=== PATIENT | female | born 1945 | race Caucasian/White ===

== ENCOUNTER 2016-05-14 08:41 | Outpatient (CLI) | payer MEDICARE, MEDICAID ==
[2016-05-14] MEDS ORDERED: NORMAL SALINE 1000 ML 1,000 ML IV PRN (09:27)
[2016-05-14 09:28] LABS: HEMATOCRIT 28.4 % (36.0-47.0); HEMOGLOBIN 8.3 g/dL (12.0-15.5); HGB HCT DIFFERENCE -3.5; MEAN CORPUSCULAR HEMOGLOBIN 21.1 pg (27.0-33.4); MEAN CORPUSCULAR HGB CONC 29.2 g/dL (32.0-36.0); MEAN CORPUSCULAR VOLUME 73 fl (80-97); RED BLOOD COUNT 3.92 10^6/uL (3.72-5.28); RED CELL DISTRIBUTION WIDTH 19.5 % (11.5-14.0); WHITE BLOOD COUNT 7.5 10^3/uL (4.0-10.5)
[2016-05-14] MEDS ORDERED: NORMAL SALINE 10 ML SDV (AFTER EACH USE) IV PRN (09:28)
[2016-05-14] MEDS ORDERED: ACETAMINOPHEN 325 MG TABLET PO PRN (09:28)
[2016-05-14] MEDS ORDERED: FUROSEMIDE INJ/PF 20 MG/2 ML SDV IV PRN (09:29)
[2016-05-14] MEDS ORDERED: DIPHENHYDRAMINE HCL 25 MG CAPSULE PO PRN (09:29)
[2016-05-14] MEDS ORDERED: DEXAMETHASONE SOD PHOSPHATE INJ 4 MG/1 ML VIAL IV PRN (09:31)
[2016-05-14] MEDS ORDERED: FERRIC CARBOXYMALTOSE 750 MG in NORMAL SALINE 250 ML IV PRN (09:31)
[2016-05-14 13:02] VITALS: BP 154/66
== END 2016-05-14 13:15 | disposition home or self-care (01) ==
LOC: II 08:41 → 5TH 08:51 → II 13:15
PROVIDERS: ATTEND Specialist
PROC: 30233N1 Transfusion of Nonautologous Red Blood Cells into Peripheral Vein, Percutaneous Approach (ICD-10-PCS; principal; 2016-05-14)
PROC: 3E033GC Introduction of Other Therapeutic Substance into Peripheral Vein, Percutaneous Approach (ICD-10-PCS; 2016-05-14)
DX: D64.9 Anemia, unspecified (principal)
CPT/HCPCS: 96365; 96375; 86900; 86901; 36430; 86850; 86920; P9016; A9270 ×2; J1100; J1940; J7050; J1439; 96367

== ENCOUNTER 2016-05-21 09:01 | Outpatient (CLI) | payer MEDICARE, MEDICAID ==
[~2016-05-21 09:01] MED LIST: FERRIC CARBOXYMALTOSE 750 MG in NORMAL SALINE 250 ML IV PRN; NORMAL SALINE 250 ML IV PRN
[2016-05-21 10:56] VITALS: BP 100/50
== END 2016-05-21 10:56 | disposition home or self-care (01) ==
LOC: II 09:01 → 5TH 09:06 → II 10:56
PROVIDERS: ATTEND Specialist
PROC: 3E033GC Introduction of Other Therapeutic Substance into Peripheral Vein, Percutaneous Approach (ICD-10-PCS; principal; 2016-05-21)
DX: D50.9 Iron deficiency anemia, unspecified (principal); K90.9 Intestinal malabsorption, unspecified
CPT/HCPCS: 96365; J7050; J1439

== ENCOUNTER → 2016-05-31 | Outpatient (CLI) | payer MEDICARE, MEDICAID | LOC: RAD 10:31 | PROVIDERS: ATTEND Specialist | DX: C85.90 Non-Hodgkin lymphoma, unspecified, unspecified site (principal) | CPT/HCPCS: 71260 ==

== ENCOUNTER 2016-08-13 12:01 | Day surgery (SDC) | payer MEDICARE, MEDICAID ==
[2016-08-13 15:29] LABS: FLUID TYPE PLEURAL
[2016-08-13 15:30] LABS: FLUID APPEARANCE CLOUDY; FLUID RBC AVERAGE 100.5; FLUID RBC SIDE 1 100; FLUID RBC SIDE 2 101
[2016-08-13 15:31] LABS: FLUID RBC DILUENT USED NONE USED; FLUID RBC DILUTION FACTOR 1; TOTAL RBC SQUARES COUNTED FLD 5
[2016-08-13 16:47] VITALS: BP 143/79
== END 2016-08-13 16:45 | disposition home or self-care (01) ==
LOC: RAD 12:01 → EDSTATUS 13:36 → RAD 16:45
PROVIDERS: ATTEND Specialist
PROC: 0W993ZZ Drainage of Right Pleural Cavity, Percutaneous Approach (ICD-10-PCS; principal; 2016-08-13)
DX: J90 Pleural effusion, not elsewhere classified (principal); E11.9 Type 2 diabetes mellitus without complications; E78.5 Hyperlipidemia, unspecified; J44.9 Chronic obstructive pulmonary disease, unspecified; E03.9 Hypothyroidism, unspecified; I48.91 Unspecified atrial fibrillation; R91.8 Other nonspecific abnormal finding of lung field; C81.90 Hodgkin lymphoma, unspecified, unspecified site; R06.02 Shortness of breath; R05 Cough; Z88.8 Allergy status to other drugs, medicaments and biological substances
CPT/HCPCS: 32555; 71010; 71020; 71035; 84157; 87070; 87075; 87205; 88305; 88341; 88342; 89050

== ENCOUNTER 2016-08-16 16:09 | Inpatient (IN) | payer MEDICARE, MEDICAID ==
[2016-08-16] MEDS ORDERED: IPRATROPIUM/ALBUTEROL 0.5-2.5 MG/3 ML AMPUL NEB ONE (16:54)
[2016-08-16 16:59] LABS: ALANINE AMINOTRANSFERASE 24 U/L (9-52); ALBUMIN 4.1 g/dL (3.5-5.0); ALKALINE PHOSPHATASE 143 U/L (38-126); ANION GAP 14 (5-19); ASPARTATE AMINO TRANSFERASE 18 U/L (14-36); BILIRUBIN,DIRECT 0.2 mg/dL (0.0-0.4); BLOOD UREA NITROGEN 11 mg/dL (7-20); CALCIUM 9.1 mg/dL (8.4-10.2); CARBON DIOXIDE 23 mmol/L (22-30); CHLORIDE 99 mmol/L (98-107); CREATININE RESULT 0.71 mg/dL (0.52-1.25); GLUCOSE 228 mg/dL (75-110); POTASSIUM 5.6 mmol/L (3.6-5.0); SODIUM 136.4 mmol/L (137-145); TOTAL PROTEIN 7.3 g/dL (6.3-8.2)
--- NOTE | 2016-08-16 17:00 | ER Document Report ---
ED Respiratory Problem - General Chief Complaint: Shortness Of Breath Stated Complaint: SHORTNESS OF BREATH Notes: Patient has been congested and short of breath and coughing up phlegm for the past 3 days. She's actually had URI symptoms for the preceding 10 days but got worse in the last 3. She's had a history of fluid in her lungs secondary to congestive heart failure and having to have the fluid removed. She underwent drainage of 1000 mL of fluid this past Tuesday. She underwent the same procedure in May and a couple of times last spring. Patient says that she' s been coughing up yellow phlegm. She has COPD and is a smoker. Unaware of any fever, however. Wears a C Pap device at home when sleeping because of sleep apnea. Patient is followed locally by Dr. 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 Other history as the patient had a benign brain tumor removed. IDDM. TRAVEL OUTSIDE OF THE [place] IN LAST 30 DAYS: No - Related Data Allergies/Adverse Reactions: moxifloxacin HCl [From Avelox] Allergy (Severe, Verified 08/16/16 16:43) rash,itch apixaban [From Eliquis] Allergy (Intermediate, Verified 08/16/16 16:43) swell dabigatran etexilate [From Pradaxa] Allergy (Intermediate, Verified 08/16/16 16: 43) swell lansoprazole [From Prevacid] Allergy (Intermediate, Verified 08/16/16 16:43) Generalized Itching aloe [Aloe] Allergy (Verified 08/16/16 16:43) Home Medications: Current Home Medications Alprazolam [Xanax] 1 mg PO Q8 08/16/16 [History] Aspirin [Aspirin EC] 81 mg PO DAILY 08/16/16 [History] Atorvastatin Calcium [Lipitor 20 mg Tablet] 20 mg PO DAILY 08/16/16 [History] Diltiazem HCl [Cartia Xt] 120 mg PO DAILY 08/16/16 [History] Docusate Sodium [Colace 100 mg Capsule] 100 mg PO Q12 08/16/16 [History] Esomeprazole Mag Trihydrate [Nexium] 40 mg PO DAILY 08/16/16 [History] Furosemide [Lasix] 40 mg PO TID 08/16/16 [History] Gabapentin [Neurontin 300 mg Capsule] 300 mg PO QHS 08/16/16 [History] Insulin Aspart Protam & Aspart [Novolog Mix 70-30 Vial] 25 units SQ MEALS [History] Levothyroxine Sodium [Synthroid] 200 mcg PO DAILY 08/16/16 [History] Magnesium Oxide [Mag-Ox 400 mg Tablet] 400 mg PO Q8 08/16/16 [History] Metoclopramide HCl [Reglan 10 mg Tablet] 10 mg PO Q12 08/16/16 [History] Potassium Chloride [K-Tab ER] 60 meq PO Q8 08/16/16 [History] Past Medical History - Social History Smoking Status: Current Every Day Smoker Cigarette use (# per day): Yes Family History: Reviewed & Not Pertinent Patient has suicidal ideation: No Patient has homicidal ideation: No - Past Medical History Cardiac Medical History: Reports: Hx Congestive Heart Failure, Hx Coronary Artery Disease, Hx Hypertension Denies: Hx Heart Attack Pulmonary Medical History: Reports: Hx Asthma, Hx Bronchitis, Hx COPD, Hx Pneumonia Neurological Medical History: Reports: Hx Cerebrovascular Accident Endocrine Medical History: Reports: Hx Diabetes Mellitus Type 1, Hx Diabetes Mellitus Type 2, Hx Hypothyroidism Malignancy Medical History: Reports: Hx Lymphoma - remission x 10yrs GI Medical History: Reports: Hx Gastroesophageal Reflux Disease Musculoskeltal Medical History: Reports Hx Arthritis Past Surgical History: Reports: Hx Appendectomy, Hx Cholecystectomy, Hx Hysterectomy, Hx Tonsillectomy, Hx Vascular Surgery - lymphnodes removed from groin and neck, Other - Benign brain tumor surgery. - Immunizations Hx Diphtheria, Pertussis, Tetanus Vaccination: No Hx Pneumococcal Vaccination: 01/16/13 Review of Systems - Review of Systems Notes: REVIEW OF SYSTEMS: CONSTITUTIONAL : Denies fever. EENT: Denies eye, ear, nose or mouth or throat pain or other symptoms. CARDIOVASCULAR: Denies chest pain. RESPIRATORY: See history of present illness. GASTROINTESTINAL: Denies abdominal pain or nausea, vomiting, or diarrhea. GENITOURINARY: Denies difficulty or painful urinating, urinary frequency, blood in urine. MUSCULOSKELETAL: Denies back or neck pain. Denies joint pain or swelling. SKIN: Denies rash or skin lesions. NEUROLOGICAL: Denies LOC or altered mental status. Denies headache. Denies sensory loss or motor deficits. ALL OTHER SYSTEMS REVIEWED AND NEGATIVE. Physical Exam - Vital signs Vitals: Resp Pulse Ox 19 99 08/16/16 16:48 08/16/16 16:48 Interpretation: Other - Vital signs at triage: 98.5, heart rate 125, BP 15 1/67 , respirations 27, and O2 sat 79%. - Notes Notes: PHYSICAL EXAMINATION: GENERAL: Chronically ill-appearing. Asked sleepy, but responds to voice questions and commands. Vital signs show hypoxia, tachypnea, tachycardia. Afebrile.. HEAD: Atraumatic, normocephalic. EYES: Pupils equal round and reactive to light, extraocular movements intact. NECK: Normal range of motion, supple. LUNGS: Breath sounds equal bilaterally. Diffuse expiratory wheezes heard bilaterally. HEART: Regular rate and rhythm without murmurs. ABDOMEN: Soft, nontender. No guarding or rebound. BACK: No tenderness throughout entire back. EXTREMITIES: Normal range of motion without pain. No acute pitting edema of either lower extremity. NEUROLOGICAL: Normal speech, normal gait. Normal sensory, motor, and reflex exams. Awake, alert, and oriented x3. Cranial nerves normal. PSYCH: Normal mood, normal affect. SKIN: Warm, dry, no rashes. Chronic dermatitis of both lower legs. Course - Re-evaluation Re-evalutation: 08/16/16 18:[address] Nguyen, hospitalist professional bondsman, who will admit the patient to [facility]. - Vital Signs Vital signs: Temp Pulse Resp BP Pulse Ox 22 H 167/82 H 89 L 08/16/16 20:01 08/16/16 20:01 08/16/16 20:01 - Laboratory Result Diagrams: 08/16/16 16:30 08/16/16 16:30 Laboratory results interpreted by me: 08/16/16 08/16/16 08/16/16 16:30 16:30 16:30 RBC 3.20 L Hgb 7.7 L Hct 24.8 L MCV 78 L MCH 24.0 L MCHC 30.9 L RDW 18.2 H Plt Count 144 L Seg Neutrophils % 87.8 H Lymphocytes % 6.8 L VBG pCO2 33.0 L VBG HCO3 17.7 L Sodium 136.4 L Potassium 5.6 H Glucose 228 H Alkaline Phosphatase 143 H Urine Protein 08/16/16 18:40 RBC Hgb Hct MCV MCH MCHC RDW Plt Count Seg Neutrophils % Lymphocytes % VBG pCO2 VBG HCO3 Sodium Potassium Glucose Alkaline Phosphatase Urine Protein 30 H - Diagnostic Test Radiology reviewed: Image reviewed, Reports reviewed - Chest x-ray shows a possible infiltrate in the right middle lower lobe area. In addition, there is a small area of pneumothorax on the right. - EKG Interpretation by Me EKG shows normal: Sinus rhythm Rate: Tachycardia Rhythm: NSR Additional EKG results interpreted by me: 08/16/16 17:09 EKG shows a left posterior fascicular block. No acute changes noted. Critical Care Note - Critical Care Note Total time excluding time spent on procedures (mins): 40 Discharge - Discharge Clinical Impression: COPD exacerbation, Pneumothorax, right Admitting Provider: Hospitalist Unit Admitted: [facility]
[2016-08-16 17:01] LABS: ABSOLUTE BASOPHILS # (AUTO) 0.1 10^3/uL (0.0-0.2); ABSOLUTE LYMPHOCYTES (AUTO) 0.6 10^3/uL (0.5-4.7); ABSOLUTE MONOCYTES (AUTO) 0.3 10^3/uL (0.1-1.4); ABSOLUTE NEUT (AUTO) 7.1 10^3/uL (1.7-8.2); BASOPHILS % (AUTO) 1.2 % (0-2); EOSINOPHILS % (AUTO) 0.1 % (0-6); HEMATOCRIT 24.8 % (36.0-47.0); HGB HCT DIFFERENCE -1.7; LYMPHOCYTES % (AUTO) 6.8 % (13-45); MEAN CORPUSCULAR HGB CONC 30.9 g/dL (32.0-36.0); MEAN CORPUSCULAR VOLUME 78 fl (80-97); MONOCYTES % (AUTO) 4.1 % (3-13); RED CELL DISTRIBUTION WIDTH 18.2 % (11.5-14.0); SEGMENTED NEUTROPHILS % (AUTO) 87.8 % (42-78); WHITE BLOOD COUNT 8.1 10^3/uL (4.0-10.5)
[2016-08-16 17:03] LABS: VENOUS BLOOD BASE EXCESS -6.9 mmol/L; VENOUS BLOOD HCO3 17.7 mmol/L (20-32); VENOUS BLOOD PH 7.35 (7.30-7.42)
[2016-08-16 17:07] LABS: HEMOGLOBIN 7.7 g/dL (12.0-15.5)
[2016-08-16 17:14] LABS: CREATINE KINASE MB 1.83 ng/mL (<4.55)
[2016-08-16 17:23] LABS: TROPONIN I 0.035 ng/mL
--- NOTE | 2016-08-16 18:20 | EKG REPORT ---
SEVERITY:- ABNORMAL ECG - SINUS TACHYCARDIA LEFT POSTERIOR FASCICULAR BLOCK BORDERLINE REPOL ABNORMALITY, DIFFUSE LEADS : Confirmed by: Galen Altamirano MD 16-Aug-2016 18:19:57
[2016-08-16 19:07] LABS: APPEARANCE,URINE CLEAR; BILIRUBIN,URINE NEGATIVE (NEGATIVE); GLUCOSE, URINE NEGATIVE (NEGATIVE); KETONES,URINE NEGATIVE (NEGATIVE); LEUKOCYTE ESTERASE,URINE NEGATIVE (NEGATIVE); NITRITE,URINE NEGATIVE (NEGATIVE); PROTEIN,URINE 30 mg/dL (NEGATIVE); URINE SPECIFIC GRAVITY 1.012; UROBILINOGEN,URINE NEGATIVE mg/dL (<2.0)
[2016-08-16] MEDS ORDERED: GLUCAGON,HUMAN RECOMB 1 MG INJ SUBCUT PRN (19:38)
[2016-08-16] MEDS ORDERED: DEXTROSE 40% GEL 15 GM TUBE PO PRN ×2 (19:38)
[2016-08-16] MEDS ORDERED: DEXTROSE 50%-WATER 25 GM/50 ML DISP.SYRIN IV PRN ×2 (19:38)
--- NOTE | 2016-08-16 19:59 | PDOC H&P ---
History of Present Illness Admission Date/PCP: 08/16/16 18:57 MD Margi LANG Patient complains of: Shortness of breath History of Present Illness: SITA MANRIQUE is a 70 year old female We will underwent on Sunday 08/13 thoracentesis at [facility] interventional radiology for a large right pleural effusion Patient did well on Tuesday since Tuesday she had increasing shortness of breath and cough Upon evaluation in the ED patient was diagnosed of the right pneumothorax, general surgery was called and the chest tube was to be inserted Patient was subsequently admitted under hospitalist service to the intensive care unit for further evaluation and care Patient has a known history of chest, COPD ,obstructive sleep apnea. She still a heavy smoker of 2 packs a day She is followed by Dr. De Anda non-Hodgkin's lymphoma which she is now still in remission after 12 years Past Medical History Cardiac Medical History: Reports: Congestive Heart Failure, Coronary Artery Disease, Hypertension Denies: Myocardial Infarction Pulmonary Medical History: Reports: Asthma, Bronchitis, Chronic Obstructive Pulmonary Disease (COPD), Pneumonia Endocrine Medical History: Reports: Diabetes Mellitus Type 1, Diabetes Mellitus Type 2, Hypothyroidism Malignancy Medical History: Reports: Lymphoma - remission x 10yrs GI Medical History: Reports: Gastroesophageal Reflux Disease Musculoskeltal Medical History: Reports: Arthritis Hematology: Reports: Anemia Past Surgical History Past Surgical History: Reports: Appendectomy, Cholecystectomy, Hysterectomy, Tonsillectomy, Vascular Surgery - lymphnodes removed from groin and neck, Other - Benign brain tumor surgery. Social History Lives with: Family Smoking Status: Current Every Day Smoker Cigarettes Packs Per Day: 60 Frequency of Alcohol Use: None Hx Recreational Drug Use: No Drugs: None Hx Prescription Drug Abuse: No - Advance Directive Resuscitation Status: Full Code Surrogate healthcare decision maker:: Her daughter Celina Family History Family History: CAD, DM, Malignancy Parental Family History Reviewed: Yes Children Family History Reviewed: Yes Sibling(s) Family History Reviewed.: Yes Medication/Allergy Home Medications: Alprazolam [Xanax] 1 mg PO TID 12/23/14 Atorvastatin Calcium [Lipitor 20 mg Tablet] 20 mg PO QHS 12/23/14 Docusate Sodium [Colace 100 mg Capsule] 100 mg PO BID 12/23/14 Esomeprazole Mag Trihydrate [Nexium] 40 mg PO DAILY 12/23/14 Furosemide [Lasix 40 mg Tablet] 40 mg PO TID 12/23/14 Gabapentin [Neurontin 300 mg Capsule] 300 mg PO QHS 12/23/14 Levothyroxine Sodium [Synthroid] 200 mcg PO DAILY 12/23/14 Magnesium Oxide [Mag-Ox 400 mg Tablet] 400 mg PO BID 12/23/14 Metoclopramide HCl [Reglan 10 mg Tablet] 10 mg PO BID 12/23/14 Potassium Chloride [Klor-Con] 180 meq PO DAILY 12/23/14 Diltiazem HCl [Cartia Xt] 120 mg PO DAILY 06/15/15 Aspirin [Aspirin EC] 1 tab PO DAILY 11/11/15 Cholecalciferol (Vitamin D3) [Vitamin D3 1000 Unit Tablet] 1 tab PO DAILY Insulin Aspart Protam & Aspart [Novolog Mix 70-30 Flexpen Syrn] 20 units SUBCUT TID 11/11/15 Albuterol Sulfate [Ventolin Hfa] 2 puff IH Q4 PRN 05/14/16 Amoxicillin 500 mg PO BID 05/14/16 Prednisone 10 mg PO DAILY 05/14/16 Allergies/Adverse Reactions: moxifloxacin HCl [From Avelox] Allergy (Severe, Verified 08/16/16 16:43) rash,itch apixaban [From Eliquis] Allergy (Intermediate, Verified 08/16/16 16:43) swell dabigatran etexilate [From Pradaxa] Allergy (Intermediate, Verified 08/16/16 16: 43) swell lansoprazole [From Prevacid] Allergy (Intermediate, Verified 08/16/16 16:43) Generalized Itching aloe [Aloe] Allergy (Verified 08/16/16 16:43) Review of Systems ROS unobtainable: Other - Due to BiPAP Physical Exam Vital Signs: Temp Pulse Resp BP Pulse Ox 15 135/84 H 100 08/16/16 18:01 08/16/16 18:01 08/16/16 18:01 General appearance: PRESENT: mild distress, obese Head exam: PRESENT: atraumatic, normocephalic Eye exam: PRESENT: conjunctiva pink, EOMI, PERRLA. ABSENT: scleral icterus Neck exam: ABSENT: carotid bruit, JVD, lymphadenopathy, thyromegaly Respiratory exam: PRESENT: decreased breath sounds, rhonchi, wheezes. ABSENT: rales Cardiovascular exam: PRESENT: RRR, tachycardia Pulses: PRESENT: normal dorsalis pedis pul Vascular exam: PRESENT: normal capillary refill GI/Abdominal exam: PRESENT: normal bowel sounds, soft. ABSENT: distended, guarding, mass, organolmegaly, rebound, tenderness Rectal exam: PRESENT: deferred Neurological exam: PRESENT: alert, awake, oriented to person, oriented to place , oriented to time, oriented to situation, CN II-XII grossly intact. ABSENT: motor sensory deficit Skin exam: PRESENT: dry, intact, warm. ABSENT: cyanosis, rash Results Laboratory Results: Labs- All tests 24 hr 08/16/16 08/16/16 08/16/16 16:30 16:30 16:30 WBC 8.1 RBC 3.20 L Hgb 7.7 L Hct 24.8 L MCV 78 L MCH 24.0 L MCHC 30.9 L RDW 18.2 H Plt Count 144 L Seg Neutrophils % 87.8 H Lymphocytes % 6.8 L Monocytes % 4.1 Eosinophils % 0.1 Basophils % 1.2 Absolute Neutrophils 7.1 Absolute Lymphocytes 0.6 Absolute Monocytes 0.3 Absolute Eosinophils 0.0 Absolute Basophils 0.1 VBG pH VBG pCO2 VBG HCO3 VBG Base Excess Sodium 136.4 L Potassium 5.6 H Chloride 99 Carbon Dioxide 23 Anion Gap 14 BUN 11 Creatinine 0.71 Est GFR ( Amer) > 60 Est GFR (Non-Af Amer) > 60 Glucose 228 H Calcium 9.1 Total Bilirubin 1.0 Direct Bilirubin 0.2 Indirect Bilirubin Not Reportable Neonat Total Bilirubin Not Reportable AST 18 ALT 24 Alkaline Phosphatase 143 H CK-MB (CK-2) 1.83 Troponin I 0.035 Total Protein 7.3 Albumin 4.1 Urine Color Urine Appearance Urine pH Ur Specific [place] Urine Protein Urine Glucose (UA) Urine Ketones Urine Blood Urine Nitrite Urine Bilirubin Urine Urobilinogen Ur Leukocyte Esterase Urine WBC (Auto) Urine RBC (Auto) U Hyaline Cast (Auto) Squamous Epi Cells Auto Urine Ascorbic Acid 08/16/16 08/16/16 16:30 18:40 WBC RBC Hgb Hct MCV MCH MCHC RDW Plt Count Seg Neutrophils % Lymphocytes % Monocytes % Eosinophils % Basophils % Absolute Neutrophils Absolute Lymphocytes Absolute Monocytes Absolute Eosinophils Absolute Basophils VBG pH 7.35 VBG pCO2 33.0 L VBG HCO3 17.7 L VBG Base Excess -6.9 Sodium Potassium Chloride Carbon Dioxide Anion Gap BUN Creatinine Est GFR ( Amer) Est GFR (Non-Af Amer) Glucose Calcium Total Bilirubin Direct Bilirubin Indirect Bilirubin Neonat Total Bilirubin AST ALT Alkaline Phosphatase CK-MB (CK-2) Troponin I Total Protein Albumin Urine Color YELLOW Urine Appearance CLEAR Urine pH 6.0 Ur Specific [place] 1.012 Urine Protein 30 H Urine Glucose (UA) NEGATIVE Urine Ketones NEGATIVE Urine Blood NEGATIVE Urine Nitrite NEGATIVE Urine Bilirubin NEGATIVE Urine Urobilinogen NEGATIVE Ur Leukocyte Esterase NEGATIVE Urine WBC (Auto) 1 Urine RBC (Auto) 0 U Hyaline Cast (Auto) 3 Squamous Epi Cells Auto 2 Urine Ascorbic Acid NEGATIVE EKG Comments: SINUS TACHYCARDIA [LPFB] . LEFT POSTERIOR FASCICULAR BLOCK [REPBDI] . BORDERLINE REPOL ABNORMALITY, DIFFUSE LEADS [id number] SITA MANRIQUE 16-Aug-2016 16:34:43 : 1945 70 Years Female Race: White Dept: ED Oper: V VELTEN HR 125 OH 96 QRSD 108 QT 332 QTc 479 -- AXIS -- P 0 QRS 90 T -8 Requested By: SIGIFREDO AMIN Impressions: Chest X-Ray 08/16/16 16:31 IMPRESSION: 1. A a an infiltrate cannot be ruled out in the right middle lower lower lobe. 2. There is now an air-fluid level in the right base suggesting partial pneumothorax. This is likewise suggested in the right apex or bleed the pleural line of the lung can be seen obliquely. Assessment & Plan - Diagnosis (1) Hydropneumothorax Is this a current diagnosis for this admission?: YesPlan: Dr. De Anda general surgery was called a consult to place a chest tube Patient was taken off BiPAP and placed on a nasal cannula (2) COPD exacerbation Is this a current diagnosis for this admission?: YesPlan: Likely as patient has had increasing shortness of breath We will treat her with nebs and steroids after chest tubes has been placed (3) Congestive heart failure Qualifiers: Congestive heart failure type: diastolic Congestive heart failure chronicity: acute on chronic Qualified Code(s): I50.33 - Acute on chronic diastolic (congestive) heart failure Is this a current diagnosis for this admission?: YesPlan: Last echocardiogram in 2014 showed a normal left ventricular ejection fraction Patient appears clinically fluid overloaded We will diurese her gently We will continue her present medications (4) Tobacco abuse Is this a current diagnosis for this admission?: YesPlan: Nicotine patch will be applied (5) Pneumonia Qualifiers: Pneumonia type: due to unspecified organism Laterality: unspecified laterality Lung location: unspecified part of lung Qualified Code(s) : J18.9 - Pneumonia, unspecified organism Is this a current diagnosis for this admission?: YesPlan: Cannot be ruled out Patient states that she's been coughing up yellow mucus We will treat her with Zithromax IV and ceftriaxone Noted that patient is allergic to moxifloxacin - Time Time Spent: Greater than 70 Minutes - Inpatient Certification Based on my medical assessment, after consideration of the patient's comorbidities, presenting symptoms, or acuity I expect that the services needed warrant INPATIENT care.: Yes I certify that my determination is in accordance with my understanding of Medicare's requirements for reasonable and necessary INPATIENT services [42 CFR 412.3e].: Yes Medical Necessity: Need For Continuous Telemetry Monitoring, Need for Nebulizer Therapy and Monitoring of Response, Need for IV Antibiotics
[2016-08-16] MEDS ORDERED: LIDOCAINE 1% INJ-PF (10 MG/ML) 30 ML SDV ONE (20:48)
[2016-08-16] MEDS ORDERED: PANTOPRAZOLE SODIUM 40 MG VIAL IV SCH (22:00)
[2016-08-16] MEDS ORDERED: HYDROMORPHONE HCL INJ/PF 2 MG/ML AMPULE ONE (22:03)
[2016-08-16] MEDS ORDERED: LORAZEPAM INJ 2 MG/1 ML VIAL ONE (22:04)
[2016-08-16] MEDS ORDERED: LORAZEPAM INJ 2 MG/1 ML VIAL IV ONE (22:06)
[2016-08-16] MEDS ORDERED: HYDROMORPHONE HCL INJ/PF 2 MG/ML AMPULE IV ONE (22:07)
[2016-08-16] MEDS: METHYLPREDNISOLONE INJ 125 MG/2 ML SDV IV SCH (23:59)
[2016-08-17] MEDS: CEFTRIAXONE 1 GM/D5W RTU 1 GM/50 ML RTUPB IV SCH ×2 (00:01→23:21)
[2016-08-17] MEDS: AZITHROMYCIN 500 MG in DEXTROSE 5%-WATER 250 ML IV SCH ×2 (00:02→23:19)
[2016-08-17] MEDS: FUROSEMIDE INJ/PF 40 MG/4 ML SDV IV SCH ×3 (00:09→23:20)
--- NOTE | 2016-08-17 00:18 | OPERATIVE REPORT E ---
Operative Report NAME: SITA MANRIQUE : 1945 AGE: 70Y DATE OF SURGERY: 09/16/2016 ROOM: 609 PREOPERATIVE DIAGNOSIS: Right pleural effusion along with pneumothorax. POSTOPERATIVE DIAGNOSIS: Right pleural effusion along with pneumothorax. OPERATION: Placement of right chest tube. SURGEON: EUSEBIA DEAN M.D. ANESTHESIA: Local done in the intensive care unit. INFORMED CONSENT: The risks and possible complications of right chest tube placement have been explained to patient, including but not limited to bleeding, infection, anesthesia risks, heart and lung problems, wound healing problems, continued pneumothorax, injuries to the chest causing bleeding or other major complications needing further procedure, continued need for further procedures if not fully drained, pain, wound infection, empyema, etc. She accepts the risks. PROCEDURE: The patient's right chest was then prepped and draped in the usual sterile fashion. The skin overlying the 5th intercostal on the right side was injected with 1% lidocaine near the mid axillary line. An incision was then made in the skin. It was carried down to the 5th rib. The 4th intercostal space was then entered overlying the 5th rib. A #36 chest tube was then placed through the incision, through the opening in the pleura, and into the right chest. There was a significant amount of fluid being drained. The chest tube was then secured to the skin using #0 silk suture. Vaseline gauze was then placed around the insertion site and then dry dressings along with tape. A stat chest x-ray was ordered. No immediate complications. The patient had 1200 mL of serous fluid draining out through the chest tube along with approximately 300-400 mL draining onto the bed. DICTATING PHYSICIAN: EUSEBIA DEAN M.D. [id number] PHY#: [id number] ID: [id number] JOB#: [id number] ACCT: [id number] cc:EUSEBIA DEAN M.D. >
[2016-08-17] MEDS: HYDROMORPHONE HCL INJ/PF 2 MG/ML AMPULE IV PRN ×6 (01:49→23:17)
[2016-08-17 03:15] LABS: FLUID APPEARANCE CLOUDY; FLUID RBC SIDE 1 177; FLUID RBC SIDE 2 173; FLUID TYPE PLEURAL
[2016-08-17 03:16] LABS: FLUID RBC DILUENT USED SALINE; FLUID RBC DILUTION FACTOR 10; TOTAL RBC SQUARES COUNTED FLD 25
[2016-08-17 04:01] LABS: PROTHROMBIN TIME 13.7 SEC (11.4-15.4)
[2016-08-17 04:07] LABS: ABSOLUTE BASOPHILS # (AUTO) 0.1 10^3/uL (0.0-0.2); ABSOLUTE LYMPHOCYTES (AUTO) 0.6 10^3/uL (0.5-4.7); ABSOLUTE MONOCYTES (AUTO) 0.8 10^3/uL (0.1-1.4); ABSOLUTE NEUT (AUTO) 10.8 10^3/uL (1.7-8.2); ALANINE AMINOTRANSFERASE 24 U/L (9-52); ALBUMIN 3.6 g/dL (3.5-5.0); ALKALINE PHOSPHATASE 120 U/L (38-126); ANION GAP 11 (5-19); ASPARTATE AMINO TRANSFERASE 14 U/L (14-36); BASOPHILS % (AUTO) 0.6 % (0-2); BILIRUBIN,DIRECT 0.3 mg/dL (0.0-0.4); BILIRUBIN,TOTAL 0.9 mg/dL (0.2-1.3); BLOOD UREA NITROGEN 14 mg/dL (7-20); CALCIUM 8.8 mg/dL (8.4-10.2); CARBON DIOXIDE 26 mmol/L (22-30); CHLORIDE 101 mmol/L (98-107); CREATININE RESULT 0.82 mg/dL (0.52-1.25); GLUCOSE 209 mg/dL (75-110); HEMATOCRIT 22.1 % (36.0-47.0); HGB HCT DIFFERENCE -1.4; LYMPHOCYTES % (AUTO) 5.2 % (13-45); MEAN CORPUSCULAR HEMOGLOBIN 23.7 pg (27.0-33.4); MEAN CORPUSCULAR HGB CONC 31.2 g/dL (32.0-36.0); MEAN CORPUSCULAR VOLUME 76 fl (80-97); MONOCYTES % (AUTO) 6.7 % (3-13); POTASSIUM 5.3 mmol/L (3.6-5.0); RED CELL DISTRIBUTION WIDTH 18.3 % (11.5-14.0); SEGMENTED NEUTROPHILS % (AUTO) 87.5 % (42-78); TOTAL PROTEIN 6.8 g/dL (6.3-8.2); WHITE BLOOD COUNT 12.3 10^3/uL (4.0-10.5)
[2016-08-17 04:25] LABS: HEMOGLOBIN 6.9 g/dL (12.0-15.5)
[2016-08-17] MEDS: METHYLPREDNISOLONE INJ 125 MG/2 ML SDV IV SCH (06:14)
[2016-08-17] MEDS ORDERED: DEXTROSE 50%-WATER 25 GM/50 ML DISP.SYRIN IV PRN ×2 (07:45)
[2016-08-17] MEDS ORDERED: GLUCAGON,HUMAN RECOMB 1 MG INJ IM PRN (07:45)
[2016-08-17] MEDS ORDERED: DEXTROSE 40% GEL 15 GM TUBE PO PRN ×2 (07:45)
--- NOTE | 2016-08-17 07:55 | EKG REPORT ---
SEVERITY:- ABNORMAL ECG - SINUS TACHYCARDIA MINIMAL ST DEPRESSION, DIFFUSE LEADS : Confirmed by: Galen Altamirano MD 17-Aug-2016 07:54:38
[2016-08-17] MEDS ORDERED: INSULIN ASPART PROTAM SQ SCH (08:00)
[2016-08-17] MEDS ORDERED: [UNRECOGNIZED DRUG - OTHER] SQ SCH (08:00)
[2016-08-17] MEDS ORDERED: ASPART SQ SCH (08:00)
--- NOTE | 2016-08-17 08:01 | PDOC PROGRESS REPORT ---
Subjective Progress Note for:: 08/17/16 Subjective:: Patient complains of pain at right chest tube site. Patient denies fever, chills , headache, new focal weakness, shortness of breath, abdominal pain, nausea, vomiting, diarrhea, constipation. Physical Exam Vital Signs: Temp Pulse Resp BP Pulse Ox 98.2 F 102 H 12 115/64 96 08/17/16 06:27 08/17/16 06:27 08/17/16 06:29 08/17/16 06:29 08/17/16 06:29 Intake & Output 08/16/16 08/17/16 08/18/16 06:59 06:59 06:59 Intake Total 0 Output Total 0 Balance 0 Weight 88.4 kg GENERAL: No acute distress HEENT: Conjunctiva clear, nonicteric, moist mucous membranes, no JVD, midline trachea RESPIRATORY: Right anterior lung field rhonchi, right chest tube CARDIAC: Regular rate and rhythm, no murmurs/gallops/rubs ABDOMEN: Soft, nondistended, nontender, positive bowel sounds, no rebound, no guarding EXTREMETIES: No edema, cyanosis, clubbing NEUROLOGIC: Alert, oriented to person/place/time, CN's grossly intact, no focal deficits SKIN: No rash, wounds PSYCH: Normal mood, normal affect Results Laboratory Results: 08/17/16 03:36 08/17/16 03:36 08/17/16 08/17/16 08/17/16 01:50 03:36 03:36 WBC 12.3 H RBC 2.90 L Hgb 6.9 L Hct 22.1 L MCV 76 L MCH 23.7 L MCHC 31.2 L RDW 18.3 H Plt Count 131 L Seg Neutrophils % 87.5 H Lymphocytes % 5.2 L Monocytes % 6.7 Eosinophils % 0.0 Basophils % 0.6 Absolute Neutrophils 10.8 H Absolute Lymphocytes 0.6 Absolute Monocytes 0.8 Absolute Eosinophils 0.0 Absolute Basophils 0.1 Sodium 138.0 Potassium 5.3 H Chloride 101 Carbon Dioxide 26 Anion Gap 11 BUN 14 Creatinine 0.82 Est GFR ( Amer) > 60 Est GFR (Non-Af Amer) > 60 Glucose 209 H Calcium 8.8 Total Bilirubin 0.9 AST 14 ALT 24 Alkaline Phosphatase 120 Total Protein 6.8 Albumin 3.6 Fluid Type PLEURAL Fluid Source LUNG Fluid Color ORANGE Fluid Appearance CLOUDY Fluid Viscosity LIQUID Fluid WBC 1035 Fluid RBC [id number] 08/17/16 03:36 NT-Pro-B Natriuret Pep 1860 H Impressions: Chest X-Ray 08/17/16 06:00 IMPRESSION: [id number] mixed interstitial and airspace opacities and small left effusion with some interval interval improved aeration of the right lower lung field. Right chest tube. Assessment & Plan - Diagnosis (1) Acute and chronic respiratory failure ([id number]) Is this a current diagnosis for this admission?: YesPlan: Continue BiPAP at night for obstructive sleep apnea. (2) Hydropneumothorax Is this a current diagnosis for this admission?: YesPlan: Resulted from recent diagnostic thoracentesis. Status post chest tube placement. Surgery managing. (3) Bilateral pneumonia Qualifiers: Pneumonia type: due to unspecified organism Lung location: lower lobe of lung Qualified Code(s): J18.9 - Pneumonia, unspecified organism Is this a current diagnosis for this admission?: YesPlan: Continue IV Rocephin and IV azithromycin for now. (4) Acute CHF Qualifiers: Congestive heart failure type: unspecified congestive heart failure type Qualified Code(s): I50.9 - Heart failure, unspecified Is this a current diagnosis for this admission?: YesPlan: Echocardiogram from 2 years ago shows normal EF, no evidence of diastolic dysfunction, no significant valvular disease. Patient states that she is followed by a semiconductor manufacturing technician but doesn't remember his name. Continue IV Lasix for now. (5) Acute post-hemorrhagic anemia Is this a current diagnosis for this admission?: YesPlan: Transfuse 1 unit PRBC. Follow-up H&H. (6) COPD (chronic obstructive pulmonary disease) Is this a current diagnosis for this admission?: YesPlan: When necessary duo nebs. (7) Lymphoma in remission Is this a current diagnosis for this admission?: YesPlan: Followed by Dr. Fatimah De Anda of oncology. Consult Dr. De Anda (8) Hyperkalemia Is this a current diagnosis for this admission?: YesPlan: Continue to hold outpatient potassium supplementation. Continue IV Lasix. (9) Diabetes mellitus type 1 Is this a current diagnosis for this admission?: YesPlan: Scheduled 70/30 insulin 25 units twice daily. Sliding scale insulin coverage. (10) Hypothyroidism Is this a current diagnosis for this admission?: YesPlan: Synthroid (11) Hypercholesterolemia Is this a current diagnosis for this admission?: Yes (12) Hypertension Is this a current diagnosis for this admission?: Yes (13) Tobacco abuse Is this a current diagnosis for this admission?: Yes - Time Time Spent with patient: 35 or more minutes
[2016-08-17] MEDS: LEVOTHYROXINE SODIUM 0.1 MG TABLET PO SCH (09:07)
[2016-08-17] MEDS: METOCLOPRAMIDE HCL 10 MG TABLET PO SCH ×2 (09:07→23:18)
[2016-08-17] MEDS: DOCUSATE SODIUM 100 MG CAPSULE PO SCH ×2 (09:07→23:18)
[2016-08-17] MEDS ORDERED: (PENDING PHARMACY ID) (Esomeprazole Mag Trihydrate [Nexium] 40 MG) PO SCH (10:00)
[2016-08-17] MEDS: INSULIN LISPRO 100 UNIT/ML 3 ML VIAL SUBCUT PRN ×3 (11:46→23:17)
[2016-08-17] MEDS: MAGNESIUM OXIDE 400 MG TABLET PO SCH ×2 (14:14→23:18)
[2016-08-17] MEDS: IPRATROPIUM/ALBUTEROL 0.5-2.5 MG/3 ML AMPUL NEB PRN ×2 (14:22→21:04)
--- NOTE | 2016-08-17 19:51 | PDOC CONSULTATION ---
Consultation Consult Date: 08/17/16 Consult reason:: Remote h/o NHL History of Present Illness Admission Date/PCP: 08/16/16 19:38 SPRING DEAN MD History of Present Illness: SITA MANRIQUE is a 70 year old female with a remote h/o NHL as well as ongoing tobacco abuse, HTN, sleep apnea, afib with prior CVA and heme + stools treated with iron who was admitted with hemopneumothorax. She had worsening shortness of breath last week and CXR revealed a pleural effusion. Given her symptoms, she underwent [place] [facility] [place] [place] [place] a large right pleural effusion with relief of her symptoms. Patient did well on Tuesday but since Tuesday she had increasing shortness of breath and cough. She thought it was a COPD exacerbation but we referred her to the ED for concerns for possible other etiologies. Upon evaluation in the ED patient she was diagnosed with a right pneumothorax, general surgery was called and the chest tube was inserted Patient was subsequently admitted under hospitalist service to the intensive care unit for further evaluation and care Patient has a known history of chest, COPD ,obstructive sleep apnea. She still a heavy smoker of 2 packs a day She has a h/o non-Hodgkin's lymphoma which she is now still in remission after 12 years with recent cytology from her effusion negative. Past Medical History Cardiac Medical History: Reports: Congestive Heart Failure, Coronary Artery Disease, Hypertension Denies: Myocardial Infarction Pulmonary Medical History: Reports: Asthma, Bronchitis, Chronic Obstructive Pulmonary Disease (COPD), Pneumonia Endocrine Medical History: Reports: Diabetes Mellitus Type 1, Diabetes Mellitus Type 2, Hypothyroidism Malignancy Medical History: Reports: Lymphoma - remission x 10yrs GI Medical History: Reports: Gastroesophageal Reflux Disease Musculoskeltal Medical History: Reports: Arthritis Hematology: Reports: Anemia Past Surgical History Past Surgical History: Reports: Appendectomy, Cholecystectomy, Hysterectomy, Tonsillectomy, Vascular Surgery - lymphnodes removed from groin and neck, Other - Benign brain tumor surgery. Social History Lives with: Family Smoking Status: Current Every Day Smoker Cigarettes Packs Per Day: 2 Frequency of Alcohol Use: None Hx Recreational Drug Use: No Drugs: None Hx Prescription Drug Abuse: No - Advance Directive Resuscitation Status: Full Code Family History Family History: Reviewed & Not Pertinent Parental Family History Reviewed: Yes Children Family History Reviewed: Yes Sibling(s) Family History Reviewed.: Yes Medication/Allergy Home Medications: Alprazolam [Xanax] 1 mg PO Q8 08/16/16 Aspirin [Aspirin EC] 81 mg PO DAILY 08/16/16 Atorvastatin Calcium [Lipitor 20 mg Tablet] 20 mg PO DAILY 08/16/16 Diltiazem HCl [Cartia Xt] 120 mg PO DAILY 08/16/16 Docusate Sodium [Colace 100 mg Capsule] 100 mg PO Q12 08/16/16 Esomeprazole Mag Trihydrate [Nexium] 40 mg PO DAILY 08/16/16 Furosemide [Lasix] 40 mg PO TID 08/16/16 Gabapentin [Neurontin 300 mg Capsule] 300 mg PO QHS 08/16/16 Insulin Aspart Protam & Aspart [Novolog Mix 70-30 Vial] 25 units SQ MEALS Levothyroxine Sodium [Synthroid] 200 mcg PO DAILY 08/16/16 Magnesium Oxide [Mag-Ox 400 mg Tablet] 400 mg PO Q8 08/16/16 Metoclopramide HCl [Reglan 10 mg Tablet] 10 mg PO Q12 08/16/16 Potassium Chloride [K-Tab ER] 60 meq PO Q8 08/16/16 Allergies/Adverse Reactions: moxifloxacin HCl [From Avelox] Allergy (Severe, Verified 08/16/16 16:43) rash,itch apixaban [From Eliquis] Allergy (Intermediate, Verified 08/16/16 16:43) swell dabigatran etexilate [From Pradaxa] Allergy (Intermediate, Verified 08/16/16 16: 43) swell lansoprazole [From Prevacid] Allergy (Intermediate, Verified 08/16/16 16:43) Generalized Itching aloe [Aloe] Allergy (Verified 08/16/16 16:43) Review of Systems Cardiovascular: PRESENT: dyspnea on exertion Respiratory: PRESENT: dyspnea Genitourinary: PRESENT: as per HPI Musculoskeletal: PRESENT: as per HPI Physical Exam Vital Signs: Temp Pulse Resp BP Pulse Ox 98.4 F 122 H 12 117/60 97 08/17/16 16:00 08/17/16 16:00 08/17/16 18:00 08/17/16 16:23 08/17/16 18:00 Intake & Output 08/16/16 08/17/16 08/18/16 06:59 06:59 06:59 Intake Total 0 1124 Output Total 0 5 Balance 0 -901 Weight 88.4 kg General appearance: PRESENT: mild distress Head exam: PRESENT: atraumatic Eye exam: PRESENT: conjunctiva pale, EOMI, PERRLA Respiratory exam: PRESENT: chest wall tenderness, prolonged expiratory phas Cardiovascular exam: PRESENT: RRR GI/Abdominal exam: PRESENT: normal bowel sounds Musculoskeletal exam: PRESENT: full ROM Neurological exam: PRESENT: alert, oriented to person, oriented to place, oriented to situation, CN II-XII grossly intact Results Laboratory Results: 08/17/16 03:36 08/17/16 03:36 08/17/16 08/17/16 08/17/16 01:50 03:36 03:36 WBC 12.3 H RBC 2.90 L Hgb 6.9 L Hct 22.1 L MCV 76 L MCH 23.7 L MCHC 31.2 L RDW 18.3 H Plt Count 131 L Seg Neutrophils % 87.5 H Lymphocytes % 5.2 L Monocytes % 6.7 Eosinophils % 0.0 Basophils % 0.6 Absolute Neutrophils 10.8 H Absolute Lymphocytes 0.6 Absolute Monocytes 0.8 Absolute Eosinophils 0.0 Absolute Basophils 0.1 Sodium 138.0 Potassium 5.3 H Chloride 101 Carbon Dioxide 26 Anion Gap 11 BUN 14 Creatinine 0.82 Est GFR ( Amer) > 60 Est GFR (Non-Af Amer) > 60 Glucose 209 H Calcium 8.8 Total Bilirubin 0.9 AST 14 ALT 24 Alkaline Phosphatase 120 Total Protein 6.8 Albumin 3.6 Fluid Type PLEURAL Fluid Source LUNG Fluid Color ORANGE Fluid Appearance CLOUDY Fluid Viscosity LIQUID Fluid WBC 1035 Fluid RBC 60467 08/17/16 03:36 NT-Pro-B Natriuret Pep 1860 H Impressions: Chest X-Ray 08/17/16 06:00 IMPRESSION: [id number] mixed interstitial and airspace opacities and small left effusion with some interval interval improved aeration of the right lower lung field. Right chest tube. Assessment & Plan - Diagnosis (1) Anemia Qualifiers: Anemia type: iron deficiency Plan: Due to hydropneumothorax, treating with PRBC's (3) Lymphoma in remission Is this a current diagnosis for this admission?: YesPlan: No evidence of recurrence but need to find etiology of effusion such as CHF, etc (5) Hydropneumothorax Is this a current diagnosis for this admission?: YesPlan: Chest tube per surgery - Time Medications reviewed and adjusted accordingly: Yes
--- NOTE | 2016-08-17 23:03 | PROGRESS NOTE E ---
Progress Note NAME: SITA MANRIQUE : 1945 AGE: 70Y DATE: 08/17/2016 ROOM: 609 SUBJECTIVE: The patient underwent right chest tube placement yesterday for a right pleural effusion with pneumothorax. Patient is sedated and sleeping at the current time without any distress. OBJECTIVE: Patient has a right chest tube without air leak being present. VITAL SIGNS: Temperature 98.2, blood pressure 117/62, heart rate 101. She has had approximately 300 mL out since the chest pain was initially placed after the initial output. ASSESSMENT: Right pleural effusion with pneumothorax, resolved with chest tube placement. We will await drainage decreasing below 50 mL before removal. PLAN: 1. Continue chest tube to low wall suction. 2. Follow up chest x-ray in the morning. DICTATING PHYSICIAN: EUSEBIA DEAN M.D. [id number] PHY#: [id number] ID: [id number] JOB#: [id number] ACCT: [id number] cc: >
[2016-08-17] MEDS: GABAPENTIN 300 MG CAPSULE PO SCH (23:18)
[2016-08-18] MEDS: HYDROMORPHONE HCL INJ/PF 2 MG/ML AMPULE IV PRN ×5 (02:06→19:34)
[2016-08-18 04:01] LABS: ABSOLUTE LYMPHOCYTES (AUTO) 1.5 10^3/uL (0.5-4.7); ABSOLUTE MONOCYTES (AUTO) 1.6 10^3/uL (0.1-1.4); ABSOLUTE NEUT (AUTO) 8.9 10^3/uL (1.7-8.2); BASOPHILS % (AUTO) 0.4 % (0-2); EOSINOPHILS % (AUTO) 0.3 % (0-6); HEMATOCRIT 27.3 % (36.0-47.0); HEMOGLOBIN 8.9 g/dL (12.0-15.5); HGB HCT DIFFERENCE -0.6; LYMPHOCYTES % (AUTO) 12.9 % (13-45); MEAN CORPUSCULAR HEMOGLOBIN 25.1 pg (27.0-33.4); MEAN CORPUSCULAR HGB CONC 32.7 g/dL (32.0-36.0); MEAN CORPUSCULAR VOLUME 77 fl (80-97); MONOCYTES % (AUTO) 13.1 % (3-13); RED BLOOD COUNT 3.55 10^6/uL (3.72-5.28); RED CELL DISTRIBUTION WIDTH 17.5 % (11.5-14.0); SEGMENTED NEUTROPHILS % (AUTO) 73.3 % (42-78); WHITE BLOOD COUNT 12.1 10^3/uL (4.0-10.5)
[2016-08-18 04:22] LABS: ANION GAP 12 (5-19); BLOOD UREA NITROGEN 21 mg/dL (7-20); CALCIUM 9.3 mg/dL (8.4-10.2); CARBON DIOXIDE 30 mmol/L (22-30); CHLORIDE 96 mmol/L (98-107); CREATININE RESULT 0.93 mg/dL (0.52-1.25); GLUCOSE 168 mg/dL (75-110); POTASSIUM 4.5 mmol/L (3.6-5.0); SODIUM 138.1 mmol/L (137-145)
[2016-08-18] MEDS: MAGNESIUM OXIDE 400 MG TABLET PO SCH ×3 (05:34→21:26)
[2016-08-18] MEDS: ACETAMINOPHEN 325 MG TABLET PO PRN ×2 (05:39→21:27)
[2016-08-18] MEDS: FUROSEMIDE INJ/PF 40 MG/4 ML SDV IV SCH ×2 (10:24→21:23)
[2016-08-18] MEDS: METOCLOPRAMIDE HCL 10 MG TABLET PO SCH ×2 (10:25→21:25)
[2016-08-18] MEDS: LEVOTHYROXINE SODIUM 0.1 MG TABLET PO SCH (10:25)
[2016-08-18] MEDS: DOCUSATE SODIUM 100 MG CAPSULE PO SCH ×2 (10:25→21:25)
--- NOTE | 2016-08-18 10:54 | PROGRESS NOTE E ---
Progress Note NAME: SITA MANRIQUE : 1945 AGE: 70Y DATE: 08/18/2016 ROOM: 609 SUBJECTIVE: The patient had a right pleural effusion with pneumothorax undergoing chest tube placement 2 days ago. She had resolution of her pneumothorax with the pleural effusion significantly decreased on followup chest x-ray. Complains of shortness of breath. OBJECTIVE: Patient's chest tube is draining serous fluid. Patient had 1200 mL out through her chest tube overnight in the last 24 hours. ASSESSMENT: Right pleural effusion with pneumothorax. Pneumothorax is resolved. She still has considerable amount of fluid out through the chest tube. PLAN: Continue chest tube to low wall suction until drainage is at minimum 200 or less mL in 24 hours. DICTATING PHYSICIAN: EUSEBIA DEAN M.D. [id number] PHY#: [id number] ID: [id number] JOB#: [id number] ACCT: [id number] cc: >
[2016-08-18] MEDS: INSULIN LISPRO 100 UNIT/ML 3 ML VIAL SUBCUT PRN ×2 (13:20→18:17)
[2016-08-18] MEDS ORDERED: METOPROLOL TARTRATE PF/INJ 5 MG/5 ML SDV IV PRN (17:26)
--- NOTE | 2016-08-18 17:41 | PDOC PROGRESS REPORT ---
Subjective Progress Note for:: 08/18/16 Subjective:: Patient has had occasional right chest pain. She has also had some sinus tachycardia noted on telemetry monitoring. Patient denies fever, chills, headache, new focal weakness, shortness of breath, abdominal pain, nausea, vomiting, diarrhea, constipation. Physical Exam Vital Signs: Temp Pulse Resp BP Pulse Ox 98.8 F 126 H 12 144/75 H 97 08/18/16 16:00 08/18/16 16:00 08/18/16 16:00 08/18/16 16:00 08/18/16 16:00 Intake & Output 08/17/16 08/18/16 08/19/16 06:59 06:59 06:59 Intake Total 0 1624 446 Output Total 1400 3065 1400 Balance -1400 -1441 -954 Weight 88.4 kg 86.2 kg GENERAL: No acute distress HEENT: Conjunctiva clear, nonicteric, moist mucous membranes, no JVD, midline trachea RESPIRATORY: Right anterior lung field rhonchi, right chest tube CARDIAC: Regular rate and rhythm, no murmurs/gallops/rubs ABDOMEN: Soft, nondistended, nontender, positive bowel sounds, no rebound, no guarding EXTREMETIES: No edema, cyanosis, clubbing NEUROLOGIC: Alert, oriented to person/place/time, CN's grossly intact, no focal deficits SKIN: No rash, wounds PSYCH: Normal mood, normal affect Results Laboratory Results: 08/18/16 03:27 08/18/16 03:27 08/17/16 08/18/16 08/18/16 01:50 03:27 03:27 WBC 12.1 H RBC 3.55 L Hgb 8.9 L Hct 27.3 L MCV 77 L MCH 25.1 L MCHC 32.7 RDW 17.5 H Plt Count 136 L Seg Neutrophils % 73.3 Lymphocytes % 12.9 L Monocytes % 13.1 H Eosinophils % 0.3 Basophils % 0.4 Absolute Neutrophils 8.9 H Absolute Lymphocytes 1.5 Absolute Monocytes 1.6 H Absolute Eosinophils 0.0 Absolute Basophils 0.0 Sodium 138.1 Potassium 4.5 Chloride 96 L Carbon Dioxide 30 Anion Gap 12 BUN 21 H Creatinine 0.93 Est GFR ( Amer) > 60 Est GFR (Non-Af Amer) > 60 Glucose 168 H Calcium 9.3 Fluid Total Protein 2.4 Fluid LDH 535 08/17/16 05:40 Nasophary (Mrsa Only) MRSA Surveillance Culture - Final MRSA RECOVERED 08/17/16 03:36 NT-Pro-B Natriuret Pep 1860 H Impressions: Chest X-Ray 08/18/16 06:00 IMPRESSION: Interval improvement. Moderate bilateral lower lung opacities. Right chest tube. Assessment & Plan - Diagnosis (1) Acute and chronic respiratory failure ([id number]) Is this a current diagnosis for this admission?: YesPlan: Continue BiPAP at night for obstructive sleep apnea. Oxygen supplementation. (2) Hydropneumothorax Is this a current diagnosis for this admission?: YesPlan: Resulted from recent diagnostic thoracentesis. Status post chest tube placement. Surgery managing. (3) Bilateral pneumonia Qualifiers: Pneumonia type: due to unspecified organism Lung location: lower lobe of lung Qualified Code(s): J18.9 - Pneumonia, unspecified organism Is this a current diagnosis for this admission?: YesPlan: Continue IV Rocephin and IV azithromycin for now. (4) Acute CHF Qualifiers: Congestive heart failure type: unspecified congestive heart failure type Qualified Code(s): I50.9 - Heart failure, unspecified Is this a current diagnosis for this admission?: YesPlan: Echocardiogram from 2 years ago shows normal EF, no evidence of diastolic dysfunction, no significant valvular disease. Continue IV Lasix for now. After further discussion with patient and patient's daughter at the bedside it appears that patient has excessive oral fluid intake (up to 2-1/2 gallons a day) . I have had an extensive discussion with patient and her daughter regarding fluid restriction given patient's fluid overloaded state. (5) Acute post-hemorrhagic anemia Is this a current diagnosis for this admission?: YesPlan: Transfused 1 unit PRBC on 08/17/2016. Follow-up H&H. (6) COPD (chronic obstructive pulmonary disease) Is this a current diagnosis for this admission?: YesPlan: When necessary duo nebs. (7) Lymphoma in remission Is this a current diagnosis for this admission?: YesPlan: Followed by Dr. Fatimah De Anda of oncology. (8) Hyperkalemia Is this a current diagnosis for this admission?: Yes (9) Diabetes mellitus type 1 Is this a current diagnosis for this admission?: YesPlan: Scheduled 70/30 insulin 25 units twice daily. Sliding scale insulin coverage. (10) Hypothyroidism Is this a current diagnosis for this admission?: YesPlan: Synthroid (11) Hypercholesterolemia Is this a current diagnosis for this admission?: YesPlan: Lipitor (12) Hypertension Is this a current diagnosis for this admission?: Yes (13) Tobacco abuse Is this a current diagnosis for this admission?: Yes - Time Time Spent with patient: 35 or more minutes
[2016-08-18] MEDS ORDERED: DILTIAZEM HCL 120 MG CAP.SR.24H PO ONE (18:30)
--- NOTE | 2016-08-18 18:56 | PDOC PROGRESS REPORT ---
Subjective Progress Note for:: 08/18/16 Subjective:: Breathing more comfortably today. Daughter at her bedside. Physical Exam Vital Signs: Temp Pulse Resp BP Pulse Ox 98.8 F 126 H 12 144/75 H 97 08/18/16 16:00 08/18/16 16:00 08/18/16 16:00 08/18/16 16:00 08/18/16 16:00 Intake & Output 08/17/16 08/18/16 08/19/16 06:59 06:59 06:59 Intake Total 0 1624 446 Output Total 1400 3065 1400 Balance -1400 -0731 -954 Weight 88.4 kg 86.2 kg General appearance: PRESENT: no acute distress Head exam: PRESENT: normocephalic, other - Lesion on her left nose Eye exam: PRESENT: EOMI Respiratory exam: PRESENT: decreased breath sounds - at the Right> left base with chest tube on the right with drainage GI/Abdominal exam: PRESENT: normal bowel sounds, soft Neurological exam: PRESENT: alert, awake Psychiatric exam: PRESENT: appropriate affect Results Laboratory Results: 08/18/16 03:27 08/18/16 03:27 08/17/16 08/18/16 08/18/16 01:50 03:27 03:27 WBC 12.1 H RBC 3.55 L Hgb 8.9 L Hct 27.3 L MCV 77 L MCH 25.1 L MCHC 32.7 RDW 17.5 H Plt Count 136 L Seg Neutrophils % 73.3 Lymphocytes % 12.9 L Monocytes % 13.1 H Eosinophils % 0.3 Basophils % 0.4 Absolute Neutrophils 8.9 H Absolute Lymphocytes 1.5 Absolute Monocytes 1.6 H Absolute Eosinophils 0.0 Absolute Basophils 0.0 Sodium 138.1 Potassium 4.5 Chloride 96 L Carbon Dioxide 30 Anion Gap 12 BUN 21 H Creatinine 0.93 Est GFR ( Amer) > 60 Est GFR (Non-Af Amer) > 60 Glucose 168 H Calcium 9.3 Fluid Total Protein 2.4 Fluid LDH 535 08/17/16 05:40 Nasophary (Mrsa Only) MRSA Surveillance Culture - Final MRSA RECOVERED 08/17/16 03:36 NT-Pro-B Natriuret Pep 1860 H Impressions: Chest X-Ray 08/18/16 06:00 IMPRESSION: Interval improvement. Moderate bilateral lower lung opacities. Right chest tube. Assessment & Plan - Diagnosis (1) Anemia Qualifiers: Anemia type: iron deficiency Is this a current diagnosis for this admission?: YesPlan: Treat with IV iron if indicated (3) Lymphoma in remission Is this a current diagnosis for this admission?: Yes (5) Hydropneumothorax Is this a current diagnosis for this admission?: YesPlan: Chest tube per surgery with follow up cytology negative
--- NOTE | 2016-08-18 19:07 | EKG REPORT ---
SEVERITY:- ABNORMAL ECG - ATRIAL FLUTTER-FIB, A-RATE 272 : Confirmed by: Galen Altamirano MD 18-Aug-2016 19:07:02
[2016-08-18] MEDS: ALPRAZOLAM 0.5 MG TABLET PO SCH (21:26)
[2016-08-18] MEDS: GABAPENTIN 300 MG CAPSULE PO SCH (21:26)
[2016-08-18] MEDS: AZITHROMYCIN 500 MG in DEXTROSE 5%-WATER 250 ML IV SCH (21:27)
[2016-08-19] MEDS: INSULIN LISPRO 100 UNIT/ML 3 ML VIAL SUBCUT PRN ×4 (00:01→17:36)
[2016-08-19] MEDS: CEFTRIAXONE 1 GM/D5W RTU 1 GM/50 ML RTUPB IV SCH (00:01)
[2016-08-19] MEDS: HYDROMORPHONE HCL INJ/PF 2 MG/ML AMPULE IV PRN ×4 (00:19→21:34)
[2016-08-19 05:40] LABS: ABSOLUTE BASOPHILS # (AUTO) 0.1 10^3/uL (0.0-0.2); ABSOLUTE EOSINOPHILS # (AUTO) 0.2 10^3/uL (0.0-0.6); ABSOLUTE LYMPHOCYTES (AUTO) 1.6 10^3/uL (0.5-4.7); ABSOLUTE MONOCYTES (AUTO) 1.3 10^3/uL (0.1-1.4); ABSOLUTE NEUT (AUTO) 7.2 10^3/uL (1.7-8.2); BASOPHILS % (AUTO) 0.5 % (0-2); EOSINOPHILS % (AUTO) 1.7 % (0-6); HEMATOCRIT 27.1 % (36.0-47.0); HEMOGLOBIN 8.9 g/dL (12.0-15.5); HGB HCT DIFFERENCE -0.4; LYMPHOCYTES % (AUTO) 15.8 % (13-45); MEAN CORPUSCULAR HEMOGLOBIN 25.3 pg (27.0-33.4); MEAN CORPUSCULAR HGB CONC 32.9 g/dL (32.0-36.0); MEAN CORPUSCULAR VOLUME 77 fl (80-97); MONOCYTES % (AUTO) 12.7 % (3-13); RED BLOOD COUNT 3.53 10^6/uL (3.72-5.28); RED CELL DISTRIBUTION WIDTH 18.2 % (11.5-14.0); SEGMENTED NEUTROPHILS % (AUTO) 69.3 % (42-78); WHITE BLOOD COUNT 10.4 10^3/uL (4.0-10.5)
[2016-08-19] MEDS: ALPRAZOLAM 0.5 MG TABLET PO SCH ×3 (05:47→21:34)
[2016-08-19] MEDS: MAGNESIUM OXIDE 400 MG TABLET PO SCH ×3 (05:47→21:35)
[2016-08-19 05:51] LABS: ANION GAP 10 (5-19); BLOOD UREA NITROGEN 19 mg/dL (7-20); CARBON DIOXIDE 32 mmol/L (22-30); CHLORIDE 96 mmol/L (98-107); CREATININE RESULT 0.77 mg/dL (0.52-1.25); GLUCOSE 145 mg/dL (75-110); POTASSIUM 4.1 mmol/L (3.6-5.0); SODIUM 137.9 mmol/L (137-145)
[2016-08-19] MEDS: FUROSEMIDE INJ/PF 40 MG/4 ML SDV IV SCH ×2 (09:56→21:34)
[2016-08-19] MEDS: ASPIRIN 81 MG TABLET, ENT COATED PO SCH (09:58)
[2016-08-19] MEDS: ATORVASTATIN CALCIUM 20 MG TABLET PO SCH (09:58)
[2016-08-19] MEDS: LEVOTHYROXINE SODIUM 0.1 MG TABLET PO SCH (09:59)
[2016-08-19] MEDS: DILTIAZEM HCL 120 MG CAP.SR.24H PO SCH (09:59)
[2016-08-19] MEDS: DOCUSATE SODIUM 100 MG CAPSULE PO SCH ×2 (09:59→21:35)
[2016-08-19] MEDS: METOCLOPRAMIDE HCL 10 MG TABLET PO SCH ×2 (09:59→21:35)
[2016-08-19] MEDS ORDERED: INSULIN ASPART PROTAM SQ SCH (10:32)
[2016-08-19] MEDS ORDERED: ASPART SQ SCH (10:32)
[2016-08-19] MEDS ORDERED: [UNRECOGNIZED DRUG - OTHER] SQ SCH (10:32)
--- NOTE | 2016-08-19 11:58 | PROGRESS NOTE E ---
Progress Note NAME: SITA MANRIQUE : 1945 AGE: 70Y DATE: 08/19/2016 ROOM: 301 SUBJECTIVE: The patient is a here with Hodgkin lymphoma and an effusion. A chest tube was placed. She is not describing any difficulty in breathing. She continues to have output from her chest tube. PLAN: Is to continue to follow output until it dwindles and remove the chest tube. DICTATING PHYSICIAN: DIVYA OG M.D. [id number] PHY#: [id number] ID: [id number] JOB#: [id number] ACCT: [id number] cc: >
--- NOTE | 2016-08-19 13:39 | PDOC PROGRESS REPORT ---
Subjective Progress Note for:: 08/19/16 Subjective:: Patient has had occasional right chest pain. Patient denies fever, chills, headache, new focal weakness, shortness of breath, abdominal pain, nausea, vomiting, diarrhea, constipation. Physical Exam Vital Signs: Temp Pulse Resp BP Pulse Ox 98.4 F 101 H 20 157/71 H 96 08/19/16 11:22 08/19/16 11:53 08/19/16 11:53 08/19/16 11:22 08/19/16 11:53 Intake & Output 08/18/16 08/19/16 08/20/16 06:59 06:59 06:59 Intake Total 1624 1126 473 Output Total 3065 3060 200 Balance -1441 -1934 273 Weight 86.2 kg 87.1 kg GENERAL: No acute distress HEENT: Conjunctiva clear, nonicteric, moist mucous membranes, no JVD, midline trachea RESPIRATORY: Right anterior lung field rhonchi, right chest tube CARDIAC: Regular rate and rhythm, no murmurs/gallops/rubs ABDOMEN: Soft, nondistended, nontender, positive bowel sounds, no rebound, no guarding EXTREMETIES: No edema, cyanosis, clubbing NEUROLOGIC: Alert, oriented to person/place/time, CN's grossly intact, no focal deficits SKIN: No rash, wounds PSYCH: Normal mood, normal affect Results Laboratory Results: 08/19/16 04:38 08/19/16 04:38 08/17/16 08/19/16 08/19/16 01:50 04:38 04:38 WBC 10.4 RBC 3.53 L Hgb 8.9 L Hct 27.1 L MCV 77 L MCH 25.3 L MCHC 32.9 RDW 18.2 H Plt Count 123 L Seg Neutrophils % 69.3 Lymphocytes % 15.8 Monocytes % 12.7 Eosinophils % 1.7 Basophils % 0.5 Absolute Neutrophils 7.2 Absolute Lymphocytes 1.6 Absolute Monocytes 1.3 Absolute Eosinophils 0.2 Absolute Basophils 0.1 Sodium 137.9 Potassium 4.1 Chloride 96 L Carbon Dioxide 32 H Anion Gap 10 BUN 19 Creatinine 0.77 Est GFR ( Amer) > 60 Est GFR (Non-Af Amer) > 60 Glucose 145 H Calcium 9.0 Fluid Total Protein 2.4 Fluid LDH 535 08/17/16 05:40 Nasophary (Mrsa Only) MRSA Surveillance Culture - Final MRSA RECOVERED 08/17/16 03:36 NT-Pro-B Natriuret Pep 1860 H Impressions: Chest X-Ray 08/19/16 06:00 IMPRESSION: Right chest tube in place, no pneumothorax Partial clearing of alveolar and interstitial infiltrates at both bases Assessment & Plan - Diagnosis (1) Acute and chronic respiratory failure ([id number]) Is this a current diagnosis for this admission?: YesPlan: Continue BiPAP at night for obstructive sleep apnea. Oxygen supplementation. (2) Hydropneumothorax Is this a current diagnosis for this admission?: YesPlan: Resulted from recent diagnostic thoracentesis. Status post chest tube placement. Surgery managing. (3) Bilateral pneumonia Qualifiers: Pneumonia type: due to unspecified organism Lung location: lower lobe of lung Qualified Code(s): J18.9 - Pneumonia, unspecified organism Is this a current diagnosis for this admission?: YesPlan: Discontinue IV Rocephin and IV azithromycin for now. Start oral doxycycline until 08/25/2016. (4) Acute CHF Qualifiers: Congestive heart failure type: unspecified congestive heart failure type Qualified Code(s): I50.9 - Heart failure, unspecified Is this a current diagnosis for this admission?: YesPlan: Echocardiogram from 2 years ago shows normal EF, no evidence of diastolic dysfunction, no significant valvular disease. Continue IV Lasix for now. After further discussion with patient and patient's daughter at the bedside it appears that patient has excessive oral fluid intake (up to 2-1/2 gallons a day) . I have had an extensive discussion with patient and her daughter regarding fluid restriction given patient's fluid overloaded state. (5) Acute post-hemorrhagic anemia Is this a current diagnosis for this admission?: YesPlan: Transfused 1 unit PRBC on 08/17/2016. Follow-up H&H low but stable. (6) COPD (chronic obstructive pulmonary disease) Is this a current diagnosis for this admission?: YesPlan: When necessary duo nebs. (7) Lymphoma in remission Is this a current diagnosis for this admission?: YesPlan: Followed by Dr. Fatimah De Anda of oncology. (8) Hyperkalemia Is this a current diagnosis for this admission?: YesPlan: Continue to hold outpatient potassium supplementation. Continue IV Lasix. (9) Diabetes mellitus type 1 Is this a current diagnosis for this admission?: YesPlan: Increase 70/30 insulin to 30 units twice daily. Sliding scale insulin coverage. (10) Hypothyroidism Is this a current diagnosis for this admission?: YesPlan: Synthroid (11) Hypercholesterolemia Is this a current diagnosis for this admission?: YesPlan: Lipitor (12) Hypertension Is this a current diagnosis for this admission?: Yes (13) Tobacco abuse Is this a current diagnosis for this admission?: Yes - Time Time Spent with patient: 35 or more minutes
[2016-08-19] MEDS: HUM INSULIN NPH/REG INSULIN HM 100 UNIT/1 ML 3 ML SUBCUT SCH (15:53)
[2016-08-19] MEDS: DOXYCYCLINE HYCLATE 100 MG TABLET PO SCH (17:36)
[2016-08-19] MEDS: GABAPENTIN 300 MG CAPSULE PO SCH (21:35)
[2016-08-20] MEDS: MAGNESIUM OXIDE 400 MG TABLET PO SCH ×3 (06:27→22:43)
[2016-08-20] MEDS: ALPRAZOLAM 0.5 MG TABLET PO SCH ×3 (06:28→22:44)
[2016-08-20] MEDS: DOXYCYCLINE HYCLATE 100 MG TABLET PO SCH ×2 (06:28→18:21)
[2016-08-20 06:39] LABS: ABSOLUTE BASOPHILS # (AUTO) 0.1 10^3/uL (0.0-0.2); ABSOLUTE EOSINOPHILS # (AUTO) 0.2 10^3/uL (0.0-0.6); ABSOLUTE LYMPHOCYTES (AUTO) 1.4 10^3/uL (0.5-4.7); ABSOLUTE MONOCYTES (AUTO) 0.8 10^3/uL (0.1-1.4); ABSOLUTE NEUT (AUTO) 4.9 10^3/uL (1.7-8.2); BASOPHILS % (AUTO) 0.9 % (0-2); EOSINOPHILS % (AUTO) 3.2 % (0-6); HEMATOCRIT 27.9 % (36.0-47.0); HEMOGLOBIN 8.9 g/dL (12.0-15.5); HGB HCT DIFFERENCE -1.2; LYMPHOCYTES % (AUTO) 19.1 % (13-45); MEAN CORPUSCULAR HEMOGLOBIN 24.9 pg (27.0-33.4); MEAN CORPUSCULAR HGB CONC 32.1 g/dL (32.0-36.0); MEAN CORPUSCULAR VOLUME 78 fl (80-97); MONOCYTES % (AUTO) 11.4 % (3-13); RED CELL DISTRIBUTION WIDTH 17.8 % (11.5-14.0); SEGMENTED NEUTROPHILS % (AUTO) 65.4 % (42-78); WHITE BLOOD COUNT 7.4 10^3/uL (4.0-10.5)
[2016-08-20 06:54] LABS: ANION GAP 12 (5-19); BLOOD UREA NITROGEN 20 mg/dL (7-20); CALCIUM 8.3 mg/dL (8.4-10.2); CARBON DIOXIDE 30 mmol/L (22-30); CHLORIDE 96 mmol/L (98-107); CREATININE RESULT 0.61 mg/dL (0.52-1.25); GLUCOSE 115 mg/dL (75-110); POTASSIUM 3.7 mmol/L (3.6-5.0); SODIUM 137.8 mmol/L (137-145)
[2016-08-20] MEDS: HUM INSULIN NPH/REG INSULIN HM 100 UNIT/1 ML 3 ML SUBCUT SCH ×2 (08:54→18:16)
[2016-08-20] MEDS ORDERED: METOLAZONE 5 MG TABLET PO ONE (10:45)
[2016-08-20] MEDS: METOCLOPRAMIDE HCL 10 MG TABLET PO SCH ×2 (10:46→22:43)
[2016-08-20] MEDS: ATORVASTATIN CALCIUM 20 MG TABLET PO SCH (10:47)
[2016-08-20] MEDS: LEVOTHYROXINE SODIUM 0.1 MG TABLET PO SCH (10:47)
[2016-08-20] MEDS: ASPIRIN 81 MG TABLET, ENT COATED PO SCH (10:47)
[2016-08-20] MEDS: DILTIAZEM HCL 120 MG CAP.SR.24H PO SCH (10:48)
[2016-08-20] MEDS: FUROSEMIDE INJ/PF 40 MG/4 ML SDV IV SCH ×2 (10:49→22:42)
[2016-08-20] MEDS: DOCUSATE SODIUM 100 MG CAPSULE PO SCH ×2 (10:49→22:43)
--- NOTE | 2016-08-20 10:59 | PROGRESS NOTE E ---
Progress Note NAME: SITA MANRIQUE : 1945 AGE: 70Y DATE: 08/20/2016 ROOM: 301 SUBJECTIVE: Patient has no new complaints. She subjectively said she would like to go home. OBJECTIVE: She is afebrile. Her chest tube output was 1400 mL on the second, 1240 on the third, 810 on the fourth, and 1050 1004 LABORATORY: Her white blood count is normal at 7.4, hematocrit is 27.9. This is actually increased from prior. Platelet count is low at 135. Her chemistries show a slightly low chloride. BUN is 20. Creatinine is 0.61. ASSESSMENT: Patient with persistent chest tube output; for the last 4 or 5 days, it has been pretty stable. The etiology of this pleural effusion is uncertain. It is not bilateral to suggest congestive heart failure. She does have a history of lymphoma, but it has been in remission for the last 12 years. PLAN: Patient may require a VATS and/or pleurodesis. However, for the time being, we will just continue with the present chest tube. I think though, that after the amount of time that the tube has been in with persistent drainage, that further investigation of a possible etiology of this unilateral pleural effusion is indicated. DICTATING PHYSICIAN: DIVYA OG M.D. [id number] PHY#: [id number] ID: [id number] JOB#: [id number] ACCT: [id number] cc: > SARINAD
[2016-08-20] MEDS ORDERED: POTASSIUM CHLORIDE 10 MEQ TABLET.SA PO ONE (11:00)
[2016-08-20] MEDS: OXYCODONE HCL IR 5 MG TABLET PO PRN ×2 (13:08→19:11)
--- NOTE | 2016-08-20 16:35 | PDOC PROGRESS REPORT ---
Subjective Progress Note for:: 08/20/16 Subjective:: Patient has no new complaints. Patient denies fever, chills, headache, new focal weakness, chest pain, shortness of breath, abdominal pain, nausea, vomiting, diarrhea, constipation. Physical Exam Vital Signs: Temp Pulse Resp BP Pulse Ox 98.8 F 105 H 19 136/64 H 97 08/20/16 11:54 08/20/16 11:54 08/20/16 11:54 08/20/16 11:54 08/20/16 11:54 Intake & Output 08/19/16 08/20/16 08/21/16 06:59 06:59 06:59 Intake Total 1126 1094 474 Output Total 3060 1500 250 Balance -1934 -406 224 Weight 87.1 kg 87 kg GENERAL: No acute distress HEENT: Conjunctiva clear, nonicteric, moist mucous membranes, no JVD, midline trachea RESPIRATORY: Right anterior lung field rhonchi, right chest tube CARDIAC: Regular rate and rhythm, no murmurs/gallops/rubs ABDOMEN: Soft, nondistended, nontender, positive bowel sounds, no rebound, no guarding EXTREMETIES: No edema, cyanosis, clubbing NEUROLOGIC: Alert, oriented to person/place/time, CN's grossly intact, no focal deficits SKIN: No rash, wounds PSYCH: Normal mood, normal affect Results Laboratory Results: 08/20/16 06:25 08/20/16 06:25 08/20/16 08/20/16 06:25 06:25 WBC 7.4 RBC 3.60 L Hgb 8.9 L Hct 27.9 L MCV 78 L MCH 24.9 L MCHC 32.1 RDW 17.8 H Plt Count 135 L Seg Neutrophils % 65.4 Lymphocytes % 19.1 Monocytes % 11.4 Eosinophils % 3.2 Basophils % 0.9 Absolute Neutrophils 4.9 Absolute Lymphocytes 1.4 Absolute Monocytes 0.8 Absolute Eosinophils 0.2 Absolute Basophils 0.1 Sodium 137.8 Potassium 3.7 Chloride 96 L Carbon Dioxide 30 Anion Gap 12 BUN 20 Creatinine 0.61 Est GFR ( Amer) > 60 Est GFR (Non-Af Amer) > 60 Glucose 115 H Calcium 8.3 L 08/17/16 03:36 NT-Pro-B Natriuret Pep 1860 H Impressions: Chest X-Ray 08/20/16 06:00 IMPRESSION: Tiny right apical pneumothorax is identified on the current study. Bibasilar densities as noted above. Other findings as noted above Assessment & Plan - Diagnosis (1) Acute and chronic respiratory failure ([id number]) Is this a current diagnosis for this admission?: YesPlan: Continue BiPAP at night for obstructive sleep apnea. Oxygen supplementation. (2) Hydropneumothorax Is this a current diagnosis for this admission?: YesPlan: Resulted from recent diagnostic thoracentesis. Status post chest tube placement. Surgery managing. Pleural effusion cytology negative. Pleural effusion likely secondary to volume overload. Continue fluid restriction and diuretic therapy. If chest tube output does not decrease in the next couple days patient may have to be considered for transfer to tertiary care facility for CT surgery evaluation and pleurodesis. (3) Bilateral pneumonia Qualifiers: Pneumonia type: due to unspecified organism Lung location: lower lobe of lung Qualified Code(s): J18.9 - Pneumonia, unspecified organism Is this a current diagnosis for this admission?: YesPlan: Continue oral doxycycline until 08/26/2016. (4) Acute CHF Qualifiers: Congestive heart failure type: unspecified congestive heart failure type Qualified Code(s): I50.9 - Heart failure, unspecified Is this a current diagnosis for this admission?: YesPlan: Echocardiogram from 2 years ago shows normal EF, no evidence of diastolic dysfunction, no significant valvular disease. Continue IV Lasix 40 mg every 12 hours. Start Zaroxolyn 5 mg daily. After further discussion with patient and patient's daughter at the bedside it appears that patient has excessive oral fluid intake (up to 2-1/2 gallons a day) . I have had an extensive discussion with patient and her daughter regarding fluid restriction given patient's fluid overloaded state. Consult Dr. Roger of cardiology. (5) Acute post-hemorrhagic anemia Is this a current diagnosis for this admission?: YesPlan: Transfused 1 unit PRBC on 08/17/2016. Follow-up H&H low but stable. (6) COPD (chronic obstructive pulmonary disease) Is this a current diagnosis for this admission?: YesPlan: When necessary duo nebs. (7) Lymphoma in remission Is this a current diagnosis for this admission?: YesPlan: Followed by Dr. Fatimah De Anda of oncology. (8) Hyperkalemia Is this a current diagnosis for this admission?: Yes (9) Diabetes mellitus type 1 Is this a current diagnosis for this admission?: YesPlan: Continue 70/30 insulin 30 units twice daily. Sliding scale insulin coverage. (10) Hypothyroidism Is this a current diagnosis for this admission?: YesPlan: Synthroid (11) Hypercholesterolemia Is this a current diagnosis for this admission?: YesPlan: Lipitor (12) Hypertension Is this a current diagnosis for this admission?: Yes (13) Tobacco abuse Is this a current diagnosis for this admission?: Yes - Time Time Spent with patient: 35 or more minutes
[2016-08-20] MEDS: INSULIN LISPRO 100 UNIT/ML 3 ML VIAL SUBCUT PRN (18:20)
[2016-08-20] MEDS: POTASSIUM CHLORIDE 10 MEQ TABLET.SA PO SCH (22:42)
[2016-08-20] MEDS: GABAPENTIN 300 MG CAPSULE PO SCH (22:44)
[2016-08-21 05:54] LABS: ABSOLUTE BASOPHILS # (AUTO) 0.1 10^3/uL (0.0-0.2); ABSOLUTE EOSINOPHILS # (AUTO) 0.3 10^3/uL (0.0-0.6); ABSOLUTE LYMPHOCYTES (AUTO) 1.2 10^3/uL (0.5-4.7); ABSOLUTE MONOCYTES (AUTO) 0.7 10^3/uL (0.1-1.4); BASOPHILS % (AUTO) 0.9 % (0-2); EOSINOPHILS % (AUTO) 5.1 % (0-6); HEMATOCRIT 28.7 % (36.0-47.0); HEMOGLOBIN 9.5 g/dL (12.0-15.5); HGB HCT DIFFERENCE -0.2; LYMPHOCYTES % (AUTO) 19.4 % (13-45); MEAN CORPUSCULAR HGB CONC 33.1 g/dL (32.0-36.0); MEAN CORPUSCULAR VOLUME 76 fl (80-97); MONOCYTES % (AUTO) 10.7 % (3-13); SEGMENTED NEUTROPHILS % (AUTO) 63.9 % (42-78); WHITE BLOOD COUNT 6.3 10^3/uL (4.0-10.5)
[2016-08-21] MEDS: DOXYCYCLINE HYCLATE 100 MG TABLET PO SCH ×2 (05:57→17:56)
[2016-08-21] MEDS: MAGNESIUM OXIDE 400 MG TABLET PO SCH ×3 (05:57→21:04)
[2016-08-21] MEDS: ALPRAZOLAM 0.5 MG TABLET PO SCH ×3 (05:57→21:05)
[2016-08-21 06:14] LABS: ANION GAP 11 (5-19); BLOOD UREA NITROGEN 23 mg/dL (7-20); CALCIUM 8.8 mg/dL (8.4-10.2); CARBON DIOXIDE 36 mmol/L (22-30); CHLORIDE 93 mmol/L (98-107); CREATININE RESULT 0.78 mg/dL (0.52-1.25); GLUCOSE 92 mg/dL (75-110); SODIUM 140.4 mmol/L (137-145)
[2016-08-21 06:41] LABS: POTASSIUM 2.4 mmol/L (3.6-5.0)
[2016-08-21] MEDS: HUM INSULIN NPH/REG INSULIN HM 100 UNIT/1 ML 3 ML SUBCUT SCH ×2 (08:48→17:54)
[2016-08-21] MEDS: POTASSI CL 20 MEQ/50 ML RIDER 50 ML IV SCH ×3 (08:49→15:11)
[2016-08-21] MEDS: FONDAPARINUX SODIUM INJ 2.5 MG/0.5 ML DISP.SYRIN SUBCUT SCH (08:50)
[2016-08-21] MEDS: OXYCODONE HCL IR 5 MG TABLET PO PRN ×2 (09:00→20:48)
--- NOTE | 2016-08-21 09:35 | PDOC PROGRESS REPORT ---
Subjective Progress Note for:: 08/21/16 Subjective:: No pain or sob Physical Exam Vital Signs: Temp Pulse Resp BP Pulse Ox 97.9 F 100 18 136/56 H 97 08/21/16 07:13 08/21/16 07:13 08/21/16 07:13 08/21/16 07:13 08/21/16 07:13 Intake & Output 08/20/16 08/21/16 08/22/16 06:59 06:59 06:59 Intake Total 1094 1937 Output Total 5871 3430 Balance -406 -1493 Weight 87 kg 83.8 kg Respiratory exam: PRESENT: other - chest tube out put still significant up to 100ml day Results Laboratory Results: 08/21/16 04:45 08/21/16 04:45 08/21/16 08/21/16 08/21/16 04:45 04:45 04:45 WBC 6.3 RBC 3.80 Hgb 9.5 L Hct 28.7 L MCV 76 L MCH 25.0 L MCHC 33.1 RDW 18.0 H Plt Count 123 L Seg Neutrophils % 63.9 Lymphocytes % 19.4 Monocytes % 10.7 Eosinophils % 5.1 Basophils % 0.9 Absolute Neutrophils 4.0 Absolute Lymphocytes 1.2 Absolute Monocytes 0.7 Absolute Eosinophils 0.3 Absolute Basophils 0.1 Sodium 140.4 Potassium 2.4 L* D Chloride 93 L Carbon Dioxide 36 H Anion Gap 11 BUN 23 H Creatinine 0.78 Est GFR ( Amer) > 60 Est GFR (Non-Af Amer) > 60 Glucose 92 Calcium 8.8 Magnesium 2.0 08/17/16 03:36 NT-Pro-B Natriuret Pep 1860 H Impressions: Chest X-Ray 08/21/16 06:00 IMPRESSION: No significant interval change. Tiny right apical pneumothorax. Right chest tube. Assessment & Plan - Plan Summary Plan Summary: Peural effusions concern for possible lYMPHOMA D/W Hospitalist Recommend transfer to tertiary care for possible VATS, Pleual biopsies and pleurodesis
[2016-08-21] MEDS ORDERED: METOLAZONE 5 MG TABLET PO SCH (10:00)
[2016-08-21] MEDS: POTASSIUM CHLORIDE 10 MEQ TABLET.SA PO SCH ×2 (11:28→21:04)
[2016-08-21] MEDS: LEVOTHYROXINE SODIUM 0.1 MG TABLET PO SCH (11:28)
[2016-08-21] MEDS: ASPIRIN 81 MG TABLET, ENT COATED PO SCH (11:28)
[2016-08-21] MEDS: ATORVASTATIN CALCIUM 20 MG TABLET PO SCH (11:28)
[2016-08-21] MEDS: DOCUSATE SODIUM 100 MG CAPSULE PO SCH ×2 (11:28→21:04)
[2016-08-21] MEDS: METOCLOPRAMIDE HCL 10 MG TABLET PO SCH ×2 (11:29→21:04)
[2016-08-21] MEDS: DILTIAZEM HCL 180 MG CAPSULE.CR PO SCH (11:29)
[2016-08-21] MEDS: FUROSEMIDE INJ/PF 40 MG/4 ML SDV IV SCH ×2 (11:29→21:03)
--- NOTE | 2016-08-21 11:42 | PDOC CONSULTATION ---
Consultation Consult Date: 08/20/16 Attending physician:: SONIA MCGOVERN Consult reason:: Congestive heart failure History of Present Illness Admission Date/PCP: 08/16/16 19:38 SPRING DEAN MD Patient complains of: Shortness of breath History of Present Illness: SITA MANRIQUE is a 70 year old female with a remote h/o NHL as well as ongoing tobacco abuse, HTN, sleep apnea, afib with prior CVA and heme + stools treated with iron who was admitted with hemopneumothorax. This occurred after having had a pleurocentesis. Prior to admission, She had worsening shortness of breath last week and CXR revealed a pleural effusion. Given her symptoms, she underwent a thoracentesis on Sunday 08/13 at [facility] interventional radiology for a large right pleural effusion with relief of her symptoms. Patient did well on Tuesday but since Tuesday she had increasing shortness of breath and cough. She thought it was a COPD exacerbation but we referred her to the ED for concerns for possible other etiologies. Upon evaluation in the ED patient she was diagnosed with a right pneumothorax, general surgery was called and the chest tube was inserted. Patient was noted to have congestive heart failure which has been rather difficult to treat. She is also noted to have atrial fibrillation. I was therefore asked to evaluate patient. It seems patient had been noncompliant with dietary restriction and has been having excess fluid intake. She has also continued to smoke.Patient has a known history of chest, COPD ,obstructive sleep apnea. She still a heavy smoker of 2 packs a day She has a h/o non-Hodgkin's lymphoma which she is now still in remission after 12 years with recent cytology from her effusion negative. This is as per oncologist evaluation. Past Medical History Cardiac Medical History: Reports: Atrial Fibrillation, Congestive Heart Failure , Coronary Artery Disease, Hypertension Denies: Myocardial Infarction Pulmonary Medical History: Reports: Asthma, Bronchitis, Chronic Obstructive Pulmonary Disease (COPD), Pneumonia Endocrine Medical History: Reports: Diabetes Mellitus Type 1, Diabetes Mellitus Type 2, Hypothyroidism Malignancy Medical History: Reports: Lymphoma - remission x 10yrs GI Medical History: Reports: Gastroesophageal Reflux Disease Musculoskeltal Medical History: Reports: Arthritis Hematology: Reports: Anemia Past Surgical History Past Surgical History: Reports: Appendectomy, Cholecystectomy, Hysterectomy, Tonsillectomy, Vascular Surgery - lymphnodes removed from groin and neck, Other - Benign brain tumor surgery. Social History Information Source: Patient Lives with: Family Smoking Status: Current Every Day Smoker Cigarettes Packs Per Day: 2 Frequency of Alcohol Use: None Hx Recreational Drug Use: No Drugs: None Hx Prescription Drug Abuse: No - Advance Directive Resuscitation Status: Full Code Surrogate healthcare decision maker:: Patient's daughter is the surrogate decision maker Family History Family History: COPD, Hypertension Parental Family History Reviewed: Yes Children Family History Reviewed: Yes Sibling(s) Family History Reviewed.: Yes Medication/Allergy Home Medications: Alprazolam [Xanax] 1 mg PO Q8 08/16/16 Aspirin [Aspirin EC] 81 mg PO DAILY 08/16/16 Atorvastatin Calcium [Lipitor 20 mg Tablet] 20 mg PO DAILY 08/16/16 Diltiazem HCl [Cartia Xt] 120 mg PO DAILY 08/16/16 Docusate Sodium [Colace 100 mg Capsule] 100 mg PO Q12 08/16/16 Esomeprazole Mag Trihydrate [Nexium] 40 mg PO DAILY 08/16/16 Furosemide [Lasix] 40 mg PO TID 08/16/16 Gabapentin [Neurontin 300 mg Capsule] 300 mg PO QHS 08/16/16 Insulin Aspart Protam & Aspart [Novolog Mix 70-30 Vial] 25 units SQ MEALS Levothyroxine Sodium [Synthroid] 200 mcg PO DAILY 08/16/16 Magnesium Oxide [Mag-Ox 400 mg Tablet] 400 mg PO Q8 08/16/16 Metoclopramide HCl [Reglan 10 mg Tablet] 10 mg PO Q12 08/16/16 Potassium Chloride [K-Tab ER] 60 meq PO Q8 08/16/16 Allergies/Adverse Reactions: moxifloxacin HCl [From Avelox] Allergy (Severe, Verified 08/16/16 16:43) rash,itch apixaban [From Eliquis] Allergy (Intermediate, Verified 08/16/16 16:43) swell dabigatran etexilate [From Pradaxa] Allergy (Intermediate, Verified 08/16/16 16: 43) swell lansoprazole [From Prevacid] Allergy (Intermediate, Verified 08/16/16 16:43) Generalized Itching aloe [Aloe] Allergy (Verified 08/16/16 16:43) Review of Systems Review of Systems: Please see history of present illness and past medical history as wall. Constitutional: No fever or chills reported. Head : No recent chronic headaches, recent head injury. Eyes: No recent eye pain, diplopia, redness, discharge, acute visual changes. Ears: No recent chronic ear pain, acute hearing loss, ear discharge. Oral cavity: No recent ulcerations, bleeding, oral cavity discomfort. Neck: No recent acute neck pain reported. Hematologic: No recent easy bruising or bleeding. History of lymphoma currently in remission per oncologist. Lymphatic: No recent lymphatic malignancy, chronic lymphadenopathy reported yet Cardiovascular system review: See history of present illness. Respiratory system review: No recent chronic cough, hemoptysis, blood clots in the lungs reported. Mild Shortness of breath on exertion. Patient has history of chronic COPD. Gastrointestinal system review: Negative for any recent acute or chronic abdominal pain, hematemesis, melena, recent change in bowel habits. Genitourinary system review: No recent acute or chronic hematuria, flank pain, UTI etc. reported. Skin system review: Negative for any recent abnormal bruising, no rash, no pruritus reported. Neurologic: Positive for prior history of strokes, mini strokes, no history of seizure disorder. Psychologic: No history of major psychosis or major depression reported. Musculoskeletal: Minor aches and pains reported. No acute joint swelling reported. Endocrine: No recent polyuria, polydipsia, recent heat or cold intolerance. Physical Exam Vital Signs: Temp Pulse Resp BP Pulse Ox 98.8 F 132 H 19 136/64 H 97 08/20/16 11:54 08/20/16 14:00 08/20/16 11:54 08/20/16 11:54 08/20/16 11:54 Intake & Output 08/19/16 08/20/16 08/21/16 06:59 06:59 06:59 Intake Total 1126 1094 1293 Output Total 3060 1500 750 Balance -1934 -406 543 Weight 87.1 kg 87 kg Exam: GENERAL: well-nourished and in no acute distress. Alert and oriented x3 HEAD: Atraumatic, normocephalic. EYES: Pupils equal round and reactive to light, extraocular movements intact, sclera anicteric, conjunctiva are normal. ENT: TMs normal, nares patent, oropharynx clear without exudates. Moist mucous membranes. No oral ulcerations or bleeding gums noted NECK: supple without lymphadenopathy. Trachea is central. No cervical or axillary lymphadenopathy noted. Carotids are 2+, JVD WNL LUNGS: Respiration seems nonlabored, no significant accessory muscle action noted. Decreased breath sounds noted right base. Patient has a chest tube right-sided chest. Left side shows few bibasilar crackles CHEST: Palpation of the chest wall shows no significant chest wall tenderness. No other significant abnormalities noted. 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 ABDOMEN: Soft, no significant tenderness appreciated, normoactive bowel sounds. No guarding, no rebound. No rigidity noted . No masses appreciated. EXTREMITIES: Pedal pulses are 1-2+, no calf tenderness noted. No clubbing or cyanosis.1-2+ pedal edema noted. NEUROLOGICAL: Focused neurological exam showed no significant neurologic deficit. Normal speech, no focal weakness appreciated. PSYCH: Normal mood, normal affect. Judgment and insight within normal limits. SKIN: No significant ecchymosis, rash, ulcerations or signs of pruritus noted. MUSCULOSKELETAL EXAM: No significant joint swelling noted. Results Laboratory Results: 08/20/16 06:25 08/20/16 06:25 08/20/16 08/20/16 06:25 06:25 WBC 7.4 RBC 3.60 L Hgb 8.9 L Hct 27.9 L MCV 78 L MCH 24.9 L MCHC 32.1 RDW 17.8 H Plt Count 135 L Seg Neutrophils % 65.4 Lymphocytes % 19.1 Monocytes % 11.4 Eosinophils % 3.2 Basophils % 0.9 Absolute Neutrophils 4.9 Absolute Lymphocytes 1.4 Absolute Monocytes 0.8 Absolute Eosinophils 0.2 Absolute Basophils 0.1 Sodium 137.8 Potassium 3.7 Chloride 96 L Carbon Dioxide 30 Anion Gap 12 BUN 20 Creatinine 0.61 Est GFR ( Amer) > 60 Est GFR (Non-Af Amer) > 60 Glucose 115 H Calcium 8.3 L 08/17/16 03:36 NT-Pro-B Natriuret Pep 1860 H EKG Comments: Atrial fibrillation with no acute ST-T wave changes. Minor nonspecific IVCD noted. Impressions: Chest X-Ray 08/20/16 06:00 IMPRESSION: Tiny right apical pneumothorax is identified on the current study. Bibasilar densities as noted above. Other findings as noted above Assessment & Plan - Diagnosis (1) Atrial fibrillation Qualifiers: Atrial fibrillation type: persistent Qualified Code(s): I48.1 - Persistent atrial fibrillation Is this a current diagnosis for this admission?: Yes (2) Diabetes mellitus type II, controlled Qualifiers: Diabetes mellitus complication status: with unspecified complications Diabetes mellitus detention insulin use: unspecified detention insulin use status Qualified Code(s): E11.8 - Type 2 diabetes mellitus with unspecified complications; Z79.4 - penitentiary (current) use of insulin Is this a current diagnosis for this admission?: Yes (3) COPD (chronic obstructive pulmonary disease) Qualifiers: Emphysema type: unspecified Is this a current diagnosis for this admission?: Yes (4) Hydropneumothorax Is this a current diagnosis for this admission?: Yes (5) Congestive heart failure Qualifiers: Congestive heart failure type: diastolic Congestive heart failure chronicity: acute on chronic Qualified Code(s): I50.33 - Acute on chronic diastolic (congestive) heart failure Is this a current diagnosis for this admission?: Yes (6) Hypercholesterolemia Is this a current diagnosis for this admission?: Yes (7) Hypertension Qualifiers: Hypertension type: essential hypertension Qualified Code(s): I10 - Essential (primary) hypertension Is this a current diagnosis for this admission?: Yes (8) Tobacco abuse Is this a current diagnosis for this admission?: Yes (9) History of lymphoma Is this a current diagnosis for this admission?: Yes - Notes Notes: Atrial fibrillation: This seems persistent. Review of records shows that patient was in sinus rhythm in October of last year. Patient does however give history of stroke therefore would be a candidate for chronic anticoagulation but it seems patient also has a history of bleed. At this point patient currently just on aspirin. For rate control will recommend Cardizem. Currently heart rate slightly elevated. Congestive heart failure: This is based on chronic diastolic dysfunction. There is some element of right-sided heart failure. Prior echocardiogram in the last 1 year shows normal LVEF, grade 2 diastolic dysfunction, mild mitral regurgitation and RV being mildly dilated. Mild LVH was also noted. COPD: Currently stable. Patient gives history of smoking until this admission. Patient claims that she will quit. Congestive heart failure: By exam seems mildly volume overloaded. Continue diuretic therapy. Patient has been advised salt and fluid restriction. Hypercholesterolemia: Continue statin therapy in view of prior history of strokes. Hypertension: Blood pressure reasonably well controlled. Blood pressure goal is 135/85 or less in this patient. Tobacco abuse: Patient has been advised to quit smoking. History of lymphoma: There is some concern that the pleural effusion could be related to this. - Time Time Spent: 30 to 50 Minutes - CODE STATUS was discussed, patient remains full code. Surrogate decision-maker patient's daughter. Multiple medical problems were addressed. More than 50% of the time spent coordinating care, discussing management plans with involved caregivers. Management plans discussed with involved personnels. Medical decision making was of moderate to high complexity , patient's has multiple severe comorbidities. Patient usually follows up with me but she was last seen in the office in January 2016. Medications reviewed and adjusted accordingly: Yes
--- NOTE | 2016-08-21 11:51 | PDOC PROGRESS REPORT ---
Subjective Progress Note for:: 08/21/16 Subjective:: Patient seems to be doing better with gradual improvement. Pt is denying any chest arm or neck discomfort. Patient denying any PND, orthopnea. Patient denied any sustained palpitations, dizziness, syncope, near syncope. Patient denying any fever chills. Patient denying any other significant discomfort. Patient is maintaining persistent atrial fibrillation. Patient still has the chest tube on the right side chest. Review of systems: Rest review of systems negative. Medications: Medications have been reviewed. Physical Exam Vital Signs: Temp Pulse Resp BP Pulse Ox 97.9 F 100 18 136/56 H 97 08/21/16 07:13 08/21/16 07:13 08/21/16 07:13 08/21/16 07:13 08/21/16 07:13 Intake & Output 08/20/16 08/21/16 08/22/16 06:59 06:59 06:59 Intake Total 1094 1937 Output Total 1500 3430 Balance -406 -1493 Weight 87 kg 83.8 kg Exam: GENERAL: well-nourished and in no acute distress. Alert and oriented x3 HEAD: Atraumatic, normocephalic. EYES: Pupils equal round and reactive to light, extraocular movements intact, sclera anicteric, conjunctiva are normal. ENT: TMs normal, nares patent, oropharynx clear without exudates. Moist mucous membranes. No oral ulcerations or bleeding gums noted NECK: supple without lymphadenopathy. Trachea is central. No cervical or axillary lymphadenopathy noted. Carotids are 2+, JVD WNL LUNGS: Respiration seems nonlabored, no significant accessory muscle action noted. Coarse rhonchi noted bilaterally. Chest tube noted right-sided chest. No dullness appreciated. CHEST: Palpation of the chest wall shows no significant chest wall tenderness. No other significant abnormalities noted. 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 ABDOMEN: Soft, no significant tenderness appreciated, normoactive bowel sounds. No guarding, no rebound. No rigidity noted . No masses appreciated. EXTREMITIES: Pedal pulses are 1-2+, no calf tenderness noted. No clubbing or cyanosis.1+ pedal edema noted, improved NEUROLOGICAL: Focused neurological exam showed no significant neurologic deficit. Normal speech, no focal weakness appreciated. PSYCH: Normal mood, normal affect. Judgment and insight within normal limits. SKIN: No significant ecchymosis, rash, ulcerations or signs of pruritus noted. MUSCULOSKELETAL EXAM: No significant joint swelling noted. Results Laboratory Results: 08/21/16 04:45 08/21/16 04:45 08/21/16 08/21/16 08/21/16 04:45 04:45 04:45 WBC 6.3 RBC 3.80 Hgb 9.5 L Hct 28.7 L MCV 76 L MCH 25.0 L MCHC 33.1 RDW 18.0 H Plt Count 123 L Seg Neutrophils % 63.9 Lymphocytes % 19.4 Monocytes % 10.7 Eosinophils % 5.1 Basophils % 0.9 Absolute Neutrophils 4.0 Absolute Lymphocytes 1.2 Absolute Monocytes 0.7 Absolute Eosinophils 0.3 Absolute Basophils 0.1 Sodium 140.4 Potassium 2.4 L* D Chloride 93 L Carbon Dioxide 36 H Anion Gap 11 BUN 23 H Creatinine 0.78 Est GFR ( Amer) > 60 Est GFR (Non-Af Amer) > 60 Glucose 92 Calcium 8.8 Magnesium 2.0 08/17/16 03:36 NT-Pro-B Natriuret Pep 1860 H Impressions: Chest CT 08/21/16 00:00 IMPRESSION: TRACE RIGHT PLEURAL EFFUSION AND TINY RIGHT RESIDUAL PNEUMOTHORAX WITH CHEST TUBE IN PLACE. REMAINING FINDINGS STABLE COMPARED TO STUDY FROM 05/31/2016. Chest X-Ray 08/21/16 06:00 IMPRESSION: No significant interval change. Tiny right apical pneumothorax. Right chest tube. Assessment & Plan - Diagnosis (1) Atrial fibrillation Qualifiers: Atrial fibrillation type: persistent Qualified Code(s): I48.1 - Persistent atrial fibrillation Is this a current diagnosis for this admission?: Yes (2) Diabetes mellitus type II, controlled Qualifiers: Diabetes mellitus complication status: with unspecified complications Diabetes mellitus snf insulin use: unspecified salvage determiner insulin use status Qualified Code(s): E11.8 - Type 2 diabetes mellitus with unspecified complications; Z79.4 - care home (current) use of insulin Is this a current diagnosis for this admission?: Yes (3) COPD (chronic obstructive pulmonary disease) Qualifiers: Emphysema type: unspecified Is this a current diagnosis for this admission?: Yes (4) Hydropneumothorax Is this a current diagnosis for this admission?: Yes (5) Congestive heart failure Qualifiers: Congestive heart failure type: diastolic Congestive heart failure chronicity: acute on chronic Qualified Code(s): I50.33 - Acute on chronic diastolic (congestive) heart failure Is this a current diagnosis for this admission?: Yes (6) Hypercholesterolemia Is this a current diagnosis for this admission?: Yes (7) Hypertension Qualifiers: Hypertension type: essential hypertension Qualified Code(s): I10 - Essential (primary) hypertension Is this a current diagnosis for this admission?: Yes (8) Tobacco abuse Is this a current diagnosis for this admission?: Yes (9) History of lymphoma Is this a current diagnosis for this admission?: Yes - Notes Notes: Atrial fibrillation: This seems persistent. There seems to be some relative contraindication for chronic anticoagulation. Patient also lists ELIQUIS and Pradaxa as allergies. There is history of iron deficiency anemia. For rate control will recommend Cardizem. Currently heart rate slightly elevated. Will discuss chronic anticoagulation with oncologist. Congestive heart failure: This is based on chronic diastolic dysfunction. There is some element of right-sided heart failure. Prior echocardiogram in the last 1 year shows normal LVEF, grade 2 diastolic dysfunction, mild mitral regurgitation and RV being mildly dilated. Mild LVH was also noted. Clinically patient seems compensated. CT scan shows resolution of pleural effusion and pneumothorax. COPD: Currently stable. Patient gives history of smoking until this admission. Patient claims that she will quit. Hypercholesterolemia: Continue statin therapy in view of prior history of strokes. Hypertension: Blood pressure reasonably well controlled. Blood pressure goal is 135/85 or less in this patient. Tobacco abuse: Patient has been advised to quit smoking. History of lymphoma: There is some concern that the pleural effusion could be related to this. Hypokalemia: The patient was hyperkalemic on admission. Due to diastolic dysfunction, obesity, CHF, possible RV dysfunction, will place patient on spironolactone. Patient will need frequent monitoring of potassium level. - Time Time with patient: Greater than 35 minutes - CODE STATUS was discussed, patient remains full code. Surrogate decision-maker unchanged. Multiple medical problems were addressed.More than 50% of the time spent coordinating care, discussing management plans with involved caregivers. Management plans discussed with involved personnels. Medical decision making was of moderate to high complexity, patient's has multiple severe comorbidities. Medications reviewed and adjusted accordingly: Yes
[2016-08-21] MEDS ORDERED: SPIRONOLACTONE 25 MG TABLET PO ONE (12:30)
--- NOTE | 2016-08-21 15:24 | PDOC PROGRESS REPORT ---
Subjective Progress Note for:: 08/21/16 Subjective:: Patient has no new complaints. Patient denies fever, chills, headache, new focal weakness, chest pain, shortness of breath, abdominal pain, nausea, vomiting, diarrhea, constipation. Physical Exam Vital Signs: Temp Pulse Resp BP Pulse Ox 97.8 F 105 H 18 126/59 H 94 08/21/16 12:11 08/21/16 12:11 08/21/16 12:11 08/21/16 12:11 08/21/16 12:11 Intake & Output 08/20/16 08/21/16 08/22/16 06:59 06:59 06:59 Intake Total 1094 1937 592 Output Total 1500 3430 1900 Balance -406 -6199 -7387 Weight 87 kg 83.8 kg GENERAL: No acute distress HEENT: Conjunctiva clear, nonicteric, moist mucous membranes, no JVD, midline trachea RESPIRATORY: Right anterior lung field rhonchi, right chest tube CARDIAC: Regular rate and rhythm, no murmurs/gallops/rubs ABDOMEN: Soft, nondistended, nontender, positive bowel sounds, no rebound, no guarding EXTREMETIES: No edema, cyanosis, clubbing NEUROLOGIC: Alert, oriented to person/place/time, CN's grossly intact, no focal deficits SKIN: No rash, wounds PSYCH: Normal mood, normal affect Results Laboratory Results: 08/21/16 04:45 08/21/16 04:45 08/21/16 08/21/16 08/21/16 04:45 04:45 04:45 WBC 6.3 RBC 3.80 Hgb 9.5 L Hct 28.7 L MCV 76 L MCH 25.0 L MCHC 33.1 RDW 18.0 H Plt Count 123 L Seg Neutrophils % 63.9 Lymphocytes % 19.4 Monocytes % 10.7 Eosinophils % 5.1 Basophils % 0.9 Absolute Neutrophils 4.0 Absolute Lymphocytes 1.2 Absolute Monocytes 0.7 Absolute Eosinophils 0.3 Absolute Basophils 0.1 Sodium 140.4 Potassium 2.4 L* D Chloride 93 L Carbon Dioxide 36 H Anion Gap 11 BUN 23 H Creatinine 0.78 Est GFR ( Amer) > 60 Est GFR (Non-Af Amer) > 60 Glucose 92 Calcium 8.8 Magnesium 2.0 08/19/16 10:10 Sputum Gram Stain - Final 08/19/16 10:10 Sputum Sputum Culture - Final NORMAL STACEY 08/17/16 03:36 NT-Pro-B Natriuret Pep 1860 H Impressions: Chest CT 08/21/16 00:00 IMPRESSION: TRACE RIGHT PLEURAL EFFUSION AND TINY RIGHT RESIDUAL PNEUMOTHORAX WITH CHEST TUBE IN PLACE. REMAINING FINDINGS STABLE COMPARED TO STUDY FROM 05/31/2016. Chest X-Ray 08/21/16 06:00 IMPRESSION: No significant interval change. Tiny right apical pneumothorax. Right chest tube. Assessment & Plan - Diagnosis (1) Acute and chronic respiratory failure ([id number]) Is this a current diagnosis for this admission?: YesPlan: Continue BiPAP at night for obstructive sleep apnea. Oxygen supplementation. (2) Hydropneumothorax Is this a current diagnosis for this admission?: YesPlan: Resulted from recent diagnostic thoracentesis. Status post chest tube placement. Surgery managing. Pleural effusion cytology exudative in nature and may be related to several factors to include right lung field pneumonia, volume overload. CT scan of chest with contrast on 08/21/2016 shows changes in right lung consistent with history of radiation, right lung field airspace disease. No mass. If chest tube output does not decrease in the next couple days patient may have to be considered for transfer to tertiary care facility for CT surgery evaluation and pleurodesis. At this point patient and daughter do not wish to be transferred to another facility. I have advised them that if chest tube output does not improve however we cannot continue on this course indefinitely. (3) Bilateral pneumonia Qualifiers: Pneumonia type: due to unspecified organism Lung location: lower lobe of lung Qualified Code(s): J18.9 - Pneumonia, unspecified organism Is this a current diagnosis for this admission?: YesPlan: Continue oral doxycycline until 08/26/2016. (4) Acute CHF Qualifiers: Congestive heart failure type: unspecified congestive heart failure type Qualified Code(s): I50.9 - Heart failure, unspecified Is this a current diagnosis for this admission?: YesPlan: Echocardiogram from 2 years ago shows normal EF, no evidence of diastolic dysfunction, no significant valvular disease. Continue IV Lasix 40 mg every 12 hours. After further discussion with patient and patient's daughter at the bedside it appears that patient has excessive oral fluid intake (up to 2-1/2 gallons a day) . I have had an extensive discussion with patient and her daughter regarding fluid restriction given patient's fluid overloaded state. Dr. Roger of cardiology following. (5) Acute post-hemorrhagic anemia Is this a current diagnosis for this admission?: YesPlan: Transfused 1 unit PRBC on 08/17/2016. Follow-up H&H low but stable. (6) COPD (chronic obstructive pulmonary disease) Qualifiers: Emphysema type: unspecified Is this a current diagnosis for this admission?: YesPlan: When necessary duo nebs. (7) Lymphoma in remission Is this a current diagnosis for this admission?: YesPlan: Followed by Dr. Fatimah De Anda of oncology. (8) Diabetes mellitus type 1 Is this a current diagnosis for this admission?: YesPlan: Decrease 7030 insulin to 30 units every morning and 20 units every afternoon. Sliding scale insulin coverage. (9) Hypothyroidism Is this a current diagnosis for this admission?: YesPlan: Synthroid (10) Hypercholesterolemia Is this a current diagnosis for this admission?: Yes (11) Hypertension Qualifiers: Hypertension type: essential hypertension Qualified Code(s): I10 - Essential (primary) hypertension Is this a current diagnosis for this admission?: Yes (12) Tobacco abuse Is this a current diagnosis for this admission?: Yes (13) Hypokalemia Is this a current diagnosis for this admission?: YesPlan: Replace as needed. Monitor closely on diuretic therapy. (14) Atrial fibrillation Qualifiers: Atrial fibrillation type: persistent Qualified Code(s): I48.1 - Persistent atrial fibrillation Is this a current diagnosis for this admission?: YesPlan: Cardizem CD was increased to 180 mg daily for heart rate control this admission. Continue aspirin 81 mg daily. Hold off on full anticoagulation for now in case patient should need further surgical procedure for pleural effusion. (15) GERD (gastroesophageal reflux disease) Is this a current diagnosis for this admission?: YesPlan: May use home Nexium. Apparently has allergy to Prevacid. - Time Time Spent with patient: 35 or more minutes
[2016-08-21] MEDS ORDERED: PHARMACY COMMUNICATION ORDER MC NR (15:30)
[2016-08-21] MEDS: GABAPENTIN 300 MG CAPSULE PO SCH (21:04)
[2016-08-22 05:01] LABS: ABSOLUTE BASOPHILS # (AUTO) 0.1 10^3/uL (0.0-0.2); ABSOLUTE EOSINOPHILS # (AUTO) 0.3 10^3/uL (0.0-0.6); ABSOLUTE LYMPHOCYTES (AUTO) 1.2 10^3/uL (0.5-4.7); ABSOLUTE MONOCYTES (AUTO) 0.7 10^3/uL (0.1-1.4); ABSOLUTE NEUT (AUTO) 4.1 10^3/uL (1.7-8.2); BASOPHILS % (AUTO) 1.2 % (0-2); EOSINOPHILS % (AUTO) 4.2 % (0-6); HEMOGLOBIN 8.8 g/dL (12.0-15.5); HGB HCT DIFFERENCE -0.6; LYMPHOCYTES % (AUTO) 19.3 % (13-45); MEAN CORPUSCULAR HEMOGLOBIN 25.1 pg (27.0-33.4); MEAN CORPUSCULAR HGB CONC 32.4 g/dL (32.0-36.0); MEAN CORPUSCULAR VOLUME 78 fl (80-97); MONOCYTES % (AUTO) 11.5 % (3-13); RED BLOOD COUNT 3.48 10^6/uL (3.72-5.28); RED CELL DISTRIBUTION WIDTH 17.7 % (11.5-14.0); SEGMENTED NEUTROPHILS % (AUTO) 63.8 % (42-78); WHITE BLOOD COUNT 6.5 10^3/uL (4.0-10.5)
[2016-08-22 05:22] LABS: ANION GAP 9 (5-19); BLOOD UREA NITROGEN 24 mg/dL (7-20); CALCIUM 8.9 mg/dL (8.4-10.2); CARBON DIOXIDE 37 mmol/L (22-30); CHLORIDE 93 mmol/L (98-107); CREATININE RESULT 0.78 mg/dL (0.52-1.25); GLUCOSE 85 mg/dL (75-110); MAGNESIUM 2.2 mg/dL (1.6-2.3); SODIUM 138.7 mmol/L (137-145)
[2016-08-22 05:29] LABS: POTASSIUM 2.9 mmol/L (3.6-5.0)
[2016-08-22] MEDS ORDERED: POTASSIUM CHLORIDE 20 MEQ/15 ML UDCUP PO ONE ×2 (06:00→08:00)
[2016-08-22] MEDS: DOXYCYCLINE HYCLATE 100 MG TABLET PO SCH ×2 (06:07→20:21)
[2016-08-22] MEDS: MAGNESIUM OXIDE 400 MG TABLET PO SCH ×3 (06:07→18:28)
[2016-08-22] MEDS: ALPRAZOLAM 0.5 MG TABLET PO SCH ×3 (06:08→21:57)
[2016-08-22] MEDS ORDERED: POTASSI CL 20 MEQ/50 ML RIDER 50 ML IV SCH (07:00)
[2016-08-22] MEDS: HUM INSULIN NPH/REG INSULIN HM 100 UNIT/1 ML 3 ML SUBCUT SCH ×2 (08:08→18:26)
[2016-08-22] MEDS: FONDAPARINUX SODIUM INJ 2.5 MG/0.5 ML DISP.SYRIN SUBCUT SCH (08:09)
[2016-08-22] MEDS ORDERED: POTASSI CL 20 MEQ/50 ML RIDER 50 ML IV ONE (09:00)
[2016-08-22] MEDS: DILTIAZEM HCL 180 MG CAPSULE.CR PO SCH (09:57)
[2016-08-22] MEDS: ATORVASTATIN CALCIUM 20 MG TABLET PO SCH (09:57)
[2016-08-22] MEDS: DOCUSATE SODIUM 100 MG CAPSULE PO SCH ×2 (09:57→21:56)
[2016-08-22] MEDS: ASPIRIN 81 MG TABLET, ENT COATED PO SCH (09:58)
[2016-08-22] MEDS: FUROSEMIDE 40 MG TABLET PO SCH ×2 (09:58→18:27)
[2016-08-22] MEDS: SPIRONOLACTONE 25 MG TABLET PO SCH (09:58)
[2016-08-22] MEDS: METOCLOPRAMIDE HCL 10 MG TABLET PO SCH ×2 (09:58→21:57)
[2016-08-22] MEDS: POTASSIUM CHLORIDE 10 MEQ TABLET.SA PO SCH ×2 (09:59→21:57)
[2016-08-22] MEDS ORDERED: SPIRONOLACTONE 25 MG TABLET PO SCH (10:00)
[2016-08-22] MEDS: OXYCODONE HCL IR 5 MG TABLET PO PRN ×3 (10:00→18:29)
[2016-08-22] MEDS: LEVOTHYROXINE SODIUM 0.1 MG TABLET PO SCH (10:00)
--- NOTE | 2016-08-22 12:10 | PDOC PROGRESS REPORT ---
Subjective Progress Note for:: 08/22/16 Subjective:: Patient has no new complaints. Chest tube output has decreased to 200 mL over past 24. Patient denies fever, chills, headache, new focal weakness, chest pain, shortness of breath, abdominal pain, nausea, vomiting, diarrhea, constipation. Physical Exam Vital Signs: Temp Pulse Resp BP Pulse Ox 99.0 F 109 H 20 119/53 L 92 08/22/16 07:11 08/22/16 07:11 08/22/16 07:11 08/22/16 07:11 08/22/16 07:11 Intake & Output 08/21/16 08/22/16 08/23/16 06:59 06:59 06:59 Intake Total 1934 2627 Output Total 3433 5365 Balance -1493 -1408 Weight 83.8 kg 85.3 kg GENERAL: No acute distress HEENT: Conjunctiva clear, nonicteric, moist mucous membranes, no JVD, midline trachea RESPIRATORY: Clear to auscultation bilaterally, right chest tube CARDIAC: Regular rate and rhythm, no murmurs/gallops/rubs ABDOMEN: Soft, nondistended, nontender, positive bowel sounds, no rebound, no guarding EXTREMETIES: No edema, cyanosis, clubbing NEUROLOGIC: Alert, oriented to person/place/time, CN's grossly intact, no focal deficits SKIN: No rash, wounds PSYCH: Normal mood, normal affect Results Laboratory Results: 08/22/16 04:16 08/22/16 04:16 08/22/16 08/22/16 04:16 04:16 WBC 6.5 RBC 3.48 L Hgb 8.8 L Hct 27.0 L MCV 78 L MCH 25.1 L MCHC 32.4 RDW 17.7 H Plt Count 116 L Seg Neutrophils % 63.8 Lymphocytes % 19.3 Monocytes % 11.5 Eosinophils % 4.2 Basophils % 1.2 Absolute Neutrophils 4.1 Absolute Lymphocytes 1.2 Absolute Monocytes 0.7 Absolute Eosinophils 0.3 Absolute Basophils 0.1 Sodium 138.7 Potassium 2.9 L* Chloride 93 L Carbon Dioxide 37 H Anion Gap 9 BUN 24 H Creatinine 0.78 Est GFR ( Amer) > 60 Est GFR (Non-Af Amer) > 60 Glucose 85 Calcium 8.9 Magnesium 2.2 08/19/16 10:10 Sputum Gram Stain - Final 08/19/16 10:10 Sputum Sputum Culture - Final NORMAL STACEY 08/17/16 03:36 NT-Pro-B Natriuret Pep 1860 H Impressions: Chest CT 08/21/16 00:00 IMPRESSION: TRACE RIGHT PLEURAL EFFUSION AND TINY RIGHT RESIDUAL PNEUMOTHORAX WITH CHEST TUBE IN PLACE. REMAINING FINDINGS STABLE COMPARED TO STUDY FROM 05/31/2016. Chest X-Ray 08/22/16 06:00 IMPRESSION: Persistent trace right-sided pneumothorax. Mild bibasilar atelectasis. Assessment & Plan - Diagnosis (1) Acute and chronic respiratory failure ([id number]) Is this a current diagnosis for this admission?: YesPlan: Continue BiPAP at night for obstructive sleep apnea. Oxygen supplementation. (2) Hydropneumothorax Is this a current diagnosis for this admission?: YesPlan: Resulted from recent diagnostic thoracentesis. Status post chest tube placement. Surgery managing. Pleural effusion cytology exudative in nature and may be related to several factors to include right lung field pneumonia, volume overload. CT scan of chest with contrast on 08/21/2016 shows changes in right lung consistent with history of radiation, right lung field airspace disease. No mass. Chest tube output has decreased to 200 mL over the past 24 hours. Surgery is recommended maintaining chest tube for the next couple days and if output continues to decrease the chest tube can be discontinued. (3) Bilateral pneumonia Qualifiers: Pneumonia type: due to unspecified organism Lung location: lower lobe of lung Qualified Code(s): J18.9 - Pneumonia, unspecified organism Is this a current diagnosis for this admission?: YesPlan: Continue oral doxycycline until 08/26/2016. (4) Acute CHF Qualifiers: Congestive heart failure type: unspecified congestive heart failure type Qualified Code(s): I50.9 - Heart failure, unspecified Is this a current diagnosis for this admission?: YesPlan: Echocardiogram from 2 years ago shows normal EF, no evidence of diastolic dysfunction, no significant valvular disease. Discontinue IV Lasix. Start Lasix 40 mg by mouth twice a day. Increase spironolactone to 50 mg daily. After further discussion with patient and patient's daughter at the bedside it appears that patient has excessive oral fluid intake (up to 2-1/2 gallons a day) . I have had an extensive discussion with patient and her daughter regarding fluid restriction given patient's fluid overloaded state. Dr. Roger of cardiology following. (5) Acute post-hemorrhagic anemia Is this a current diagnosis for this admission?: YesPlan: Transfused 1 unit PRBC on 08/17/2016. Follow-up H&H low but stable. (6) COPD (chronic obstructive pulmonary disease) Qualifiers: Emphysema type: unspecified Is this a current diagnosis for this admission?: YesPlan: When necessary duo nebs. (7) Lymphoma in remission Is this a current diagnosis for this admission?: YesPlan: Followed by Dr. Fatimah De Anda of oncology. (8) Diabetes mellitus type 1 Is this a current diagnosis for this admission?: YesPlan: Continue 70/30 insulin 30 units QAM and 20 units QPM. Sliding scale insulin coverage. (9) Hypothyroidism Is this a current diagnosis for this admission?: YesPlan: Synthroid (10) Hypercholesterolemia Is this a current diagnosis for this admission?: YesPlan: Lipitor (11) Hypertension Qualifiers: Hypertension type: essential hypertension Qualified Code(s): I10 - Essential (primary) hypertension Is this a current diagnosis for this admission?: Yes (12) Tobacco abuse Is this a current diagnosis for this admission?: Yes (13) Hypokalemia Is this a current diagnosis for this admission?: YesPlan: Replace as needed. Monitor closely on diuretic therapy. (14) Atrial fibrillation Qualifiers: Atrial fibrillation type: persistent Qualified Code(s): I48.1 - Persistent atrial fibrillation Is this a current diagnosis for this admission?: YesPlan: Cardizem CD was increased to 180 mg daily for heart rate control this admission. Continue aspirin 81 mg daily. Hold off on full anticoagulation for now in case patient should need further surgical procedure for pleural effusion. (15) GERD (gastroesophageal reflux disease) Is this a current diagnosis for this admission?: YesPlan: May use home Nexium. Apparently has allergy to Prevacid. - Time Time Spent with patient: 35 or more minutes Anticipated discharge: Home Within: within 72 hours
--- NOTE | 2016-08-22 12:27 | PDOC PROGRESS REPORT ---
Subjective Progress Note for:: 08/22/16 Subjective:: Patient seems to be doing better with gradual improvement. Pt is denying any chest arm or neck discomfort. Patient denying any PND, orthopnea. Patient denied any sustained palpitations, dizziness, syncope, near syncope. Patient denying any fever chills. Patient denying any other significant discomfort. Patient is maintaining persistent atrial fibrillation. Patient still has the chest tube on the right side chest. Patient sitting on the bedside chair. Patient had about 200 mL of drainage from the chest tube. This was in the last 24 hours. Review of systems: Rest review of systems negative. Medications: Medications have been reviewed. Physical Exam Vital Signs: Temp Pulse Resp BP Pulse Ox 99.0 F 109 H 20 119/53 L 92 08/22/16 07:11 08/22/16 07:11 08/22/16 07:11 08/22/16 07:11 08/22/16 07:11 Intake & Output 08/21/16 08/22/16 08/23/16 06:59 06:59 06:59 Intake Total 1937 2627 Output Total 3430 4035 Balance -1493 -1408 Weight 83.8 kg 85.3 kg Exam: GENERAL: well-nourished and in no acute distress. Alert and oriented x3 HEAD: Atraumatic, normocephalic. EYES: Pupils equal round and reactive to light, extraocular movements intact, sclera anicteric, conjunctiva are normal. ENT: TMs normal, nares patent, oropharynx clear without exudates. Moist mucous membranes. No oral ulcerations or bleeding gums noted NECK: supple without lymphadenopathy. Trachea is central. No cervical or axillary lymphadenopathy noted. Carotids are 2+, JVD WNL LUNGS: Respiration seems nonlabored, no significant accessory muscle action noted. Breath sounds clear to auscultation bilaterally and equal noted. No wheezes rales or rhonchi noted. No significant dullness noted on percussion. Chest tube noted on the right side. CHEST: Palpation of the chest wall shows no significant chest wall tenderness. No other significant abnormalities noted. 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 ABDOMEN: Soft, no significant tenderness appreciated, normoactive bowel sounds. No guarding, no rebound. No rigidity noted . No masses appreciated. EXTREMITIES: Pedal pulses are 1-2+, no calf tenderness noted. No clubbing or cyanosis.trace to 1+ pedal edema noted NEUROLOGICAL: Focused neurological exam showed no significant neurologic deficit. Normal speech, no focal weakness appreciated. PSYCH: Normal mood, normal affect. Judgment and insight within normal limits. SKIN: No significant ecchymosis, rash, ulcerations or signs of pruritus noted. MUSCULOSKELETAL EXAM: No significant joint swelling noted. Results Laboratory Results: 08/22/16 04:16 08/22/16 04:16 08/22/16 08/22/16 04:16 04:16 WBC 6.5 RBC 3.48 L Hgb 8.8 L Hct 27.0 L MCV 78 L MCH 25.1 L MCHC 32.4 RDW 17.7 H Plt Count 116 L Seg Neutrophils % 63.8 Lymphocytes % 19.3 Monocytes % 11.5 Eosinophils % 4.2 Basophils % 1.2 Absolute Neutrophils 4.1 Absolute Lymphocytes 1.2 Absolute Monocytes 0.7 Absolute Eosinophils 0.3 Absolute Basophils 0.1 Sodium 138.7 Potassium 2.9 L* Chloride 93 L Carbon Dioxide 37 H Anion Gap 9 BUN 24 H Creatinine 0.78 Est GFR ( Amer) > 60 Est GFR (Non-Af Amer) > 60 Glucose 85 Calcium 8.9 Magnesium 2.2 08/19/16 10:10 Sputum Gram Stain - Final 08/19/16 10:10 Sputum Sputum Culture - Final NORMAL STACEY 08/17/16 03:36 NT-Pro-B Natriuret Pep 1860 H Impressions: Chest CT 08/21/16 00:00 IMPRESSION: TRACE RIGHT PLEURAL EFFUSION AND TINY RIGHT RESIDUAL PNEUMOTHORAX WITH CHEST TUBE IN PLACE. REMAINING FINDINGS STABLE COMPARED TO STUDY FROM 05/31/2016. Chest X-Ray 08/22/16 06:00 IMPRESSION: Persistent trace right-sided pneumothorax. Mild bibasilar atelectasis. 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 Is this a current diagnosis for this admission?: Yes (3) COPD (chronic obstructive pulmonary disease) Qualifiers: Emphysema type: unspecified Is this a current diagnosis for this admission?: Yes (4) Hydropneumothorax Is this a current diagnosis for this admission?: Yes (5) Congestive heart failure Qualifiers: Congestive heart failure type: diastolic Congestive heart failure chronicity: acute on chronic Qualified Code(s): I50.33 - Acute on chronic diastolic (congestive) heart failure Is this a current diagnosis for this admission?: Yes (6) Hypercholesterolemia Is this a current diagnosis for this admission?: Yes (7) Hypertension Qualifiers: Hypertension type: essential hypertension Qualified Code(s): I10 - Essential (primary) hypertension Is this a current diagnosis for this admission?: Yes (8) Tobacco abuse Is this a current diagnosis for this admission?: Yes (9) History of lymphoma Is this a current diagnosis for this admission?: Yes - Notes Notes: Atrial fibrillation: This seems persistent. There seems to be some relative contraindication for chronic anticoagulation. Patient also lists ELIQUIS and Pradaxa as allergies. There is history of iron deficiency anemia. For rate control will recommend Cardizem. Currently heart rate seems well controlled. Chart review shows that patient had low hemoglobin in the past. Will discuss chronic anticoagulation with oncologist. Congestive heart failure: This is based on chronic diastolic dysfunction. There is some element of right-sided heart failure. Prior echocardiogram in the last 1 year shows normal LVEF, grade 2 diastolic dysfunction, mild mitral regurgitation and RV being mildly dilated. Mild LVH was also noted. Clinically patient seems compensated. CT scan shows resolution of pleural effusion and pneumothorax. Patient should be discharged on diuretics. Will adjust her by mouth diuretics. COPD: Currently stable. Patient gives history of smoking until this admission. Patient claims that she will quit. Hypercholesterolemia: Continue statin therapy in view of prior history of strokes. Hypertension: Blood pressure reasonably well controlled. Blood pressure goal is 135/85 or less in this patient. Tobacco abuse: Patient has been advised to quit smoking. History of lymphoma: There is some concern that the pleural effusion could be related to this. Hypokalemia: The patient was hyperkalemic on admission. Due to diastolic dysfunction, obesity, CHF, possible RV dysfunction, patient was placed on his spironolactone yesterday. Will switch to by mouth Lasix today. Patient will need frequent monitoring of potassium level. - Time Time with patient: Greater than 35 minutes - CODE STATUS was discussed, patient remains full code. Surrogate decision-maker unchanged. Multiple medical problems were addressed.More than 50% of the time spent coordinating care, discussing management plans with involved caregivers. Management plans discussed with involved personnels. Medical decision making was of moderate to high complexity, patient's has multiple severe comorbidities. Medications reviewed and adjusted accordingly: Yes
[2016-08-22] MEDS ORDERED: FERROUS SULFATE 325 MG TABLET PO ONE (13:00)
[2016-08-22] MEDS ORDERED: POLYETHYLENE GLYCOL 3350 POWDER 17 GM/1 PACKET PO ONE (13:00)
--- NOTE | 2016-08-22 16:37 | PDOC PROGRESS REPORT ---
Subjective Progress Note for:: 08/22/16 Subjective:: No sob or chest pain Physical Exam Vital Signs: Temp Pulse Resp BP Pulse Ox 97.8 F 85 20 126/57 H 97 08/22/16 11:40 08/22/16 14:00 08/22/16 11:40 08/22/16 11:40 08/22/16 11:40 Intake & Output 08/21/16 08/22/16 08/23/16 06:59 06:59 06:59 Intake Total 1937 2627 342 Output Total 3438 9139 800 Balance -1493 -1408 -458 Weight 83.8 kg 85.3 kg General appearance: PRESENT: no acute distress, hard of hearing Head exam: PRESENT: atraumatic Neck exam: PRESENT: other - soft , non tender Respiratory exam: PRESENT: other - clear GI/Abdominal exam: PRESENT: soft - non tender, other Results Laboratory Results: 08/22/16 04:16 08/22/16 04:16 08/22/16 08/22/16 04:16 04:16 WBC 6.5 RBC 3.48 L Hgb 8.8 L Hct 27.0 L MCV 78 L MCH 25.1 L MCHC 32.4 RDW 17.7 H Plt Count 116 L Seg Neutrophils % 63.8 Lymphocytes % 19.3 Monocytes % 11.5 Eosinophils % 4.2 Basophils % 1.2 Absolute Neutrophils 4.1 Absolute Lymphocytes 1.2 Absolute Monocytes 0.7 Absolute Eosinophils 0.3 Absolute Basophils 0.1 Sodium 138.7 Potassium 2.9 L* Chloride 93 L Carbon Dioxide 37 H Anion Gap 9 BUN 24 H Creatinine 0.78 Est GFR ( Amer) > 60 Est GFR (Non-Af Amer) > 60 Glucose 85 Calcium 8.9 Magnesium 2.2 08/19/16 10:10 Sputum Gram Stain - Final 08/19/16 10:10 Sputum Sputum Culture - Final NORMAL STACEY 08/17/16 03:36 NT-Pro-B Natriuret Pep 1860 H Impressions: Chest CT 08/21/16 00:00 IMPRESSION: TRACE RIGHT PLEURAL EFFUSION AND TINY RIGHT RESIDUAL PNEUMOTHORAX WITH CHEST TUBE IN PLACE. REMAINING FINDINGS STABLE COMPARED TO STUDY FROM 05/31/2016. Chest X-Ray 08/22/16 06:00 IMPRESSION: Persistent trace right-sided pneumothorax. Mild bibasilar atelectasis. Assessment & Plan - Plan Summary Plan Summary: Rib fractures, left , no pulmonary injury Conservative management Will follow as an out patient
[2016-08-22] MEDS: INSULIN LISPRO 100 UNIT/ML 3 ML VIAL SUBCUT PRN ×2 (18:26→21:58)
[2016-08-22] MEDS: ACETAMINOPHEN 325 MG TABLET PO PRN (20:21)
[2016-08-22] MEDS: GABAPENTIN 300 MG CAPSULE PO SCH (21:57)
[2016-08-23] MEDS: ALPRAZOLAM 0.5 MG TABLET PO SCH ×2 (05:32→15:41)
[2016-08-23 05:44] LABS: ABSOLUTE BASOPHILS # (AUTO) 0.1 10^3/uL (0.0-0.2); ABSOLUTE EOSINOPHILS # (AUTO) 0.3 10^3/uL (0.0-0.6); ABSOLUTE LYMPHOCYTES (AUTO) 1.3 10^3/uL (0.5-4.7); ABSOLUTE MONOCYTES (AUTO) 0.7 10^3/uL (0.1-1.4); ABSOLUTE NEUT (AUTO) 4.3 10^3/uL (1.7-8.2); BASOPHILS % (AUTO) 1.1 % (0-2); EOSINOPHILS % (AUTO) 4.1 % (0-6); HEMATOCRIT 26.8 % (36.0-47.0); HEMOGLOBIN 8.6 g/dL (12.0-15.5); LYMPHOCYTES % (AUTO) 19.6 % (13-45); MEAN CORPUSCULAR HEMOGLOBIN 25.1 pg (27.0-33.4); MEAN CORPUSCULAR HGB CONC 32.2 g/dL (32.0-36.0); MEAN CORPUSCULAR VOLUME 78 fl (80-97); MONOCYTES % (AUTO) 11.1 % (3-13); RED BLOOD COUNT 3.44 10^6/uL (3.72-5.28); RED CELL DISTRIBUTION WIDTH 17.8 % (11.5-14.0); SEGMENTED NEUTROPHILS % (AUTO) 64.1 % (42-78); WHITE BLOOD COUNT 6.7 10^3/uL (4.0-10.5)
[2016-08-23 05:53] LABS: ANION GAP 9 (5-19); BLOOD UREA NITROGEN 26 mg/dL (7-20); CALCIUM 9.1 mg/dL (8.4-10.2); CARBON DIOXIDE 35 mmol/L (22-30); CHLORIDE 94 mmol/L (98-107); CREATININE RESULT 0.73 mg/dL (0.52-1.25); GLUCOSE 103 mg/dL (75-110); POTASSIUM 3.4 mmol/L (3.6-5.0); SODIUM 138.3 mmol/L (137-145)
[2016-08-23] MEDS ORDERED: POTASSIUM CHLORIDE 10 MEQ TABLET.SA PO ONE (07:00)
--- NOTE | 2016-08-23 08:35 | EKG REPORT ---
SEVERITY:- ABNORMAL ECG - ATRIAL FLUTTER, A-RATE 245 ABNORMAL T, CONSIDER ISCHEMIA, INFERIOR LEADS : Confirmed by: Catalino Roger 23-Aug-2016 08:34:12
[2016-08-23] MEDS: DOXYCYCLINE HYCLATE 100 MG TABLET PO SCH (08:47)
[2016-08-23] MEDS: FONDAPARINUX SODIUM INJ 2.5 MG/0.5 ML DISP.SYRIN SUBCUT SCH (08:49)
[2016-08-23] MEDS: HUM INSULIN NPH/REG INSULIN HM 100 UNIT/1 ML 3 ML SUBCUT SCH (08:54)
[2016-08-23] MEDS: OXYCODONE HCL IR 5 MG TABLET PO PRN ×2 (08:56→12:49)
[2016-08-23] MEDS ORDERED: POLYETHYLENE GLYCOL 3350 POWDER 17 GM/1 PACKET PO SCH (10:00)
[2016-08-23] MEDS ORDERED: FERROUS SULFATE 325 MG TABLET PO SCH (10:00)
--- NOTE | 2016-08-23 10:29 | Operative Report ---
Operative Report DATE OF SURGERY: 08/23/16 PREOPERATIVE DIAGNOSIS: Right pleural effusion POSTOPERATIVE DIAGNOSIS: Same OPERATION: Removal of right chest tube SURGEON: AMINA KARIMI ANESTHESIA: Other - none TISSUE REMOVED OR ALTERED: None COMPLICATIONS: None ESTIMATED BLOOD LOSS: none INTRAOPERATIVE FINDINGS: See below PROCEDURE: Patient was examined in the semirecumbent position in the chair. Right arm abducted. Chest tube dressing removed, suture removed. Chest wall cleaned with H wipes. Chest tube removed swiftly under compression dressing of Xeroform and 4 x 4's. A business process lead procedure well. Plan: 1. Repeat chest x-ray in 5 hours. If minimal right apical pneumothorax stable , patient can be discharged home. This was discussed with nursing staff as well as the medical staff. 2. Patient can remove dressing in approximately 48 hours 3. If pleural effusion recurs, follow-up with general surgery may be indicated to consider definitive drainage tube.
[2016-08-23] MEDS: ATORVASTATIN CALCIUM 20 MG TABLET PO SCH (10:55)
[2016-08-23] MEDS: METOCLOPRAMIDE HCL 10 MG TABLET PO SCH (10:55)
[2016-08-23] MEDS: DOCUSATE SODIUM 100 MG CAPSULE PO SCH (10:55)
[2016-08-23] MEDS: FUROSEMIDE 40 MG TABLET PO SCH (10:55)
[2016-08-23] MEDS: DILTIAZEM HCL 180 MG CAPSULE.CR PO SCH (10:55)
[2016-08-23] MEDS: ASPIRIN 81 MG TABLET, ENT COATED PO SCH (10:56)
[2016-08-23] MEDS: SPIRONOLACTONE 25 MG TABLET PO SCH (10:56)
[2016-08-23] MEDS: POTASSIUM CHLORIDE 10 MEQ TABLET.SA PO SCH (10:56)
[2016-08-23] MEDS: MAGNESIUM OXIDE 400 MG TABLET PO SCH (10:57)
[2016-08-23] MEDS: LEVOTHYROXINE SODIUM 0.1 MG TABLET PO SCH (10:57)
--- NOTE | 2016-08-23 11:05 | PDOC CONSULTATION ---
Consultation Consult Date: 08/23/16 Attending physician:: SONIA MCGOVERN Consult reason:: R pleural effusions History of Present Illness Admission Date/PCP: 08/16/16 19:38 SPRING DEAN MD History of Present Illness: SITA MANRIQUE is a 70 year old female as well as ongoing tobacco abuse, HTN , sleep apnea, afib with prior CVA and heme + stools treated with iron who was admitted with for dyspnea. This occurred after having had a thorocentesis. Prior to admission, She had worsening shortness of breath last week and CXR revealed a pleural effusion. Subsequently,she underwent a thoracentesis on Sunday 08/13 at [facility] interventional radiology for a large right pleural effusion with relief of her symptoms. Patient did well on Tuesday but since Tuesday she had increasing shortness of breath and cough. She thought it was a COPD exacerbation but we referred her to the ED for concerns for possible other etiologies. Upon evaluation in the ED patient she was diagnosed with a right pneumothorax, general surgery was called and the chest tube was inserted. Patient was noted to have congestive heart failure which has been rather difficult to treat. She is also noted to have atrial fibrillation. I was therefore asked to evaluate patient. It seems patient had been noncompliant with dietary restriction and has been having excess fluid intake. She has also continued to smoke.Patient has a known history of chest, COPD ,obstructive sleep apnea. 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 Past Medical History Cardiac Medical History: Reports: Atrial Fibrillation, Congestive Heart Failure , Coronary Artery Disease, Hypertension Denies: Myocardial Infarction Pulmonary Medical History: Reports: Asthma, Bronchitis, Chronic Obstructive Pulmonary Disease (COPD), Pneumonia Endocrine Medical History: Reports: Diabetes Mellitus Type 1, Diabetes Mellitus Type 2, Hypothyroidism Malignancy Medical History: Reports: Lymphoma - remission x 10yrs GI Medical History: Reports: Gastroesophageal Reflux Disease Musculoskeltal Medical History: Reports: Arthritis Hematology: Reports: Anemia Past Surgical History Past Surgical History: Reports: Appendectomy, Cholecystectomy, Hysterectomy, Tonsillectomy, Vascular Surgery - lymphnodes removed from groin and neck, Other - Benign brain tumor surgery. Social History Lives with: Family Smoking Status: Current Every Day Smoker Cigarettes Packs Per Day: 2 Passive smoke exposure as: Both Frequency of Alcohol Use: None Hx Recreational Drug Use: No Drugs: None Hx Prescription Drug Abuse: No Do you have pets?: Yes Have you had any respiratory illnesses as a child?: No Have you been exposed to any sick contacts recently?: No Have you had any recent respiratory illnesses?: No Have you travelled outside of [place] in the past 12 months?: No - Advance Directive Resuscitation Status: Full Code Family History Family History: COPD, Hypertension Parental Family History Reviewed: Yes Children Family History Reviewed: Yes Sibling(s) Family History Reviewed.: Yes Medication/Allergy Home Medications: Alprazolam [Xanax] 1 mg PO Q8 08/16/16 Aspirin [Aspirin EC] 81 mg PO DAILY 08/16/16 Atorvastatin Calcium [Lipitor 20 mg Tablet] 20 mg PO DAILY 08/16/16 Docusate Sodium [Colace 100 mg Capsule] 100 mg PO Q12 08/16/16 Esomeprazole Mag Trihydrate [Nexium] 40 mg PO DAILY 08/16/16 Gabapentin [Neurontin 300 mg Capsule] 300 mg PO QHS 08/16/16 Insulin Aspart Protam & Aspart [Novolog Mix 70-30 Vial] 25 units SQ MEALS Levothyroxine Sodium [Synthroid] 200 mcg PO DAILY 08/16/16 Magnesium Oxide [Mag-Ox 400 mg Tablet] 400 mg PO Q8 08/16/16 Metoclopramide HCl [Reglan 10 mg Tablet] 10 mg PO Q12 08/16/16 Acetaminophen [Tylenol 325 mg Tablet] 650 mg PO Q4HP PRN tablet 08/23/16 Diltiazem HCl [Cardizem Cd 180 mg Capsule] 180 mg PO DAILY #30 capsule.cr Doxycycline Hyclate [Vibramycin 100 mg Tablet] 100 mg PO Q12@08,1999 #10 tablet 08/23/16 Ferrous Sulfate [Feosol 325 mg Tablet] 325 mg PO DAILY #30 tablet 08/23/16 Furosemide [Lasix] 40 mg PO BID #0 08/23/16 Polyethylene Glycol 3350 [Miralax Powder 17 gm/Packet] 17 gm PO DAILY #30 powd.pack 08/23/16 Potassium Chloride [K-Tab ER] 20 meq PO Q8 #0 08/23/16 Spironolactone [Aldactone 25 mg Tablet] 50 mg PO DAILY #60 tablet 08/23/16 Allergies/Adverse Reactions: moxifloxacin HCl [From Avelox] Allergy (Severe, Verified 08/16/16 16:43) rash,itch apixaban [From Eliquis] Allergy (Intermediate, Verified 08/16/16 16:43) swell dabigatran etexilate [From Pradaxa] Allergy (Intermediate, Verified 08/16/16 16: 43) swell lansoprazole [From Prevacid] Allergy (Intermediate, Verified 08/16/16 16:43) Generalized Itching aloe [Aloe] Allergy (Verified 08/16/16 16:43) Physical Exam Vital Signs: Temp Pulse Resp BP Pulse Ox 97.8 F 56 L 20 138/51 H 100 08/23/16 08:00 08/23/16 08:00 08/23/16 08:00 08/23/16 08:00 08/23/16 08:00 Intake & Output 08/22/16 08/23/16 08/24/16 06:59 06:59 06:59 Intake Total 2627 1564 Output Total 4035 2360 65 Balance -1408 -796 -65 Weight 85.3 kg 87.2 kg General appearance: PRESENT: no acute distress, cooperative, disheveled, obese, well-developed Head exam: PRESENT: atraumatic, normocephalic Eye exam: PRESENT: conjunctiva pale, EOMI Mouth exam: PRESENT: moist, neck supple Neck exam: ABSENT: carotid bruit, JVD, lymphadenopathy, thyromegaly Respiratory exam: PRESENT: decreased breath sounds, prolonged expiratory phas, rhonchi, symmetrical - R>>L, unlabored, wheezes, other - r LATERAL CHEST WALL WOUND DRESSED DRY AND INTACT SITE OF CHEST TUBE Cardiovascular exam: PRESENT: RRR, +S1, +S2 Pulses: PRESENT: normal radial pulses GI/Abdominal exam: PRESENT: normal bowel sounds, soft. ABSENT: distended, guarding, mass, organolmegaly, rebound, tenderness Rectal exam: PRESENT: deferred Gentrourinary exam: PRESENT: indwelling catheter Musculoskeletal exam: PRESENT: normal inspection Neurological exam: PRESENT: alert, awake Psychiatric exam: PRESENT: normal mood Skin exam: PRESENT: dry, warm Results Laboratory Results: 08/23/16 05:04 08/23/16 05:04 08/23/16 08/23/16 05:04 05:04 WBC 6.7 RBC 3.44 L Hgb 8.6 L Hct 26.8 L MCV 78 L MCH 25.1 L MCHC 32.2 RDW 17.8 H Plt Count 122 L Seg Neutrophils % 64.1 Lymphocytes % 19.6 Monocytes % 11.1 Eosinophils % 4.1 Basophils % 1.1 Absolute Neutrophils 4.3 Absolute Lymphocytes 1.3 Absolute Monocytes 0.7 Absolute Eosinophils 0.3 Absolute Basophils 0.1 Sodium 138.3 Potassium 3.4 L Chloride 94 L Carbon Dioxide 35 H Anion Gap 9 BUN 26 H Creatinine 0.73 Est GFR ( Amer) > 60 Est GFR (Non-Af Amer) > 60 Glucose 103 Calcium 9.1 08/17/16 01:50 Chest Tube Fluid Gram Stain - Final 08/17/16 01:50 Chest Tube Fluid Body Fluid Culture - Final NO AEROBIC OR ANAEROBIC ORGANISMS RECOVERED 08/17/16 03:36 NT-Pro-B Natriuret Pep 1860 H Impressions: Chest CT 08/21/16 00:00 IMPRESSION: TRACE RIGHT PLEURAL EFFUSION AND TINY RIGHT RESIDUAL PNEUMOTHORAX WITH CHEST TUBE IN PLACE. REMAINING FINDINGS STABLE COMPARED TO STUDY FROM 05/31/2016. Chest X-Ray 08/22/16 06:00 IMPRESSION: Persistent trace right-sided pneumothorax. Mild bibasilar atelectasis. Assessment & Plan - Diagnosis (1) Hemopneumothorax on right Is this a current diagnosis for this admission?: YesPlan: DRAMATIC DECREASE IN FLUID DRAINAGE LAST 48 HRS;TUBE HAS BEEN REMOVED BY SURGERY (2) Atrial fibrillation Qualifiers: Atrial fibrillation type: persistent Qualified Code(s): I48.1 - Persistent atrial fibrillation Is this a current diagnosis for this admission?: Yes (3) COPD (chronic obstructive pulmonary disease) Qualifiers: Emphysema type: unspecified Is this a current diagnosis for this admission?: YesPlan: PATIENT USES ONLY ALBETEROL RELUCTANTLY IT"GETS ON HER TOUNGE WILL ADD AEROCHAMBER ask for instruct in use (4) Lymphoma in remission Is this a current diagnosis for this admission?: YesPlan: followed by Dr.D Dean (5) Pneumonia Qualifiers: Pneumonia type: due to unspecified organism Laterality: unspecified laterality Lung location: unspecified part of lung Qualified Code(s) : J18.9 - Pneumonia, unspecified organism Is this a current diagnosis for this admission?: Yes (6) Pneumothorax, right Is this a current diagnosis for this admission?: Yes
--- NOTE | 2016-08-23 11:27 | PDOC DISCHARGE SUMMARY ---
General - Admit/Disc Date/PCP Admission Date/Primary Care Provider: 08/16/16 19:38 SPRING DEAN MD Discharge Date: 08/23/16 - Discharge Diagnosis (1) Acute and chronic respiratory failure ([id number]) Is this a current diagnosis for this admission?: Yes (2) Hydropneumothorax Is this a current diagnosis for this admission?: Yes (3) Bilateral pneumonia Is this a current diagnosis for this admission?: Yes (4) Acute CHF Is this a current diagnosis for this admission?: Yes (5) Acute post-hemorrhagic anemia Is this a current diagnosis for this admission?: Yes (6) COPD (chronic obstructive pulmonary disease) Is this a current diagnosis for this admission?: Yes (7) Lymphoma in remission Is this a current diagnosis for this admission?: Yes (8) Diabetes mellitus type 1 Is this a current diagnosis for this admission?: Yes (9) Hypothyroidism Is this a current diagnosis for this admission?: Yes (10) Hypercholesterolemia Is this a current diagnosis for this admission?: Yes (11) Hypertension Is this a current diagnosis for this admission?: Yes (12) Tobacco abuse Is this a current diagnosis for this admission?: Yes (13) Hypokalemia Is this a current diagnosis for this admission?: Yes (14) Atrial fibrillation Is this a current diagnosis for this admission?: Yes (15) GERD (gastroesophageal reflux disease) Is this a current diagnosis for this admission?: Yes (16) Obstructive sleep apnea Is this a current diagnosis for this admission?: Yes - Additional Information Resuscitation Status: Full Code Discharge Diet: Cardiac - 1500ml fluid restriction, Diabetic Discharge Activity: Activity As Tolerated, Balance Activity w/Rest, Weigh Daily Home Medications: Alprazolam [Xanax] 1 mg PO Q8 08/16/16 Aspirin [Aspirin EC] 81 mg PO DAILY 08/16/16 Atorvastatin Calcium [Lipitor 20 mg Tablet] 20 mg PO DAILY 08/16/16 Docusate Sodium [Colace 100 mg Capsule] 100 mg PO Q12 08/16/16 Esomeprazole Mag Trihydrate [Nexium] 40 mg PO DAILY 08/16/16 Gabapentin [Neurontin 300 mg Capsule] 300 mg PO QHS 08/16/16 Insulin Aspart Protam & Aspart [Novolog Mix 70-30 Vial] 25 units SQ MEALS Levothyroxine Sodium [Synthroid] 200 mcg PO DAILY 08/16/16 Magnesium Oxide [Mag-Ox 400 mg Tablet] 400 mg PO Q8 08/16/16 Metoclopramide HCl [Reglan 10 mg Tablet] 10 mg PO Q12 08/16/16 Acetaminophen [Tylenol 325 mg Tablet] 650 mg PO Q4HP PRN tablet 08/23/16 Diltiazem HCl [Cardizem Cd 180 mg Capsule] 180 mg PO DAILY #30 capsule.cr Doxycycline Hyclate [Vibramycin 100 mg Tablet] 100 mg PO Q12@0800,2000 #10 tablet 08/23/16 Ferrous Sulfate [Feosol 325 mg Tablet] 325 mg PO DAILY #30 tablet 08/23/16 Furosemide [Lasix] 40 mg PO BID #0 08/23/16 Polyethylene Glycol 3350 [Miralax Powder 17 gm/Packet] 17 gm PO DAILY #30 powd.pack 08/23/16 Potassium Chloride [K-Tab ER] 20 meq PO Q8 #0 08/23/16 Spironolactone [Aldactone 25 mg Tablet] 50 mg PO DAILY #60 tablet 08/23/16 History of Present Illness Patient complains of: Shortness of breath History of Present Illness: SITA MANRIQUE is a 70 year old female that underwent on Sunday 08/13 thoracentesis at [facility] interventional radiology for a large right pleural effusion Patient did well on Tuesday since Tuesday she had increasing shortness of breath and cough Upon evaluation in the ED patient was diagnosed of the right pneumothorax, general surgery was called and the chest tube was to be inserted Patient was subsequently admitted under hospitalist service to the intensive care unit for further evaluation and care Patient has a known history of chest, COPD ,obstructive sleep apnea. She still a heavy smoker of 2 packs a day She is followed by Dr. Dean non-Hodgkin's lymphoma which she is now still in remission after 12 years Hospital Course Hospital Course: Patient was admitted for right hemopneumothorax. She had chest tube placed by surgery. Chest tube remained in place until she has low output for 2 days. Chest tube was removed by Dr. Amanda of surgery on 08/23/2016. Patient was evaluated by Dr. Spencer of pulmonary medicine as well for pleural effusion. He will follow up with patient as an outpatient. Pleural effusion is thought to be secondary to volume overload and parapneumonic effusion. Patient is completing course of oral antibiotics for pneumonia. She is on fluid restriction and diuretics for volume overload state. Patient was also followed by Dr. Roger of cardiology for atrial fibrillation and CHF. She will follow-up with Dr. Roger as an outpatient. Patient was followed by Dr. Dean of oncology. Patient will follow-up with Dr. Dean as an outpatient. Physical Exam Vital Signs: Temp Pulse Resp BP Pulse Ox 97.8 F 56 L 20 138/51 H 100 08/23/16 08:00 08/23/16 08:00 08/23/16 08:00 08/23/16 08:00 08/23/16 08:00 Intake & Output 08/22/16 08/23/16 08/24/16 06:59 06:59 06:59 Intake Total 2627 1564 Output Total 4035 2360 65 Balance -1408 -796 -65 Weight 85.3 kg 87.2 kg GENERAL: No acute distress HEENT: Conjunctiva clear, nonicteric, moist mucous membranes, no JVD, midline trachea RESPIRATORY: Clear to auscultation bilaterally, no wheezes, no rhonchi CARDIAC: Regular rate and rhythm, no murmurs/gallops/rubs ABDOMEN: Soft, nondistended, nontender, positive bowel sounds, no rebound, no guarding EXTREMETIES: No edema, cyanosis, clubbing NEUROLOGIC: Alert, oriented to person/place/time, CN's grossly intact, no focal deficits SKIN: No rash, wounds PSYCH: Normal mood, normal affect Results Laboratory Results: 08/23/16 05:04 08/23/16 05:04 08/23/16 08/23/16 05:04 05:04 WBC 6.7 RBC 3.44 L Hgb 8.6 L Hct 26.8 L MCV 78 L MCH 25.1 L MCHC 32.2 RDW 17.8 H Plt Count 122 L Seg Neutrophils % 64.1 Lymphocytes % 19.6 Monocytes % 11.1 Eosinophils % 4.1 Basophils % 1.1 Absolute Neutrophils 4.3 Absolute Lymphocytes 1.3 Absolute Monocytes 0.7 Absolute Eosinophils 0.3 Absolute Basophils 0.1 Sodium 138.3 Potassium 3.4 L Chloride 94 L Carbon Dioxide 35 H Anion Gap 9 BUN 26 H Creatinine 0.73 Est GFR ( Amer) > 60 Est GFR (Non-Af Amer) > 60 Glucose 103 Calcium 9.1 08/17/16 01:50 Chest Tube Fluid Gram Stain - Final 08/17/16 01:50 Chest Tube Fluid Body Fluid Culture - Final NO AEROBIC OR ANAEROBIC ORGANISMS RECOVERED 08/17/16 03:36 NT-Pro-B Natriuret Pep 1860 H Impressions: Chest CT 08/21/16 00:00 IMPRESSION: TRACE RIGHT PLEURAL EFFUSION AND TINY RIGHT RESIDUAL PNEUMOTHORAX WITH CHEST TUBE IN PLACE. REMAINING FINDINGS STABLE COMPARED TO STUDY FROM 05/31/2016. Chest X-Ray 08/22/16 06:00 IMPRESSION: Persistent trace right-sided pneumothorax. Mild bibasilar atelectasis. Qualifiers PATEINT BEING DISCHARGED WITH ANY OF THE FOLLOWING DIAGNOSIS?: No Plan Time Spent: Less than 30 Minutes
[2016-08-23 14:45] VITALS: BP 144/75
--- NOTE | 2016-08-23 19:57 | PDOC PROGRESS REPORT ---
Subjective Progress Note for:: 08/23/16 Subjective:: Elevation seen earlier this morning at around 9 AM. Patient had chest tube removed this morning and seems to be stable. A chest x-ray is pending. Pt is denying any chest arm or neck discomfort. Patient denying any PND, orthopnea. Patient denied any sustained palpitations, dizziness, syncope, near syncope. Patient denying any fever chills. Patient denying any other significant discomfort. Patient is maintaining persistent atrial fibrillation. Review of systems: Rest review of systems negative. Medications: Medications have been reviewed. Physical Exam Vital Signs: Temp Pulse Resp BP Pulse Ox 98.7 F 49 L 19 144/75 H 94 08/23/16 14:43 08/23/16 14:43 08/23/16 14:43 08/23/16 14:43 08/23/16 14:43 Intake & Output 08/22/16 08/23/16 08/24/16 06:59 06:59 06:59 Intake Total 2627 1564 459 Output Total 4035 2360 65 Balance -1408 -796 394 Weight 85.3 kg 87.2 kg Exam: GENERAL: well-nourished and in no acute distress. Alert and oriented x3 HEAD: Atraumatic, normocephalic. EYES: Pupils equal round and reactive to light, extraocular movements intact, sclera anicteric, conjunctiva are normal. ENT: TMs normal, nares patent, oropharynx clear without exudates. Moist mucous membranes. No oral ulcerations or bleeding gums noted NECK: supple without lymphadenopathy. Trachea is central. No cervical or axillary lymphadenopathy noted. Carotids are 2+, JVD WNL LUNGS: Respiration seems nonlabored, no significant accessory muscle action noted. Breath sounds clear to auscultation bilaterally and equal noted. No wheezes rales or rhonchi noted. No significant dullness noted on percussion. CHEST: Palpation of the chest wall shows no significant chest wall tenderness. No other significant abnormalities noted. Right-sided chest tube is now out. 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 ABDOMEN: Soft, no significant tenderness appreciated, normoactive bowel sounds. No guarding, no rebound. No rigidity noted . No masses appreciated. EXTREMITIES: Pedal pulses are 1-2+, no calf tenderness noted. No clubbing or cyanosis.trace to 1+ pedal edema noted NEUROLOGICAL: Focused neurological exam showed no significant neurologic deficit. Normal speech, no focal weakness appreciated. PSYCH: Normal mood, normal affect. Judgment and insight within normal limits. SKIN: No significant ecchymosis, rash, ulcerations or signs of pruritus noted. MUSCULOSKELETAL EXAM: No significant joint swelling noted. Results Laboratory Results: 08/23/16 05:04 08/23/16 05:04 08/23/16 08/23/16 05:04 05:04 WBC 6.7 RBC 3.44 L Hgb 8.6 L Hct 26.8 L MCV 78 L MCH 25.1 L MCHC 32.2 RDW 17.8 H Plt Count 122 L Seg Neutrophils % 64.1 Lymphocytes % 19.6 Monocytes % 11.1 Eosinophils % 4.1 Basophils % 1.1 Absolute Neutrophils 4.3 Absolute Lymphocytes 1.3 Absolute Monocytes 0.7 Absolute Eosinophils 0.3 Absolute Basophils 0.1 Sodium 138.3 Potassium 3.4 L Chloride 94 L Carbon Dioxide 35 H Anion Gap 9 BUN 26 H Creatinine 0.73 Est GFR ( Amer) > 60 Est GFR (Non-Af Amer) > 60 Glucose 103 Calcium 9.1 08/17/16 01:50 Chest Tube Fluid Gram Stain - Final 08/17/16 01:50 Chest Tube Fluid Body Fluid Culture - Final NO AEROBIC OR ANAEROBIC ORGANISMS RECOVERED 08/17/16 03:36 NT-Pro-B Natriuret Pep 1860 H EKG Comments: 12-lead EKG shows atrial flutter fibrillation with controlled ventricular response. Impressions: Chest CT 08/21/16 00:00 IMPRESSION: TRACE RIGHT PLEURAL EFFUSION AND TINY RIGHT RESIDUAL PNEUMOTHORAX WITH CHEST TUBE IN PLACE. REMAINING FINDINGS STABLE COMPARED TO STUDY FROM 05/31/2016. Chest X-Ray 08/23/16 13:00 IMPRESSION: Trace right apical pneumothorax post right chest tube removal. Assessment & Plan - Diagnosis (1) Atrial fibrillation Qualifiers: Atrial fibrillation type: persistent Qualified Code(s): I48.1 - Persistent atrial fibrillation Is this a current diagnosis for this admission?: Yes (2) Diabetes mellitus type II, controlled Qualifiers: Diabetes mellitus complication status: with unspecified complications Diabetes mellitus halfway insulin use: unspecified halfway insulin use status Qualified Code(s): E11.8 - Type 2 diabetes mellitus with unspecified complications; Z79.4 - shelter (current) use of insulin Is this a current diagnosis for this admission?: Yes (3) COPD (chronic obstructive pulmonary disease) Qualifiers: Emphysema type: unspecified Is this a current diagnosis for this admission?: Yes (4) Hydropneumothorax Is this a current diagnosis for this admission?: Yes (5) Congestive heart failure Qualifiers: Congestive heart failure type: diastolic Congestive heart failure chronicity: acute on chronic Qualified Code(s): I50.33 - Acute on chronic diastolic (congestive) heart failure Is this a current diagnosis for this admission?: Yes (6) Hypercholesterolemia Is this a current diagnosis for this admission?: Yes (7) Hypertension Qualifiers: Hypertension type: essential hypertension Qualified Code(s): I10 - Essential (primary) hypertension Is this a current diagnosis for this admission?: Yes (8) Tobacco abuse Is this a current diagnosis for this admission?: Yes (9) History of lymphoma Is this a current diagnosis for this admission?: Yes - Notes Notes: Atrial fibrillation: This seems persistent. He does EKG shows continuation of atrial flutter fibrillation. Heart rate reasonably well controlled on current regimen. There seems to be some relative contraindication for chronic anticoagulation. Patient also lists ELIQUIS and Pradaxa as allergies. There is history of iron deficiency anemia. Currently heart rate seems well controlled. Chart review shows that patient had low hemoglobin in the past. We will reassess chronic anticoagulation need on a ongoing basis. Congestive heart failure: This is based on chronic diastolic dysfunction. There is some element of right-sided heart failure. Prior echocardiogram in the last 1 year shows normal LVEF, grade 2 diastolic dysfunction, mild mitral regurgitation and RV being mildly dilated. Mild LVH was also noted. Clinically patient seems compensated. Chest x-ray pending from today.. Patient should be discharged on diuretics. Patient has been educated in CHF pathway. COPD: Currently stable. Patient gives history of smoking until this admission. Patient claims that she will quit. Hypercholesterolemia: Continue statin therapy in view of prior history of strokes. Hypertension: Blood pressure reasonably well controlled. Blood pressure goal is 135/85 or less in this patient. Tobacco abuse: Patient has been advised to quit smoking. Patient is likely to be discharged later on today. Elevation to encouraged to follow-up with me. - Time Time with patient: 15-25 minutes - CODE STATUS was discussed, patient remains full code. Surrogate decision-maker unchanged. Multiple medical problems were addressed.More than 50% of the time spent coordinating care, discussing management plans with involved caregivers. Management plans discussed with involved personnels. Medical decision making was of moderate to high complexity , patient's has multiple severe comorbidities. Medications reviewed and adjusted accordingly: Yes
== END 2016-08-23 16:37 | disposition home health service (06) | DRG 186 ==
LOC: ER 16:09 → UNDOADMIN 18:57 → EH 18:57 → ICU 20:43 → 3N 08-18 20:10
PROVIDERS: ADMIT Emergency Medicine; ATTEND Emergency Medicine
PROC: 0W9930Z Drainage of Right Pleural Cavity with Drainage Device, Percutaneous Approach (ICD-10-PCS; principal; 2016-08-16)
PROC: 0WP9X0Z Removal of Drainage Device from Right Pleural Cavity, External Approach (ICD-10-PCS; 2016-08-23)
DX: J94.2 Hemothorax (principal); I50.33 Acute on chronic diastolic (congestive) heart failure; J18.9 Pneumonia, unspecified organism; J96.20 Acute and chronic respiratory failure, unspecified whether with hypoxia or hypercapnia; J93.9 Pneumothorax, unspecified; I48.1 Persistent atrial fibrillation; J44.1 Chronic obstructive pulmonary disease with (acute) exacerbation; C85.18 Unspecified B-cell lymphoma, lymph nodes of multiple sites; I25.10 Atherosclerotic heart disease of native coronary artery without angina pectoris; K21.9 Gastro-esophageal reflux disease without esophagitis; D50.9 Iron deficiency anemia, unspecified; E11.9 Type 2 diabetes mellitus without complications; E78.5 Hyperlipidemia, unspecified; G47.33 Obstructive sleep apnea (adult) (pediatric); E03.9 Hypothyroidism, unspecified; E87.6 Hypokalemia; F17.210 Nicotine dependence, cigarettes, uncomplicated; Z86.73 Personal history of transient ischemic attack (TIA), and cerebral infarction without residual deficits; Z79.82 Long term (current) use of aspirin; Z79.4 Long term (current) use of insulin; Z79.899 Other long term (current) drug therapy
CPT/HCPCS: 36415; 36430; 71010; 71020; 71260; 80048; 80053; 81001; 82553; 82803; 82962; 83615; 83735; 83880; 84157; 84484; 85025; 85610; 86850; 86900; 86901; 86920; 87040; 87070; 87075; 87205; 89050; 93005; 93010; 94640; 94660; 99291; G8978-GP; G8979-GP; J0456; J0696; J1170; J1652; J1815; J1940; J2060; J2930; J3480; J3490; J7060; J7620; P9016; S0164

== ENCOUNTER 2016-11-05 01:51 | Inpatient (IN) | payer MEDICARE, MEDICAID ==
[2016-11-05] MEDS ORDERED: IPRATROPIUM/ALBUTEROL 0.5-2.5 MG/3 ML AMPUL NEB ONE ×2 (01:57→01:58)
[2016-11-05] MEDS ORDERED: METHYLPREDNISOLONE INJ 125 MG/2 ML SDV IV ONE (01:57)
[2016-11-05] MEDS ORDERED: ALBUTEROL SULFATE 0.083% NEB 2.5 MG/3 ML AMPUL NEB ONE (01:58)
[2016-11-05] MEDS ORDERED: FUROSEMIDE INJ/PF 40 MG/4 ML SDV IV ONE ×2 (02:13→04:16)
--- NOTE | 2016-11-05 02:28 | RADIOLOGY REPORT (SQ) ---
EXAM DESCRIPTION: CHEST SINGLE VIEW COMPLETED DATE/TIME: 11/05/2016 2:17 am REASON FOR STUDY: sob COMPARISON: 10/23/2016. EXAM PARAMETERS: NUMBER OF VIEWS: One view. TECHNIQUE: Single frontal radiographic view of the chest acquired. RADIATION DOSE: NA LIMITATIONS: None. FINDINGS: LUNGS AND PLEURA: Bilateral pleural effusions with basilar densities. MEDIASTINUM AND HILAR STRUCTURES: No masses. Contour normal. HEART AND VASCULAR STRUCTURES: Heart upper limits of normal in size. Normal vasculature. BONES: No acute findings. HARDWARE: None in the chest. OTHER: No other significant finding. IMPRESSION: BILATERAL PLEURAL EFFUSIONS WITH BASILAR ATELECTASIS VERSUS INFILTRATE. TECHNICAL DOCUMENTATION: JOB ID: [id number]
[2016-11-05 02:36] LABS: VENOUS BLOOD BASE EXCESS -8.6 mmol/L; VENOUS BLOOD HCO3 19.1 mmol/L (20-32); VENOUS BLOOD PCO2 50.9 mmHg (35-63)
[2016-11-05 02:39] LABS: VENOUS BLOOD PH 7.19 (7.30-7.42)
[2016-11-05 02:44] LABS: HEMATOCRIT 25.2 % (36.0-47.0); MEAN CORPUSCULAR HEMOGLOBIN 21.5 pg (27.0-33.4); MEAN CORPUSCULAR HGB CONC 27.4 g/dL (32.0-36.0); MEAN CORPUSCULAR VOLUME 78 fl (80-97); RED BLOOD COUNT 3.21 10^6/uL (3.72-5.28); RED CELL DISTRIBUTION WIDTH 20.6 % (11.5-14.0); WHITE BLOOD COUNT 12.1 10^3/uL (4.0-10.5)
--- NOTE | 2016-11-05 02:46 | ER Document Report ---
ED General - General Chief Complaint: Shortness Of Breath Stated Complaint: SHORTNESS OF BREATH/ALTERED MENTAL STATUS Time Seen by Provider: 11/05/16 02:01 Notes: Patient is a 70-year-old female with a history of congestive heart failure as well as a previous history of pleural effusions and pneumothorax. Pneumothorax suspected and august patient was admitted with a chest tube at that time. She has been doing well. Daughter is the patient's plant operator and says that she is a very strict fluid diet however the patient does not follow her fluid diet. The daughter keeps very strict logs of her fluid intake. The daughter did bring these logs with her. Patient frequently has been taking an over 3 L of fluid a day but is only supposed to take in 1 L or less. She is on Lasix. She is also on 180 mEq of potassium a day. Daughter says she saw the patient 9 PM tonight when she was doing well. She went and checked on her and the patient was having severe difficulty breathing and was poorly responsive and therefore called and once. When paramedics arrived her blood sugar was in the 200s. No recent fevers. History from the patient is very limited because she currently has some altered mental status. TRAVEL OUTSIDE OF THE [place] IN LAST 30 DAYS: No - Related Data Allergies/Adverse Reactions: moxifloxacin HCl [From Avelox] Allergy (Severe, Verified 08/16/16 16:43) rash,itch apixaban [From Eliquis] Allergy (Intermediate, Verified 08/16/16 16:43) swell dabigatran etexilate [From Pradaxa] Allergy (Intermediate, Verified 08/16/16 16: 43) swell lansoprazole [From Prevacid] Allergy (Intermediate, Verified 08/16/16 16:43) Generalized Itching aloe [Aloe] Allergy (Verified 08/16/16 16:43) Past Medical History - Social History Smoking Status: Current Every Day Smoker Chew tobacco use (# tins/day): No Frequency of alcohol use: Occasional Drug Abuse: None Family History: COPD, Hypertension - Past Medical History Cardiac Medical History: Reports: Hx Atrial Fibrillation, Hx Congestive Heart Failure, Hx Coronary Artery Disease, Hx Hypertension Denies: Hx Heart Attack Pulmonary Medical History: Reports: Hx Asthma, Hx Bronchitis, Hx COPD, Hx Pneumonia Neurological Medical History: Reports: Hx Cerebrovascular Accident Endocrine Medical History: Reports: Hx Diabetes Mellitus Type 1, Hx Diabetes Mellitus Type 2, Hx Hypothyroidism Renal/ Medical History: Denies: Hx Peritoneal Dialysis Malignancy Medical History: Reports: Hx Lymphoma - remission x 10yrs GI Medical History: Reports: Hx Gastroesophageal Reflux Disease Musculoskeltal Medical History: Reports Hx Arthritis Past Surgical History: Reports: Hx Appendectomy, Hx Cholecystectomy, Hx Hysterectomy, Hx Tonsillectomy, Hx Vascular Surgery - lymphnodes removed from groin and neck, Other - Benign brain tumor surgery. - Immunizations Hx Diphtheria, Pertussis, Tetanus Vaccination: No Hx Pneumococcal Vaccination: 01/16/13 Review of Systems - Review of Systems -: Yes ROS unobtainable due to patient's medical condition - Patient unable to answer questions at this time. Physical Exam - Vital signs Vitals: Resp Pulse Ox 30 H 87 L 11/05/16 01:55 11/05/16 01:55 - Notes Notes: General Appearance: In some respiratory distress. Patient is somnolent with eyes closed. Vitals: reviewed, See vital signs table. Head: no swelling or tenderness to the head Eyes: PERRL, EOMI, Conjuctiva clear Mouth: No decreasd moisture Neck: Supple, no neck tenderness, No thyromegaly Lungs: No wheezing, diffuse rales, No rhonci, mild to moderate accessory muscle use, good air exchange bilaterally. Heart: Normal rate, Regular rythm, No murmur, no rub Abdomen: Normal BS, soft, No rigidity, No abdominal tenderness, No guarding, no rebound, no abdominal masses, no organomegaly. Large surgical scar on abdomen. Extremities: strength 5/5 in all extremities, good pulses in all extremities, no swelling or tenderness in the extremities, 2+ bilateral lower extremity edema. Skin: warm, dry, appropriate color, no rash Neuro: somnolent and keeping eyes closed. Course - Re-evaluation Re-evalutation: 11/05/16 02:46 Patient's eyes are open and she is now alert. She seems to be clinically improving. We will continue to closely monitor. 11/05/16 03:40 Patient's potassium did come back 8.7. I immediately ordered calcium gluconate because she is bradycardic. I have also ordered bicarbonate as well as insulin. I have ordered repeat potassium as I do suspect that she probably is hyperkalemic but I am not sure if it is truly 8.6. We will go ahead and treat regardless while we are pending her repeat potassium to come back. 11/05/16 03:41 11/05/16 04:17 Because of the patient's severe hyperkalemia I did call and speak with Dr. Boyd, back up machine operator concrete form setter and finisher. I asked her if emergent dialysis would be an option worth we should give her fluids and Lasix because of her creatinine being only 2. She says being that the creatinine is only 2 at this time we can start with fluids and Lasix. I will continue give her Lasix and fluids as well as a bicarb drip. I will repeat calcium gluconate. I will repeat insulin. After she receives fluids and starts making more urine I will repeat chemistry to see where her potassium is. 11/05/16 08:07 Despite give the patient 80 mg of Lasix and some IV fluids her potassium is not improving and she is only diuresed approximately 100 mL's total of urine. My concern is that being that she is not diuresing much that her potassium will not drop effectively with Lasix alone and that she may eventually need dialysis today. I did explain this to the daughter and she is agreeable to potential transfer. I did call and speak with Dr. Callahan who agrees to accept the patient to [facility]. From a clinical standpoint patient has improved. Her bradycardia has improved. Her heart rate is now in the 80s. Her blood pressure has remained stable. Her respiratory status is improved. Her mental status is much improved. She is now awake and alert and will answer questions. 11/05/16 08:11 11/05/16 08:11 - Vital Signs Vital signs: Temp Pulse Resp BP Pulse Ox 97.6 F 57 L 22 H 117/57 L 95 11/05/16 06:05 11/05/16 06:31 11/05/16 07:58 11/05/16 07:16 11/05/16 07:58 - Laboratory Result Diagrams: 11/05/16 02:20 11/05/16 06:35 Laboratory results interpreted by me: 11/05/16 11/05/16 11/05/16 02:20 02:20 02:20 WBC 12.1 H RBC 3.21 L Hgb 6.9 L Hct 25.2 L MCV 78 L MCH 21.5 L MCHC 27.4 L RDW 20.6 H Seg Neuts % (Manual) 87 H Lymphocytes % (Manual) 2 L Abs Neuts (Manual) 10.5 H Abs Lymphs (Manual) 0.2 L VBG pH VBG HCO3 Sodium 135.5 L Potassium 8.7 H* Carbon Dioxide 16 L BUN 45 H Creatinine 2.06 H Est GFR ( Amer) 29 L Est GFR (Non-Af Amer) 24 L Glucose 335 H POC Glucose Lactic Acid Magnesium Alkaline Phosphatase 137 H NT-Pro-B Natriuret Pep 6220 H Crossmatch 11/05/16 11/05/16 11/05/16 02:20 02:20 03:20 WBC RBC Hgb Hct MCV MCH MCHC RDW Seg Neuts % (Manual) Lymphocytes % (Manual) Abs Neuts (Manual) Abs Lymphs (Manual) VBG pH 7.19 L* VBG HCO3 19.1 L Sodium Potassium 8.6 H* Carbon Dioxide BUN Creatinine Est GFR ( Amer) Est GFR (Non-Af Amer) Glucose POC Glucose Lactic Acid 6.8 H Magnesium 3.2 H Alkaline Phosphatase NT-Pro-B Natriuret Pep Crossmatch 11/05/16 11/05/16 11/05/16 03:25 03:36 04:18 WBC RBC Hgb Hct MCV MCH MCHC RDW Seg Neuts % (Manual) Lymphocytes % (Manual) Abs Neuts (Manual) Abs Lymphs (Manual) VBG pH VBG HCO3 Sodium Potassium Carbon Dioxide BUN Creatinine Est GFR ( Amer) Est GFR (Non-Af Amer) Glucose POC Glucose 338 H 301 H Lactic Acid Magnesium Alkaline Phosphatase NT-Pro-B Natriuret Pep Crossmatch See Detail 11/05/16 11/05/16 11/05/16 05:59 06:35 06:35 WBC RBC Hgb Hct MCV MCH MCHC RDW Seg Neuts % (Manual) Lymphocytes % (Manual) Abs Neuts (Manual) Abs Lymphs (Manual) VBG pH VBG HCO3 Sodium Potassium 7.7 H* Carbon Dioxide 18 L BUN 49 H Creatinine 2.08 H Est GFR ( Amer) 28 L Est GFR (Non-Af Amer) 24 L Glucose 261 H POC Glucose 278 H Lactic Acid 6.2 H Magnesium Alkaline Phosphatase NT-Pro-B Natriuret Pep Crossmatch - EKG Interpretation by Me Additional EKG results interpreted by me: 11/05/16 03:42 EKG is reviewed and interpreted by me. EKG shows sinus bradycardia with a rate of [address] segment elevation. Some ST segment depression in the lateral precordial leads. Patient has had some similar depression on her previous EKG. Patient does have T-wave inversion in lead III and aVF but this is unchanged in comparison to her previous EKG from August 23, 2016. Patient does have evidence of intraventricular conduction delay. I do see this on her previous EKG as well. RI interval and QTc intervals are within normal range. QRS duration is prolonged. Critical Care Note - Critical Care Note Total time excluding time spent on procedures (mins): 140 Comments: Critical care time for this patient not including time spent on procedures approximately 140 minutes due to frequent re-evaluations, management of respiratory distress, management of hyperkalemia, management of bradycardia, management of anemia, discussion with specialists and arrangements for transfer. Discharge - Discharge Clinical Impression: Hyperkalemia, Bradycardia, Pleural effusion Anemia Qualifiers: Anemia type: unspecified type Qualified Code(s): D64.9 - Anemia, unspecified Condition: Stable Disposition: [facility]
[2016-11-05 02:52] LABS: ALANINE AMINOTRANSFERASE 18 U/L (9-52); ALBUMIN 4.3 g/dL (3.5-5.0); ALKALINE PHOSPHATASE 137 U/L (38-126); ANION GAP 18 (5-19); ASPARTATE AMINO TRANSFERASE 17 U/L (14-36); BILIRUBIN,DIRECT 0.4 mg/dL (0.0-0.4); BILIRUBIN,TOTAL 1.1 mg/dL (0.2-1.3); BLOOD UREA NITROGEN 45 mg/dL (7-20); CALCIUM 8.7 mg/dL (8.4-10.2); CARBON DIOXIDE 16 mmol/L (22-30); CHLORIDE 102 mmol/L (98-107); CREATININE RESULT 2.06 mg/dL (0.52-1.25); GLUCOSE 335 mg/dL (75-110); SODIUM 135.5 mmol/L (137-145); TOTAL PROTEIN 7.8 g/dL (6.3-8.2)
[2016-11-05] MEDS: MAGNESIUM SULFATE/D5W 100 ML IV SCH ×2 (02:52→06:30)
[2016-11-05 02:54] LABS: HGB HCT DIFFERENCE -4.5
[2016-11-05 02:59] LABS: BASOPHILS % (MANUAL) 0 % (0-2); EOSINOPHILS % (MANUAL) 0 % (0-6); LYMPHOCYTES % (MANUAL) 2 % (13-45); NUCLEATED RED BLOOD CELLS 1 /100 WBC (0); TOTAL CELLS COUNTED 100
[2016-11-05 03:00] LABS: POTASSIUM 8.7 mmol/L (3.6-5.0)
[2016-11-05] MEDS ORDERED: CALCIUM GLUCONATE 1000 MG/10 ML INJ IV ONE ×3 (03:01→09:23)
[2016-11-05] MEDS ORDERED: INSULIN REG, HUMAN 100 UNIT/ML 3 ML VIAL (PYX) IV ONE ×3 (03:01→09:22)
[2016-11-05] MEDS ORDERED: SODIUM BICARBONATE 8.4% INJ 50 MEQ/50 ML DISP.SYRIN IV ONE (03:02)
[2016-11-05 03:07] LABS: ANISOCYTOSIS 2+; HYPOCHROMASIA 2+; POLYCHROMASIA 1+; TOXIC GRANULATION SLIGHT
[2016-11-05 03:08] LABS: OVALOCYTES 1+; POIKILOCYTOSIS 1+; STOMATOCYTES SLIGHT; TEAR DROP CELLS SLIGHT; TROPONIN I 0.082 ng/mL
[2016-11-05 03:10] LABS: HEMOGLOBIN 6.9 g/dL (12.0-15.5)
[2016-11-05 03:41] LABS: MAGNESIUM 3.2 mg/dL (1.6-2.3)
[2016-11-05 03:43] LABS: POTASSIUM 8.6 mmol/L (3.6-5.0)
[2016-11-05] MEDS ORDERED: DEXTROSE 5%-WATER 1000 ML 1,000 ML with SODIUM BICARBONATE 150 MEQ IV PRN ×2 (04:08)
[2016-11-05] MEDS ORDERED: NORMAL SALINE 250 ML IV PRN (04:10)
[2016-11-05] MEDS ORDERED: NORMAL SALINE 1000 ML 500 ML IV ONE (04:16)
[2016-11-05] MEDS ORDERED: SODIUM BICARBONATE 8.4% INJ 50 MEQ/50 ML DISP.SYRIN ONE (04:29)
[2016-11-05] MEDS ORDERED: NORMAL SALINE 500 ML IV ONE (05:01)
--- NOTE | 2016-11-05 06:03 | EKG REPORT ---
SEVERITY:- ABNORMAL ECG - SINUS RHYTHM NONSPECIFIC INTRAVENTRICULAR CONDUCTION DELAY ABNRM R PROG, CONSIDER ASMI OR LEAD PLACEMENT BORDERLINE ST DEPRESSION, DIFFUSE LEADS : Confirmed by: Jesica Kimbrough MD 05-Nov-2016 06:02:19
[2016-11-05 07:19] LABS: ANION GAP 17 (5-19); BLOOD UREA NITROGEN 49 mg/dL (7-20); CALCIUM 9.1 mg/dL (8.4-10.2); CARBON DIOXIDE 18 mmol/L (22-30); CHLORIDE 103 mmol/L (98-107); CREATININE RESULT 2.08 mg/dL (0.52-1.25); GLUCOSE 261 mg/dL (75-110); SODIUM 138.1 mmol/L (137-145)
[2016-11-05 07:21] LABS: POTASSIUM 7.7 mmol/L (3.6-5.0)
[2016-11-05] MEDS ORDERED: NORMAL SALINE 1000 ML 1,000 ML IV ONE (07:33)
[2016-11-05] MEDS ORDERED: ACETAMINOPHEN 325 MG TABLET PO PRN (09:36)
[2016-11-05] MEDS ORDERED: ONDANSETRON HCL INJ/PF 4 MG/2 ML SDV IV PRN (09:36)
[2016-11-05] MEDS ORDERED: ONDANSETRON 4 MG TAB.RAPDIS PO PRN (09:36)
--- NOTE | 2016-11-05 10:29 | OPERATIVE REPORT E ---
Operative Report NAME: SITA MANRIQUE : 1945 AGE: 70Y DATE OF SURGERY: 11/05/2016 ROOM: ED15 PREOPERATIVE DIAGNOSIS: Patient with end-stage renal disease requiring hemodialysis. POSTOPERATIVE DIAGNOSIS: Patient with end-stage renal disease requiring hemodialysis. PROCEDURE: Patient with right femoral dialysis catheter under ultrasound guidance. SURGEON: LINNEA BEGUM M.D. ANESTHESIA: Local 1% Xylocaine. INDICATIONS: This is a 70-year-old female noted to be in acute renal failure, needed hemodialysis catheter. DESCRIPTION OF PROCEDURE: Patient was placed in supine position and the right groin prepped and draped in the usual sterile fashion. With the use of the ultrasound, the right femoral vein was then identified and subsequently punctured. A guidewire placed through the needle into the area of the inferior vena cava. The puncture site was then enlarged and subsequently dilated. A [employer] 13-[place] catheter was then threaded through the guidewire all the way up to the knob of the dialysis catheter. The 2 ports of the dialysis catheter were then irrigated with saline solution. Next, the guidewire subsequently pulled out and the guidewire site was then irrigated easily with saline. Next, the catheter was then anchored to the skin with 3-0 nylon. Sterile dressing was placed over the catheter site. Patient tolerated the procedure well. Just want to mention that I injected about 5 mL of Xylocaine around the catheter insertion site. DICTATING PHYSICIAN: LINNEA BEGUM M.D. [id number] PHY#: [id number] ID: [id number] JOB#: [id number] ACCT: [id number] cc:LINNEA BEGUM M.D. >
[2016-11-05] MEDS: HEPARIN SOD (PORCINE) 5,000 UNIT/ML 1 ML SYRINGE SUBCUT SCH ×2 (13:11→22:15)
[2016-11-05] MEDS: GABAPENTIN 300 MG CAPSULE PO SCH ×2 (13:11→21:55)
[2016-11-05] MEDS ORDERED: DEXTROSE 50%-WATER 25 GM/50 ML DISP.SYRIN IV PRN ×2 (13:23)
[2016-11-05] MEDS ORDERED: DEXTROSE 40% GEL 15 GM TUBE PO PRN ×2 (13:23)
[2016-11-05] MEDS ORDERED: GLUCAGON,HUMAN RECOMB 1 MG INJ IM PRN (13:23)
--- NOTE | 2016-11-05 13:23 | PDOC H&P ---
History of Present Illness Admission Date/PCP: 11/05/16 09:36 Patient complains of: Shortness of breath History of Present Illness: SITA MANRIQUE is a 70 year old female with a history of congestive heart failure who is also supposed to be on a fluid restriction but she has not been following this. She isless than 1 L per day and but has taken 3 L according the daughter. She presents with a one-day history of shortness of breath and she is found to be in congestive heart failure with significant anemia. The patient also was noted to have hyperkalemia with potassium of 8.7. In the emergency room the patient received calcium, insulin, and bicarbonate. The patient's repeat potassium was still elevated and she had been given Lasix with minimal improvement. Because of this the patient is admitted for dialysis for hyperkalemia and volume overload. The patient did receive 2 units of packed red blood cells because of the significant anemia. Patient denies having chest pain but has had the shortness of breath. She is uncertain as to what her weight has been. Of note the patient has been on both Aldactone as well as potassium replacement prior to presentation. Past Medical History Cardiac Medical History: Reports: Atrial Fibrillation, Congestive Heart Failure , Coronary Artery Disease, Hypertension Denies: Myocardial Infarction Pulmonary Medical History: Reports: Asthma, Bronchitis, Chronic Obstructive Pulmonary Disease (COPD), Pneumonia, Sleep Apnea Endocrine Medical History: Reports: Diabetes Mellitus Type 2, Hypothyroidism Renal/ Medical History: Reports: Chronic Kidney Disease Malignancy Medical History: Reports: Lymphoma - remission x 10yrs GI Medical History: Reports: Gastroesophageal Reflux Disease Musculoskeltal Medical History: Reports: Arthritis Hematology: Reports: Anemia Infectious Medical History: Reports: None Past Surgical History Past Surgical History: Reports: Appendectomy, Cholecystectomy, Hysterectomy, Tonsillectomy, Vascular Surgery - lymphnodes removed from groin and neck, Other - Benign brain tumor surgery. Social History Information Source: Patient, [facility] Records Lives with: Family Smoking Status: Current Every Day Smoker Frequency of Alcohol Use: None Hx Recreational Drug Use: No Drugs: None Hx Prescription Drug Abuse: No - Advance Directive Resuscitation Status: Full Code Surrogate healthcare decision maker:: Her daughter Family History Family History: CAD, COPD, DM, Hypertension Parental Family History Reviewed: Yes Children Family History Reviewed: No Sibling(s) Family History Reviewed.: No Medication/Allergy Home Medications: Alprazolam [Xanax] 1 mg PO Q8HP PRN 11/05/16 Atorvastatin Calcium [Lipitor 20 mg Tablet] 20 mg PO QHS 11/05/16 Diltiazem HCl [Cartia Xt] 180 mg PO DAILY 11/05/16 Esomeprazole Mag Trihydrate [Nexium] 40 mg PO BID 11/05/16 Ferrous Sulfate [Feosol 325 mg Tablet] 325 mg PO DAILY 11/05/16 Furosemide [Lasix] 120 mg PO DAILY 11/05/16 Gabapentin [Neurontin 300 mg Capsule] 300 mg PO Q8 11/05/16 Insulin Aspart Protam & Aspart [Novolog Mix 70-30 Vial] 20 unit SQ MEALS Levothyroxine Sodium [Synthroid] 200 mcg PO QAM 11/05/16 Magnesium Oxide [Mag-Ox 400 mg Tablet] 400 mg PO BID 11/05/16 Metoclopramide HCl [Reglan 10 mg Tablet] 10 mg PO BID 11/05/16 Potassium Chloride [K-Tab ER] 60 meq PO Q8 11/05/16 Spironolactone [Aldactone 25 mg Tablet] 50 mg PO DAILY 11/05/16 Allergies/Adverse Reactions: moxifloxacin HCl [From Avelox] Allergy (Severe, Verified 08/16/16 16:43) rash,itch apixaban [From Eliquis] Allergy (Intermediate, Verified 08/16/16 16:43) swell dabigatran etexilate [From Pradaxa] Allergy (Intermediate, Verified 08/16/16 16: 43) swell lansoprazole [From Prevacid] Allergy (Intermediate, Verified 08/16/16 16:43) Generalized Itching aloe [Aloe] Allergy (Verified 08/16/16 16:43) Review of Systems Constitutional: ABSENT: fever(s) Cardiovascular: PRESENT: dyspnea on exertion, orthropnea. ABSENT: chest pain, edema, palpitations Respiratory: PRESENT: dyspnea. ABSENT: hemoptysis Gastrointestinal: ABSENT: abdominal pain, constipation, diarrhea, hematemesis, hematochezia, nausea, vomiting Integumentary: ABSENT: rash, wounds Neurological: PRESENT: confusion Psychiatric: ABSENT: anxiety, depression Hematologic/Lymphatic: ABSENT: easy bleeding, easy bruising Physical Exam Vital Signs: Temp Pulse Resp BP Pulse Ox 98.4 F 85 11 L 121/55 L 98 11/05/16 12:00 11/05/16 12:27 11/05/16 12:25 11/05/16 12:00 11/05/16 12:25 Intake & Output 11/04/16 11/05/16 11/06/16 06:59 06:59 06:59 Output Total 180 Balance -180 Weight 91.6 kg General appearance: PRESENT: mild distress Eye exam: PRESENT: conjunctiva pink. ABSENT: scleral icterus Ear exam: PRESENT: normal external ear exam Mouth exam: PRESENT: moist, tongue midline Neck exam: ABSENT: carotid bruit, JVD, lymphadenopathy, thyromegaly Respiratory exam: PRESENT: rales - Basilar inspiratory rales. ABSENT: rhonchi, wheezes Cardiovascular exam: PRESENT: RRR. ABSENT: diastolic murmur, rubs, systolic murmur GI/Abdominal exam: PRESENT: normal bowel sounds, soft. ABSENT: distended, guarding, mass, organolmegaly, rebound, tenderness Extremities exam: ABSENT: calf tenderness, clubbing, pedal edema Neurological exam: PRESENT: altered, oriented to person, oriented to place. ABSENT: oriented to time, oriented to situation Psychiatric exam: PRESENT: flat affect Skin exam: PRESENT: dry, intact, warm. ABSENT: cyanosis, rash Results Impressions: Chest X-Ray 11/05/16 01:57 IMPRESSION: BILATERAL PLEURAL EFFUSIONS WITH BASILAR ATELECTASIS VERSUS INFILTRATE. Assessment & Plan - Diagnosis (1) Acute and chronic respiratory failure ([id number]) Is this a current diagnosis for this admission?: YesPlan: Patient has COPD but is volume overloaded and some evidence for congestive heart failure. The patient is on BiPAP and has improved. Patient is to get dialysis today. (2) Renal failure (ARF), acute on chronic Is this a current diagnosis for this admission?: YesPlan: Has hyperkalemia overload. The patient has been on Aldactone and potassium supplements. Will hold those. Will consult nephrology for dialysis. She had a dialysis catheter placed in the emergency room. Continue with p.oObie Sherwood. (3) Congestive heart failure Qualifiers: Congestive heart failure type: diastolic Congestive heart failure chronicity: acute on chronic Qualified Code(s): I50.33 - Acute on chronic diastolic (congestive) heart failure Is this a current diagnosis for this admission?: YesPlan: Has chronic congestive failure made acutely worse with the renal failure. She has a chronic pleural effusion that has had thoracentesis in the past. Will continue with oral Lasix and she will get dialysis today which will hopefully improve the congestive heart failure. (4) Anemia Qualifiers: Anemia type: unspecified type Qualified Code(s): D64.9 - Anemia, unspecified Is this a current diagnosis for this admission?: YesPlan: Secondary to the chronic renal failure. Patient received 2 units packed red blood cells in the emergency room. (5) Hyperkalemia Is this a current diagnosis for this admission?: YesPlan: Secondary to acute on chronic renal failure. The patient has been on Aldactone and potassium supplements which will be held. (6) Pleural effusion Is this a current diagnosis for this admission?: YesPlan: Congestive heart failure (7) Hyperlipidemia Is this a current diagnosis for this admission?: Yes (8) Hypothyroidism Is this a current diagnosis for this admission?: YesPlan: Continue with Synthroid (9) Anxiety disorder Is this a current diagnosis for this admission?: YesPlan: Continue with Xanax as needed (10) Atrial fibrillation Qualifiers: Atrial fibrillation type: persistent Qualified Code(s): I48.1 - Persistent atrial fibrillation Is this a current diagnosis for this admission?: YesPlan: currently is in a normal sinus rhythm. 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 (13) GERD (gastroesophageal reflux disease) Is this a current diagnosis for this admission?: YesPlan: has been on Nexium (14) History of lymphoma Is this a current diagnosis for this admission?: Yes (15) Hypercholesterolemia Is this a current diagnosis for this admission?: Yes (16) Hypertension Qualifiers: Hypertension type: essential hypertension Qualified Code(s): I10 - Essential (primary) hypertension Is this a current diagnosis for this admission?: Yes (17) Obstructive sleep apnea Is this a current diagnosis for this admission?: YesPlan: Continue with BiPAP - Time Time Spent: 50 to 70 Minutes - Inpatient Certification Medical Necessity: Need Close Monitoring Due to Risk of Patient Decompensation - Plan Summary Plan Summary: Patient is to get dialysis today.
[2016-11-05] MEDS ORDERED: ALPRAZOLAM 0.5 MG TABLET PO PRN (14:30)
[2016-11-05] MEDS ORDERED: PHENYLEPHRINE HCL INJ/PF 10 MG/1 ML SDV ONE ×2 (15:46)
[2016-11-05] MEDS ORDERED: DEXTROSE 5%-WATER 250 ML with PHENYLEPHRINE HCL 40 MG IV PRN ×2 (16:16)
--- NOTE | 2016-11-05 16:24 | PDOC CONSULTATION ---
Consultation Consult Date: 11/05/16 Attending physician:: AMINA SWEENEY Consult reason:: I was asked by Dr. Veliz for Dr. Sweeney to see this patient because of severe hyperkalemia requiring emergent dialysis. History of Present Illness Admission Date/PCP: 11/05/16 09:36 History of Present Illness: SITA MANRIQUE is a 70 year old female with a history of congestive heart failure, history of pleural effusion, COPD, diabetes, and hypertension who is supposed to be on a fluid restriction but she has not been following this. She is supposed to have fluid restriction of less than 1 L per day and but has taken 3 L according the daughter recently. She presents with a one-day history of shortness of breath and she is found to be in congestive heart failure with significant anemia. The patient also was noted to have hyperkalemia with potassium of 8.7. In the emergency room the patient received calcium, insulin, and bicarbonate 2 rounds. The patient's repeat potassium was still elevated and she had been given Lasix with minimal improvement. Because of this the patient is admitted for dialysis for hyperkalemia and volume overload. The patient did receive 1 units of packed red blood cells because of the significant anemia. Patient denies having chest pain but has had the shortness of breath. She is uncertain as to what her weight has been. Of note the patient has been on both Aldactone as well as potassium replacement prior to presentation. Patient's history obtained from emergency room records and the daughter at bedside. Patient was hospitalized in August for pleural effusion and presumably pneumothorax requiring chest tube placement. She was discharged with fluid restriction of 15 mL per day. The daughter said that the patient was compliant initially but then lately she has increased her fluid intake up to 3 L a day. 3 days ago daughter said that the patient complained that she had difficulty of urinating. Daughter reports that the patient told her that she felt like she was given a burst. 2 days ago patient started swelling most notably around the abdomen and she started having shortness of breathing. Last night the daughter saw the patient is around 9 PM and she was a little bit lethargic. At around 930 patient look worse and short of breath so they called the EMS and patient was brought down to the emergency room. Significantly the patient is taking high dose of Lasix of 120 mg a day as well as potassium chloride 20 mEq being taken at 3 tablets 3 times a day. Allegedly the patient labs is being checked monthly by a primary care provider. The patient came in she had a creatinine of 2.06 and a potassium of 8.7. Last August 23 she had a BUN of 26 and creatinine of 0.73 with estimated GFR acceptable for age greater than 60 mL/min. As mentioned above all the medications were appropriately given to resolve the elevated potassium but does not really prove the potassium. Patient came in also initially had bradycardia which resolved after the patient was given calcium gluconate intravenously. Patient's daughter denied any known kidney problems in the past. Patient was also transfused because of hemoglobin of 6.9. The daughter claims that the patient has been taking iron but that was discontinued recently. I am seeing the patient now during emergency dialysis treatment to a newly placed right inguinal dialysis catheter. Blood pressure is lowish. I had the nurse call Dr. Sweeney to start some pressor so we can take off some fluid considering the patient's very significant pleural effusion on chest x-ray. Patient is kind of lethargic and was not able to give me any history at all nor able to communicate with me. He is currently on BiPAP. We are monitoring the patient during dialysis with my dialysis nurse. Past Medical History Cardiac Medical History: Reports: Atrial Fibrillation, CHF-Diastolic, Coronary Artery Disease, Hypertension-primary, Myocardial Infarction Pulmonary Medical History: Reports: Asthma, Bronchitis, Chronic Obstructive Pulmonary Disease (COPD), Pneumonia, Sleep Apnea, Other - Pleural effusion and history of pneumothorax requiring chest tube last August 2016 Neurological Medical History: Reports: Ischemic CVA - 2014 Endocrine Medical History: Reports: Diabetes Mellitus Type 2, Hypothyroidism Malignancy Medical History: Reports: Lymphoma - Non-Hodgkin's B cell type , status post radiation and cheremission x 10yrs GI Medical History: Reports: Gastroesophageal Reflux Disease Musculoskeltal Medical History: Reports: Arthritis Hematology Medical History: Reports Iron Deficiency Anemia Past Surgical History Past Surgical History: Reports: Appendectomy, Cholecystectomy, Hysterectomy, Tonsillectomy, Vascular Surgery - lymphnodes removed from groin and neck, Other - Benign brain tumor surgery. Lymph node excision Social History Information Source: Relative Lives with: Family - Daughter for 17 years Smoking Status: Current Every Day Smoker Cigarettes Packs Per Day: 2 Number of Years Smokin Frequency of Alcohol Use: None Hx Recreational Drug Use: No Drugs: None Hx Prescription Drug Abuse: No - Advance Directive Resuscitation Status: Full Code Family History Family History: DM - Monitor, End Stage Renal Disease - Mother who was on dialysis, Hypertension - Mother, brother, sister and daughter, Malignancy - Mother, Other - Father of black lung Parental Family History Reviewed: Yes Children Family History Reviewed: Yes Sibling(s) Family History Reviewed.: Yes Medication/Allergy Home Medications: Alprazolam [Xanax] 1 mg PO Q8HP PRN 11/05/16 Atorvastatin Calcium [Lipitor 20 mg Tablet] 20 mg PO QHS 11/05/16 Diltiazem HCl [Cartia Xt] 180 mg PO DAILY 11/05/16 Esomeprazole Mag Trihydrate [Nexium] 40 mg PO BID 11/05/16 Ferrous Sulfate [Feosol 325 mg Tablet] 325 mg PO DAILY 11/05/16 Furosemide [Lasix] 120 mg PO DAILY 11/05/16 Gabapentin [Neurontin 300 mg Capsule] 300 mg PO Q8 11/05/16 Insulin Aspart Protam & Aspart [Novolog Mix 70-30 Vial] 20 unit SQ MEALS Levothyroxine Sodium [Synthroid] 200 mcg PO QAM 11/05/16 Magnesium Oxide [Mag-Ox 400 mg Tablet] 400 mg PO BID 11/05/16 Metoclopramide HCl [Reglan 10 mg Tablet] 10 mg PO BID 11/05/16 Potassium Chloride [K-Tab ER] 60 meq PO Q8 11/05/16 Spironolactone [Aldactone 25 mg Tablet] 50 mg PO DAILY 11/05/16 Allergies/Adverse Reactions: moxifloxacin HCl [From Avelox] Allergy (Severe, Verified 08/16/16 16:43) rash,itch apixaban [From Eliquis] Allergy (Intermediate, Verified 08/16/16 16:43) swell dabigatran etexilate [From Pradaxa] Allergy (Intermediate, Verified 08/16/16 16: 43) swell lansoprazole [From Prevacid] Allergy (Intermediate, Verified 08/16/16 16:43) Generalized Itching aloe [Aloe] Allergy (Verified 08/16/16 16:43) Review of Systems ROS unobtainable: Due to mental status Physical Exam Vital Signs: Temp Pulse Resp BP Pulse Ox 96.7 F L 84 20 115/52 L 98 11/05/16 14:00 07/21/17 14:39 11/05/16 14:39 11/05/16 14:00 11/05/16 14:39 Intake & Output 11/04/16 11/05/16 11/06/16 06:59 06:59 06:59 Output Total 210 Balance -210 Weight 91.6 kg Vital signs currently during dialysis: Blood pressure of 109/50, heart rate of 89, respiratory rate of 12, oxygen saturation is 96% on BiPAP, blood flow rate in dialysis of 250 mL/min, dialysate flow rate of 500 mL/min. Exam: General appearance: Well-developed, well-nourished, currently requiring BiPAP, very lethargic and unable to communicate with me at the moment. Head exam: PRESENT: atraumatic, normocephalic Eye exam: PRESENT: Conjunctiva pale, EOMI, PERRLA. ABSENT: conjunctival injection, scleral icterus Mouth exam: PRESENT: moist, neck supple, tongue midline Neck exam: PRESENT: full ROM. ABSENT: carotid bruit, JVD, lymphadenopathy, thyromegaly Respiratory exam: PRESENT: Coarse breath sounds to auscultation bilaterally. Positive rhonchi ABSENT: rales, stridor, wheezes Cardiovascular exam: PRESENT: RRR, +S1, +S2. ABSENT: systolic murmur Pulses: PRESENT: normal radial pulses, normal dorsalis pedis pulses GI/Abdominal exam: PRESENT: normal bowel sounds, soft. ABSENT: guarding, mass, tenderness Rectal exam: deferred Extremities exam: PRESENT: full ROM. Trace to grade 1 bilateral lower extremity pitting edema ABSENT: calf tenderness Musculoskeletal: PRESENT: full ROM. ABSENT: deformity Neurological exam: PRESENT: Patient is lethargic and orientation cannot be determined, CN II-XII grossly intact. ABSENT: motor sensory deficit Psychiatric exam: Lethargic ABSENT: homicidal ideation, suicidal ideation Skin exam: PRESENT: intact, dry, warm. Positive pallor ABSENT: rash Results Laboratory Results: Laboratory 11/05/16 11/05/16 11/05/16 02:20 02:20 02:20 WBC 12.1 H RBC 3.21 L Hgb 6.9 L Hct 25.2 L MCV 78 L MCH 21.5 L MCHC 27.4 L RDW 20.6 H Plt Count 160 Total Counted 100 Seg Neutrophils % Not Reportable Seg Neuts % (Manual) 87 H Lymphocytes % Not Reportable Lymphocytes % (Manual) 2 L Monocytes % Not Reportable Monocytes % (Manual) 11 Eosinophils % Not Reportable Eosinophils % (Manual) 0 Basophils % Not Reportable Basophils % (Manual) 0 Absolute Neutrophils Not Reportable Abs Neuts (Manual) 10.5 H Absolute Lymphocytes Not Reportable Abs Lymphs (Manual) 0.2 L Absolute Monocytes Not Reportable Abs Monocytes (Manual) 1.3 Absolute Eosinophils Not Reportable Absolute Eos (Manual) 0.0 Absolute Basophils Not Reportable Abs Basophils (Manual) 0.0 Nucleated RBCs 1 Toxic Granulation SLIGHT Large Platelets PRESENT Platelet Comment ADEQUATE Polychromasia 1+ Hypochromasia 2+ Poikilocytosis 1+ Anisocytosis 2+ Tear Drop Cells SLIGHT Ovalocytes 1+ Stomatocytes SLIGHT VBG pH VBG pCO2 VBG HCO3 VBG Base Excess Sodium 135.5 L Potassium 8.7 H* Chloride 102 Carbon Dioxide 16 L Anion Gap 18 BUN 45 H Creatinine 2.06 H Est GFR ( Amer) 29 L Est GFR (Non-Af Amer) 24 L Glucose 335 H POC Glucose Lactic Acid Calcium 8.7 Magnesium Total Bilirubin 1.1 Direct Bilirubin 0.4 Indirect Bilirubin Not Reportable Neonat Total Bilirubin Not Reportable AST 17 ALT 18 Alkaline Phosphatase 137 H Troponin I 0.082 NT-Pro-B Natriuret Pep 6220 H Total Protein 7.8 Albumin 4.3 Blood Type Antibody Screen Crossmatch 11/05/16 11/05/16 11/05/16 02:20 02:20 03:20 WBC RBC Hgb Hct MCV MCH MCHC RDW Plt Count Total Counted Seg Neutrophils % Seg Neuts % (Manual) Lymphocytes % Lymphocytes % (Manual) Monocytes % Monocytes % (Manual) Eosinophils % Eosinophils % (Manual) Basophils % Basophils % (Manual) Absolute Neutrophils Abs Neuts (Manual) Absolute Lymphocytes Abs Lymphs (Manual) Absolute Monocytes Abs Monocytes (Manual) Absolute Eosinophils Absolute Eos (Manual) Absolute Basophils Abs Basophils (Manual) Nucleated RBCs Toxic Granulation Large Platelets Platelet Comment Polychromasia Hypochromasia Poikilocytosis Anisocytosis Tear Drop Cells Ovalocytes Stomatocytes VBG pH 7.19 L* VBG pCO2 50.9 VBG HCO3 19.1 L VBG Base Excess -8.6 Sodium Potassium 8.6 H* Chloride Carbon Dioxide Anion Gap BUN Creatinine Est GFR ( Amer) Est GFR (Non-Af Amer) Glucose POC Glucose Lactic Acid 6.8 H Calcium Magnesium 3.2 H Total Bilirubin Direct Bilirubin Indirect Bilirubin Neonat Total Bilirubin AST ALT Alkaline Phosphatase Troponin I NT-Pro-B Natriuret Pep Total Protein Albumin Blood Type Antibody Screen Crossmatch 11/05/16 11/05/16 11/05/16 03:20 03:25 03:36 WBC RBC Hgb Hct MCV MCH MCHC RDW Plt Count Total Counted Seg Neutrophils % Seg Neuts % (Manual) Lymphocytes % Lymphocytes % (Manual) Monocytes % Monocytes % (Manual) Eosinophils % Eosinophils % (Manual) Basophils % Basophils % (Manual) Absolute Neutrophils Abs Neuts (Manual) Absolute Lymphocytes Abs Lymphs (Manual) Absolute Monocytes Abs Monocytes (Manual) Absolute Eosinophils Absolute Eos (Manual) Absolute Basophils Abs Basophils (Manual) Nucleated RBCs Toxic Granulation Large Platelets Platelet Comment Polychromasia Hypochromasia Poikilocytosis Anisocytosis Tear Drop Cells Ovalocytes Stomatocytes VBG pH VBG pCO2 VBG HCO3 VBG Base Excess Sodium Potassium Chloride Carbon Dioxide Anion Gap BUN Creatinine Est GFR ( Amer) Est GFR (Non-Af Amer) Glucose POC Glucose 338 H Lactic Acid Calcium Magnesium Cancelled Total Bilirubin Direct Bilirubin Indirect Bilirubin Neonat Total Bilirubin AST ALT Alkaline Phosphatase Troponin I NT-Pro-B Natriuret Pep Total Protein Albumin Blood Type O NEGATIVE Antibody Screen NEGATIVE Crossmatch See Detail 11/05/16 11/05/16 11/05/16 04:18 05:59 06:35 WBC RBC Hgb Hct MCV MCH MCHC RDW Plt Count Total Counted Seg Neutrophils % Seg Neuts % (Manual) Lymphocytes % Lymphocytes % (Manual) Monocytes % Monocytes % (Manual) Eosinophils % Eosinophils % (Manual) Basophils % Basophils % (Manual) Absolute Neutrophils Abs Neuts (Manual) Absolute Lymphocytes Abs Lymphs (Manual) Absolute Monocytes Abs Monocytes (Manual) Absolute Eosinophils Absolute Eos (Manual) Absolute Basophils Abs Basophils (Manual) Nucleated RBCs Toxic Granulation Large Platelets Platelet Comment Polychromasia Hypochromasia Poikilocytosis Anisocytosis Tear Drop Cells Ovalocytes Stomatocytes VBG pH VBG pCO2 VBG HCO3 VBG Base Excess Sodium 138.1 Potassium 7.7 H* Chloride 103 Carbon Dioxide 18 L Anion Gap 17 BUN 49 H Creatinine 2.08 H Est GFR ( Amer) 28 L Est GFR (Non-Af Amer) 24 L Glucose 261 H POC Glucose 301 H 278 H Lactic Acid Calcium 9.1 Magnesium Total Bilirubin Direct Bilirubin Indirect Bilirubin Neonat Total Bilirubin AST ALT Alkaline Phosphatase Troponin I NT-Pro-B Natriuret Pep Total Protein Albumin Blood Type Antibody Screen Crossmatch 11/05/16 11/05/16 06:35 10:32 WBC RBC Hgb Hct MCV MCH MCHC RDW Plt Count Total Counted Seg Neutrophils % Seg Neuts % (Manual) Lymphocytes % Lymphocytes % (Manual) Monocytes % Monocytes % (Manual) Eosinophils % Eosinophils % (Manual) Basophils % Basophils % (Manual) Absolute Neutrophils Abs Neuts (Manual) Absolute Lymphocytes Abs Lymphs (Manual) Absolute Monocytes Abs Monocytes (Manual) Absolute Eosinophils Absolute Eos (Manual) Absolute Basophils Abs Basophils (Manual) Nucleated RBCs Toxic Granulation Large Platelets Platelet Comment Polychromasia Hypochromasia Poikilocytosis Anisocytosis Tear Drop Cells Ovalocytes Stomatocytes VBG pH VBG pCO2 VBG HCO3 VBG Base Excess Sodium Potassium Chloride Carbon Dioxide Anion Gap BUN Creatinine Est GFR ( Amer) Est GFR (Non-Af Amer) Glucose POC Glucose 330 H Lactic Acid 6.2 H Calcium Magnesium Total Bilirubin Direct Bilirubin Indirect Bilirubin Neonat Total Bilirubin AST ALT Alkaline Phosphatase Troponin I NT-Pro-B Natriuret Pep Total Protein Albumin Blood Type Antibody Screen Crossmatch 08/23/16 05:04 BUN 26 H Creatinine 0.73 Est GFR (Non-Af Amer) > 60 Impressions: Chest X-Ray 11/05/16 01:57 IMPRESSION: BILATERAL PLEURAL EFFUSIONS WITH BASILAR ATELECTASIS VERSUS INFILTRATE. Assessment & Plan - Diagnosis (1) Acute kidney injury Is this a current diagnosis for this admission?: YesPlan: Patient is oliguric, hypervolemic, and severely hyperkalemic unresponsive to conventional medications for hyperkalemia. At this time the patient needs emergency hemodialysis treatment. We are currently dialyzing the patient to newly placed dialysis catheter here in the ICU. We will do dialysis today for 3 hours, using the patient's trialysis catheter, with 0 potassium bath for the first hour followed by one potassium bath for the second hour followed by 2 potassium bath, blood flow rate of 250 mL per minute, dialysate flow rate of 500 mL per minute, ultrafiltration 3 L as tolerated with pressor as necessary, no heparin and no Procrit during dialysis. Patient was transfused 1 unit of packed RBC prior to dialysis. Patient will be monitored toward closely during dialysis treatments. After today we will reevaluate the patient for further need of hemodialysis treatment on Tuesday. I will follow the patient with you. (2) Hyperkalemia Is this a current diagnosis for this admission?: YesPlan: Severe requiring emergency hemodialysis. (3) Metabolic acidosis Is this a current diagnosis for this admission?: Yes (4) Lactic acidosis Is this a current diagnosis for this admission?: Yes (5) Hypermagnesemia Is this a current diagnosis for this admission?: Yes (6) Anemia Qualifiers: Anemia type: unspecified type Qualified Code(s): D64.9 - Anemia, unspecified Is this a current diagnosis for this admission?: Yes (7) Bradycardia Is this a current diagnosis for this admission?: YesPlan: Due to hyperkalemia, resolved. (8) Pleural effusion Is this a current diagnosis for this admission?: YesPlan: We will get as much ultrafiltration as the patient tolerates. However the patient may need either diagnostic and/or therapeutic thoracentesis if not chest tube placement again. (9) Diabetes mellitus type II, controlled Qualifiers: Diabetes mellitus complication status: with unspecified complications Diabetes mellitus half-way insulin use: unspecified half-way insulin use status Qualified Code(s): E11.8 - Type 2 diabetes mellitus with unspecified complications; Z79.4 - group home (current) use of insulin Is this a current diagnosis for this admission?: Yes (10) Hypertension Qualifiers: Hypertension type: essential hypertension Qualified Code(s): I10 - Essential (primary) hypertension Is this a current diagnosis for this admission?: YesPlan: Currently hypotensive requiring pressor. - Notes Notes: Thank you very much for this consultation. We will follow the patient with you. - Time Time Spent: Greater than 70 Minutes
[2016-11-05] MEDS: INSULIN LISPRO 100 UNIT/ML 3 ML VIAL SUBCUT PRN ×2 (16:32→22:37)
[2016-11-05] MEDS ORDERED: (PENDING PHARMACY ID) (Insulin Aspart Protam & Aspart [Novolog Mix 70-30 Vial] 20 UNIT) SQ SCH (17:00)
[2016-11-05] MEDS: MAGNESIUM OXIDE 400 MG TABLET PO SCH (17:38)
[2016-11-05] MEDS: LANSOPRAZOLE 30 MG TAB.RAP.DR PO SCH (17:38)
[2016-11-05] MEDS: METOCLOPRAMIDE HCL 10 MG TABLET PO SCH (17:38)
[2016-11-05] MEDS ORDERED: (PENDING PHARMACY ID) (Esomeprazole Mag Trihydrate [Nexium] 40 MG) PO SCH (18:00)
[2016-11-05 20:04] LABS: HEMATOCRIT 24.5 % (36.0-47.0); HGB HCT DIFFERENCE -2.9; MEAN CORPUSCULAR HEMOGLOBIN 22.3 pg (27.0-33.4); MEAN CORPUSCULAR HGB CONC 29.4 g/dL (32.0-36.0); MEAN CORPUSCULAR VOLUME 76 fl (80-97); RED BLOOD COUNT 3.23 10^6/uL (3.72-5.28); RED CELL DISTRIBUTION WIDTH 20.1 % (11.5-14.0); WHITE BLOOD COUNT 20.9 10^3/uL (4.0-10.5)
[2016-11-05 20:07] LABS: HEMOGLOBIN 7.2 g/dL (12.0-15.5)
[2016-11-05 20:11] LABS: ALANINE AMINOTRANSFERASE 25 U/L (9-52); ALBUMIN 3.5 g/dL (3.5-5.0); ALKALINE PHOSPHATASE 110 U/L (38-126); ASPARTATE AMINO TRANSFERASE 19 U/L (14-36); BILIRUBIN,DIRECT 0.4 mg/dL (0.0-0.4); BILIRUBIN,TOTAL 1.3 mg/dL (0.2-1.3); CHLORIDE 99 mmol/L (98-107); CREATININE RESULT 1.44 mg/dL (0.52-1.25); GLUCOSE 176 mg/dL (75-110); SODIUM 137.6 mmol/L (137-145); TOTAL PROTEIN 6.8 g/dL (6.3-8.2)
[2016-11-05 20:20] LABS: BAND NEUTROPHILS % (MANUAL) 2 % (3-5); BASOPHILS % (MANUAL) 0 % (0-2); EOSINOPHILS % (MANUAL) 0 % (0-6); LYMPHOCYTES % (MANUAL) 1 % (13-45); TOTAL CELLS COUNTED 100
[2016-11-05 20:22] LABS: ANION GAP 11 (5-19)
[2016-11-05 20:24] LABS: ANISOCYTOSIS 2+; MICROCYTOSIS 1+; OVALOCYTES SLIGHT; POIKILOCYTOSIS SLIGHT; TOXIC GRANULATION SLIGHT
[2016-11-05 20:25] LABS: BLOOD UREA NITROGEN 27 mg/dL (7-20); CARBON DIOXIDE 28 mmol/L (22-30); HYPOCHROMASIA 1+; POTASSIUM 5.3 mmol/L (3.6-5.0); TARGET CELLS SLIGHT
[2016-11-05 20:26] LABS: POLYCHROMASIA 1+; TEAR DROP CELLS SLIGHT
[2016-11-05 20:29] LABS: STOMATOCYTES SLIGHT
[2016-11-05 20:57] LABS: HEMATOCRIT 24.3 % (36.0-47.0); HGB HCT DIFFERENCE -2.7; MEAN CORPUSCULAR HEMOGLOBIN 22.4 pg (27.0-33.4); MEAN CORPUSCULAR HGB CONC 29.6 g/dL (32.0-36.0); MEAN CORPUSCULAR VOLUME 76 fl (80-97); RED BLOOD COUNT 3.21 10^6/uL (3.72-5.28); RED CELL DISTRIBUTION WIDTH 20.4 % (11.5-14.0); WHITE BLOOD COUNT 22.2 10^3/uL (4.0-10.5)
[2016-11-05 21:08] LABS: ALANINE AMINOTRANSFERASE 27 U/L (9-52); ALBUMIN 3.6 g/dL (3.5-5.0); ALKALINE PHOSPHATASE 111 U/L (38-126); ASPARTATE AMINO TRANSFERASE 26 U/L (14-36); BILIRUBIN,DIRECT 0.4 mg/dL (0.0-0.4); BILIRUBIN,TOTAL 1.2 mg/dL (0.2-1.3); LDH 391 U/L (313-618); TOTAL PROTEIN 6.8 g/dL (6.3-8.2)
[2016-11-05 21:15] LABS: PROTHROMBIN TIME 14.6 SEC (11.4-15.4)
[2016-11-05 21:26] LABS: HEMOGLOBIN 7.2 g/dL (12.0-15.5)
[2016-11-05] MEDS: ATORVASTATIN CALCIUM 20 MG TABLET PO SCH (21:56)
[2016-11-06 05:13] LABS: HEMATOCRIT 22.1 % (36.0-47.0); HGB HCT DIFFERENCE -2.6; MEAN CORPUSCULAR HEMOGLOBIN 22.6 pg (27.0-33.4); MEAN CORPUSCULAR HGB CONC 29.5 g/dL (32.0-36.0); MEAN CORPUSCULAR VOLUME 77 fl (80-97); RED BLOOD COUNT 2.88 10^6/uL (3.72-5.28); RED CELL DISTRIBUTION WIDTH 20.5 % (11.5-14.0); WHITE BLOOD COUNT 17.8 10^3/uL (4.0-10.5)
[2016-11-06 05:14] LABS: ALANINE AMINOTRANSFERASE 25 U/L (9-52); ALBUMIN 3.4 g/dL (3.5-5.0); ALKALINE PHOSPHATASE 101 U/L (38-126); ANION GAP 10 (5-19); ASPARTATE AMINO TRANSFERASE 17 U/L (14-36); BILIRUBIN,DIRECT 0.3 mg/dL (0.0-0.4); BILIRUBIN,TOTAL 0.8 mg/dL (0.2-1.3); BLOOD UREA NITROGEN 35 mg/dL (7-20); CALCIUM 8.5 mg/dL (8.4-10.2); CARBON DIOXIDE 28 mmol/L (22-30); CHLORIDE 97 mmol/L (98-107); CREATININE RESULT 1.71 mg/dL (0.52-1.25); GLUCOSE 199 mg/dL (75-110); HEMOGLOBIN 6.5 g/dL (12.0-15.5); MAGNESIUM 2.4 mg/dL (1.6-2.3); POTASSIUM 5.9 mmol/L (3.6-5.0); SODIUM 134.7 mmol/L (137-145); TOTAL PROTEIN 6.5 g/dL (6.3-8.2)
[2016-11-06 05:21] LABS: BAND NEUTROPHILS % (MANUAL) 1 % (3-5); BASOPHILS % (MANUAL) 0 % (0-2); EOSINOPHILS % (MANUAL) 0 % (0-6); LYMPHOCYTES % (MANUAL) 4 % (13-45); TOTAL CELLS COUNTED 100
[2016-11-06 05:22] LABS: ANISOCYTOSIS 2+; POLYCHROMASIA 1+; TOXIC GRANULATION 1+
[2016-11-06] MEDS: HEPARIN SOD (PORCINE) 5,000 UNIT/ML 1 ML SYRINGE SUBCUT SCH ×3 (06:05→21:04)
[2016-11-06] MEDS: GABAPENTIN 300 MG CAPSULE PO SCH ×3 (06:05→21:05)
[2016-11-06] MEDS: LEVOTHYROXINE SODIUM 0.1 MG TABLET PO SCH (07:57)
[2016-11-06] MEDS: ALBUTEROL SULFATE 0.083% NEB 2.5 MG/3 ML AMPUL NEB PRN ×2 (08:49→20:11)
--- NOTE | 2016-11-06 09:39 | PDOC PROGRESS REPORT ---
Subjective Progress Note for:: 11/06/16 Subjective:: Denies any complaints. She is alert and oriented 3 this morning Physical Exam Vital Signs: Temp Pulse Resp BP Pulse Ox 98.8 F 96 11 L 119/61 97 11/06/16 07:39 11/06/16 07:39 11/06/16 07:39 11/06/16 07:39 11/06/16 07:39 Intake & Output 11/05/16 11/06/16 11/07/16 06:59 06:59 06:59 Intake Total 1049 300 Output Total 489 10 Balance 560 290 Weight 90.7 kg General appearance: PRESENT: no acute distress Eye exam: PRESENT: conjunctiva pink. ABSENT: scleral icterus Mouth exam: PRESENT: moist, tongue midline Neck exam: ABSENT: carotid bruit, JVD, lymphadenopathy, thyromegaly Respiratory exam: PRESENT: clear to auscultation radames. ABSENT: rales, rhonchi, wheezes Cardiovascular exam: PRESENT: RRR. ABSENT: diastolic murmur, rubs, systolic murmur GI/Abdominal exam: PRESENT: normal bowel sounds, soft. ABSENT: distended, guarding, mass, organolmegaly, rebound, tenderness Extremities exam: ABSENT: calf tenderness, clubbing, pedal edema Neurological exam: PRESENT: alert, awake, oriented to person, oriented to place , oriented to time, oriented to situation, CN II-XII grossly intact. ABSENT: motor sensory deficit Psychiatric exam: PRESENT: appropriate affect Skin exam: PRESENT: dry, intact, warm. ABSENT: cyanosis, rash Results Laboratory Results: 11/06/16 04:45 11/06/16 04:45 11/05/16 11/05/16 11/05/16 19:35 19:35 20:14 WBC 20.9 H 22.2 H RBC 3.23 L 3.21 L Hgb 7.2 L 7.2 L Hct 24.5 L 24.3 L MCV 76 L 76 L MCH 22.3 L 22.4 L MCHC 29.4 L 29.6 L RDW 20.1 H 20.4 H Plt Count 140 L 136 L Seg Neutrophils % Not Reportable Lymphocytes % Not Reportable Monocytes % Not Reportable Eosinophils % Not Reportable Basophils % Not Reportable Absolute Neutrophils Not Reportable Absolute Lymphocytes Not Reportable Absolute Monocytes Not Reportable Absolute Eosinophils Not Reportable Absolute Basophils Not Reportable Sodium 137.6 Potassium 5.3 H D Chloride 99 Carbon Dioxide 28 D Anion Gap 11 BUN 27 H D Creatinine 1.44 H Est GFR ( Amer) 44 L Est GFR (Non-Af Amer) 36 L Glucose 176 H Calcium 9.0 Magnesium Total Bilirubin 1.3 AST 19 ALT 25 Alkaline Phosphatase 110 Total Protein 6.8 Albumin 3.5 11/05/16 11/06/16 11/06/16 20:14 04:45 04:45 WBC 17.8 H RBC 2.88 L Hgb 6.5 L Hct 22.1 L MCV 77 L MCH 22.6 L MCHC 29.5 L RDW 20.5 H Plt Count 107 L Seg Neutrophils % Not Reportable Lymphocytes % Not Reportable Monocytes % Not Reportable Eosinophils % Not Reportable Basophils % Not Reportable Absolute Neutrophils Not Reportable Absolute Lymphocytes Not Reportable Absolute Monocytes Not Reportable Absolute Eosinophils Not Reportable Absolute Basophils Not Reportable Sodium 134.7 L Potassium 5.9 H Chloride 97 L Carbon Dioxide 28 Anion Gap 10 BUN 35 H Creatinine 1.71 H Est GFR ( Amer) 36 L Est GFR (Non-Af Amer) 30 L Glucose 199 H Calcium 8.5 Magnesium 2.4 H Total Bilirubin 1.2 0.8 AST 26 17 ALT 27 25 Alkaline Phosphatase 111 101 Total Protein 6.8 6.5 Albumin 3.6 3.4 L Impressions: Chest X-Ray 11/05/16 01:57 IMPRESSION: BILATERAL PLEURAL EFFUSIONS WITH BASILAR ATELECTASIS VERSUS INFILTRATE. Assessment & Plan - Diagnosis (1) Acute and chronic respiratory failure ([id number]) Is this a current diagnosis for this admission?: YesPlan: Patient has COPD and initially was in congestive heart failure because of her renal failure. Volume overload has resolved with dialysis. Her respiratory status has improved well enough that we can move to the floor and out of the intensive care unit (2) Renal failure (ARF), acute on chronic Is this a current diagnosis for this admission?: YesPlan: The patient has been on Aldactone and potassium supplements. Will hold those. Patient had dialysis yesterday. She is no longer volume overloaded and her potassium is still elevated but improved. Will continue with the Lasix. (3) Congestive heart failure Qualifiers: Congestive heart failure type: diastolic Congestive heart failure chronicity: acute on chronic Qualified Code(s): I50.33 - Acute on chronic diastolic (congestive) heart failure Is this a current diagnosis for this admission?: YesPlan: Has chronic congestive failure made acutely worse with the renal failure. She has a chronic pleural effusion that has had thoracentesis in the past. Will continue with oral Lasix. The congestive heart failure has improved with dialysis. (4) Anemia Qualifiers: Anemia type: unspecified type Qualified Code(s): D64.9 - Anemia, unspecified Is this a current diagnosis for this admission?: YesPlan: Secondary to the chronic renal failure. Patient received 2 units packed red blood cells in the emergency room. Has another 2 units ordered for this morning. (5) Hyperkalemia Is this a current diagnosis for this admission?: YesPlan: Secondary to acute on chronic renal failure. The patient has been on Aldactone and potassium supplements which will be held. Patient's potassium has improved with dialysis (6) Pleural effusion Is this a current diagnosis for this admission?: YesPlan: Secondary to congestive heart failure (7) Hyperlipidemia Is this a current diagnosis for this admission?: Yes (8) Hypothyroidism Is this a current diagnosis for this admission?: YesPlan: Continue with Synthroid (9) Anxiety disorder Is this a current diagnosis for this admission?: YesPlan: Continue with Xanax as needed (10) Atrial fibrillation Qualifiers: Atrial fibrillation type: persistent Qualified Code(s): I48.1 - Persistent atrial fibrillation Is this a current diagnosis for this admission?: YesPlan: currently is in a normal sinus rhythm. (11) COPD (chronic obstructive pulmonary disease) Qualifiers: Emphysema type: unspecified Is this a current diagnosis for this admission?: Yes (12) Diabetes mellitus type II, controlled Qualifiers: Diabetes mellitus complication status: with unspecified complications Diabetes mellitus senior living insulin use: unspecified rat exterminator insulin use status Qualified Code(s): E11.8 - Type 2 diabetes mellitus with unspecified complications; Z79.4 - rat exterminator (current) use of insulin Is this a current diagnosis for this admission?: YesPlan: We will cover with sliding scale insulin. (13) GERD (gastroesophageal reflux disease) Is this a current diagnosis for this admission?: YesPlan: has been on Nexium (14) History of lymphoma Is this a current diagnosis for this admission?: Yes (15) Hypercholesterolemia Is this a current diagnosis for this admission?: Yes (16) Hypertension Qualifiers: Hypertension type: essential hypertension Qualified Code(s): I10 - Essential (primary) hypertension Is this a current diagnosis for this admission?: Yes (17) Obstructive sleep apnea Is this a current diagnosis for this admission?: YesPlan: Continue with BiPAP - Time Time Spent with patient: 25-34 minutes - Inpatient Certification Medical Necessity: Need Close Monitoring Due to Risk of Patient Decompensation
[2016-11-06] MEDS ORDERED: (PENDING PHARMACY ID) (Diltiazem Hcl [Cartia Xt] 180 MG) PO SCH (10:00)
[2016-11-06] MEDS: DILTIAZEM HCL 180 MG CAPSULE.CR PO SCH (10:47)
[2016-11-06] MEDS: MAGNESIUM OXIDE 400 MG TABLET PO SCH ×2 (10:48→17:33)
[2016-11-06] MEDS: LANSOPRAZOLE 30 MG TAB.RAP.DR PO SCH ×2 (10:48→17:34)
[2016-11-06] MEDS: METOCLOPRAMIDE HCL 10 MG TABLET PO SCH ×2 (10:48→17:33)
[2016-11-06] MEDS: FERROUS SULFATE 325 MG TABLET PO SCH (10:49)
[2016-11-06] MEDS: FUROSEMIDE 40 MG TABLET PO SCH (10:49)
[2016-11-06] MEDS: INSULIN LISPRO 100 UNIT/ML 3 ML VIAL SUBCUT PRN ×3 (12:27→22:30)
[2016-11-06 13:38] LABS: HEMATOCRIT 25.4 % (36.0-47.0); HGB HCT DIFFERENCE -2.6; MEAN CORPUSCULAR HEMOGLOBIN 23.2 pg (27.0-33.4); MEAN CORPUSCULAR HGB CONC 29.8 g/dL (32.0-36.0); MEAN CORPUSCULAR VOLUME 78 fl (80-97); RED BLOOD COUNT 3.25 10^6/uL (3.72-5.28); RED CELL DISTRIBUTION WIDTH 20.5 % (11.5-14.0); WHITE BLOOD COUNT 18.6 10^3/uL (4.0-10.5)
[2016-11-06 13:40] LABS: HEMOGLOBIN 7.6 g/dL (12.0-15.5)
[2016-11-06] MEDS: FAMOTIDINE 20 MG TABLET PO SCH (21:05)
[2016-11-06] MEDS: ATORVASTATIN CALCIUM 20 MG TABLET PO SCH (21:05)
[2016-11-07 05:05] LABS: ABSOLUTE EOSINOPHILS # (AUTO) 0.1 10^3/uL (0.0-0.6); ABSOLUTE LYMPHOCYTES (AUTO) 1.5 10^3/uL (0.5-4.7); ABSOLUTE MONOCYTES (AUTO) 1.5 10^3/uL (0.1-1.4); ABSOLUTE NEUT (AUTO) 11.7 10^3/uL (1.7-8.2); BASOPHILS % (AUTO) 0.1 % (0-2); EOSINOPHILS % (AUTO) 0.4 % (0-6); HEMATOCRIT 24.2 % (36.0-47.0); LYMPHOCYTES % (AUTO) 10.1 % (13-45); MEAN CORPUSCULAR HEMOGLOBIN 23.2 pg (27.0-33.4); MEAN CORPUSCULAR HGB CONC 30.5 g/dL (32.0-36.0); MEAN CORPUSCULAR VOLUME 76 fl (80-97); MONOCYTES % (AUTO) 10.1 % (3-13); RED BLOOD COUNT 3.18 10^6/uL (3.72-5.28); RED CELL DISTRIBUTION WIDTH 21.1 % (11.5-14.0); SEGMENTED NEUTROPHILS % (AUTO) 79.3 % (42-78); WHITE BLOOD COUNT 14.7 10^3/uL (4.0-10.5)
[2016-11-07 05:07] LABS: HEMOGLOBIN 7.4 g/dL (12.0-15.5)
[2016-11-07 05:08] LABS: ANION GAP 8 (5-19); CALCIUM 8.3 mg/dL (8.4-10.2); CARBON DIOXIDE 28 mmol/L (22-30); CHLORIDE 95 mmol/L (98-107); CREATININE RESULT 1.82 mg/dL (0.52-1.25); GLUCOSE 170 mg/dL (75-110); POTASSIUM 5.7 mmol/L (3.6-5.0); SODIUM 131.3 mmol/L (137-145)
[2016-11-07 05:19] LABS: BLOOD UREA NITROGEN 57 mg/dL (7-20)
[2016-11-07] MEDS: HEPARIN SOD (PORCINE) 5,000 UNIT/ML 1 ML SYRINGE SUBCUT SCH ×2 (05:51→17:20)
[2016-11-07] MEDS: GABAPENTIN 300 MG CAPSULE PO SCH ×2 (05:57→17:42)
--- NOTE | 2016-11-07 09:56 | PDOC PROGRESS REPORT ---
Subjective Progress Note for:: 11/07/16 Subjective:: Denies any complaints. She is alert and oriented 3 this morning Physical Exam Vital Signs: Temp Pulse Resp BP Pulse Ox 97.8 F 91 10 L 124/49 L 96 11/07/16 08:10 11/07/16 08:10 11/07/16 08:10 11/07/16 08:10 11/07/16 08:10 Intake & Output 11/06/16 11/07/16 11/08/16 06:59 06:59 06:59 Intake Total 1049 1416 Output Total 489 810 Balance 560 606 Weight 90.7 kg 94.5 kg General appearance: PRESENT: no acute distress Eye exam: PRESENT: conjunctiva pink. ABSENT: scleral icterus Ear exam: PRESENT: normal external ear exam Mouth exam: PRESENT: moist, tongue midline Neck exam: ABSENT: carotid bruit, JVD, lymphadenopathy, thyromegaly Respiratory exam: PRESENT: clear to auscultation radames. ABSENT: rales, rhonchi, wheezes Cardiovascular exam: PRESENT: RRR. ABSENT: diastolic murmur, rubs, systolic murmur GI/Abdominal exam: PRESENT: normal bowel sounds, soft. ABSENT: distended, guarding, mass, organolmegaly, rebound, tenderness Extremities exam: ABSENT: calf tenderness, clubbing, pedal edema Neurological exam: PRESENT: alert, awake, oriented to person, oriented to place , oriented to time, oriented to situation, CN II-XII grossly intact. ABSENT: motor sensory deficit Psychiatric exam: PRESENT: appropriate affect Skin exam: PRESENT: dry, intact, warm. ABSENT: cyanosis, rash Results Laboratory Results: 11/07/16 04:26 11/07/16 04:26 11/06/16 11/07/16 11/07/16 13:13 04:26 04:26 WBC 18.6 H 14.7 H RBC 3.25 L 3.18 L Hgb 7.6 L 7.4 L Hct 25.4 L 24.2 L MCV 78 L 76 L MCH 23.2 L 23.2 L MCHC 29.8 L 30.5 L RDW 20.5 H 21.1 H Plt Count 113 L 100 L Seg Neutrophils % 79.3 H Lymphocytes % 10.1 L Monocytes % 10.1 Eosinophils % 0.4 Basophils % 0.1 Absolute Neutrophils 11.7 H Absolute Lymphocytes 1.5 Absolute Monocytes 1.5 H Absolute Eosinophils 0.1 Absolute Basophils 0.0 Sodium 131.3 L Potassium 5.7 H Chloride 95 L Carbon Dioxide 28 Anion Gap 8 BUN 57 H D Creatinine 1.82 H Est GFR ( Amer) 33 L Est GFR (Non-Af Amer) 27 L Glucose 170 H Calcium 8.3 L 11/05/16 12:10 Nasophary (Mrs[facility] Only) MRSA Surveillance Culture - Final MRSA RECOVERED Impressions: Chest X-Ray 11/05/16 01:57 IMPRESSION: BILATERAL PLEURAL EFFUSIONS WITH BASILAR ATELECTASIS VERSUS INFILTRATE. Assessment & Plan - Diagnosis (1) Acute and chronic respiratory failure ([id number]) Is this a current diagnosis for this admission?: YesPlan: Patient has COPD and initially was in congestive heart failure because of her renal failure. Volume overload has resolved with dialysis. (2) Renal failure (ARF), acute on chronic Is this a current diagnosis for this admission?: YesPlan: The patient had been on Aldactone and potassium supplements. Will hold those. Patient had dialysis Tuesday. She is no longer volume overloaded and her potassium is still elevated but improved. Will continue with the Lasix. The patient needs a transfusion of 2 units packed red blood cells. Will hold off until tomorrow to do that because of the possibility that she may need repeat dialysis. (3) Congestive heart failure Qualifiers: Congestive heart failure type: diastolic Congestive heart failure chronicity: acute on chronic Qualified Code(s): I50.33 - Acute on chronic diastolic (congestive) heart failure Is this a current diagnosis for this admission?: YesPlan: Has chronic congestive failure made acutely worse with the renal failure. She has a chronic pleural effusion that has had thoracentesis in the past. Will continue with oral Lasix. The congestive heart failure has improved with dialysis. (4) Anemia Qualifiers: Anemia type: unspecified type Qualified Code(s): D64.9 - Anemia, unspecified Is this a current diagnosis for this admission?: YesPlan: Secondary to the chronic renal failure. Patient received 2 units packed red blood cells in the emergency room. Patient's hemoglobin is low and would benefit from 2 more units of packed red blood cells. Will wait till tomorrow because of the possibility of needing dialysis. (5) Hyperkalemia Is this a current diagnosis for this admission?: YesPlan: Secondary to acute on chronic renal failure. The patient has been on Aldactone and potassium supplements which will be held. Patient's potassium has improved with dialysis (6) Pleural effusion Is this a current diagnosis for this admission?: YesPlan: Secondary to congestive heart failure (7) Hyperlipidemia Is this a current diagnosis for this admission?: Yes (8) Hypothyroidism Is this a current diagnosis for this admission?: YesPlan: Continue with Synthroid (9) Anxiety disorder Is this a current diagnosis for this admission?: YesPlan: Continue with Xanax as needed (10) Atrial fibrillation Qualifiers: Atrial fibrillation type: persistent Qualified Code(s): I48.1 - Persistent atrial fibrillation Is this a current diagnosis for this admission?: YesPlan: currently is in a normal sinus rhythm. (11) COPD (chronic obstructive pulmonary disease) Qualifiers: Emphysema type: unspecified Is this a current diagnosis for this admission?: Yes (12) Diabetes mellitus type II, controlled Qualifiers: Diabetes mellitus complication status: with unspecified complications Diabetes mellitus watermelon inspector insulin use: unspecified watermelon inspector insulin use status Qualified Code(s): E11.8 - Type 2 diabetes mellitus with unspecified complications; Z79.4 - retirement (current) use of insulin Is this a current diagnosis for this admission?: YesPlan: We will cover with sliding scale insulin. (13) GERD (gastroesophageal reflux disease) Is this a current diagnosis for this admission?: YesPlan: has been on Nexium (14) History of lymphoma Is this a current diagnosis for this admission?: Yes (15) Hypercholesterolemia Is this a current diagnosis for this admission?: Yes (16) Hypertension Qualifiers: Hypertension type: essential hypertension Qualified Code(s): I10 - Essential (primary) hypertension Is this a current diagnosis for this admission?: Yes (17) Obstructive sleep apnea Is this a current diagnosis for this admission?: YesPlan: Continue with BiPAP - Time Time Spent with patient: 25-34 minutes - Inpatient Certification Medical Necessity: Need Close Monitoring Due to Risk of Patient Decompensation
[2016-11-07] MEDS: FAMOTIDINE 20 MG TABLET PO SCH (10:21)
[2016-11-07] MEDS: FUROSEMIDE 40 MG TABLET PO SCH (10:21)
[2016-11-07] MEDS: LEVOTHYROXINE SODIUM 0.1 MG TABLET PO SCH (10:22)
[2016-11-07] MEDS: MAGNESIUM OXIDE 400 MG TABLET PO SCH ×2 (10:22→17:42)
[2016-11-07] MEDS: DILTIAZEM HCL 180 MG CAPSULE.CR PO SCH (10:22)
[2016-11-07] MEDS: FERROUS SULFATE 325 MG TABLET PO SCH (10:23)
[2016-11-07] MEDS: METOCLOPRAMIDE HCL 10 MG TABLET PO SCH ×2 (10:23→17:42)
[2016-11-07] MEDS: ALBUTEROL SULFATE 0.083% NEB 2.5 MG/3 ML AMPUL NEB PRN (11:50)
[2016-11-07] MEDS: INSULIN LISPRO 100 UNIT/ML 3 ML VIAL SUBCUT PRN ×2 (17:43→23:15)
[2016-11-07 19:07] LABS: HGB HCT DIFFERENCE -2.4; MEAN CORPUSCULAR HGB CONC 30.1 g/dL (32.0-36.0); MEAN CORPUSCULAR VOLUME 76 fl (80-97); RED BLOOD COUNT 3.15 10^6/uL (3.72-5.28); RED CELL DISTRIBUTION WIDTH 21.6 % (11.5-14.0); WHITE BLOOD COUNT 11.3 10^3/uL (4.0-10.5)
[2016-11-07 19:23] LABS: HEMOGLOBIN 7.2 g/dL (12.0-15.5)
[2016-11-07 22:50] LABS: ARTERIAL BLOOD BASE EXCESS 1.9 mmol/L; ARTERIAL BLOOD O2 SATURATION 97.1 % (94-98)
--- NOTE | 2016-11-07 23:44 | RADIOLOGY REPORT (SQ) ---
EXAM DESCRIPTION: CHEST SINGLE VIEW COMPLETED DATE/TIME: 11/07/2016 11:35 pm REASON FOR STUDY: SOB, decreased chest expansion, bradypnea COMPARISON: 11/05/2016 EXAM PARAMETERS: NUMBER OF VIEWS: One view. TECHNIQUE: Single frontal radiographic view of the chest acquired. RADIATION DOSE: NA LIMITATIONS: None. FINDINGS: LUNGS AND PLEURA: The previously described bilateral pleural effusions with associated bas ilar atelectasis versus infiltrate appear minimally improved with decreasing confluence. Fairly exte nsive residual changes are identified. MEDIASTINUM AND HILAR STRUCTURES: No masses. Contour normal. HEART AND VASCULAR STRUCTURES: The configuration of the heart and mediastinal structures is unchanged . BONES: No acute findings. HARDWARE: None in the chest. OTHER: No other significant finding. IMPRESSION: Minimal interval improvement in the bibasilar densities as noted above TECHNICAL DOCUMENTATION: JOB ID: [id number]
[2016-11-08] MEDS: ATORVASTATIN CALCIUM 20 MG TABLET PO SCH ×2 (00:52→22:57)
[2016-11-08] MEDS: GABAPENTIN 300 MG CAPSULE PO SCH ×4 (00:53→22:57)
[2016-11-08] MEDS: HEPARIN SOD (PORCINE) 5,000 UNIT/ML 1 ML SYRINGE SUBCUT SCH ×4 (00:53→22:58)
[2016-11-08] MEDS: FAMOTIDINE 20 MG TABLET PO SCH ×3 (00:53→22:57)
[2016-11-08] MEDS ORDERED: NORMAL SALINE 1000 ML 1,000 ML IV PRN (05:00)
[2016-11-08] MEDS ORDERED: HEPARIN SOD (PORCINE) 1,000 UNIT/ML 10 ML VIAL IV PRN (05:00)
[2016-11-08 06:24] LABS: ABSOLUTE EOSINOPHILS # (AUTO) 0.1 10^3/uL (0.0-0.6); ABSOLUTE MONOCYTES (AUTO) 0.8 10^3/uL (0.1-1.4); ABSOLUTE NEUT (AUTO) 7.9 10^3/uL (1.7-8.2); BASOPHILS % (AUTO) 0.4 % (0-2); HEMATOCRIT 25.1 % (36.0-47.0); LYMPHOCYTES % (AUTO) 10.1 % (13-45); MEAN CORPUSCULAR HEMOGLOBIN 23.6 pg (27.0-33.4); MEAN CORPUSCULAR HGB CONC 30.5 g/dL (32.0-36.0); MEAN CORPUSCULAR VOLUME 77 fl (80-97); RED BLOOD COUNT 3.25 10^6/uL (3.72-5.28); RED CELL DISTRIBUTION WIDTH 21.5 % (11.5-14.0); SEGMENTED NEUTROPHILS % (AUTO) 80.5 % (42-78); WHITE BLOOD COUNT 9.8 10^3/uL (4.0-10.5)
[2016-11-08 06:32] LABS: ANION GAP 10 (5-19); BLOOD UREA NITROGEN 55 mg/dL (7-20); CALCIUM 8.4 mg/dL (8.4-10.2); CARBON DIOXIDE 26 mmol/L (22-30); CHLORIDE 97 mmol/L (98-107); CREATININE RESULT 1.39 mg/dL (0.52-1.25); GLUCOSE 202 mg/dL (75-110); POTASSIUM 5.1 mmol/L (3.6-5.0); SODIUM 132.8 mmol/L (137-145)
[2016-11-08 07:01] LABS: HEMOGLOBIN 7.7 g/dL (12.0-15.5)
[2016-11-08] MEDS ORDERED: NORMAL SALINE 250 ML IV PRN ×2 (07:15)
[2016-11-08] MEDS ORDERED: ONDANSETRON 4 MG TAB.RAPDIS PO PRN (08:50)
[2016-11-08] MEDS ORDERED: ONDANSETRON HCL INJ/PF 4 MG/2 ML SDV IV PRN (08:51)
[2016-11-08] MEDS: ALBUTEROL SULFATE 0.083% NEB 2.5 MG/3 ML AMPUL NEB PRN ×2 (08:58→12:59)
[2016-11-08] MEDS: DILTIAZEM HCL 180 MG CAPSULE.CR PO SCH (09:53)
[2016-11-08] MEDS: LEVOTHYROXINE SODIUM 0.1 MG TABLET PO SCH (09:54)
[2016-11-08] MEDS: MAGNESIUM OXIDE 400 MG TABLET PO SCH ×2 (09:54→17:46)
[2016-11-08] MEDS: DOCUSATE SODIUM 100 MG CAPSULE PO SCH ×2 (09:55→17:46)
[2016-11-08] MEDS: METOCLOPRAMIDE HCL 10 MG TABLET PO SCH ×2 (09:55→17:45)
[2016-11-08] MEDS: FERROUS SULFATE 325 MG TABLET PO SCH (09:56)
[2016-11-08] MEDS: FUROSEMIDE 40 MG TABLET PO SCH (09:56)
--- NOTE | 2016-11-08 10:59 | PDOC PROGRESS REPORT ---
Subjective Progress Note for:: 11/08/16 Subjective:: Denies any complaints. She is alert and oriented 3 this morning. Patient was admitted with congestive heart failure and volume overload from her renal failure along with hyperkalemia. She was dialyzed once. The patient had hyperkalemia but had been taking potassium supplement and Aldactone. Physical Exam Vital Signs: Temp Pulse Resp BP Pulse Ox 97.3 F 85 20 135/51 H 100 11/08/16 09:41 11/08/16 09:41 11/08/16 09:41 11/08/16 09:41 11/08/16 09:41 Intake & Output 11/07/16 11/08/16 11/09/16 06:59 06:59 06:59 Intake Total 1416 1447 0 Output Total 810 2700 Balance 606 -1253 0 Weight 94.5 kg 96.2 kg General appearance: PRESENT: no acute distress Eye exam: PRESENT: conjunctiva pink. ABSENT: scleral icterus Mouth exam: PRESENT: moist, tongue midline Neck exam: ABSENT: JVD Respiratory exam: PRESENT: clear to auscultation radames. ABSENT: rales, rhonchi, wheezes Cardiovascular exam: PRESENT: RRR. ABSENT: diastolic murmur, rubs, systolic murmur GI/Abdominal exam: PRESENT: normal bowel sounds, soft. ABSENT: distended, guarding, mass, organolmegaly, rebound, tenderness Extremities exam: PRESENT: pedal edema - Trace pedal edema. ABSENT: calf tenderness, clubbing Neurological exam: PRESENT: alert, awake, oriented to person, oriented to place , oriented to time, oriented to situation, CN II-XII grossly intact. ABSENT: motor sensory deficit Psychiatric exam: PRESENT: appropriate affect Skin exam: PRESENT: dry, intact, warm, other - Area of irritated skin on the bridge of the nose. ABSENT: cyanosis, rash Results Laboratory Results: 11/08/16 06:09 11/08/16 06:09 11/07/16 11/07/16 11/07/16 18:50 18:50 22:32 WBC 11.3 H RBC 3.15 L Hgb 7.2 L Hct 24.0 L MCV 76 L MCH 23.0 L MCHC 30.1 L RDW 21.6 H Plt Count 91 L Seg Neutrophils % Lymphocytes % Monocytes % Eosinophils % Basophils % Absolute Neutrophils Absolute Lymphocytes Absolute Monocytes Absolute Eosinophils Absolute Basophils Carbonic Acid 1.46 H HCO3/H2CO3 Ratio 18:1 ABG pH 7.37 ABG pCO2 48.6 H ABG pO2 96.0 ABG HCO3 27.5 H ABG O2 Saturation 97.1 ABG Base Excess 1.9 FiO2 35% Sodium Potassium Chloride Carbon Dioxide Anion Gap BUN Creatinine Est GFR ( Amer) Est GFR (Non-Af Amer) Glucose Calcium Blood Type O NEGATIVE Antibody Screen NEGATIVE 11/08/16 11/08/16 06:09 06:09 WBC 9.8 RBC 3.25 L Hgb 7.7 L Hct 25.1 L MCV 77 L MCH 23.6 L MCHC 30.5 L RDW 21.5 H Plt Count 88 L Seg Neutrophils % 80.5 H Lymphocytes % 10.1 L Monocytes % 8.0 Eosinophils % 1.0 Basophils % 0.4 Absolute Neutrophils 7.9 Absolute Lymphocytes 1.0 Absolute Monocytes 0.8 Absolute Eosinophils 0.1 Absolute Basophils 0.0 Carbonic Acid HCO3/H2CO3 Ratio ABG pH ABG pCO2 ABG pO2 ABG HCO3 ABG O2 Saturation ABG Base Excess FiO2 Sodium 132.8 L Potassium 5.1 H Chloride 97 L Carbon Dioxide 26 Anion Gap 10 BUN 55 H Creatinine 1.39 H Est GFR ( Amer) 45 L Est GFR (Non-Af Amer) 37 L Glucose 202 H Calcium 8.4 Blood Type Antibody Screen Impressions: Chest X-Ray 11/07/16 00:00 IMPRESSION: Minimal interval improvement in the bibasilar densities as noted above Assessment & Plan - Diagnosis (1) Acute and chronic respiratory failure ([id number]) Is this a current diagnosis for this admission?: YesPlan: Patient has COPD and initially was in congestive heart failure because of her renal failure. Volume overload has resolved with dialysis. Patient as an outpatient was on both Aldactone and potassium supplementation. She also has been noncompliant with her volume limitation of 1.5 L. Instructed on the importance of her intake of fluids. (2) Renal failure (ARF), acute on chronic Is this a current diagnosis for this admission?: YesPlan: The patient had been on Aldactone and potassium supplements. Will hold those. Patient had dialysis Tuesday. She is no longer volume overloaded and her potassium is still elevated but improved. Will continue with the Lasix. The patient needs a transfusion of 2 units packed red blood cells. Patient does not need dialysis at this time. (3) Congestive heart failure Qualifiers: Congestive heart failure type: diastolic Congestive heart failure chronicity: acute on chronic Qualified Code(s): I50.33 - Acute on chronic diastolic (congestive) heart failure Is this a current diagnosis for this admission?: YesPlan: Has chronic congestive failure made acutely worse with the renal failure. She has a chronic pleural effusion that has had thoracentesis in the past. Will continue with oral Lasix. The congestive heart failure has improved with dialysis. Patient has diastolic dysfunction (4) Anemia Qualifiers: Anemia type: unspecified type Qualified Code(s): D64.9 - Anemia, unspecified Is this a current diagnosis for this admission?: YesPlan: Secondary to the chronic renal failure. Patient received 2 units packed red blood cells in the emergency room. Patient's hemoglobin is low and would benefit from 2 more units of packed red blood cells. We will transfuse when available. (5) Hyperkalemia Is this a current diagnosis for this admission?: YesPlan: Secondary to acute on chronic renal failure. The patient had been on Aldactone and potassium supplements which will be held. Patient's potassium has improved with dialysis (6) Pleural effusion Is this a current diagnosis for this admission?: YesPlan: Secondary to congestive heart failure. The patient previously has had a thoracentesis but had complications of a pneumothorax. (7) Hyperlipidemia Is this a current diagnosis for this admission?: Yes (8) Hypothyroidism Is this a current diagnosis for this admission?: YesPlan: Continue with Synthroid (9) Anxiety disorder Is this a current diagnosis for this admission?: YesPlan: Continue with Xanax as needed (10) Atrial fibrillation Qualifiers: Atrial fibrillation type: persistent Qualified Code(s): I48.1 - Persistent atrial fibrillation Is this a current diagnosis for this admission?: YesPlan: currently is in a normal sinus rhythm. (11) COPD (chronic obstructive pulmonary disease) Qualifiers: Emphysema type: unspecified Is this a current diagnosis for this admission?: Yes (12) Diabetes mellitus type II, controlled Qualifiers: Diabetes mellitus complication status: with unspecified complications Diabetes mellitus termite helper insulin use: unspecified usp insulin use status Qualified Code(s): E11.8 - Type 2 diabetes mellitus with unspecified complications; Z79.4 - termite renewal inspector (current) use of insulin Is this a current diagnosis for this admission?: YesPlan: We will cover with sliding scale insulin. (13) GERD (gastroesophageal reflux disease) Is this a current diagnosis for this admission?: YesPlan: has been on Nexium (14) History of lymphoma Is this a current diagnosis for this admission?: Yes (15) Hypercholesterolemia Is this a current diagnosis for this admission?: Yes (16) Hypertension Qualifiers: Hypertension type: essential hypertension Qualified Code(s): I10 - Essential (primary) hypertension Is this a current diagnosis for this admission?: Yes (17) Obstructive sleep apnea Is this a current diagnosis for this admission?: YesPlan: Continue with BiPAP - Time Time Spent with patient: 25-34 minutes - Inpatient Certification Medical Necessity: Need Close Monitoring Due to Risk of Patient Decompensation - Plan Summary Plan Summary: If her blood counts remained stable overnight after transfusion, she may be able to be discharged home tomorrow as long as her potassium and volume status does not worsen.
[2016-11-08] MEDS: INSULIN LISPRO 100 UNIT/ML 3 ML VIAL SUBCUT PRN ×2 (12:05→22:57)
[2016-11-08] MEDS ORDERED: FUROSEMIDE INJ/PF 40 MG/4 ML SDV ONE ×2 (13:35→18:29)
--- NOTE | 2016-11-08 20:30 | PDOC PROGRESS REPORT ---
Subjective Progress Note for:: 11/08/16 Subjective:: I saw the patient this evening. She looks much better than when I saw her last Tuesday. She is communicative now and very much awake. When I entered the room she sort of complain of some chest discomfort and slight shortness of breath but she does not seem to be in distress. I was told by the nurse that the patient was short of breath and had some crackles when she was receiving blood transfusion and they needed to give her doses of Lasix 40 mg IV. Other than that the patient told me that she feels better. She is making a good amount of urine. Potassium is also improved with diuresis. So this morning because of her improvement in terms of urine output, potassium and kidney function I decided that she does not need any more hemodialysis. Physical Exam Vital Signs: Temp Pulse Resp BP Pulse Ox 97.3 F 91 21 H 140/53 H 95 11/08/16 18:06 11/08/16 18:06 11/08/16 18:06 11/08/16 18:06 11/08/16 18:06 Intake & Output 11/07/16 11/08/16 11/09/16 06:59 06:59 06:59 Intake Total 1416 1447 1395 Output Total 810 2700 1800 Balance 606 -4593 -719 Weight 94.5 kg 96.2 kg Exam: General appearance: PRESENT: no acute distress, cooperative, well-developed, well-nourished Head exam: PRESENT: atraumatic, normocephalic Eye exam: PRESENT: conjunctiva pale, PERRLA. ABSENT: scleral icterus Neck exam: ABSENT: JVD Respiratory exam: PRESENT: Normal breath sounds. ABSENT: crackles, rales, rhonchi, unlabored, wheezes Cardiovascular exam: PRESENT: Regular rate rhythm -+S1, +S2. ABSENT: diastolic murmur, systolic murmur GI/Abdominal exam: PRESENT: normal bowel sounds, soft. ABSENT: guarding, mass, tenderness Extremities exam: Bilateral trace edema Neurological exam: PRESENT: alert, awake, oriented to person, place and time. Skin exam: PRESENT: dry, warm, Results Laboratory Results: 11/08/16 06:09 11/08/16 06:09 11/07/16 11/07/16 11/08/16 18:50 22:32 06:09 WBC 9.8 RBC 3.25 L Hgb 7.7 L Hct 25.1 L MCV 77 L MCH 23.6 L MCHC 30.5 L RDW 21.5 H Plt Count 88 L Seg Neutrophils % 80.5 H Lymphocytes % 10.1 L Monocytes % 8.0 Eosinophils % 1.0 Basophils % 0.4 Absolute Neutrophils 7.9 Absolute Lymphocytes 1.0 Absolute Monocytes 0.8 Absolute Eosinophils 0.1 Absolute Basophils 0.0 Carbonic Acid 1.46 H HCO3/H2CO3 Ratio 18:1 ABG pH 7.37 ABG pCO2 48.6 H ABG pO2 96.0 ABG HCO3 27.5 H ABG O2 Saturation 97.1 ABG Base Excess 1.9 FiO2 35% Sodium Potassium Chloride Carbon Dioxide Anion Gap BUN Creatinine Est GFR ( Amer) Est GFR (Non-Af Amer) Glucose Calcium Blood Type O NEGATIVE Antibody Screen NEGATIVE 11/08/16 06:09 WBC RBC Hgb Hct MCV MCH MCHC RDW Plt Count Seg Neutrophils % Lymphocytes % Monocytes % Eosinophils % Basophils % Absolute Neutrophils Absolute Lymphocytes Absolute Monocytes Absolute Eosinophils Absolute Basophils Carbonic Acid HCO3/H2CO3 Ratio ABG pH ABG pCO2 ABG pO2 ABG HCO3 ABG O2 Saturation ABG Base Excess FiO2 Sodium 132.8 L Potassium 5.1 H Chloride 97 L Carbon Dioxide 26 Anion Gap 10 BUN 55 H Creatinine 1.39 H Est GFR ( Amer) 45 L Est GFR (Non-Af Amer) 37 L Glucose 202 H Calcium 8.4 Blood Type Antibody Screen Impressions: Chest X-Ray 11/07/16 00:00 IMPRESSION: Minimal interval improvement in the bibasilar densities as noted above Assessment & Plan - Diagnosis (1) Acute kidney injury Is this a current diagnosis for this admission?: YesPlan: Now improved. Patient's potassium is much better and she is making good amount of urine output. Fluid overload is significantly improved as well with diuresis. Her kidney function has improved. At this point she does not need any renal replacement therapy. Continue to monitor for kidney function, electrolytes and urine output. (2) Hyperkalemia Is this a current diagnosis for this admission?: YesPlan: Improved. (3) Metabolic acidosis Is this a current diagnosis for this admission?: YesPlan: Resolved. (4) Lactic acidosis Is this a current diagnosis for this admission?: Yes (5) Hypermagnesemia Is this a current diagnosis for this admission?: YesPlan: It should be improved by now as well. (6) Anemia Qualifiers: Anemia type: unspecified type Qualified Code(s): D64.9 - Anemia, unspecified Is this a current diagnosis for this admission?: YesPlan: Patient was transfused 2 units of packed RBC today. (7) Bradycardia Is this a current diagnosis for this admission?: YesPlan: Resolved. (8) Pleural effusion Is this a current diagnosis for this admission?: YesPlan: This looks somewhat improved radiographically. 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 - Time Time with patient: 15-25 minutes
[2016-11-08 23:37] LABS: ABSOLUTE LYMPHOCYTES (AUTO) 0.6 10^3/uL (0.5-4.7); ABSOLUTE MONOCYTES (AUTO) 0.8 10^3/uL (0.1-1.4); ABSOLUTE NEUT (AUTO) 8.3 10^3/uL (1.7-8.2); BASOPHILS % (AUTO) 0.2 % (0-2); EOSINOPHILS % (AUTO) 0.4 % (0-6); HEMOGLOBIN 9.7 g/dL (12.0-15.5); HGB HCT DIFFERENCE -1.9; LYMPHOCYTES % (AUTO) 6.4 % (13-45); MEAN CORPUSCULAR HEMOGLOBIN 24.7 pg (27.0-33.4); MEAN CORPUSCULAR HGB CONC 31.4 g/dL (32.0-36.0); MEAN CORPUSCULAR VOLUME 79 fl (80-97); MONOCYTES % (AUTO) 8.4 % (3-13); RED BLOOD COUNT 3.95 10^6/uL (3.72-5.28); RED CELL DISTRIBUTION WIDTH 20.3 % (11.5-14.0); SEGMENTED NEUTROPHILS % (AUTO) 84.6 % (42-78); WHITE BLOOD COUNT 9.7 10^3/uL (4.0-10.5)
--- NOTE | 2016-11-09 03:08 | RADIOLOGY REPORT (SQ) ---
EXAM DESCRIPTION: CT HEAD WITHOUT COMPLETED DATE/TIME: 11/09/2016 2:46 am REASON FOR STUDY: Fall COMPARISON: CT head and MRI head 12/05/2014 TECHNIQUE: Axial images acquired through the brain without intravenous contrast. Images reviewed wi th bone, brain and subdural windows. Images stored on PACS. All CT scanners at this facility use dose modulation, iterative reconstruction, and/or weight based d osing when appropriate to reduce radiation dose to as low as reasonably achievable (ALARA). [facility]: Dose Right [facility]: CareDose [facility]: Dose Right [facility]: Teradose 4D [facility]: [place] RADIATION DOSE: Up-to-date CT equipment and radiation dose reduction techniques were employed. CTDIv ol: 55.2 mGy. DLP: 1084 mGy-cm. mGy. LIMITATIONS: None. FINDINGS: VENTRICLES: Normal size and contour. CEREBRUM: No mass effect. No hemorrhage. No midline shift. Normal patel/white matter differentiatio n. No evidence for acute territorial infarction. CEREBELLUM: No mass effect. No hemorrhage. No alteration of density. No evidence for acute infarct ion. EXTRAAXIAL SPACES: No fluid collections. Redemonstration of calcified meningioma in the right fronta l region measuring approximately 1 cm. ORBITS AND GLOBE: Symmetrical contour of the globes. CALVARIUM: No depressed skull fracture. PARANASAL SINUSES: No air-fluid level. SOFT TISSUES: No hematoma. IMPRESSION: No acute intracranial hemorrhage or depressed calvarial fracture. Known small calcified meningioma in the right frontal region. TECHNICAL DOCUMENTATION: JOB ID: [id number] [facility] Quality ID # [id number]: Final reports with documentation of one or more dose reduction techniques (e.g., Au tomated exposure control, adjustment of the mA and/or kV according to patient size, use of iterative reconstruction technique) 2010 [employer]- All Rights Reserved
[2016-11-09] MEDS: HEPARIN SOD (PORCINE) 5,000 UNIT/ML 1 ML SYRINGE SUBCUT SCH ×3 (05:03→21:51)
[2016-11-09] MEDS: GABAPENTIN 300 MG CAPSULE PO SCH ×3 (05:20→21:50)
[2016-11-09 06:20] LABS: HEMATOCRIT 31.7 % (36.0-47.0); HEMOGLOBIN 10.1 g/dL (12.0-15.5); HGB HCT DIFFERENCE -1.4; MEAN CORPUSCULAR HEMOGLOBIN 25.1 pg (27.0-33.4); MEAN CORPUSCULAR VOLUME 78 fl (80-97); RED BLOOD COUNT 4.04 10^6/uL (3.72-5.28); RED CELL DISTRIBUTION WIDTH 20.7 % (11.5-14.0); WHITE BLOOD COUNT 10.8 10^3/uL (4.0-10.5)
[2016-11-09 06:27] LABS: ANION GAP 9 (5-19); BLOOD UREA NITROGEN 43 mg/dL (7-20); CALCIUM 8.5 mg/dL (8.4-10.2); CARBON DIOXIDE 31 mmol/L (22-30); CHLORIDE 99 mmol/L (98-107); CREATININE RESULT 1.02 mg/dL (0.52-1.25); GLUCOSE 138 mg/dL (75-110); SODIUM 139.1 mmol/L (137-145)
[2016-11-09 06:37] LABS: POTASSIUM 3.8 mmol/L (3.6-5.0)
[2016-11-09 07:12] LABS: BASOPHILS % (MANUAL) 0 % (0-2); EOSINOPHILS % (MANUAL) 0 % (0-6); LYMPHOCYTES % (MANUAL) 10 % (13-45); TOTAL CELLS COUNTED 100
[2016-11-09 07:22] LABS: ANISOCYTOSIS 2+; HYPOCHROMASIA 1+; MICROCYTOSIS SLIGHT; OVALOCYTES SLIGHT; POIKILOCYTOSIS SLIGHT; ROULEAUX SLIGHT; TEAR DROP CELLS SLIGHT
[2016-11-09] MEDS: LEVOTHYROXINE SODIUM 0.1 MG TABLET PO SCH (08:06)
[2016-11-09] MEDS: ALBUTEROL SULFATE 0.083% NEB 2.5 MG/3 ML AMPUL NEB PRN (10:22)
[2016-11-09] MEDS: DILTIAZEM HCL 180 MG CAPSULE.CR PO SCH (11:03)
[2016-11-09] MEDS: DOCUSATE SODIUM 100 MG CAPSULE PO SCH ×2 (11:04→17:38)
[2016-11-09] MEDS: METOCLOPRAMIDE HCL 10 MG TABLET PO SCH ×2 (11:04→17:38)
[2016-11-09] MEDS: FERROUS SULFATE 325 MG TABLET PO SCH (11:05)
[2016-11-09] MEDS: FAMOTIDINE 20 MG TABLET PO SCH ×2 (11:05→21:50)
[2016-11-09] MEDS: MAGNESIUM OXIDE 400 MG TABLET PO SCH ×2 (11:06→17:38)
[2016-11-09] MEDS: FUROSEMIDE 40 MG TABLET PO SCH (11:06)
[2016-11-09] MEDS: INSULIN LISPRO 100 UNIT/ML 3 ML VIAL SUBCUT PRN ×2 (11:43→16:53)
--- NOTE | 2016-11-09 14:15 | PDOC PROGRESS REPORT ---
Subjective Progress Note for:: 11/09/16 Physical Exam Vital Signs: Temp Pulse Resp BP Pulse Ox 97.2 F 91 19 149/86 H 98 11/09/16 11:22 11/09/16 11:22 11/09/16 11:22 11/09/16 11:22 11/09/16 11:22 Intake & Output 11/08/16 11/09/16 11/10/16 06:59 06:59 06:59 Intake Total 1447 1395 300 Output Total 0938 3625 575 Balance -2653 -2230 -733 Weight 96.2 kg 95 kg Results Laboratory Results: 11/09/16 05:56 11/09/16 05:56 11/07/16 11/08/16 11/09/16 18:50 23:16 05:56 WBC 9.7 10.8 H RBC 3.95 4.04 Hgb 9.7 L 10.1 L Hct 31.0 L 31.7 L MCV 79 L 78 L MCH 24.7 L 25.1 L MCHC 31.4 L 32.0 RDW 20.3 H 20.7 H Plt Count 80 L 81 L Seg Neutrophils % 84.6 H Not Reportable Lymphocytes % 6.4 L Not Reportable Monocytes % 8.4 Not Reportable Eosinophils % 0.4 Not Reportable Basophils % 0.2 Not Reportable Absolute Neutrophils 8.3 H Not Reportable Absolute Lymphocytes 0.6 Not Reportable Absolute Monocytes 0.8 Not Reportable Absolute Eosinophils 0.0 Not Reportable Absolute Basophils 0.0 Not Reportable Sodium Potassium Chloride Carbon Dioxide Anion Gap BUN Creatinine Est GFR ( Amer) Est GFR (Non-Af Amer) Glucose Calcium Blood Type O NEGATIVE Antibody Screen NEGATIVE 11/09/16 05:56 WBC RBC Hgb Hct MCV MCH MCHC RDW Plt Count Seg Neutrophils % Lymphocytes % Monocytes % Eosinophils % Basophils % Absolute Neutrophils Absolute Lymphocytes Absolute Monocytes Absolute Eosinophils Absolute Basophils Sodium 139.1 Potassium 3.8 D Chloride 99 Carbon Dioxide 31 H Anion Gap 9 BUN 43 H Creatinine 1.02 Est GFR ( Amer) > 60 Est GFR (Non-Af Amer) 54 L Glucose 138 H Calcium 8.5 Blood Type Antibody Screen Impressions: Chest X-Ray 11/07/16 00:00 IMPRESSION: Minimal interval improvement in the bibasilar densities as noted above Head CT 11/09/16 00:00 IMPRESSION: No acute intracranial hemorrhage or depressed calvarial fracture. Known small calcified meningioma in the right frontal region. Assessment & Plan - Diagnosis (1) Acute and chronic respiratory failure ([id number]) Qualifiers: Respiratory failure complication: hypoxia Qualified Code(s): J96.21 - Acute and chronic respiratory failure with hypoxia Is this a current diagnosis for this admission?: Yes (2) Renal failure (ARF), acute on chronic Qualifiers: Acute renal failure type: unspecified Chronic kidney disease stage: unspecified stage Qualified Code(s): N17.9 - Acute kidney failure, unspecified; N18.9 - Chronic kidney disease, unspecified Is this a current diagnosis for this admission?: Yes (3) Pleural effusion Is this a current diagnosis for this admission?: Yes (4) Congestive heart failure Qualifiers: Congestive heart failure type: diastolic Congestive heart failure chronicity: acute on chronic Qualified Code(s): I50.33 - Acute on chronic diastolic (congestive) heart failure Is this a current diagnosis for this admission?: Yes (5) Hyperkalemia Is this a current diagnosis for this admission?: Yes (6) Hypothyroidism Qualifiers: Hypothyroidism type: acquired Qualified Code(s): E03.9 - Hypothyroidism, unspecified Is this a current diagnosis for this admission?: Yes (7) Hypertension Qualifiers: Hypertension type: essential hypertension Qualified Code(s): I10 - Essential (primary) hypertension Is this a current diagnosis for this admission?: Yes (8) Thrombocytopenia Is this a current diagnosis for this admission?: Yes (9) Hypercholesterolemia Is this a current diagnosis for this admission?: Yes (10) COPD (chronic obstructive pulmonary disease) Qualifiers: Emphysema type: unspecified Is this a current diagnosis for this admission?: Yes (11) Atrial fibrillation Qualifiers: Atrial fibrillation type: chronic Qualified Code(s): I48.2 - Chronic atrial fibrillation Is this a current diagnosis for this admission?: Yes (12) Diabetes mellitus type II, controlled Qualifiers: Diabetes mellitus complication status: with unspecified complications Diabetes mellitus intermediate school teacher insulin use: unspecified custodial insulin use status Qualified Code(s): E11.8 - Type 2 diabetes mellitus with unspecified complications; Z79.4 - terminal gauger (current) use of insulin Is this a current diagnosis for this admission?: Yes (13) GERD (gastroesophageal reflux disease) Qualifiers: Esophagitis presence: without esophagitis Qualified Code(s): K21.9 - Gastro-esophageal reflux disease without esophagitis Is this a current diagnosis for this admission?: Yes (14) Obstructive sleep apnea Is this a current diagnosis for this admission?: Yes (15) Anemia Qualifiers: Anemia type: unspecified type Qualified Code(s): D64.9 - Anemia, unspecified Is this a current diagnosis for this admission?: Yes - Time Time Spent with patient: 25-34 minutes - Plan Summary Plan Summary: Wean BiPAP to off. Discontinue Gerardo catheter. Increase activity and physical therapy. Patient refused subacute rehabilitation. We will continue to monitor. Patient not requiring repeat dialysis. We will do a follow-up chest x -ray.
--- NOTE | 2016-11-09 16:32 | PDOC PROGRESS REPORT ---
Subjective Progress Note for:: 11/09/16 Subjective:: I have seen patient today while she is still on the BiPAP. I was told that she requires BiPAP on and off. He tells me she is still somewhat short of breath. However clinically she seems a lot better than last week when she came in. He is making an excellent amount of urine output. She is very communicative and oriented. Otherwise she does not really have much other complaints. Physical Exam Vital Signs: Temp Pulse Resp BP Pulse Ox 97.2 F 91 18 149/86 H 98 11/09/16 11:22 11/09/16 11:22 11/09/16 14:20 11/09/16 11:22 11/09/16 11:22 Intake & Output 11/08/16 11/09/16 11/10/16 06:59 06:59 06:59 Intake Total 1447 1395 300 Output Total 2700 3625 575 Balance -0093 -7200 -540 Weight 96.2 kg 95 kg Exam: General appearance: PRESENT: no acute distress although she is on BiPAP, cooperative, well-developed, well-nourished Head exam: PRESENT: atraumatic, normocephalic Eye exam: PRESENT: conjunctiva slightly pale, PERRLA. ABSENT: scleral icterus Neck exam: ABSENT: JVD Respiratory exam: PRESENT: Slightly diminished breath sounds. ABSENT: crackles , rales, rhonchi, unlabored, wheezes Cardiovascular exam: PRESENT: Regular rate rhythm -+S1, +S2. ABSENT: diastolic murmur, systolic murmur GI/Abdominal exam: PRESENT: normal bowel sounds, soft. ABSENT: guarding, mass, tenderness Extremities exam: ABSENT: No edema Neurological exam: PRESENT: alert, awake, oriented to person, place and time. Skin exam: PRESENT: dry, warm, Results Laboratory Results: 11/09/16 05:56 11/09/16 05:56 11/07/16 11/08/16 11/09/16 18:50 23:16 05:56 WBC 9.7 10.8 H RBC 3.95 4.04 Hgb 9.7 L 10.1 L Hct 31.0 L 31.7 L MCV 79 L 78 L MCH 24.7 L 25.1 L MCHC 31.4 L 32.0 RDW 20.3 H 20.7 H Plt Count 80 L 81 L Seg Neutrophils % 84.6 H Not Reportable Lymphocytes % 6.4 L Not Reportable Monocytes % 8.4 Not Reportable Eosinophils % 0.4 Not Reportable Basophils % 0.2 Not Reportable Absolute Neutrophils 8.3 H Not Reportable Absolute Lymphocytes 0.6 Not Reportable Absolute Monocytes 0.8 Not Reportable Absolute Eosinophils 0.0 Not Reportable Absolute Basophils 0.0 Not Reportable Sodium Potassium Chloride Carbon Dioxide Anion Gap BUN Creatinine Est GFR ( Amer) Est GFR (Non-Af Amer) Glucose Calcium Blood Type O NEGATIVE Antibody Screen NEGATIVE 11/09/16 05:56 WBC RBC Hgb Hct MCV MCH MCHC RDW Plt Count Seg Neutrophils % Lymphocytes % Monocytes % Eosinophils % Basophils % Absolute Neutrophils Absolute Lymphocytes Absolute Monocytes Absolute Eosinophils Absolute Basophils Sodium 139.1 Potassium 3.8 D Chloride 99 Carbon Dioxide 31 H Anion Gap 9 BUN 43 H Creatinine 1.02 Est GFR ( Amer) > 60 Est GFR (Non-Af Amer) 54 L Glucose 138 H Calcium 8.5 Blood Type Antibody Screen Impressions: Chest X-Ray 11/07/16 00:00 IMPRESSION: Minimal interval improvement in the bibasilar densities as noted above Head CT 11/09/16 00:00 IMPRESSION: No acute intracranial hemorrhage or depressed calvarial fracture. Known small calcified meningioma in the right frontal region. Assessment & Plan - Diagnosis (1) Acute kidney injury Is this a current diagnosis for this admission?: YesPlan: I think the patient is very close to her baseline kidney function. He is making excellent amount of urine output. I think she is almost recovered from acute kidney injury and does not need any renal replacement therapy at this time. (2) Hyperkalemia Is this a current diagnosis for this admission?: YesPlan: Improved. (3) Metabolic acidosis Is this a current diagnosis for this admission?: YesPlan: Resolved. (4) Lactic acidosis Is this a current diagnosis for this admission?: Yes (5) Hypermagnesemia Is this a current diagnosis for this admission?: YesPlan: It should be improved by now as well. (6) Anemia Qualifiers: Anemia type: unspecified type Qualified Code(s): D64.9 - Anemia, unspecified Is this a current diagnosis for this admission?: YesPlan: Improved with blood transfusion. (7) Bradycardia Is this a current diagnosis for this admission?: YesPlan: Resolved. (8) Pleural effusion Is this a current diagnosis for this admission?: YesPlan: This looks somewhat improved radiographically. 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 - Notes Notes: No further workup no intervention necessary from nephrology standpoint. I will sign off at this time. - Time Time with patient: 15-25 minutes
[2016-11-09] MEDS: ATORVASTATIN CALCIUM 20 MG TABLET PO SCH (21:50)
[2016-11-10] MEDS: HEPARIN SOD (PORCINE) 5,000 UNIT/ML 1 ML SYRINGE SUBCUT SCH ×2 (05:25→15:37)
[2016-11-10] MEDS: GABAPENTIN 300 MG CAPSULE PO SCH ×2 (06:05→14:31)
[2016-11-10] MEDS: LEVOTHYROXINE SODIUM 0.1 MG TABLET PO SCH (08:40)
[2016-11-10] MEDS: ALPRAZOLAM 0.5 MG TABLET PO PRN ×2 (08:42→17:01)
[2016-11-10] MEDS: DOCUSATE SODIUM 100 MG CAPSULE PO SCH ×2 (11:11→17:01)
[2016-11-10] MEDS: DILTIAZEM HCL 180 MG CAPSULE.CR PO SCH (11:11)
[2016-11-10] MEDS: MAGNESIUM OXIDE 400 MG TABLET PO SCH ×2 (11:12→17:01)
[2016-11-10] MEDS: FERROUS SULFATE 325 MG TABLET PO SCH (11:12)
[2016-11-10] MEDS: FUROSEMIDE 40 MG TABLET PO SCH (11:12)
[2016-11-10] MEDS: METOCLOPRAMIDE HCL 10 MG TABLET PO SCH ×2 (11:12→17:00)
[2016-11-10] MEDS: FAMOTIDINE 20 MG TABLET PO SCH (11:12)
[2016-11-10] MEDS: INSULIN LISPRO 100 UNIT/ML 3 ML VIAL SUBCUT PRN ×2 (13:04→18:00)
--- NOTE | 2016-11-10 14:22 | PDOC DISCHARGE SUMMARY ---
General - Admit/Disc Date/PCP Admission Date/Primary Care Provider: 11/05/16 09:36 Discharge Date: 11/10/16 - Discharge Diagnosis (1) Acute and chronic respiratory failure ([id number]) Is this a current diagnosis for this admission?: Yes (2) Renal failure (ARF), acute on chronic Is this a current diagnosis for this admission?: Yes (3) Pleural effusion Is this a current diagnosis for this admission?: Yes (4) Congestive heart failure Is this a current diagnosis for this admission?: Yes (5) Hyperkalemia Is this a current diagnosis for this admission?: Yes (6) Hypothyroidism Is this a current diagnosis for this admission?: Yes (7) Hypertension Is this a current diagnosis for this admission?: Yes (8) Thrombocytopenia Is this a current diagnosis for this admission?: Yes (9) Hypercholesterolemia Is this a current diagnosis for this admission?: Yes (10) COPD (chronic obstructive pulmonary disease) Is this a current diagnosis for this admission?: Yes (11) Atrial fibrillation Is this a current diagnosis for this admission?: Yes (12) Diabetes mellitus type II, controlled Is this a current diagnosis for this admission?: Yes (13) GERD (gastroesophageal reflux disease) Is this a current diagnosis for this admission?: Yes (14) Obstructive sleep apnea Is this a current diagnosis for this admission?: Yes (15) Anemia Is this a current diagnosis for this admission?: Yes - Additional Information Resuscitation Status: Full Code Discharge Diet: Cardiac - Low-fat low-salt, Diabetic - No concentrated sweets Discharge Activity: Activity As Tolerated, Balance Activity w/Rest Home Medications: Aspirin [Aspirin 81 mg Chewable Tablet] 81 mg PO DAILY 11/05/16 Atorvastatin Calcium [Lipitor 20 mg Tablet] 20 mg PO QHS 11/05/16 Cholecalciferol (Vitamin D3) [Vitamin D3 1000 Unit Tablet] 1,000 unit PO DAILY 11/05/16 Diltiazem HCl [Cartia Xt] 180 mg PO DAILY 11/05/16 Docusate Sodium [Colace 100 mg Capsule] 100 mg PO BID 11/05/16 Esomeprazole Mag Trihydrate [Nexium] 40 mg PO BID 11/05/16 Ferrous Sulfate [Feosol 325 mg Tablet] 325 mg PO DAILY 11/05/16 Furosemide [Lasix] 120 mg PO DAILY 11/05/16 Gabapentin [Neurontin 300 mg Capsule] 300 mg PO QHS 11/05/16 Insulin Aspart Protam & Aspart [Novolog Mix 70-30 Vial] 20 unit SQ MEALS Levothyroxine Sodium [Synthroid] 200 mcg PO QAM 11/05/16 Magnesium Oxide [Mag-Ox 400 mg Tablet] 400 mg PO BID 11/05/16 Metoclopramide HCl [Reglan 10 mg Tablet] 10 mg PO BID 11/05/16 Alprazolam [Xanax] 0.5 mg PO Q8 #0 11/10/16 Additional Information: Basic metabolic panel as outpatient with primary care physician in 1 week. History of Present Illness Patient complains of: Shortness of breath History of Present Illness: SITA MANRIQUE is a 70 year old female with a history of congestive heart failure who is also supposed to be on a fluid restriction but she has not been following this. She isless than 1 L per day and but has taken 3 L according the daughter. She presents with a one-day history of shortness of breath and she is found to be in congestive heart failure with significant anemia. The patient also was noted to have hyperkalemia with potassium of 8.7. In the emergency room the patient received calcium, insulin, and bicarbonate. The patient's repeat potassium was still elevated and she had been given Lasix with minimal improvement. Because of this the patient is admitted for dialysis for hyperkalemia and volume overload. The patient did receive 2 units of packed red blood cells because of the significant anemia. Patient denies having chest pain but has had the shortness of breath. She is uncertain as to what her weight has been. Of note the patient has been on both Aldactone as well as potassium replacement prior to presentation. Hospital Course Hospital Course: The patient was admitted to the medical floor stepdown unit. Patient was placed on BiPAP. Patient has acute renal failure and hyperkalemia therefore nephrology was consulted and surgery placed a dialysis catheter on the femoral and the patient did have dialysis. Patient likewise received insulin and D50 as well as calcium and sodium bicarbonate and the patient's hyperkalemia eventually resolved. The patient underwent dialysis and the patient's creatinine improved. Nephrology then resume her diuretic. Apparently the patient was not following a fluid restricted diet as reported. Subsequently the patient improved and was able to tolerate discontinuing the BiPAP and placing her nasal cannula oxygen. Intermittently she will have some shortness of breath brought about by anxiety and her Xanax was resumed and her oxygenation improved. Physical therapy was then instituted. A follow-up chest x-ray showed improvement of her congestion. As the patient's creatinine improved and so her respirations and oxygenation's. Room air O2 saturation on D/ C was >90% at rest but on minimal exertion, goes down to 87%. D/C inventory control planner consulted for home O2 and arrangements were made for home O2. Physical Exam Vital Signs: Temp Pulse Resp BP Pulse Ox 97.7 F 89 20 153/62 H 98 11/10/16 11:20 11/10/16 11:20 11/10/16 11:20 11/10/16 11:20 11/10/16 11:20 Intake & Output 11/09/16 11/10/16 11/11/16 06:59 06:59 06:59 Intake Total 1395 395 873 Output Total 3625 2475 150 Balance -2230 -2080 723 Weight 95 kg 94.7 kg General appearance: PRESENT: no acute distress, cooperative, obese Head exam: PRESENT: normocephalic Eye exam: PRESENT: EOMI Mouth exam: PRESENT: moist, neck supple Neck exam: ABSENT: JVD Respiratory exam: PRESENT: decreased breath sounds - Lower lung wick. ABSENT : rhonchi, wheezes Cardiovascular exam: PRESENT: RRR. ABSENT: diastolic murmur GI/Abdominal exam: PRESENT: normal bowel sounds, soft. ABSENT: distended - Obese, tenderness Extremities exam: ABSENT: pedal edema Neurological exam: PRESENT: alert, awake, oriented to person, oriented to place , oriented to time, oriented to situation Skin exam: PRESENT: dry, warm. ABSENT: cyanosis Results Laboratory Results: 11/09/16 05:56 11/09/16 05:56 Impressions: Chest X-Ray 11/07/16 00:00 IMPRESSION: Minimal interval improvement in the bibasilar densities as noted above Head CT 11/09/16 00:00 IMPRESSION: No acute intracranial hemorrhage or depressed calvarial fracture. Known small calcified meningioma in the right frontal region. Qualifiers PATEINT BEING DISCHARGED WITH ANY OF THE FOLLOWING DIAGNOSIS?: Heart Failure HF Pt being discharged on ACEI for LVEF less than 40%?: No Reason(s) for not prescribing ACEI:: Not indicated - Normal ejection fraction HF Pt being discharged on ARBS for LVEF less than 40%?: No Reason(s) for not prescribing ARBS:: Not indicated - normal ejection fraction HF Pt with Afib discharged with Warfarin?: No Reason(s) for not prescribing Warfarin:: Not indicated - No atrial fibrillation HF Pt discharged on evidence-based Beta Romi:: Yes Plan Discharge Plan: Follow-up with primary care physician in 1 week. Follow-up with nephrology Dr. Boyd in 2 weeks. Time Spent: Less than 30 Minutes
[2016-11-10 16:52] VITALS: BP 144/60
== END 2016-11-10 18:35 | disposition home health service (06) | DRG 682 ==
LOC: ER 01:51 → EH 09:09 → UNDOADMIN 09:09 → EH 09:36 → ICU 11:34 → 3W 11-06 11:02
PROVIDERS: ADMIT Internal Medicine; ATTEND Internal Medicine
PROC: 02HV33Z Insertion of Infusion Device into Superior Vena Cava, Percutaneous Approach (ICD-10-PCS; principal; 2016-11-05)
PROC: B548ZZA Ultrasonography of Superior Vena Cava, Guidance (ICD-10-PCS; 2016-11-05)
PROC: 5A1D00Z (ICD-10-PCS; 2016-11-05)
PROC: 30233N1 Transfusion of Nonautologous Red Blood Cells into Peripheral Vein, Percutaneous Approach (ICD-10-PCS; 2016-11-05)
PROC: 5A09457 Assistance with Respiratory Ventilation, 24-96 Consecutive Hours, Continuous Positive Airway Pressure (ICD-10-PCS; 2016-11-05)
PROC: 3E0F73Z Introduction of Anti-inflammatory into Respiratory Tract, Via Natural or Artificial Opening (ICD-10-PCS; 2016-11-05)
DX: N17.9 Acute kidney failure, unspecified (principal); J96.21 Acute and chronic respiratory failure with hypoxia; I50.33 Acute on chronic diastolic (congestive) heart failure; I13.0 Hypertensive heart and chronic kidney disease with heart failure and stage 1 through stage 4 chronic kidney disease, or unspecified chronic kidney disease; I48.1 Persistent atrial fibrillation; E87.2 Acidosis; E87.5 Hyperkalemia; E03.9 Hypothyroidism, unspecified; D69.6 Thrombocytopenia, unspecified; E78.00 Pure hypercholesterolemia, unspecified; J44.9 Chronic obstructive pulmonary disease, unspecified; E11.22 Type 2 diabetes mellitus with diabetic chronic kidney disease; K21.9 Gastro-esophageal reflux disease without esophagitis; G47.33 Obstructive sleep apnea (adult) (pediatric); D63.1 Anemia in chronic kidney disease; I25.10 Atherosclerotic heart disease of native coronary artery without angina pectoris; D50.9 Iron deficiency anemia, unspecified; M19.90 Unspecified osteoarthritis, unspecified site; E83.41 Hypermagnesemia; R00.1 Bradycardia, unspecified; F41.9 Anxiety disorder, unspecified; F17.210 Nicotine dependence, cigarettes, uncomplicated; B95.62 Methicillin resistant Staphylococcus aureus infection as the cause of diseases classified elsewhere; N18.9 Chronic kidney disease, unspecified; I25.2 Old myocardial infarction; E78.5 Hyperlipidemia, unspecified; Z79.82 Long term (current) use of aspirin; Z79.4 Long term (current) use of insulin; Z79.899 Other long term (current) drug therapy; Z99.2 Dependence on renal dialysis; Z99.81 Dependence on supplemental oxygen; Z86.73 Personal history of transient ischemic attack (TIA), and cerebral infarction without residual deficits; Z85.72 Personal history of non-Hodgkin lymphomas; Z92.3 Personal history of irradiation; Z90.49 Acquired absence of other specified parts of digestive tract; Z90.710 Acquired absence of both cervix and uterus; Z88.8 Allergy status to other drugs, medicaments and biological substances; Z88.3 Allergy status to other anti-infective agents; Z83.3 Family history of diabetes mellitus; Z84.1 Family history of disorders of kidney and ureter; Z80.1 Family history of malignant neoplasm of trachea, bronchus and lung; Z82.49 Family history of ischemic heart disease and other diseases of the circulatory system; Z83.6 Family history of other diseases of the respiratory system
CPT/HCPCS: 36415; 36430; 36600; 51702; 70450; 71010; 80048; 80053; 80074; 80076; 82803; 82962; 83010; 83605; 83615; 83735; 83880; 84132; 84484; 85025; 85027; 85610; 86850; 86900; 86901; 86920; 87340; 93005; 93010; 94640; 94660; 96361; 96365; 96366; 96367; 96375; 96376; 99291; 99292; G8978-GP; G8979-GP; J0610; J1644; J1815; J1940; J2370; J2930; J3475; J3490; J7040; J7060; J7620; P9016

== ENCOUNTER → 2016-11-18 | Outpatient (CLI) | payer MEDICARE, MEDICAID ==
[2016-11-18 12:06] LABS: ANION GAP 11 (5-19); BLOOD UREA NITROGEN 11 mg/dL (7-20); CALCIUM 8.9 mg/dL (8.4-10.2); CARBON DIOXIDE 33 mmol/L (22-30); CHLORIDE 99 mmol/L (98-107); CREATININE RESULT 0.67 mg/dL (0.52-1.25); GLUCOSE 55 mg/dL (75-110); MAGNESIUM 1.9 mg/dL (1.6-2.3); SODIUM 142.7 mmol/L (137-145)
[2016-11-18 13:06] LABS: POTASSIUM 2.9 mmol/L (3.6-5.0)
== END ==
LOC: OD 10:44
PROVIDERS: ATTEND Internal Medicine Nephrology
DX: N17.9 Acute kidney failure, unspecified (principal); E83.41 Hypermagnesemia
CPT/HCPCS: 36415; 80048; 83735

== ENCOUNTER 2016-11-24 15:53 | Inpatient (IN) | payer MEDICARE, MEDICAID ==
--- NOTE | 2016-11-24 16:18 | ER Document Report ---
ED Respiratory Problem - General Chief Complaint: Shortness Of Breath Stated Complaint: DIFFICULTY BREATHING Time Seen by Provider: 11/24/16 16:08 Mode of Arrival: Wheelchair Information source: Patient, Relative TRAVEL OUTSIDE OF THE [place] IN LAST 30 DAYS: No - HPI Patient complains to provider of: Cough, Short of breath Onset: Other - 3-4 DAYS Duration: Continuous Quality of pain: No pain Context: Hx CHF, Malignancy Short of Breath: Moderate Cough: Productive Sputum amount: Moderate Sputum color: Yellow Sputum consistency: Mucoid Associated symptoms: Chills, Cough, Sweaty Similar symptoms previously: No Recently seen / treated by doctor: Yes - ONCOLOGY, TODAY - Related Data Allergies/Adverse Reactions: moxifloxacin HCl [From Avelox] Allergy (Severe, Verified 11/24/16 16:02) rash,itch apixaban [From Eliquis] Allergy (Intermediate, Verified 11/24/16 16:02) swell dabigatran etexilate [From Pradaxa] Allergy (Intermediate, Verified 11/24/16 16: 02) swell lansoprazole [From Prevacid] Allergy (Intermediate, Verified 11/24/16 16:02) Generalized Itching aloe [Aloe] Allergy (Verified 11/24/16 16:02) Past Medical History - Social History Smoking Status: Unknown if Ever Smoked Frequency of alcohol use: None Drug Abuse: None Lives with: Family Family History: CAD, COPD, DM, Hypertension Patient has suicidal ideation: No Patient has homicidal ideation: No - Past Medical History Cardiac Medical History: Reports: Hx Atrial Fibrillation, Hx Congestive Heart Failure, Hx Coronary Artery Disease, Hx Heart Attack, Hx Hypertension Pulmonary Medical History: Reports: Hx Asthma, Hx Bronchitis, Hx COPD, Hx Pneumonia, Hx Sleep Apnea Neurological Medical History: Reports: Hx Cerebrovascular Accident Endocrine Medical History: Reports: Hx Diabetes Mellitus Type 1, Hx Diabetes Mellitus Type 2, Hx Hypothyroidism Renal/ Medical History: Denies: Hx Peritoneal Dialysis Malignancy Medical History: Reports: Hx Lymphoma - Non-Hodgkin's B cell type , status post radiation and cheremission x 10yrs GI Medical History: Reports: Hx Gastroesophageal Reflux Disease Musculoskeltal Medical History: Reports Hx Arthritis Past Surgical History: Reports: Hx Appendectomy, Hx Cholecystectomy, Hx Hysterectomy, Hx Tonsillectomy, Hx Vascular Surgery - lymphnodes removed from groin and neck, Other - Benign brain tumor surgery. Lymph node excision - Immunizations Hx Diphtheria, Pertussis, Tetanus Vaccination: No Hx Pneumococcal Vaccination: 01/16/13 Physical Exam - Vital signs Vitals: Temp Pulse Resp BP Pulse Ox 97.6 F 107 H 30 H 153/71 H 74 L 11/24/16 15:57 11/24/16 15:57 11/24/16 15:57 11/24/16 15:57 11/24/16 15:57 Interpretation: Hypertensive, Tachycardic, Hypoxic, Tachypneic. No: Febrile - General General appearance: Alert, Anxious In distress: Mild - HEENT Head: Normocephalic Eyes: Normal Conjunctiva: Normal Ears: Normal Nasal: Normal Mouth/Lips: Normal Mucous membranes: Normal - Respiratory Respiratory status: Respiratory distress Chest status: Nontender Breath sounds: Decreased air movement - RLL, Nonproductive cough, Rales - BILATERAL - Cardiovascular Rhythm: Regular, Tachycardia Heart sounds: Normal auscultation Murmur: No - Abdominal Inspection: Normal Bowel sounds: Hypoactive - Extremities General upper extremity: Normal inspection General lower extremity: Edema - 2+ BILAT.. No: Normal inspection Course - Vital Signs Vital signs: Temp Pulse Resp BP Pulse Ox 97.6 F 107 H 21 H 166/84 H 90 L 11/24/16 15:57 11/24/16 15:57 11/24/16 19:01 11/24/16 19:01 11/24/16 19:01 - Laboratory Result Diagrams: 11/24/16 16:55 11/24/16 16:55 Laboratory results interpreted by me: 11/24/16 11/24/16 11/24/16 16:55 16:55 16:55 Hgb 10.7 L Hct 34.2 L MCH 25.3 L MCHC 31.4 L RDW 21.9 H Seg Neutrophils % 81.2 H Lymphocytes % 11.3 L Chloride 96 L Carbon Dioxide 33 H Glucose 152 H Alkaline Phosphatase 171 H NT-Pro-B Natriuret Pep 4950 H Urine Protein Ur Leukocyte Esterase 11/24/16 17:47 Hgb Hct MCH MCHC RDW Seg Neutrophils % Lymphocytes % Chloride Carbon Dioxide Glucose Alkaline Phosphatase NT-Pro-B Natriuret Pep Urine Protein 30 H Ur Leukocyte Esterase TRACE H - Diagnostic Test Radiology reviewed: Image reviewed, Reports reviewed - -- - EKG Interpretation by [place] EKG shows normal: Sinus rhythm, [place]. abnormal: Intervals - BORDERLINE LONG QT , QRS Complexes - LATE TRANSITION Rate: Tachycardia [place]/QRS: LPHB/LPFB When compared to previous EKG there are: Changes noted - Consults DR. ZARAGOZA Reason for consultation: 11/24/16 20:11 AGREES TO ADMIT Consulted provider: will come to ER Critical Care Note - Critical Care Note Total time excluding time spent on procedures (mins): 30 Comments: SEVERE HYPOXEMIA, IMPENDING RESPIRATORY FAILURE. Discharge - Discharge Clinical Impression: Pleural effusion Pneumonia Qualifiers: Pneumonia type: due to unspecified organism Laterality: unspecified laterality Lung location: unspecified part of lung Qualified Code(s): J18.9 - Pneumonia, unspecified organism Acute CHF Qualifiers: Congestive heart failure type: unspecified congestive heart failure type Qualified Code(s): I50.9 - Heart failure, unspecified Condition: Serious Disposition: ADMITTED INPATIENT Admitting Provider: Hospitalist Unit Admitted: ICU
[2016-11-24] MEDS ORDERED: CEFTRIAXONE 1 GM/D5W RTU 50 ML IV ONE (17:28)
[2016-11-24 17:32] LABS: ABSOLUTE LYMPHOCYTES (AUTO) 0.8 10^3/uL (0.5-4.7); ABSOLUTE MONOCYTES (AUTO) 0.4 10^3/uL (0.1-1.4); ABSOLUTE NEUT (AUTO) 5.5 10^3/uL (1.7-8.2); BASOPHILS % (AUTO) 0.5 % (0-2); EOSINOPHILS % (AUTO) 0.6 % (0-6); HEMATOCRIT 34.2 % (36.0-47.0); HEMOGLOBIN 10.7 g/dL (12.0-15.5); HGB HCT DIFFERENCE -2.1; LYMPHOCYTES % (AUTO) 11.3 % (13-45); MEAN CORPUSCULAR HEMOGLOBIN 25.3 pg (27.0-33.4); MEAN CORPUSCULAR HGB CONC 31.4 g/dL (32.0-36.0); MEAN CORPUSCULAR VOLUME 81 fl (80-97); MONOCYTES % (AUTO) 6.4 % (3-13); RED BLOOD COUNT 4.25 10^6/uL (3.72-5.28); RED CELL DISTRIBUTION WIDTH 21.9 % (11.5-14.0); SEGMENTED NEUTROPHILS % (AUTO) 81.2 % (42-78); WHITE BLOOD COUNT 6.8 10^3/uL (4.0-10.5)
[2016-11-24 17:54] LABS: ALANINE AMINOTRANSFERASE 30 U/L (9-52); ALBUMIN 3.8 g/dL (3.5-5.0); ALKALINE PHOSPHATASE 171 U/L (38-126); ANION GAP 11 (5-19); ASPARTATE AMINO TRANSFERASE 23 U/L (14-36); BILIRUBIN,DIRECT 0.4 mg/dL (0.0-0.4); BLOOD UREA NITROGEN 13 mg/dL (7-20); CALCIUM 9.2 mg/dL (8.4-10.2); CARBON DIOXIDE 33 mmol/L (22-30); CHLORIDE 96 mmol/L (98-107); CREATININE RESULT 0.65 mg/dL (0.52-1.25); GLUCOSE 152 mg/dL (75-110); POTASSIUM 4.5 mmol/L (3.6-5.0); SODIUM 139.5 mmol/L (137-145); TOTAL PROTEIN 7.5 g/dL (6.3-8.2)
[2016-11-24 18:30] LABS: APPEARANCE,URINE CLEAR; BILIRUBIN,URINE NEGATIVE (NEGATIVE); GLUCOSE, URINE NEGATIVE (NEGATIVE); KETONES,URINE NEGATIVE (NEGATIVE); LEUKOCYTE ESTERASE,URINE TRACE (NEGATIVE); NITRITE,URINE NEGATIVE (NEGATIVE); PROTEIN,URINE 30 mg/dL (NEGATIVE); URINE SPECIFIC GRAVITY 1.009; UROBILINOGEN,URINE NEGATIVE mg/dL (<2.0)
[2016-11-24] MEDS ORDERED: ALBUTEROL SULFATE 0.083% NEB 2.5 MG/3 ML AMPUL NEB PRN (18:34)
[2016-11-24] MEDS ORDERED: ACETAMINOPHEN 325 MG TABLET PO PRN (18:34)
[2016-11-24] MEDS ORDERED: ONDANSETRON HCL INJ/PF 4 MG/2 ML SDV IV PRN (18:40)
[2016-11-24] MEDS ORDERED: NICOTINE 21 MG/24 HR PATCH.TD24 TD ONE (18:44)
[2016-11-24] MEDS ORDERED: GLUCAGON,HUMAN RECOMB 1 MG INJ IM PRN (18:45)
[2016-11-24] MEDS ORDERED: DEXTROSE 50%-WATER 25 GM/50 ML DISP.SYRIN IV PRN ×2 (18:45)
[2016-11-24] MEDS ORDERED: VANCOMYCIN HCL 0 MG in DEXTROSE 5%-WATER 250 ML IV NR (18:45)
[2016-11-24] MEDS ORDERED: DEXTROSE 40% GEL 15 GM TUBE PO PRN ×2 (18:45)
[2016-11-24 18:57] LABS: CREATINE KINASE MB 2.75 ng/mL (<4.55); TROPONIN I 0.026 ng/mL
[2016-11-24] MEDS ORDERED: ENOXAPARIN SODIUM INJ 40 MG/0.4 ML DISP.SYRIN SUBCUT ONE (19:00)
[2016-11-24] MEDS: IPRATROPIUM/ALBUTEROL 0.5-2.5 MG/3 ML AMPUL NEB SCH (20:54)
[2016-11-24] MEDS: CEFEPIME 2 GM/D5W RTU 50 ML IV SCH (22:14)
[2016-11-24] MEDS: VANCOMYCIN HCL 1,000 MG in DEXTROSE 5%-WATER 250 ML IV SCH (22:45)
[2016-11-25 04:21] LABS: ABSOLUTE BASOPHILS # (AUTO) 0.1 10^3/uL (0.0-0.2); ABSOLUTE EOSINOPHILS # (AUTO) 0.1 10^3/uL (0.0-0.6); ABSOLUTE MONOCYTES (AUTO) 0.5 10^3/uL (0.1-1.4); ABSOLUTE NEUT (AUTO) 4.8 10^3/uL (1.7-8.2); BASOPHILS % (AUTO) 0.8 % (0-2); EOSINOPHILS % (AUTO) 1.5 % (0-6); HEMATOCRIT 30.3 % (36.0-47.0); HEMOGLOBIN 9.5 g/dL (12.0-15.5); HGB HCT DIFFERENCE -1.8; LYMPHOCYTES % (AUTO) 15.1 % (13-45); MEAN CORPUSCULAR HEMOGLOBIN 25.1 pg (27.0-33.4); MEAN CORPUSCULAR HGB CONC 31.3 g/dL (32.0-36.0); MEAN CORPUSCULAR VOLUME 80 fl (80-97); RED BLOOD COUNT 3.77 10^6/uL (3.72-5.28); RED CELL DISTRIBUTION WIDTH 21.8 % (11.5-14.0); SEGMENTED NEUTROPHILS % (AUTO) 74.6 % (42-78); WHITE BLOOD COUNT 6.4 10^3/uL (4.0-10.5)
[2016-11-25 04:35] LABS: ANION GAP 7 (5-19); BLOOD UREA NITROGEN 17 mg/dL (7-20); CALCIUM 8.7 mg/dL (8.4-10.2); CARBON DIOXIDE 33 mmol/L (22-30); CHLORIDE 98 mmol/L (98-107); CREATININE RESULT 0.78 mg/dL (0.52-1.25); GLUCOSE 122 mg/dL (75-110); POTASSIUM 4.8 mmol/L (3.6-5.0); SODIUM 137.7 mmol/L (137-145)
[2016-11-25] MEDS: IPRATROPIUM/ALBUTEROL 0.5-2.5 MG/3 ML AMPUL NEB SCH ×3 (07:52→20:36)
[2016-11-25] MEDS ORDERED: PANTOPRAZOLE SODIUM 40 MG VIAL IV SCH (10:00)
[2016-11-25] MEDS: VANCOMYCIN HCL 1,000 MG in DEXTROSE 5%-WATER 250 ML IV SCH ×2 (10:14→22:03)
[2016-11-25] MEDS: ENOXAPARIN SODIUM INJ 40 MG/0.4 ML DISP.SYRIN SUBCUT SCH (10:16)
[2016-11-25] MEDS: DILTIAZEM HCL 180 MG CAPSULE.CR PO SCH (10:17)
[2016-11-25] MEDS: DOCUSATE SODIUM 100 MG CAPSULE PO SCH (10:17)
[2016-11-25] MEDS: INSULIN GLARGINE,HUM.REC.ANLOG 300 UNIT/3 ML INSULN.PEN SUBCUT SCH (10:18)
[2016-11-25] MEDS ORDERED: ONDANSETRON HCL INJ/PF 4 MG/2 ML SDV IV PRN (12:58)
--- NOTE | 2016-11-25 13:27 | EKG REPORT ---
SEVERITY:- ABNORMAL ECG - ATRIAL FLUTTER, A-RATE 267, ALSO CONSIDER AFIB WITH ACCELERATED JUNCTIONAL RHYTHM LEFT POSTERIOR FASCICULAR BLOCK ABNRM R PROG, CONSIDER ASMI OR LEAD PLACEMENT BORDERLINE T ABNORMALITIES, INFERIOR LEADS BORDERLINE PROLONGED QT INTERVAL : Confirmed by: Catalino Roger 25-Nov-2016 13:26:59
[2016-11-25] MEDS: CEFEPIME 2 GM/D5W RTU 50 ML IV SCH (14:15)
[2016-11-25 14:28] LABS: ARTERIAL BLOOD BASE EXCESS 6.4 mmol/L; ARTERIAL BLOOD O2 SATURATION 94.3 % (94-98)
--- NOTE | 2016-11-25 14:40 | PDOC H&P ---
History of Present Illness Admission Date/PCP: 11/24/16 18:34 MARGA BARON Patient complains of: dyspnea History of Present Illness: SITA MANRIQUE is a 71 year old female presents from home to her oncologists office for worsening shortness of breath. she reports a 4d hx of worsening nonproductive cough with wheezing, fevers, chills, Rt sided sharp, intermittent nonradiating chest wall pain worse with cough and deep breath, better with rest , worsening shortness of air in spite of supplemental O2, increasing lethargy and fatigue and exercise intolerance, 4 pillow orthopnea and worsening of her chronic feet swelling. she has a complicated history including Hodgkins Lymphoma with previous chemo and XRT to mediastinal LAD in 2002, recent (08/2016) hospitalization for Rt PTX after thoracentesis for pleural effusion evaluation requiring chest tube placement and a week long stay in hospital, and recent () hospitalization for hyperkalemia and ARF requiring placement of trialysis catheter and urgent hemodialysis. She is a chronic smoker with home O2 at 2L/ min and nebulizer dependent COPD, suffers MALIK home CPAP dependent at 5cm H2O and hx of CHF unknown type with chronic BLE edema. she also c/o dull aching, constant, nonradiating diffuse abdominal pain with soft brown stool this morning that had no effect, no other asctd' symptoms. eval so far has included multiple CXRs including lateral decubitus films that do not confirm layering effusions but clearly show bilat R>L airspace disease consistent with pneumonia now requiring BiPAP to maintain her sats. we were asked to admit for further eval and management. Past Medical History Cardiac Medical History: Reports: Atrial Fibrillation, Congestive Heart Failure , Coronary Artery Disease, Myocardial Infarction, Hypertension Pulmonary Medical History: Reports: Asthma, Bronchitis, Chronic Obstructive Pulmonary Disease (COPD), Pneumonia, Sleep Apnea Endocrine Medical History: Reports: Diabetes Mellitus Type 1, Diabetes Mellitus Type 2, Hypothyroidism Malignancy Medical History: Reports: Lymphoma - Non-Hodgkin's B cell type , status post radiation and cheremission x 10yrs GI Medical History: Reports: Gastroesophageal Reflux Disease Musculoskeltal Medical History: Reports: Arthritis Hematology: Reports: Anemia Past Surgical History Past Surgical History: Reports: Appendectomy, Cholecystectomy, Hysterectomy, Tonsillectomy, Vascular Surgery - lymphnodes removed from groin and neck, Other - Benign brain tumor surgery. Lymph node excision Social History Lives with: Family Smoking Status: Current Every Day Smoker Cigarettes Packs Per Day: 1 Number of Years Smokin Frequency of Alcohol Use: Rare Hx Recreational Drug Use: No Drugs: None Hx Prescription Drug Abuse: No - Advance Directive Resuscitation Status: Full Code Family History Family History: CAD, COPD, DM, Hypertension Parental Family History Reviewed: Yes Children Family History Reviewed: Yes Sibling(s) Family History Reviewed.: Yes Medication/Allergy Home Medications: Alprazolam [Xanax] 1 mg PO Q8 11/25/16 Aspirin [Aspirin 81 mg Chewable Tablet] 81 mg PO DAILY 11/25/16 Atorvastatin Calcium [Lipitor 20 mg Tablet] 20 mg PO QHS 11/25/16 Cholecalciferol (Vitamin D3) [Vitamin D3 1000 Unit Tablet] 1,000 unit PO DAILY 11/25/16 Diltiazem HCl [Cartia Xt] 180 mg PO DAILY 11/25/16 Docusate Sodium [Colace 100 mg Capsule] 100 mg PO BID 11/25/16 Esomeprazole Magnesium [Nexium] 40 mg PO BIDACBS 11/25/16 Ferrous Sulfate [Feosol 325 mg Tablet] 325 mg PO DAILY 11/25/16 Furosemide [Lasix] 40 mg PO TID 11/25/16 Gabapentin [Neurontin 300 mg Capsule] 300 mg PO QHS 11/25/16 Insulin Aspart Protam & Aspart [Novolog Mix 70-30 Vial] 20 unit SQ AC 11/25/16 Levothyroxine Sodium [Synthroid] 200 mcg PO DAILY 11/25/16 Magnesium Oxide [Magox] 400 mg PO BID 11/25/16 Metoclopramide HCl [Reglan 10 mg Tablet] 10 mg PO BIDACBS 11/25/16 Potassium Chloride [K-Tab ER] 20 meq PO BID 11/25/16 Allergies/Adverse Reactions: moxifloxacin HCl [From Avelox] Allergy (Severe, Verified 11/24/16 16:02) rash,itch apixaban [From Eliquis] Allergy (Intermediate, Verified 11/24/16 16:02) swell dabigatran etexilate [From Pradaxa] Allergy (Intermediate, Verified 11/24/16 16: 02) swell lansoprazole [From Prevacid] Allergy (Intermediate, Verified 08/09/17 16:02) Generalized Itching aloe [Aloe] Allergy (Verified 11/24/16 16:02) Review of Systems All systems: reviewed and no additional remarkable complaints except as stated - all systems reviewed, see HPI, remaining sytems negative Physical Exam Vital Signs: Temp Pulse Resp BP Pulse Ox 97.9 F 95 20 147/77 H 93 11/25/16 14:00 11/25/16 13:45 11/25/16 14:00 11/25/16 12:39 11/25/16 14:00 Intake & Output 11/24/16 11/25/16 11/26/16 06:59 06:59 06:59 Intake Total 65 222 Output Total 325 370 Balance -260 -148 Weight 85.6 kg General appearance: PRESENT: mild distress - resp, obese, well-developed, well- nourished Head exam: PRESENT: atraumatic, normocephalic Eye exam: PRESENT: EOMI. ABSENT: conjunctival injection, scleral icterus Mouth exam: PRESENT: moist, neck supple Neck exam: PRESENT: full ROM. ABSENT: JVD, lymphadenopathy, tenderness Respiratory exam: PRESENT: accessory muscle use, rales - bases, tachypnea, wheezes. ABSENT: rhonchi Cardiovascular exam: PRESENT: irregular rhythm, tachycardia Pulses: PRESENT: normal radial pulses, normal dorsalis pedis pul GI/Abdominal exam: PRESENT: normal bowel sounds, soft. ABSENT: tenderness Extremities exam: PRESENT: +1 edema. ABSENT: calf tenderness - palpable cord in Right calf Musculoskeletal exam: PRESENT: full ROM, normal inspection Neurological exam: PRESENT: alert, awake, oriented to person, oriented to place , oriented to time, oriented to situation Psychiatric exam: PRESENT: appropriate affect, normal mood Skin exam: PRESENT: dry, warm Results Laboratory Results: 11/25/16 03:54 11/25/16 03:54 11/25/16 11/25/16 03:54 03:54 WBC 6.4 RBC 3.77 Hgb 9.5 L Hct 30.3 L MCV 80 MCH 25.1 L MCHC 31.3 L RDW 21.8 H Plt Count 183 Seg Neutrophils % 74.6 Lymphocytes % 15.1 Monocytes % 8.0 Eosinophils % 1.5 Basophils % 0.8 Absolute Neutrophils 4.8 Absolute Lymphocytes 1.0 Absolute Monocytes 0.5 Absolute Eosinophils 0.1 Absolute Basophils 0.1 Sodium 137.7 Potassium 4.8 Chloride 98 Carbon Dioxide 33 H Anion Gap 7 BUN 17 Creatinine 0.78 Est GFR ( Amer) > 60 Est GFR (Non-Af Amer) > 60 Glucose 122 H Calcium 8.7 EKG Comments: afib with rate 103, LPFB, poor R progression across the precordium Status: Image reviewed by me - cxr's reviewed and show dense RLL and less so LLL airspace disease with blunting of the costophrenic angles Assessment & Plan - Diagnosis (1) Acute and chronic respiratory failure ([id number]) Qualifiers: Respiratory failure complication: hypoxia Qualified Code(s): J96.21 - Acute and chronic respiratory failure with hypoxia Is this a current diagnosis for this admission?: YesPlan: chronic 2L/min O2 use now requiring BiPAP and 100% FiO2; continue BIPAP and wean back to baseline as tolerated (2) Pneumonia Qualifiers: Pneumonia type: due to unspecified organism Laterality: unspecified laterality Lung location: unspecified part of lung Qualified Code(s) : J18.9 - Pneumonia, unspecified organism Is this a current diagnosis for this admission?: YesPlan: unclear etiology but given her fixed lung disease she is at risk for GN organisms and with recent hospitalizations at risk for nosocomial pathogens so will start with cefepime and vanc and monitor for response. (3) Atrial fibrillation Qualifiers: Atrial fibrillation type: chronic Qualified Code(s): I48.2 - Chronic atrial fibrillation Is this a current diagnosis for this admission?: YesPlan: rate control. not clear why she isn't on chronic anticoagulation, will have to investigate further when she is more stable to answer questions (4) COPD (chronic obstructive pulmonary disease) Qualifiers: Emphysema type: unspecified Is this a current diagnosis for this admission?: YesPlan: schedule nebs (5) Diabetes mellitus type II, controlled Qualifiers: Diabetes mellitus complication status: with unspecified complications Diabetes mellitus snf insulin use: unspecified intermediate frame tender insulin use status Qualified Code(s): E11.8 - Type 2 diabetes mellitus with unspecified complications; Z79.4 - senior care (current) use of insulin Is this a current diagnosis for this admission?: YesPlan: basal bolus regimen (6) Hypertension Qualifiers: Hypertension type: essential hypertension Qualified Code(s): I10 - Essential (primary) hypertension Is this a current diagnosis for this admission?: YesPlan: poorly controlled but likely elevated due to resp distress (7) Obstructive sleep apnea Is this a current diagnosis for this admission?: YesPlan: continue BIPAP at night while here, resume CPAP at home upon discharge (8) Tobacco abuse Is this a current diagnosis for this admission?: YesPlan: cessation counseling when she is more stable (9) Congestive heart failure Qualifiers: Congestive heart failure type: diastolic Congestive heart failure chronicity: chronic Qualified Code(s): I50.32 - Chronic diastolic ( congestive) heart failure Is this a current diagnosis for this admission?: YesPlan: likely accounts for elevated BNP but I doubt this is main contributor to her presentation. will have to be judicious with IVFs - Time Time Spent: Greater than 70 Minutes Medications reviewed and adjusted accordingly: Yes - Inpatient Certification Based on my medical assessment, after consideration of the patient's comorbidities, presenting symptoms, or acuity I expect that the services needed warrant INPATIENT care.: Yes I certify that my determination is in accordance with my understanding of Medicare's requirements for reasonable and necessary INPATIENT services [42 CFR 412.3e].: Yes Medical Necessity: Failure to Improve With Outpatient Therapy, Significant Comorbidiites Make Outpatient Treatment Too Risky, Need For Continuous Telemetry Monitoring, Need for Nebulizer Therapy and Monitoring of Response, Need for IV Antibiotics, Risk of Complication if Not Cared For in Hospital
--- NOTE | 2016-11-25 14:46 | PDOC PROGRESS REPORT ---
Subjective Progress Note for:: 11/25/16 Subjective:: reason for visit: f/u pneumonia, resp failure hospital course: SITA MANRIQUE is a 71 year old female presents from home to her oncologists office for worsening shortness of breath. she reports a 4d hx of worsening nonproductive cough with wheezing, fevers, chills, Rt sided sharp, intermittent nonradiating chest wall pain worse with cough and deep breath, better with rest, worsening shortness of air in spite of supplemental O2 , increasing lethargy and fatigue and exercise intolerance, 4 pillow orthopnea and worsening of her chronic feet swelling. she has a complicated history including Hodgkins Lymphoma with previous chemo and XRT to mediastinal LAD in 2002, recent (08/2016) hospitalization for Rt PTX after thoracentesis for pleural effusion evaluation requiring chest tube placement and a week long stay in hospital, and recent () hospitalization for hyperkalemia and ARF requiring placement of trialysis catheter and urgent hemodialysis. She is a chronic smoker with home O2 at 2L/ min and nebulizer dependent COPD, suffers MALIK home CPAP dependent at 5cm H2O and hx of CHF unknown type with chronic BLE edema. she also c/o dull aching, constant, nonradiating diffuse abdominal pain with soft brown stool this morning that had no effect, no other asctd' symptoms. eval so far has included multiple CXRs including lateral decubitus films that do not confirm layering effusions but clearly show bilat R>L airspace disease consistent with pneumonia now requiring BiPAP to maintain her sats. we were asked to admit for further eval and management. she was admitted to the ICU and wore the BiPAP all night, just now weaning off to try and eat some bfast. she reports her breathing feels about back to her baseline though she appears quite ill to me her color is better and she is more interactive and able to speak with less resp distress. ROS: she denies chest pain this morning, no n/v/d, palpitations, abdominal pain ; all systems reviewed, see above, remaining systems negative. Physical Exam Vital Signs: Temp Pulse Resp BP Pulse Ox 97.9 F 95 20 147/77 H 93 11/25/16 14:00 11/25/16 13:45 11/25/16 14:00 11/25/16 12:39 11/25/16 14:00 Intake & Output 11/24/16 11/25/16 11/26/16 06:59 06:59 06:59 Intake Total 65 222 Output Total 325 370 Balance -260 -148 Weight 85.6 kg General appearance: PRESENT: no acute distress, obese, well-developed, well- nourished Head exam: PRESENT: atraumatic, normocephalic Eye exam: PRESENT: EOMI. ABSENT: conjunctival injection, scleral icterus Mouth exam: PRESENT: moist, neck supple Neck exam: PRESENT: full ROM. ABSENT: JVD, lymphadenopathy Respiratory exam: PRESENT: rales - bilateral bases. ABSENT: accessory muscle use, rhonchi, wheezes Cardiovascular exam: PRESENT: irregular rhythm - afib on the monitor. ABSENT: systolic murmur Pulses: PRESENT: normal radial pulses, normal dorsalis pedis pul Vascular exam: PRESENT: normal capillary refill GI/Abdominal exam: PRESENT: normal bowel sounds, soft. ABSENT: tenderness Extremities exam: PRESENT: pedal edema. ABSENT: calf tenderness - still has palpable cord in Lft calf Musculoskeletal exam: PRESENT: full ROM. ABSENT: tenderness Neurological exam: PRESENT: alert, awake, oriented to person, oriented to place , oriented to time, oriented to situation Psychiatric exam: PRESENT: appropriate affect, normal mood. ABSENT: anxious Skin exam: PRESENT: dry, warm Results Laboratory Results: 11/25/16 03:54 11/25/16 03:54 11/25/16 11/25/16 03:54 03:54 WBC 6.4 RBC 3.77 Hgb 9.5 L Hct 30.3 L MCV 80 MCH 25.1 L MCHC 31.3 L RDW 21.8 H Plt Count 183 Seg Neutrophils % 74.6 Lymphocytes % 15.1 Monocytes % 8.0 Eosinophils % 1.5 Basophils % 0.8 Absolute Neutrophils 4.8 Absolute Lymphocytes 1.0 Absolute Monocytes 0.5 Absolute Eosinophils 0.1 Absolute Basophils 0.1 Sodium 137.7 Potassium 4.8 Chloride 98 Carbon Dioxide 33 H Anion Gap 7 BUN 17 Creatinine 0.78 Est GFR ( Amer) > 60 Est GFR (Non-Af Amer) > 60 Glucose 122 H Calcium 8.7 Assessment & Plan - Diagnosis (1) Acute and chronic respiratory failure ([id number]) Qualifiers: Respiratory failure complication: hypoxia Qualified Code(s): J96.21 - Acute and chronic respiratory failure with hypoxia Is this a current diagnosis for this admission?: YesPlan: improved but not back to baseline; chronic 2L/min O2 use now requiring BiPAP and 100% FiO2; continue BIPAP prn and wean back to baseline as tolerated (2) Pneumonia Qualifiers: Pneumonia type: due to unspecified organism Laterality: unspecified laterality Lung location: unspecified part of lung Qualified Code(s) : J18.9 - Pneumonia, unspecified organism Is this a current diagnosis for this admission?: YesPlan: improved but not back to baseline: unclear etiology but given her fixed lung disease she is at risk for GN organisms and with recent hospitalizations at risk for nosocomial pathogens so will start with cefepime and vanc and monitor for response. (3) Atrial fibrillation Qualifiers: Atrial fibrillation type: chronic Qualified Code(s): I48.2 - Chronic atrial fibrillation Is this a current diagnosis for this admission?: YesPlan: stable; rate control. not clear why she isn't on chronic anticoagulation, will have to investigate further when she is more stable to answer questions (4) COPD (chronic obstructive pulmonary disease) Qualifiers: Emphysema type: unspecified Is this a current diagnosis for this admission?: Yes (5) Diabetes mellitus type II, controlled Qualifiers: Diabetes mellitus complication status: with unspecified complications Diabetes mellitus long-term insulin use: unspecified long-term insulin use status Qualified Code(s): E11.8 - Type 2 diabetes mellitus with unspecified complications; Z79.4 - correction (current) use of insulin Is this a current diagnosis for this admission?: YesPlan: stable; basal bolus regimen (6) Hypertension Qualifiers: Hypertension type: essential hypertension Qualified Code(s): I10 - Essential (primary) hypertension Is this a current diagnosis for this admission?: Yes (7) Obstructive sleep apnea Is this a current diagnosis for this admission?: Yes (8) Tobacco abuse Is this a current diagnosis for this admission?: Yes (9) Congestive heart failure Qualifiers: Congestive heart failure type: diastolic Congestive heart failure chronicity: chronic Qualified Code(s): I50.32 - Chronic diastolic ( congestive) heart failure Is this a current diagnosis for this admission?: Yes - Time Time Spent with patient: 25-34 minutes
--- NOTE | 2016-11-25 16:07 | RADIOLOGY REPORT (SQ) ---
EXAM DESCRIPTION: VENOUS BILATERAL LOWER COMPLETED DATE/TIME: 11/25/2016 3:43 pm REASON FOR STUDY: palpable cord in calf with hypoxia, eval for dvt COMPARISON: None. TECHNIQUE: Dynamic and static patel scale and color images acquired of both lower extremity venous sy stems. Selected spectral images acquired with additional compression and augmentation maneuvers. Imag es stored on PACS. LIMITATIONS: None. FINDINGS: RIGHT LEG COMMON FEMORAL AND FEMORAL: Normal phasicity, compression and augmentation. No visualized echogenic m aterial on patel scale. No defects on color images. POPLITEAL: Normal compression and augmentation. No visualized echogenic material on patel scale. No de fects on color images. CALF VESSELS: Normal compression and augmentation. No visualized echogenic material on patel scale. No defects on color image. GSV AND SSV: Normal compression. No visualized echogenic material on patel scale. No defects on color images. ANY DEEP VENOUS INSUFFICIENCY: Not evaluated. ANY EVIDENCE OF POPLITEAL CYST: No. OTHER: No other significant finding. LEFT LEG COMMON FEMORAL AND FEMORAL: Normal phasicity, compression and augmentation. No visualized echogenic m aterial on patel scale. No defects on color images. POPLITEAL: Normal compression and augmentation. No visualized echogenic material on patel scale. No de fects on color images. CALF VESSELS: Normal compression and augmentation. No visualized echogenic material on patel scale. No defects on color images. GSV AND SSV: Normal compression. No visualized echogenic material on patel scale. No defects on color images. ANY DEEP VENOUS INSUFFICIENCY: Not evaluated. ANY EVIDENCE POPLITEAL CYST: No. OTHER: No other significant finding. IMPRESSION: NO EVIDENCE DVT OR SVT IN EITHER LEG. TECHNICAL DOCUMENTATION: JOB ID: [id number] [email or web address]- All Rights Reserved
[2016-11-26] MEDS: CEFEPIME 2 GM/D5W RTU 2 GM/50 ML RTUPB IV SCH ×2 (02:00→14:50)
[2016-11-26 06:06] LABS: ABSOLUTE EOSINOPHILS # (AUTO) 0.1 10^3/uL (0.0-0.6); ABSOLUTE LYMPHOCYTES (AUTO) 0.7 10^3/uL (0.5-4.7); ABSOLUTE MONOCYTES (AUTO) 0.5 10^3/uL (0.1-1.4); ABSOLUTE NEUT (AUTO) 4.2 10^3/uL (1.7-8.2); BASOPHILS % (AUTO) 0.8 % (0-2); EOSINOPHILS % (AUTO) 1.3 % (0-6); HEMOGLOBIN 10.2 g/dL (12.0-15.5); HGB HCT DIFFERENCE -1.4; LYMPHOCYTES % (AUTO) 13.4 % (13-45); MEAN CORPUSCULAR HEMOGLOBIN 25.6 pg (27.0-33.4); MEAN CORPUSCULAR HGB CONC 31.7 g/dL (32.0-36.0); MEAN CORPUSCULAR VOLUME 81 fl (80-97); MONOCYTES % (AUTO) 8.7 % (3-13); RED BLOOD COUNT 3.97 10^6/uL (3.72-5.28); SEGMENTED NEUTROPHILS % (AUTO) 75.8 % (42-78); WHITE BLOOD COUNT 5.5 10^3/uL (4.0-10.5)
[2016-11-26 06:25] LABS: ANION GAP 9 (5-19); BLOOD UREA NITROGEN 11 mg/dL (7-20); CALCIUM 8.9 mg/dL (8.4-10.2); CARBON DIOXIDE 31 mmol/L (22-30); CHLORIDE 98 mmol/L (98-107); CREATININE RESULT 0.63 mg/dL (0.52-1.25); GLUCOSE 113 mg/dL (75-110); POTASSIUM 4.5 mmol/L (3.6-5.0); SODIUM 137.5 mmol/L (137-145)
[2016-11-26] MEDS: IPRATROPIUM/ALBUTEROL 0.5-2.5 MG/3 ML AMPUL NEB SCH ×3 (08:03→19:55)
[2016-11-26] MEDS: DOCUSATE SODIUM 100 MG CAPSULE PO SCH (09:35)
[2016-11-26] MEDS: ENOXAPARIN SODIUM INJ 40 MG/0.4 ML DISP.SYRIN SUBCUT SCH (09:35)
[2016-11-26] MEDS: DILTIAZEM HCL 180 MG CAPSULE.CR PO SCH ×2 (09:35→10:21)
[2016-11-26] MEDS: INSULIN GLARGINE,HUM.REC.ANLOG 300 UNIT/3 ML INSULN.PEN SUBCUT SCH (09:38)
[2016-11-26] MEDS ORDERED: (PENDING PHARMACY ID) (Diltiazem Hcl [Cartia Xt] 180 MG) PO SCH (10:00)
[2016-11-26] MEDS: ALPRAZOLAM 0.5 MG TABLET PO PRN ×2 (10:51→20:40)
[2016-11-26] MEDS: FERROUS SULFATE 325 MG TABLET PO SCH (10:51)
[2016-11-26] MEDS: ASPIRIN 81 MG TABLET, CHEWABLE PO SCH (10:51)
[2016-11-26] MEDS: MAGNESIUM OXIDE 400 MG TABLET PO SCH ×2 (10:52→17:19)
[2016-11-26] MEDS: VANCOMYCIN HCL 1,000 MG in DEXTROSE 5%-WATER 250 ML IV SCH (11:15)
--- NOTE | 2016-11-26 11:38 | PDOC PROGRESS REPORT ---
Subjective Progress Note for:: 11/26/16 Subjective:: reason for visit: f/u pneumonia, resp failure hospital course: SITA MANRIQUE is a 71 year old female presents from home to her oncologists office for worsening shortness of breath. she reports a 4d hx of worsening nonproductive cough with wheezing, fevers, chills, Rt sided sharp, intermittent nonradiating chest wall pain worse with cough and deep breath, better with rest, worsening shortness of air in spite of supplemental O2 , increasing lethargy and fatigue and exercise intolerance, 4 pillow orthopnea and worsening of her chronic feet swelling. she has a complicated history including Hodgkins Lymphoma with previous chemo and XRT to mediastinal LAD in 2002, recent (08/2016) hospitalization for Rt PTX after thoracentesis for pleural effusion evaluation requiring chest tube placement and a week long stay in hospital, and recent () hospitalization for hyperkalemia and ARF requiring placement of trialysis catheter and urgent hemodialysis. She is a chronic smoker with home O2 at 2L/ min and nebulizer dependent COPD, suffers MALIK home CPAP dependent at 5cm H2O and hx of CHF unknown type with chronic BLE edema. eval so far has included multiple CXRs including lateral decubitus films that do not confirm layering effusions but clearly show bilat R>L airspace disease consistent with pneumonia initially requiring BiPAP to maintain her sats. we were asked to admit for further eval and management. she was admitted to the ICU and wore the BiPAP all night, and has since weaned back to usual nocturnal use only. she reports her breathing feels about back to her baseline though she appears quite ill to me her color is better and she is more interactive and able to speak with less resp distress. I found her in the bedside chair this morning and asking to go home. she reports a great deal of anxiety and is asking to resume her xanax. she also c/o worsening swelling of her hands and feet and wants her lasix resumed. ROS: she denies chest pain this morning, no n/v/d, palpitations, abdominal pain ; all systems reviewed, see above, remaining systems negative. Physical Exam Vital Signs: Temp Pulse Resp BP Pulse Ox 97.9 F 89 12 157/78 H 96 11/26/16 07:59 11/26/16 11:23 11/26/16 11:23 11/26/16 07:59 11/26/16 11:23 Intake & Output 11/25/16 11/26/16 11/27/16 06:59 06:59 06:59 Intake Total 65 615 Output Total 325 1335 Balance -260 -720 Weight 85.6 kg 86.4 kg General appearance: PRESENT: no acute distress, obese, well-developed, well- nourished Head exam: PRESENT: atraumatic, normocephalic Eye exam: PRESENT: EOMI. ABSENT: conjunctival injection, scleral icterus Mouth exam: PRESENT: moist, neck supple Neck exam: PRESENT: full ROM. ABSENT: JVD, lymphadenopathy Respiratory exam: PRESENT: rales - bilateral bases iwth opening squeaks and pops. ABSENT: accessory muscle use, rhonchi, wheezes Cardiovascular exam: PRESENT: irregular rhythm - afib on the monitor. ABSENT: systolic murmur Pulses: PRESENT: normal radial pulses, normal dorsalis pedis pul Vascular exam: PRESENT: normal capillary refill GI/Abdominal exam: PRESENT: normal bowel sounds, soft. ABSENT: tenderness Extremities exam: PRESENT: 1+ pedal edema; RUE had an IV go bad and infiltrate with soft tissue swelling and edema noted medial upper arm. ABSENT: calf tenderness Musculoskeletal exam: PRESENT: full ROM. ABSENT: tenderness Neurological exam: PRESENT: alert, awake, oriented to person, oriented to place , oriented to time, oriented to situation Psychiatric exam: PRESENT: appropriate affect, normal mood, anxious Skin exam: PRESENT: dry, warm Results Laboratory Results: 11/26/16 05:05 11/26/16 05:05 11/25/16 11/26/16 11/26/16 14:15 05:05 05:05 WBC 5.5 RBC 3.97 Hgb 10.2 L Hct 32.0 L MCV 81 MCH 25.6 L MCHC 31.7 L RDW 21.0 H Plt Count 180 Seg Neutrophils % 75.8 Lymphocytes % 13.4 Monocytes % 8.7 Eosinophils % 1.3 Basophils % 0.8 Absolute Neutrophils 4.2 Absolute Lymphocytes 0.7 Absolute Monocytes 0.5 Absolute Eosinophils 0.1 Absolute Basophils 0.0 Carbonic Acid 1.66 H HCO3/H2CO3 Ratio 19:1 ABG pH 7.39 ABG pCO2 55.2 H ABG pO2 73.2 L ABG HCO3 32.7 H ABG O2 Saturation 94.3 ABG Base Excess 6.4 FiO2 45% Sodium 137.5 Potassium 4.5 Chloride 98 Carbon Dioxide 31 H Anion Gap 9 BUN 11 Creatinine 0.63 Est GFR ( Amer) > 60 Est GFR (Non-Af Amer) > 60 Glucose 113 H Calcium 8.9 11/25/16 00:50 Nasophary (Mrsa Only) MRSA Surveillance Culture - Final MRSA RECOVERED Impressions: Venous Doppler Study 11/25/16 00:00 IMPRESSION: NO EVIDENCE DVT OR SVT IN EITHER LEG. Status: Imported from PACS Assessment & Plan - Diagnosis (1) Acute and chronic respiratory failure ([id number]) Qualifiers: Respiratory failure complication: hypoxia Qualified Code(s): J96.21 - Acute and chronic respiratory failure with hypoxia Is this a current diagnosis for this admission?: YesPlan: improved but not back to baseline; chronic 2L/min O2 use but drops with minimal exertion; continue BIPAP prn and nocturnal. remove her parish and see how she does getting back and forth. (2) Pneumonia Qualifiers: Pneumonia type: due to unspecified organism Laterality: unspecified laterality Lung location: unspecified part of lung Qualified Code(s) : J18.9 - Pneumonia, unspecified organism Is this a current diagnosis for this admission?: YesPlan: improved but not back to baseline: unclear etiology but given her fixed lung disease she is at risk for GN organisms and with recent hospitalizations at risk for nosocomial pathogens so will start with cefepime and vanc with good response so far. (3) Atrial fibrillation Qualifiers: Atrial fibrillation type: chronic Qualified Code(s): I48.2 - Chronic atrial fibrillation Is this a current diagnosis for this admission?: YesPlan: stable; rate control. not clear why she isn't on chronic anticoagulation, will have to investigate further when she is more stable to answer questions (4) COPD (chronic obstructive pulmonary disease) Qualifiers: Emphysema type: unspecified Is this a current diagnosis for this admission?: Yes (5) Diabetes mellitus type II, controlled Qualifiers: Diabetes mellitus complication status: with unspecified complications Diabetes mellitus skilled nursing insulin use: unspecified skilled nursing insulin use status Qualified Code(s): E11.8 - Type 2 diabetes mellitus with unspecified complications; Z79.4 - residential (current) use of insulin Is this a current diagnosis for this admission?: Yes (6) Hypertension Qualifiers: Hypertension type: essential hypertension Qualified Code(s): I10 - Essential (primary) hypertension Is this a current diagnosis for this admission?: Yes (7) Obstructive sleep apnea Is this a current diagnosis for this admission?: Yes (8) Tobacco abuse Is this a current diagnosis for this admission?: Yes (9) Congestive heart failure Qualifiers: Congestive heart failure type: diastolic Congestive heart failure chronicity: chronic Qualified Code(s): I50.32 - Chronic diastolic ( congestive) heart failure Is this a current diagnosis for this admission?: YesPlan: resume her lasix and monitor her volume status (10) Anxiety disorder Is this a current diagnosis for this admission?: YesPlan: chronic but worse during this acute illness, will add karolina carbajal, hesitant to schedule due to tenuous nature of her resp status - Time Time Spent with patient: 25-34 minutes
[2016-11-26] MEDS: LEVOTHYROXINE SODIUM 0.1 MG TABLET PO SCH (14:48)
[2016-11-26] MEDS: FUROSEMIDE 40 MG TABLET PO SCH ×2 (14:48→17:19)
[2016-11-26] MEDS: METOCLOPRAMIDE HCL 10 MG TABLET PO SCH (17:19)
[2016-11-26] MEDS: INSULIN LISPRO 100 UNIT/ML 3 ML VIAL SUBCUT PRN (17:19)
[2016-11-26] MEDS: POTASSIUM CHLORIDE 10 MEQ TABLET.SA PO SCH (17:20)
[2016-11-26] MEDS ORDERED: (PENDING PHARMACY ID) (Potassium Chloride [K-Tab Er] 20 MEQ) PO SCH (18:00)
[2016-11-26] MEDS: ATORVASTATIN CALCIUM 20 MG TABLET PO SCH (22:53)
[2016-11-26] MEDS: GABAPENTIN 300 MG CAPSULE PO SCH (22:54)
[2016-11-26] MEDS: VANCOMYCIN HCL 1,250 MG in DEXTROSE 5%-WATER 250 ML IV SCH (22:54)
[2016-11-27] MEDS: CEFEPIME 2 GM/D5W RTU 2 GM/50 ML RTUPB IV SCH ×2 (01:57→13:56)
[2016-11-27 05:24] LABS: ABSOLUTE EOSINOPHILS # (AUTO) 0.1 10^3/uL (0.0-0.6); ABSOLUTE LYMPHOCYTES (AUTO) 0.8 10^3/uL (0.5-4.7); ABSOLUTE MONOCYTES (AUTO) 0.6 10^3/uL (0.1-1.4); ABSOLUTE NEUT (AUTO) 4.9 10^3/uL (1.7-8.2); BASOPHILS % (AUTO) 0.5 % (0-2); EOSINOPHILS % (AUTO) 1.4 % (0-6); HEMATOCRIT 30.9 % (36.0-47.0); HEMOGLOBIN 9.8 g/dL (12.0-15.5); HGB HCT DIFFERENCE -1.5; MEAN CORPUSCULAR HEMOGLOBIN 25.3 pg (27.0-33.4); MEAN CORPUSCULAR HGB CONC 31.6 g/dL (32.0-36.0); MEAN CORPUSCULAR VOLUME 80 fl (80-97); MONOCYTES % (AUTO) 9.5 % (3-13); RED BLOOD COUNT 3.85 10^6/uL (3.72-5.28); RED CELL DISTRIBUTION WIDTH 20.3 % (11.5-14.0); SEGMENTED NEUTROPHILS % (AUTO) 76.6 % (42-78); WHITE BLOOD COUNT 6.4 10^3/uL (4.0-10.5)
[2016-11-27 05:35] LABS: ANION GAP 8 (5-19); BLOOD UREA NITROGEN 10 mg/dL (7-20); CARBON DIOXIDE 34 mmol/L (22-30); CHLORIDE 97 mmol/L (98-107); CREATININE RESULT 0.62 mg/dL (0.52-1.25); GLUCOSE 98 mg/dL (75-110); POTASSIUM 4.1 mmol/L (3.6-5.0); SODIUM 139.1 mmol/L (137-145)
[2016-11-27] MEDS: METOCLOPRAMIDE HCL 10 MG TABLET PO SCH ×2 (07:52→17:30)
[2016-11-27] MEDS: IPRATROPIUM/ALBUTEROL 0.5-2.5 MG/3 ML AMPUL NEB SCH ×3 (07:55→19:34)
[2016-11-27] MEDS: INSULIN GLARGINE,HUM.REC.ANLOG 300 UNIT/3 ML INSULN.PEN SUBCUT SCH (09:49)
[2016-11-27] MEDS: ENOXAPARIN SODIUM INJ 40 MG/0.4 ML DISP.SYRIN SUBCUT SCH (09:50)
[2016-11-27] MEDS: POTASSIUM CHLORIDE 10 MEQ TABLET.SA PO SCH ×2 (09:50→17:31)
[2016-11-27] MEDS: FERROUS SULFATE 325 MG TABLET PO SCH (09:50)
[2016-11-27] MEDS: LEVOTHYROXINE SODIUM 0.1 MG TABLET PO SCH (09:50)
[2016-11-27] MEDS: MAGNESIUM OXIDE 400 MG TABLET PO SCH ×2 (09:51→17:31)
[2016-11-27] MEDS: DOCUSATE SODIUM 100 MG CAPSULE PO SCH (09:51)
[2016-11-27] MEDS: FUROSEMIDE 40 MG TABLET PO SCH ×3 (09:51→17:30)
[2016-11-27] MEDS: ASPIRIN 81 MG TABLET, CHEWABLE PO SCH (09:51)
[2016-11-27] MEDS: DILTIAZEM HCL 180 MG CAPSULE.CR PO SCH (09:51)
[2016-11-27] MEDS: ALPRAZOLAM 0.5 MG TABLET PO PRN ×3 (09:52→22:08)
--- NOTE | 2016-11-27 10:00 | PDOC PROGRESS REPORT ---
Subjective Progress Note for:: 11/27/16 Subjective:: reason for visit: f/u pneumonia, resp failure hospital course: SITA MANRIQUE is a 71 year old female presents from home to her oncologists office for worsening shortness of breath. she reports a 4d hx of worsening nonproductive cough with wheezing, fevers, chills, Rt sided sharp, intermittent nonradiating chest wall pain worse with cough and deep breath, better with rest, worsening shortness of air in spite of supplemental O2 , increasing lethargy and fatigue and exercise intolerance, 4 pillow orthopnea and worsening of her chronic feet swelling. she has a complicated history including Hodgkins Lymphoma with previous chemo and XRT to mediastinal LAD in 2002, recent (08/2016) hospitalization for Rt PTX after thoracentesis for pleural effusion evaluation requiring chest tube placement and a week long stay in hospital, and recent () hospitalization for hyperkalemia and ARF requiring placement of trialysis catheter and urgent hemodialysis. She is a chronic smoker with home O2 at 2L/ min and nebulizer dependent COPD, suffers MALIK home CPAP dependent at 5cm H2O and hx of CHF unknown type with chronic BLE edema. eval so far has included multiple CXRs including lateral decubitus films that do not confirm layering effusions but clearly show bilat R>L airspace disease consistent with pneumonia initially requiring BiPAP to maintain her sats. we were asked to admit for further eval and management. she was admitted to the ICU and wore the BiPAP all night, and has since weaned back to usual nocturnal use only, which is only 2-4 hrs/night before she takes it off. she reports her breathing feels about back to her baseline though she appears quite ill to me, her color is better and she is more interactive and able to speak in complete sentences now. I found her in the bedside chair this morning. she has had 2 good BMs and is urinating with frequency now that the lasix is resumed. she reports a great deal of anxiety and is better controlled on her usual xanax. ROS: she denies chest pain, dysurai, no n/v/d, palpitations, abdominal pain; all systems reviewed, see above, remaining systems negative. Physical Exam Vital Signs: Temp Pulse Resp BP Pulse Ox 98.5 F 95 22 H 128/63 H 98 11/27/16 07:13 11/27/16 07:13 11/27/16 07:13 11/27/16 07:13 11/27/16 07:13 Intake & Output 11/26/16 11/27/16 11/28/16 06:59 06:59 06:59 Intake Total 615 2350 Output Total 1335 2400 Balance -720 -50 Weight 86.4 kg 85.4 kg General appearance: PRESENT: no acute distress, obese, well-developed, well- nourished Head exam: PRESENT: atraumatic, normocephalic Eye exam: PRESENT: EOMI. ABSENT: conjunctival injection, scleral icterus Mouth exam: PRESENT: moist, neck supple Neck exam: PRESENT: full ROM. ABSENT: JVD, lymphadenopathy Respiratory exam: PRESENT: absent BSs at Rt base to midlung with dullness to percussion to just below the scapula, rales at left base ABSENT: accessory muscle use, rhonchi, wheezes Cardiovascular exam: PRESENT: irregular rhythm ABSENT: systolic murmur Pulses: PRESENT: normal radial pulses, normal dorsalis pedis pul Vascular exam: PRESENT: normal capillary refill GI/Abdominal exam: PRESENT: normal bowel sounds, soft. ABSENT: tenderness Extremities exam: PRESENT: 1+ pedal edema; RUE had an IV go bad 11/26 and infiltrate with soft tissue swelling some improved this morning ABSENT: calf tenderness Musculoskeletal exam: PRESENT: full ROM. ABSENT: tenderness Neurological exam: PRESENT: alert, awake, oriented to person, oriented to place , oriented to time, oriented to situation Psychiatric exam: PRESENT: appropriate affect, normal mood, anxious Skin exam: PRESENT: dry, warm Results Laboratory Results: 11/27/16 04:21 11/27/16 04:21 11/27/16 11/27/16 04:21 04:21 WBC 6.4 RBC 3.85 Hgb 9.8 L Hct 30.9 L MCV 80 MCH 25.3 L MCHC 31.6 L RDW 20.3 H Plt Count 166 Seg Neutrophils % 76.6 Lymphocytes % 12.0 L Monocytes % 9.5 Eosinophils % 1.4 Basophils % 0.5 Absolute Neutrophils 4.9 Absolute Lymphocytes 0.8 Absolute Monocytes 0.6 Absolute Eosinophils 0.1 Absolute Basophils 0.0 Sodium 139.1 Potassium 4.1 Chloride 97 L Carbon Dioxide 34 H Anion Gap 8 BUN 10 Creatinine 0.62 Est GFR ( Amer) > 60 Est GFR (Non-Af Amer) > 60 Glucose 98 Calcium 9.0 11/25/16 00:50 Nasophary (Mrsa Only) MRSA Surveillance Culture - Final MRSA RECOVERED Impressions: Venous Doppler Study 11/25/16 00:00 IMPRESSION: NO EVIDENCE DVT OR SVT IN EITHER LEG. Assessment & Plan - Diagnosis (1) Acute and chronic respiratory failure ([id number]) Qualifiers: Respiratory failure complication: hypoxia Qualified Code(s): J96.21 - Acute and chronic respiratory failure with hypoxia Is this a current diagnosis for this admission?: YesPlan: improved but not back to baseline; now on 3L/min, chronically uses 2L/min O2 and still drops with minimal exertion; continue BIPAP prn and nocturnal. continue lasix and add fluid restrict to try and keep her in negative fluid balance. ck pa/lat cxr - worried about recurrent effusion on that side but she is adamantly refusing to consider another thoracentesis after what happended the last time. (2) Pneumonia Qualifiers: Pneumonia type: due to unspecified organism Laterality: unspecified laterality Lung location: unspecified part of lung Qualified Code(s) : J18.9 - Pneumonia, unspecified organism Is this a current diagnosis for this admission?: YesPlan: improved but not back to baseline: unclear etiology but given her fixed lung disease she is at risk for GN organisms and with recent hospitalizations at risk for nosocomial pathogens, previous sputum 2016 grew MRSA and she still screens +ve, so will continue with cefepime and vanc with good response so far. (3) Atrial fibrillation Qualifiers: Atrial fibrillation type: chronic Qualified Code(s): I48.2 - Chronic atrial fibrillation Is this a current diagnosis for this admission?: YesPlan: stable; rate control. not clear why she isn't on chronic anticoagulation, will have to investigate further (4) COPD (chronic obstructive pulmonary disease) Qualifiers: Emphysema type: unspecified Is this a current diagnosis for this admission?: YesPlan: stable; continue current care (5) Diabetes mellitus type II, controlled Qualifiers: Diabetes mellitus complication status: with unspecified complications Diabetes mellitus fdc insulin use: unspecified fdc insulin use status Qualified Code(s): E11.8 - Type 2 diabetes mellitus with unspecified complications; Z79.4 - senior living (current) use of insulin Is this a current diagnosis for this admission?: Yes (6) Hypertension Qualifiers: Hypertension type: essential hypertension Qualified Code(s): I10 - Essential (primary) hypertension Is this a current diagnosis for this admission?: Yes (7) Obstructive sleep apnea Is this a current diagnosis for this admission?: Yes (8) Tobacco abuse Is this a current diagnosis for this admission?: Yes (9) Congestive heart failure Qualifiers: Congestive heart failure type: diastolic Congestive heart failure chronicity: chronic Qualified Code(s): I50.32 - Chronic diastolic ( congestive) heart failure Is this a current diagnosis for this admission?: Yes (10) Anxiety disorder Is this a current diagnosis for this admission?: Yes - Time Time Spent with patient: 25-34 minutes Medications reviewed and adjusted accordingly: Yes
[2016-11-27] MEDS: VANCOMYCIN HCL 1,250 MG in DEXTROSE 5%-WATER 250 ML IV SCH ×2 (10:48→22:08)
--- NOTE | 2016-11-27 10:51 | RADIOLOGY REPORT (SQ) ---
EXAM DESCRIPTION: CHEST PA/LAT COMPLETED DATE/TIME: 11/27/2016 10:07 am REASON FOR STUDY: f/u pneumonia COMPARISON: 11/24/2016 EXAM PARAMETERS: NUMBER OF VIEWS: two views TECHNIQUE: Digital Frontal and Lateral radiographic views of the chest acquired. RADIATION DOSE: NA LIMITATIONS: none FINDINGS: LUNGS AND PLEURA: The previously described bilateral pleural effusions and associated airs pace densities appear essentially unchanged on the right and appear minimally improved on the left. MEDIASTINUM AND HILAR STRUCTURES: No masses or contour abnormalities. HEART AND VASCULAR STRUCTURES: The configuration of the heart and mediastinal structures is unchanged BONES: No acute findings. HARDWARE: None in the chest. OTHER: No other significant finding. IMPRESSION: Bibasilar densities as noted above TECHNICAL DOCUMENTATION: JOB ID: [id number] [employer]- All Rights Reserved
[2016-11-27] MEDS: INSULIN LISPRO 100 UNIT/ML 3 ML VIAL SUBCUT PRN (22:08)
[2016-11-27] MEDS: ATORVASTATIN CALCIUM 20 MG TABLET PO SCH (22:08)
[2016-11-27] MEDS: GABAPENTIN 300 MG CAPSULE PO SCH (22:08)
[2016-11-28] MEDS: CEFEPIME 2 GM/D5W RTU 2 GM/50 ML RTUPB IV SCH (01:11)
[2016-11-28 05:37] LABS: ABSOLUTE EOSINOPHILS # (AUTO) 0.1 10^3/uL (0.0-0.6); ABSOLUTE LYMPHOCYTES (AUTO) 0.9 10^3/uL (0.5-4.7); ABSOLUTE MONOCYTES (AUTO) 0.5 10^3/uL (0.1-1.4); ABSOLUTE NEUT (AUTO) 4.1 10^3/uL (1.7-8.2); BASOPHILS % (AUTO) 0.7 % (0-2); EOSINOPHILS % (AUTO) 2.2 % (0-6); HEMATOCRIT 31.1 % (36.0-47.0); HEMOGLOBIN 9.9 g/dL (12.0-15.5); HGB HCT DIFFERENCE -1.4; LYMPHOCYTES % (AUTO) 15.4 % (13-45); MEAN CORPUSCULAR HEMOGLOBIN 25.4 pg (27.0-33.4); MEAN CORPUSCULAR HGB CONC 31.8 g/dL (32.0-36.0); MEAN CORPUSCULAR VOLUME 80 fl (80-97); MONOCYTES % (AUTO) 9.1 % (3-13); RED BLOOD COUNT 3.89 10^6/uL (3.72-5.28); RED CELL DISTRIBUTION WIDTH 20.9 % (11.5-14.0); SEGMENTED NEUTROPHILS % (AUTO) 72.6 % (42-78); WHITE BLOOD COUNT 5.6 10^3/uL (4.0-10.5)
[2016-11-28 05:53] LABS: ANION GAP 9 (5-19); BLOOD UREA NITROGEN 14 mg/dL (7-20); CALCIUM 9.3 mg/dL (8.4-10.2); CARBON DIOXIDE 35 mmol/L (22-30); CHLORIDE 96 mmol/L (98-107); CREATININE RESULT 0.66 mg/dL (0.52-1.25); GLUCOSE 98 mg/dL (75-110); POTASSIUM 4.2 mmol/L (3.6-5.0); SODIUM 140.1 mmol/L (137-145)
[2016-11-28] MEDS: METOCLOPRAMIDE HCL 10 MG TABLET PO SCH (07:46)
[2016-11-28] MEDS: IPRATROPIUM/ALBUTEROL 0.5-2.5 MG/3 ML AMPUL NEB SCH (08:08)
--- NOTE | 2016-11-28 08:54 | RADIOLOGY REPORT (SQ) ---
EXAM DESCRIPTION: CT CHEST WITHOUT COMPLETED DATE/TIME: 11/28/2016 8:38 am REASON FOR STUDY: f/u pna, poss effusion, empyema COMPARISON: Chest x-ray dated 11/27/[address] scan dated 08/23/2016 TECHNIQUE: CT scan performed of the chest without intravenous contrast. Images reviewed with lung, soft tissue and bone windows. Reconstructed coronal and sagittal MPR images reviewed. All images st ored on PACS. All CT scanners at this facility use dose modulation, iterative reconstruction, and/or weight based d osing when appropriate to reduce radiation dose to as low as reasonably achievable (ALARA). [facility]: Dose Right [facility]: CareDose [facility]: Dose Right [facility]: Teradose 4D [facility]: [employer] RADIATION DOSE: Up-to-date CT equipment and radiation dose reduction techniques were employed. CTDIv ol: 13.7 mGy. DLP: 494 mGy-cm. mGy. LIMITATIONS: No technical limitations. FINDINGS: LUNGS AND PLEURA: A large right and small left pleural effusions are identified. There is associated airspace consolidation in the right lower lung field which could represent atelectatic ch anges or pneumonic consolidation. There is less pronounced airspace consolidation in the left lung b ase which could represent atelectatic changes or pneumonic consolidation. The previously described a nela of scarring in the right upper lobe medially appears more pronounced on the current study and the possibility of an underlying process cannot be excluded HILAR AND MEDIASTINAL STRUCTURES: No identified masses or abnormal nodes. No obvious aneurysm. HEART AND VASCULAR STRUCTURES: No aneurysm. No pericardial effusion. UPPER ABDOMEN: No significant findings. Limited exam. THYROID AND OTHER SOFT TISSUES: No masses. No adenopathy. BONES: No significant finding. HARDWARE: None in the chest. OTHER: No other significant findings. IMPRESSION: A large right and small left pleural effusions are identified. There is associated airs pace consolidation in the right lower lung feel the left lung base which could represent atelectatic changes or pneumonic consolidation. The previously described area of scarring in the right upper lob e medially appears more pronounced on the current study and the possibility of an underlying process cannot be excluded. Other findings as noted above TECHNICAL DOCUMENTATION: JOB ID: [id number] Quality ID # [id number]: Final reports with documentation of one or more dose reduction techniques (e.g., Au tomated exposure control, adjustment of the mA and/or kV according to patient size, use of iterative reconstruction technique) 2010 [employer]- All Rights Reserved
[2016-11-28] MEDS: MAGNESIUM OXIDE 400 MG TABLET PO SCH (09:39)
[2016-11-28] MEDS: ALPRAZOLAM 0.5 MG TABLET PO PRN (09:39)
[2016-11-28] MEDS: ASPIRIN 81 MG TABLET, CHEWABLE PO SCH (09:40)
[2016-11-28] MEDS: POTASSIUM CHLORIDE 10 MEQ TABLET.SA PO SCH (09:40)
[2016-11-28] MEDS: FERROUS SULFATE 325 MG TABLET PO SCH (09:40)
[2016-11-28] MEDS: DOCUSATE SODIUM 100 MG CAPSULE PO SCH (09:40)
[2016-11-28] MEDS: FUROSEMIDE 40 MG TABLET PO SCH (09:40)
[2016-11-28] MEDS: LEVOTHYROXINE SODIUM 0.1 MG TABLET PO SCH (09:41)
[2016-11-28] MEDS: ENOXAPARIN SODIUM INJ 40 MG/0.4 ML DISP.SYRIN SUBCUT SCH (09:41)
[2016-11-28] MEDS: DILTIAZEM HCL 180 MG CAPSULE.CR PO SCH (09:41)
[2016-11-28] MEDS: INSULIN GLARGINE,HUM.REC.ANLOG 300 UNIT/3 ML INSULN.PEN SUBCUT SCH (09:47)
--- NOTE | 2016-11-28 10:38 | PDOC DISCHARGE SUMMARY ---
General - Admit/Disc Date/PCP Admission Date/Primary Care Provider: 11/24/16 18:34 MARGA BARON Discharge Date: 11/28/16 - Discharge Diagnosis (1) Acute and chronic respiratory failure ([id number]) Is this a current diagnosis for this admission?: YesSummary: improved; now on 3L/min, chronically uses 2L/min O2 and still drops with minimal exertion; continue BIPAP at nocturnal, per her usual routine. pa/lat cxr - worried about recurrent effusion on that side but she is adamantly refusing to consider another thoracentesis after what happended the last time. ct chest shows a loculated effusion on the Right, not really amenable to thoracentesis anyway. Recommend continue lasix and fluid restrict at home to try and keep her in negative fluid balance. she has f/u with dr deluca already scheduled for tuesday as is. (2) Pneumonia Is this a current diagnosis for this admission?: YesSummary: no pathogen ever identified though she wasn't able to expectorate an adequate sputum sample, her blood cultures were negative. I recommend another 10d of ceph similar to what she received as inpatient and fu with pulmonary as scheduled. (3) Atrial fibrillation Is this a current diagnosis for this admission?: Yes (4) COPD (chronic obstructive pulmonary disease) Is this a current diagnosis for this admission?: Yes (5) Diabetes mellitus type II, controlled Is this a current diagnosis for this admission?: Yes (6) Hypertension Is this a current diagnosis for this admission?: Yes (7) Obstructive sleep apnea Is this a current diagnosis for this admission?: Yes (8) Tobacco abuse Is this a current diagnosis for this admission?: Yes (9) Congestive heart failure Is this a current diagnosis for this admission?: Yes (10) Anxiety disorder Is this a current diagnosis for this admission?: Yes - Additional Information Resuscitation Status: Full Code Discharge Diet: As Tolerated Discharge Activity: Slowly Increase Activity, Supervised Activity Home Medications: Alprazolam [Xanax] 1 mg PO Q8 11/25/16 Aspirin [Aspirin 81 mg Chewable Tablet] 81 mg PO DAILY 11/25/16 Atorvastatin Calcium [Lipitor 20 mg Tablet] 20 mg PO QHS 11/25/16 Cholecalciferol (Vitamin D3) [Vitamin D3 1000 Unit Tablet] 1,000 unit PO DAILY 11/25/16 Diltiazem HCl [Cartia Xt] 180 mg PO DAILY 11/25/16 Docusate Sodium [Colace 100 mg Capsule] 100 mg PO BID 11/25/16 Esomeprazole Magnesium [Nexium] 40 mg PO BIDACBS 11/25/16 Ferrous Sulfate [Feosol 325 mg Tablet] 325 mg PO DAILY 11/25/16 Furosemide [Lasix] 40 mg PO TID 11/25/16 Gabapentin [Neurontin 300 mg Capsule] 300 mg PO QHS 11/25/16 Insulin Aspart Protam & Aspart [Novolog Mix 70-30 Vial] 20 unit SQ AC 11/25/16 Levothyroxine Sodium [Synthroid] 200 mcg PO DAILY 11/25/16 Magnesium Oxide [Magox] 400 mg PO BID 11/25/16 Metoclopramide HCl [Reglan 10 mg Tablet] 10 mg PO BIDACBS 11/25/16 Potassium Chloride [K-Tab ER] 20 meq PO BID 11/25/16 Cefpodoxime Proxetil [Vantin 200 mg Tablet] 1 tab PO Q12 #20 tab 11/28/16 History of Present Illness Patient complains of: dyspnea History of Present Illness: SITA MANRIQUE is a 71 year old female presents from home to her oncologists office for worsening shortness of breath. she reports a 4d hx of worsening nonproductive cough with wheezing, fevers, chills, Rt sided sharp, intermittent nonradiating chest wall pain worse with cough and deep breath, better with rest , worsening shortness of air in spite of supplemental O2, increasing lethargy and fatigue and exercise intolerance, 4 pillow orthopnea and worsening of her chronic feet swelling. 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 She is a chronic smoker with home O2 at 2L/ min and nebulizer dependent COPD, suffers MALIK home CPAP dependent at 5cm H2O and hx of CHF unknown type with chronic BLE edema. eval so far has included multiple CXRs including lateral decubitus films that do not confirm layering effusions but clearly show bilat R>L airspace disease consistent with pneumonia initially requiring BiPAP to maintain her sats. we were asked to admit for further eval and management. she was admitted to the ICU and wore the BiPAP all night, and has since weaned back to usual nocturnal use only, which is only 2-4 hrs/night before she takes it off. she reports her breathing feels about back to her baseline though she appears quite ill to me, her color is better and she is more interactive and able to speak in complete sentences now. I found her in the bedside chair this morning. she has had 2 good BMs and is urinating with frequency now that the lasix is resumed. Overall her condition has returned to at or near baseline and she and her daughter are suggesting that she needs to go home. I think another day in hospital is probably in her best interest but agree she has markedly improved and not opposed to going home a day early. I explained the risks of worsening condition and they are willing to accept those risks, I see no utility in forcing them to sign out against medical advice and choose instead to work with them on peaceful transition back home. she already has home O2, Rxs provided for Vantin to continue for another 10d. she can always return to ED if her condition takes a turn for the worse. Physical Exam Vital Signs: Temp Pulse Resp BP Pulse Ox 97.5 F 104 H 20 152/73 H 92 11/28/16 03:28 11/28/16 07:00 11/28/16 03:28 11/28/16 03:45 11/28/16 03:46 Intake & Output 11/27/16 11/28/16 11/29/16 06:59 06:59 06:59 Intake Total 2350 2444 Output Total 2400 3650 Balance -50 -1206 Weight 85.4 kg 85.5 kg General appearance: PRESENT: no acute distress, well-developed, well-nourished Head exam: PRESENT: atraumatic, normocephalic Eye exam: PRESENT: EOMI. ABSENT: scleral icterus Respiratory exam: PRESENT: crackles, decreased breath sounds - more air movement on the right base today, rales, unlabored. ABSENT: rhonchi, wheezes Cardiovascular exam: PRESENT: irregular rhythm. ABSENT: systolic murmur GI/Abdominal exam: PRESENT: normal bowel sounds, soft Extremities exam: PRESENT: pedal edema - trace at the ankles Neurological exam: PRESENT: alert, awake, oriented to person, oriented to place , oriented to situation Psychiatric exam: PRESENT: appropriate affect, normal mood Results Laboratory Results: 11/28/16 04:28 11/28/16 04:28 11/28/16 11/28/16 04:28 04:28 WBC 5.6 RBC 3.89 Hgb 9.9 L Hct 31.1 L MCV 80 MCH 25.4 L MCHC 31.8 L RDW 20.9 H Plt Count 158 Seg Neutrophils % 72.6 Lymphocytes % 15.4 Monocytes % 9.1 Eosinophils % 2.2 Basophils % 0.7 Absolute Neutrophils 4.1 Absolute Lymphocytes 0.9 Absolute Monocytes 0.5 Absolute Eosinophils 0.1 Absolute Basophils 0.0 Sodium 140.1 Potassium 4.2 Chloride 96 L Carbon Dioxide 35 H Anion Gap 9 BUN 14 Creatinine 0.66 Est GFR ( Amer) > 60 Est GFR (Non-Af Amer) > 60 Glucose 98 Calcium 9.3 Impressions: Venous Doppler Study 11/25/16 00:00 IMPRESSION: NO EVIDENCE DVT OR SVT IN EITHER LEG. Chest X-Ray 11/27/16 00:00 IMPRESSION: Bibasilar densities as noted above Chest CT 11/28/16 00:00 IMPRESSION: A large right and small left pleural effusions are identified. There is associated airspace consolidation in the right lower lung feel the left lung base which could represent atelectatic changes or pneumonic consolidation. The previously described area of scarring in the right upper lobe medially appears more pronounced on the current study and the possibility of an underlying process cannot be excluded. Other findings as noted above Qualifiers PATEINT BEING DISCHARGED WITH ANY OF THE FOLLOWING DIAGNOSIS?: No Reason(s) for not prescribing Overlap Therapy:: Not indicated Plan Discharge Plan: home with abx and close outpt f/u Time Spent: Greater than 30 Minutes
[2016-11-28 11:22] VITALS: BP 140/69
== END 2016-11-28 11:42 | disposition home or self-care (01) | DRG 190 ==
LOC: ER 15:53 → EH 18:34 → UNDOADMIN 20:09 → EH 20:09 → ICU 11-25 00:35 → 3W 11-26 02:05
PROVIDERS: ADMIT Internal Medicine; ATTEND Internal Medicine
PROC: 5A09557 Assistance with Respiratory Ventilation, Greater than 96 Consecutive Hours, Continuous Positive Airway Pressure (ICD-10-PCS; principal; 2016-11-24)
DX: J44.0 Chronic obstructive pulmonary disease with (acute) lower respiratory infection (principal); J96.21 Acute and chronic respiratory failure with hypoxia; J18.9 Pneumonia, unspecified organism; I50.32 Chronic diastolic (congestive) heart failure; I48.2 Chronic atrial fibrillation; E03.9 Hypothyroidism, unspecified; K21.9 Gastro-esophageal reflux disease without esophagitis; M19.90 Unspecified osteoarthritis, unspecified site; G47.33 Obstructive sleep apnea (adult) (pediatric); I11.0 Hypertensive heart disease with heart failure; E11.9 Type 2 diabetes mellitus without complications; F41.9 Anxiety disorder, unspecified; I25.10 Atherosclerotic heart disease of native coronary artery without angina pectoris; F17.210 Nicotine dependence, cigarettes, uncomplicated; Z79.82 Long term (current) use of aspirin; Z79.899 Other long term (current) drug therapy; Z99.81 Dependence on supplemental oxygen; Z86.73 Personal history of transient ischemic attack (TIA), and cerebral infarction without residual deficits; Z85.72 Personal history of non-Hodgkin lymphomas; I25.2 Old myocardial infarction; Z92.3 Personal history of irradiation; Z90.49 Acquired absence of other specified parts of digestive tract; Z90.710 Acquired absence of both cervix and uterus; Z88.8 Allergy status to other drugs, medicaments and biological substances; Z88.3 Allergy status to other anti-infective agents; Z82.49 Family history of ischemic heart disease and other diseases of the circulatory system; Z83.6 Family history of other diseases of the respiratory system; Z79.4 Long term (current) use of insulin; Z86.14 Personal history of Methicillin resistant Staphylococcus aureus infection
CPT/HCPCS: 36415; 71020; 71035; 71250; 80048; 80053; 80202; 81001; 82550; 82553; 82803; 82962; 83605; 83735; 83880; 84484; 85025; 87040; 87086; 93005; 93010; 93970; 94640; 94660; 96365; 99291; G8978-GP; G8979-GP; J0692; J0696; J1650; J1815; J3370; J3490; J7060; J7620

== ENCOUNTER → 2016-11-24 | Outpatient (CLI) | payer MEDICARE, MEDICAID ==
--- NOTE | 2016-11-24 14:14 | RADIOLOGY REPORT (SQ) ---
EXAM DESCRIPTION: CHEST PA/LAT; CHEST SPECIAL VIEW COMPLETED DATE/TIME: 11/24/2016 1:18 pm; 11/24/2016 2:02 pm REASON FOR STUDY: SOB (R06.02), PLEURAL EFFUSION; PLEURAL EFFUSION COMPARISON: None. Chest films 11/07/2016, 11/05/2016, 08/23/2016, 08/22/2016 CT chest 08/21/2016 EXAM PARAMETERS: NUMBER OF VIEWS: Upright PA and lateral chest, right lateral decubitus chest, left lateral decubitus chest TECHNIQUE: Digital Frontal and Lateral radiographic views of the chest acquired. RADIATION DOSE: NA LIMITATIONS: none FINDINGS: LUNGS AND PLEURA: On the left side, whole blunting of the lateral costophrenic sulcus is p resent from loculated pleural fluid and left pleural thickening. This does not change between the de cubitus views. There are few air bronchograms in the left lower lobe, related to atelectasis or pneumonia. On the right side, there is collapse and consolidation in the right lower lobe worrisome for pneumoni a. This is new compared to previous studies. On the right side, a small freely layering pleural effusion is present on the right decubitus view. No pneumothorax. MEDIASTINUM AND HILAR STRUCTURES: No masses or contour abnormalities. HEART AND VASCULAR STRUCTURES: Stable moderate cardiomegaly. BONES: No acute findings. HARDWARE: None in the chest. OTHER: This report was called to GALA Lock at Dr Fay's office. IMPRESSION: Small freely layering right pleural effusion Dense consolidation right lower lobe worrisome for pneumonia. Blunting of the left lateral costophrenic sulcus similar between upright and decubitus views likely d ue to small loculated left pleural effusion. TECHNICAL DOCUMENTATION: JOB ID: [id number]- All Rights Reserved
== END ==
LOC: RAD 12:57
PROVIDERS: ATTEND Internal Medicine
DX: R06.02 Shortness of breath (principal); J90 Pleural effusion, not elsewhere classified; Z85.72 Personal history of non-Hodgkin lymphomas
CPT/HCPCS: 71020; 71035

== ENCOUNTER 2016-12-01 17:07 | Inpatient (IN) | payer MEDICARE, MEDICAID ==
--- NOTE | 2016-12-01 17:59 | EKG REPORT ---
SEVERITY:- ABNORMAL ECG - A-FLUTTER/FIBRILLATION W/ COMPLETE AV BLOCK LEFT POSTERIOR FASCICULAR BLOCK NONSPECIFIC T ABNORMALITIES, INFERIOR LEADS : Confirmed by: Galen Altamirano MD 01-Dec-2016 17:58:21
--- NOTE | 2016-12-01 18:25 | ER Document Report ---
ED Medical Screen (RME) - General Chief Complaint: Respiratory Distress Stated Complaint: TROUBLE BREATHING TRAVEL OUTSIDE OF THE [place] IN LAST 30 DAYS: No - Related Data Allergies/Adverse Reactions: moxifloxacin HCl [From Avelox] Allergy (Severe, Verified 11/24/16 16:02) rash,itch apixaban [From Eliquis] Allergy (Intermediate, Verified 11/24/16 16:02) swell dabigatran etexilate [From Pradaxa] Allergy (Intermediate, Verified 11/24/16 16: 02) swell lansoprazole [From Prevacid] Allergy (Intermediate, Verified 11/24/16 16:02) Generalized Itching aloe [Aloe] Allergy (Verified 11/24/16 16:02) Past Medical History - Past Medical History Cardiac Medical History: Reports: Hx Atrial Fibrillation, Hx Congestive Heart Failure, Hx Coronary Artery Disease, Hx Heart Attack, Hx Hypertension Pulmonary Medical History: Reports: Hx Asthma, Hx Bronchitis, Hx COPD, Hx Pneumonia, Hx Sleep Apnea Neurological Medical History: Reports: Hx Cerebrovascular Accident Endocrine Medical History: Reports: Hx Diabetes Mellitus Type 1, Hx Diabetes Mellitus Type 2, Hx Hypothyroidism Renal/ Medical History: Denies: Hx Peritoneal Dialysis Malignancy Medical History: Reports: Hx Lymphoma - Non-Hodgkin's B cell type , status post radiation and cheremission x 10yrs GI Medical History: Reports: Hx Gastroesophageal Reflux Disease Musculoskeltal Medical History: Reports Hx Arthritis Past Surgical History: Reports: Hx Appendectomy, Hx Cholecystectomy, Hx Hysterectomy, Hx Tonsillectomy, Hx Vascular Surgery - lymphnodes removed from groin and neck, Other - Benign brain tumor surgery. Lymph node excision - Immunizations Hx Diphtheria, Pertussis, Tetanus Vaccination: No Physical Exam - Vital signs Vitals: Temp Pulse Resp BP Pulse Ox 97.7 F 103 H 20 146/71 H 91 L 12/01/16 17:35 12/01/16 17:35 12/01/16 17:35 12/01/16 17:35 12/01/16 17:35 Course - Vital Signs Vital signs: Temp Pulse Resp BP Pulse Ox 97.7 F 103 H 20 146/71 H 91 L 12/01/16 17:35 12/01/16 17:35 12/01/16 17:35 12/01/16 17:35 12/01/16 17:35 Doctor's Discharge - Discharge Referrals: PRITESH PRINCE PA [Primary Care Provider] - Follow up as needed
--- NOTE | 2016-12-01 18:31 | ER Document Report ---
ED General - General Chief Complaint: Respiratory Distress Stated Complaint: TROUBLE BREATHING Notes: Short of breath and low oxygen level. Patient was just recently an inpatient at [facility] for difficulty breathing. She was noted to have bilateral pleural effusions. They have been drained in the past, but on this most recent admission, it was decided to try to treat her medically. She was discharged home on Tuesday. She is on home oxygen at 2 L a minute. She went for an outpatient follow-up visit with the local pulmonary doctor who had seen her in the hospital. On getting from the car into the doctor's office, her oxygen level dropped down to 57%. EMS was called to transport the patient here. They put her on high oxygen at 6 L and her O2 sat responded by going up into the mid 90s percents. Patient has had some cough and congestion and feeling short of breath. She has a history of COPD and continues to smoke! Denies any fever currently. Says she had some chest pains earlier this morning, but not at this time. TRAVEL OUTSIDE OF THE [place] IN LAST 30 DAYS: No - Related Data Allergies/Adverse Reactions: moxifloxacin HCl [From Avelox] Allergy (Severe, Verified 11/24/16 16:02) rash,itch apixaban [From Eliquis] Allergy (Intermediate, Verified 11/24/16 16:02) swell dabigatran etexilate [From Pradaxa] Allergy (Intermediate, Verified 11/24/16 16: 02) swell lansoprazole [From Prevacid] Allergy (Intermediate, Verified 11/24/16 16:02) Generalized Itching aloe [Aloe] Allergy (Verified 11/24/16 16:02) Past Medical History - Social History Smoking Status: Current Every Day Smoker Family History: Reviewed & Not Pertinent, CAD, COPD, DM, Hypertension Patient has suicidal ideation: No Patient has homicidal ideation: No - Past Medical History Cardiac Medical History: Reports: Hx Atrial Fibrillation, Hx Congestive Heart Failure, Hx Coronary Artery Disease, Hx Heart Attack, Hx Hypertension Pulmonary Medical History: Reports: Hx Asthma, Hx Bronchitis, Hx COPD, Hx Pneumonia, Hx Sleep Apnea Neurological Medical History: Reports: Hx Cerebrovascular Accident Endocrine Medical History: Reports: Hx Diabetes Mellitus Type 1, Hx Diabetes Mellitus Type 2, Hx Hypothyroidism Malignancy Medical History: Reports: Hx Lymphoma - Non-Hodgkin's B cell type , status post radiation and cheremission x 10yrs GI Medical History: Reports: Hx Gastroesophageal Reflux Disease Musculoskeltal Medical History: Reports Hx Arthritis Past Surgical History: Reports: Hx Appendectomy, Hx Cholecystectomy, Hx Hysterectomy, Hx Tonsillectomy, Hx Vascular Surgery - lymphnodes removed from groin and neck, Other - Benign brain tumor surgery. Lymph node excision - Immunizations Hx Diphtheria, Pertussis, Tetanus Vaccination: No Hx Pneumococcal Vaccination: 01/16/13 Review of Systems - Review of Systems Notes: REVIEW OF SYSTEMS: CONSTITUTIONAL : Denies fever. EENT: Denies eye, ear, nose or mouth or throat pain or other symptoms. CARDIOVASCULAR: Denies chest pain now, although she had some chest pains earlier this morning. RESPIRATORY: See HPI. GASTROINTESTINAL: Denies abdominal pain or nausea, vomiting, or diarrhea. GENITOURINARY: Denies difficulty or painful urinating, urinary frequency, blood in urine. MUSCULOSKELETAL: Denies back or neck pain. Denies joint pain or swelling. SKIN: Denies rash or skin lesions. NEUROLOGICAL: Denies LOC or altered mental status. Denies headache. Denies sensory loss or motor deficits. Weaker on left side since she had a stroke in August. Says she also diagnosed with a brain tumor. ALL OTHER SYSTEMS REVIEWED AND NEGATIVE. Physical Exam - Vital signs Vitals: Pulse Ox 94 12/01/16 17:14 - Notes Notes: PHYSICAL EXAMINATION: GENERAL: Well-appearing, in no acute distress. Vital signs are all essentially normal. O2 sat is maintained in the mid 90s with the patient on 3 or 4 L. When decreased to 2 L, patient's O2 sat drops down to about 90-92%. That is probably pretty good for this patient who has COPD and significant bilateral pleural effusions on her chest x-ray and continues to smoke. HEAD: Atraumatic, normocephalic. EYES: Pupils equal round and reactive to light, extraocular movements intact. NECK: Normal range of motion, supple. LUNGS: Breath sounds decreased bilaterally. Bibasilar rales bilaterally posteriorly. HEART: Irregularly irregular rate and rhythm without murmurs. ABDOMEN: Soft, nontender. No guarding or rebound. BACK: No tenderness throughout entire back. EXTREMITIES: Normal range of motion without pain. No peripheral edema. NEUROLOGICAL: Normal speech. Normal sensory, motor, and reflex exams. Awake, alert, and oriented x3. Patient seems to be slightly weaker moving her left side than her right. PSYCH: Normal mood, normal affect. SKIN: Warm, dry, no rashes. Chronic dermatologic skin changes of both lower legs. Course - Re-evaluation Re-evalutation: 12/01/16 20:22 Spoke to him about patient with Dr. Padilla, the nighttime hospitalist, and he will admit the patient for further inpatient care. Dr. Padilla aware of troponin level of 0.22 and will follow that lab study. - Vital Signs Vital signs: Temp Pulse Resp BP Pulse Ox 97.7 F 103 H 22 H 143/92 H 93 12/01/16 17:35 12/01/16 17:35 12/01/16 20:06 12/01/16 19:31 12/01/16 19:30 - Laboratory Result Diagrams: 12/01/16 18:45 12/01/16 18:45 Laboratory results interpreted by me: 12/01/16 12/01/16 12/01/16 18:45 18:45 19:45 Hgb 10.7 L Hct 34.3 L MCH 25.7 L MCHC 31.3 L RDW 19.8 H Plt Count 135 L Seg Neutrophils % 84.6 H Lymphocytes % 7.8 L Sodium 136.8 L Chloride 91 L Carbon Dioxide 38 H Direct Bilirubin 0.5 H Alkaline Phosphatase 149 H Creatine Kinase 28 L Urine Protein 30 H - Diagnostic Test Radiology reviewed: Image reviewed - Chest x-ray shows bilateral pleural effusions which appear to be worse than on the most recent films from about 3 days ago., Reports reviewed - EKG Interpretation by Me Rhythm: A.Fib, A.Flutter Discharge - Discharge Clinical Impression: Bilateral pleural effusion, COPD (chronic obstructive pulmonary disease), Atrial fibrillation Condition: Poor Disposition: ADMITTED INPATIENT Admitting Provider: Hospitalist Unit Admitted: IMCU Referrals: PRITESH PRINCE PA [Primary Care Provider] - Follow up as needed
[2016-12-01 19:15] LABS: ABSOLUTE LYMPHOCYTES (AUTO) 0.5 10^3/uL (0.5-4.7); ABSOLUTE MONOCYTES (AUTO) 0.4 10^3/uL (0.1-1.4); ABSOLUTE NEUT (AUTO) 5.4 10^3/uL (1.7-8.2); BASOPHILS % (AUTO) 0.5 % (0-2); EOSINOPHILS % (AUTO) 0.3 % (0-6); HEMATOCRIT 34.3 % (36.0-47.0); HEMOGLOBIN 10.7 g/dL (12.0-15.5); HGB HCT DIFFERENCE -2.2; LYMPHOCYTES % (AUTO) 7.8 % (13-45); MEAN CORPUSCULAR HEMOGLOBIN 25.7 pg (27.0-33.4); MEAN CORPUSCULAR HGB CONC 31.3 g/dL (32.0-36.0); MEAN CORPUSCULAR VOLUME 82 fl (80-97); MONOCYTES % (AUTO) 6.8 % (3-13); RED BLOOD COUNT 4.19 10^6/uL (3.72-5.28); RED CELL DISTRIBUTION WIDTH 19.8 % (11.5-14.0); SEGMENTED NEUTROPHILS % (AUTO) 84.6 % (42-78); WHITE BLOOD COUNT 6.4 10^3/uL (4.0-10.5)
[2016-12-01 19:35] LABS: ALANINE AMINOTRANSFERASE 34 U/L (9-52); ALBUMIN 4.1 g/dL (3.5-5.0); ALKALINE PHOSPHATASE 149 U/L (38-126); ASPARTATE AMINO TRANSFERASE 31 U/L (14-36); BILIRUBIN,DIRECT 0.5 mg/dL (0.0-0.4); BLOOD UREA NITROGEN 16 mg/dL (7-20); CALCIUM 9.4 mg/dL (8.4-10.2); CHLORIDE 91 mmol/L (98-107); CREATINE KINASE 28 U/L (30-135); CREATININE RESULT 0.63 mg/dL (0.52-1.25); GLUCOSE 89 mg/dL (75-110); POTASSIUM 4.5 mmol/L (3.6-5.0); SODIUM 136.8 mmol/L (137-145); TOTAL PROTEIN 7.7 g/dL (6.3-8.2)
[2016-12-01 19:43] LABS: ANION GAP 8 (5-19); CARBON DIOXIDE 38 mmol/L (22-30)
[2016-12-01 19:47] LABS: CREATINE KINASE MB 4.06 ng/mL (<4.55)
[2016-12-01 19:52] LABS: TROPONIN I 0.224 ng/mL
[2016-12-01 19:56] LABS: APPEARANCE,URINE CLEAR; BILIRUBIN,URINE NEGATIVE (NEGATIVE); GLUCOSE, URINE NEGATIVE (NEGATIVE); KETONES,URINE NEGATIVE (NEGATIVE); LEUKOCYTE ESTERASE,URINE NEGATIVE (NEGATIVE); NITRITE,URINE NEGATIVE (NEGATIVE); PROTEIN,URINE 30 mg/dL (NEGATIVE); URINE SPECIFIC GRAVITY 1.005; UROBILINOGEN,URINE NEGATIVE mg/dL (<2.0)
[2016-12-01] MEDS ORDERED: INSULIN LISPRO 100 UNIT/ML 3 ML VIAL SUBCUT PRN (20:18)
[2016-12-01] MEDS ORDERED: GLUCAGON,HUMAN RECOMB 1 MG INJ IM PRN (20:18)
[2016-12-01] MEDS ORDERED: DILTIAZEM HCL 60 MG TABLET PO ONE (20:18)
[2016-12-01] MEDS ORDERED: DEXTROSE 40% GEL 15 GM TUBE PO PRN ×2 (20:18)
[2016-12-01] MEDS ORDERED: DEXTROSE 50%-WATER 25 GM/50 ML DISP.SYRIN IV PRN ×2 (20:18)
[2016-12-01] MEDS ORDERED: ACETAMINOPHEN 325 MG TABLET PO PRN (20:18)
[2016-12-01] MEDS ORDERED: DILTIAZEM HCL 60 MG TABLET ONE (20:56)
[2016-12-01 21:14] LABS: ARTERIAL BLOOD BASE EXCESS 14.2 mmol/L; ARTERIAL BLOOD O2 SATURATION 94.2 % (94-98)
[2016-12-01] MEDS: ATORVASTATIN CALCIUM 20 MG TABLET PO SCH (22:19)
[2016-12-01] MEDS: FUROSEMIDE INJ/PF 40 MG/4 ML SDV IV SCH (22:20)
[2016-12-01] MEDS: GABAPENTIN 300 MG CAPSULE PO SCH (22:20)
[2016-12-01] MEDS: HEPARIN SOD (PORCINE) 5,000 UNIT/ML 1 ML SYRINGE SUBCUT SCH (22:21)
[2016-12-02 01:03] LABS: MAGNESIUM 1.9 mg/dL (1.6-2.3)
[2016-12-02 01:17] LABS: CREATINE KINASE MB 2.85 ng/mL (<4.55)
[2016-12-02 01:20] LABS: TROPONIN I 0.215 ng/mL
[2016-12-02] MEDS: HEPARIN SOD (PORCINE) 5,000 UNIT/ML 1 ML SYRINGE SUBCUT SCH ×3 (05:23→23:08)
[2016-12-02] MEDS ORDERED: LANSOPRAZOLE 30 MG TAB.RAP.DR PO SCH (06:00)
--- NOTE | 2016-12-02 06:07 | PDOC H&P ---
History of Present Illness Admission Date/PCP: 12/01/16 20:18 MARGA BARON Patient complains of: Shortness of breath History of Present Illness: SITA MANRIQUE is a 71 year old female with a past medical history of Hodgkin 's lymphoma in remission since 2002, atrial fibrillation, COPD, ongoing tobacco , chronic, recurrent pleural effusion and recurrent culture negative pneumonia. Patient was recently discharged from the hospital 5 days ago for the above and following up with compliance project manager Dr. Spencer and is referred to the hospital for hypoxia. In the emergency room she is without fever or leukocytosis but has acute on chronic hypoxic and hypercapnic respiratory failure with recurrent pleural effusions. She started on BiPAP and is referred to the hospitalist for admission. Patient has had complications to thoracentesis including pneumo and hemothorax requiring chest tubes. Subsequently the management of her recurrent effusions have been conservative with fluid restriction and diuresis. Patient denies chest back or abdominal pain, nausea or vomiting. Past Medical History Cardiac Medical History: Reports: Atrial Fibrillation, Congestive Heart Failure , Coronary Artery Disease, Myocardial Infarction, Hypertension Pulmonary Medical History: Reports: Asthma, Bronchitis, Chronic Obstructive Pulmonary Disease (COPD), Pneumonia, Sleep Apnea Endocrine Medical History: Reports: Diabetes Mellitus Type 1, Diabetes Mellitus Type 2, Hypothyroidism Malignancy Medical History: Reports: Lymphoma - Non-Hodgkin's B cell type , status post radiation and cheremission x 10yrs GI Medical History: Reports: Gastroesophageal Reflux Disease Musculoskeltal Medical History: Reports: Arthritis Psychiatric Medical History: Reports: Tobacco Dependency Hematology: Reports: Anemia Past Surgical History Past Surgical History: Reports: Appendectomy, Cholecystectomy, Hysterectomy, Tonsillectomy, Vascular Surgery - lymphnodes removed from groin and neck, Other - Benign brain tumor surgery. Lymph node excision Social History Smoking Status: Current Every Day Smoker Cigarettes Packs Per Day: 1.5 Number of Years Smokin Last Time Smoked: today Frequency of Alcohol Use: Rare Hx Recreational Drug Use: No Drugs: None Hx Prescription Drug Abuse: No Family History Family History: Reviewed & Not Pertinent, CAD, COPD, DM, Hypertension Parental Family History Reviewed: Yes Children Family History Reviewed: Yes Sibling(s) Family History Reviewed.: Yes Medication/Allergy Home Medications: Alprazolam [Xanax] 1 mg PO TID 12/01/16 Aspirin [Aspirin EC] 81 mg PO DAILY 12/01/16 Atorvastatin Calcium [Lipitor 20 mg Tablet] 20 mg PO QHS 12/01/16 Cholecalciferol (Vitamin D3) [Vitamin D3 1000 Unit Tablet] 1,000 units PO DAILY 12/01/16 Diltiazem HCl [Cartia Xt] 180 mg PO DAILY 12/01/16 Docusate Sodium [Colace 100 mg Capsule] 100 mg PO BID 12/01/16 Esomeprazole Mag Trihydrate [Nexium] 40 mg PO BID 12/01/16 Ferrous Sulfate [Feosol 325 mg Tablet] 325 mg PO DAILY 12/01/16 Furosemide [Lasix 40 mg Tablet] 40 mg PO TID 12/01/16 Gabapentin [Neurontin 300 mg Capsule] 300 mg PO QHS 12/01/16 Insulin Aspart Protam & Aspart [Novolog Mix 70-30 Flexpen Syrn] 20 units SQ MEALS 12/01/16 Levothyroxine Sodium [Synthroid] 200 mcg PO QAM 12/01/16 Magnesium Oxide [Mag-Ox 400 mg Tablet] 400 mg PO BID 12/01/16 Metoclopramide HCl [Reglan 10 mg Tablet] 10 mg PO BID 12/01/16 Potassium Chloride [Klor-Con 10] 20 meq PO BID 12/01/16 Allergies/Adverse Reactions: moxifloxacin HCl [From Avelox] Allergy (Severe, Verified 11/24/16 16:02) rash,itch apixaban [From Eliquis] Allergy (Intermediate, Verified 11/24/16 16:02) swell dabigatran etexilate [From Pradaxa] Allergy (Intermediate, Verified 11/24/16 16: 02) swell lansoprazole [From Prevacid] Allergy (Intermediate, Verified 11/24/16 16:02) Generalized Itching aloe [Aloe] Allergy (Verified 11/24/16 16:02) Review of Systems Constitutional: ABSENT: chills, fever(s), headache(s), weight gain, weight loss Eyes: ABSENT: visual disturbances Ears: ABSENT: hearing changes Cardiovascular: ABSENT: chest pain, dyspnea on exertion, edema, orthropnea, palpitations Respiratory: ABSENT: cough, hemoptysis Gastrointestinal: ABSENT: abdominal pain, constipation, diarrhea, hematemesis, hematochezia, nausea, vomiting Genitourinary: ABSENT: dysuria, hematuria Musculoskeletal: ABSENT: joint swelling Integumentary: ABSENT: rash, wounds Neurological: ABSENT: abnormal gait, abnormal speech, confusion, dizziness, focal weakness, syncope Psychiatric: ABSENT: anxiety, depression, homidical ideation, suicidal ideation Endocrine: ABSENT: cold intolerance, heat intolerance, polydipsia, polyuria Hematologic/Lymphatic: ABSENT: easy bleeding, easy bruising Physical Exam Vital Signs: Temp Pulse Resp BP Pulse Ox 97.6 F 89 15 128/58 H 93 12/02/16 04:56 12/02/16 04:56 12/02/16 04:56 12/02/16 04:56 12/02/16 04:56 Intake & Output 11/30/16 12/01/16 12/02/16 11:59 11:59 11:59 Intake Total 0 Output Total 0 Balance 0 Weight 83.5 kg General appearance: PRESENT: cooperative, disheveled, mild distress, obese Head exam: PRESENT: atraumatic, normocephalic Eye exam: PRESENT: conjunctiva pink, EOMI, PERRLA. ABSENT: scleral icterus Ear exam: PRESENT: normal external ear exam Mouth exam: PRESENT: moist, tongue midline Neck exam: PRESENT: other - Cervical flexion is chronic Respiratory exam: PRESENT: accessory muscle use, crackles, decreased breath sounds, prolonged expiratory phas, tachypnea. ABSENT: retraction, wheezes Cardiovascular exam: PRESENT: RRR. ABSENT: diastolic murmur, rubs, systolic murmur Pulses: PRESENT: normal dorsalis pedis pul Vascular exam: PRESENT: normal capillary refill GI/Abdominal exam: PRESENT: normal bowel sounds, soft. ABSENT: distended, guarding, mass, organolmegaly, rebound, tenderness Rectal exam: PRESENT: deferred Extremities exam: PRESENT: full ROM. ABSENT: calf tenderness, clubbing, pedal edema Neurological exam: PRESENT: alert, awake, oriented to person, oriented to place , oriented to time, oriented to situation, CN II-XII grossly intact. ABSENT: motor sensory deficit Psychiatric exam: PRESENT: appropriate affect, normal mood. ABSENT: homicidal ideation, suicidal ideation Skin exam: PRESENT: dry, intact, warm. ABSENT: cyanosis, rash Results Laboratory Results: 12/01/16 12/02/16 21:05 00:38 Carbonic Acid 2.14 H HCO3/H2CO3 Ratio 19:1 ABG pH 7.39 ABG pCO2 71.1 H* ABG pO2 74.3 L ABG HCO3 41.9 H ABG O2 Saturation 94.2 ABG Base Excess 14.2 FiO2 28% Magnesium 1.9 12/02/16 12/02/16 00:38 00:38 Creatine Kinase 21 L CK-MB (CK-2) 2.85 Troponin I 0.215 Assessment & Plan - Diagnosis (1) Acute and chronic respiratory failure ([id number]) Qualifiers: Respiratory failure complication: hypoxia Qualified Code(s): J96.21 - Acute and chronic respiratory failure with hypoxia Is this a current diagnosis for this admission?: Yes Plan: Albuterol Atrovent, flutter valve incentive spirometry and BiPAP. Tobacco avoidance and education (2) Bilateral pleural effusion Is this a current diagnosis for this admission?: Yes Plan: Likely multifactorial recurrent fluid analysis has been unclear, cytology and cultures negative. Will consult pulmonology and consideration of CT-guided thoracentesis and definitive diagnosis. Continue BiPAP support, fluid restriction and gentle diuresis. (3) Atrial fibrillation Qualifiers: Is this a current diagnosis for this admission?: Yes Plan: Currently on long-acting diltiazem however strongly doubt she has adequate rate control and long-acting diltiazem twice daily, no anticoagulation secondary to recurrent hemothorax. (4) Diabetes mellitus type II, controlled Qualifiers: Diabetes mellitus complication status: with unspecified complications Diabetes mellitus ad terminal makeup operator insulin use: unspecified ad terminal makeup operator insulin use status Qualified Code(s): E11.8 - Type 2 diabetes mellitus with unspecified complications Is this a current diagnosis for this admission?: Yes Plan: Outpatient regiment with sliding scale insulin. (5) Tobacco abuse Is this a current diagnosis for this admission?: Yes Plan: Tobacco Dependence patient received tobacco cessation counseling and offered nicotine replacement options - Time Time Spent: 50 to 70 Minutes
[2016-12-02 07:25] LABS: ABSOLUTE BASOPHILS # (AUTO) 0.1 10^3/uL (0.0-0.2); ABSOLUTE EOSINOPHILS # (AUTO) 0.1 10^3/uL (0.0-0.6); ABSOLUTE LYMPHOCYTES (AUTO) 1.1 10^3/uL (0.5-4.7); ABSOLUTE MONOCYTES (AUTO) 0.6 10^3/uL (0.1-1.4); ABSOLUTE NEUT (AUTO) 3.2 10^3/uL (1.7-8.2); BASOPHILS % (AUTO) 1.2 % (0-2); EOSINOPHILS % (AUTO) 1.4 % (0-6); HEMATOCRIT 31.7 % (36.0-47.0); HEMOGLOBIN 10.2 g/dL (12.0-15.5); HGB HCT DIFFERENCE -1.1; LYMPHOCYTES % (AUTO) 21.6 % (13-45); MEAN CORPUSCULAR HEMOGLOBIN 26.1 pg (27.0-33.4); MEAN CORPUSCULAR HGB CONC 32.4 g/dL (32.0-36.0); MEAN CORPUSCULAR VOLUME 81 fl (80-97); MONOCYTES % (AUTO) 11.7 % (3-13); RED BLOOD COUNT 3.92 10^6/uL (3.72-5.28); RED CELL DISTRIBUTION WIDTH 19.6 % (11.5-14.0); SEGMENTED NEUTROPHILS % (AUTO) 64.1 % (42-78)
[2016-12-02 07:30] LABS: PROTHROMBIN TIME 13.1 SEC (11.4-15.4)
[2016-12-02 07:49] LABS: BLOOD UREA NITROGEN 15 mg/dL (7-20); CALCIUM 9.4 mg/dL (8.4-10.2); CHLORIDE 93 mmol/L (98-107); CREATININE RESULT 0.67 mg/dL (0.52-1.25); GLUCOSE 88 mg/dL (75-110); POTASSIUM 4.3 mmol/L (3.6-5.0); SODIUM 139.2 mmol/L (137-145)
[2016-12-02 07:58] LABS: CREATINE KINASE MB 2.1 ng/mL (<4.55); TROPONIN I 0.199 ng/mL
[2016-12-02] MEDS ORDERED: (PENDING PHARMACY ID) (Insulin Aspart Protam & Aspart [Novolog Mix 70-30 Vial] 20 UNIT) SQ SCH (08:00)
[2016-12-02 08:17] LABS: ANION GAP 6 (5-19)
[2016-12-02 08:20] LABS: CARBON DIOXIDE 40 mmol/L (22-30)
[2016-12-02] MEDS: HUM INSULIN NPH/REG INSULIN HM 100 UNIT/1 ML 3 ML SUBCUT SCH ×3 (09:12→18:02)
[2016-12-02] MEDS: DILTIAZEM HCL 180 MG CAPSULE.CR PO SCH ×2 (09:34→23:09)
[2016-12-02] MEDS: FUROSEMIDE INJ/PF 40 MG/4 ML SDV IV SCH ×2 (09:34→23:09)
[2016-12-02] MEDS: ALPRAZOLAM 0.5 MG TABLET PO SCH ×3 (09:34→17:40)
[2016-12-02] MEDS: ASPIRIN 81 MG TABLET, CHEWABLE PO SCH (09:34)
[2016-12-02] MEDS: MAGNESIUM OXIDE 400 MG TABLET PO SCH ×2 (09:34→17:39)
[2016-12-02] MEDS: LEVOTHYROXINE SODIUM 0.1 MG TABLET PO SCH (09:35)
[2016-12-02] MEDS: POTASSIUM CHLORIDE 10 MEQ TABLET.SA PO SCH ×2 (09:35→17:39)
[2016-12-02] MEDS: DOCUSATE SODIUM 100 MG CAPSULE PO SCH ×2 (09:35→17:40)
[2016-12-02] MEDS ORDERED: FUROSEMIDE 40 MG TABLET PO SCH (10:00)
[2016-12-02] MEDS ORDERED: DILTIAZEM HCL 180 MG CAPSULE.CR PO SCH (10:00)
[2016-12-02] MEDS ORDERED: (PENDING PHARMACY ID) (Diltiazem Hcl [Cartia Xt] 180 MG) PO SCH (10:00)
[2016-12-02] MEDS ORDERED: (PENDING PHARMACY ID) (Potassium Chloride [K-Tab Er] 20 MEQ) PO SCH (10:00)
[2016-12-02] MEDS: NICOTINE 14 MG/24 HR PATCH.TD24 TD SCH (10:58)
--- NOTE | 2016-12-02 11:47 | PDOC CONSULTATION ---
Consultation Consult Date: 12/02/16 Attending physician:: AMINA WEINER Consult reason:: Abn troponin, dyspnea History of Present Illness Admission Date/PCP: 12/01/16 20:18 MARGA BARON Patient complains of: Shortness of breath History of Present Illness: SITA MANRIQUE is a 71 year old female with a past medical history of Hodgkin 's lymphoma in remission since 2002, atrial fibrillation, COPD, ongoing tobacco abuse is it was more because in the way it was just appears along thank you for doing it chronic, recurrent pleural effusion and recurrent culture negative pneumonia. Patient was recently discharged from the hospital 5 days ago for the above and following up with paving plant operator Dr. Spencer and is referred to the hospital for hypoxia. In the emergency room patient noted to be without fever or leukocytosis but has acute on chronic hypoxic and hypercapnic respiratory failure with recurrent pleural effusions. She started on BiPAP and and is subsequently felt to have improved. Patient has had complications to thoracentesis including pneumo and hemothorax requiring chest tubes, in the past. Subsequently the management of her recurrent effusions have been conservative with fluid restriction and diuresis. Patient denies chest back or abdominal pain, nausea or vomiting. Patient had troponin I drawn they have come back suggestive. Patient also noted to have minor nonspecific T-wave inversion. I been asked to evaluate patient because of elevated troponin I. Past Medical History Cardiac Medical History: Reports: Atrial Fibrillation, Congestive Heart Failure , Coronary Artery Disease, Myocardial Infarction, Hypertension Pulmonary Medical History: Reports: Asthma, Bronchitis, Chronic Obstructive Pulmonary Disease (COPD), Pneumonia, Sleep Apnea Neurological Medical History: Reports: Other Endocrine Medical History: Reports: Diabetes Mellitus Type 1, Diabetes Mellitus Type 2, Hypothyroidism Malignancy Medical History: Reports: Lymphoma - Non-Hodgkin's B cell type , status post radiation and cheremission x 10yrs GI Medical History: Reports: Gastroesophageal Reflux Disease Musculoskeltal Medical History: Reports: Arthritis Psychiatric Medical History: Reports: Tobacco Dependency Hematology: Reports: Anemia Past Surgical History Past Surgical History: Reports: Appendectomy, Cholecystectomy, Hysterectomy, Tonsillectomy, Vascular Surgery - History of lymph node removal from the groin, Other - Benign brain tumor surgery. Lymph node excision Social History Information Source: Patient Smoking Status: Current Every Day Smoker Cigarettes Packs Per Day: 1.5 Number of Years Smokin Last Time Smoked: today Frequency of Alcohol Use: Rare Hx Recreational Drug Use: No Drugs: None Hx Prescription Drug Abuse: No - Advance Directive Resuscitation Status: Do Not Resuscitate Surrogate healthcare decision maker:: Patient's daughter is the surrogate decision-maker Family History Family History: Reviewed & Not Pertinent, CAD, COPD, DM, Hypertension Parental Family History Reviewed: Yes Children Family History Reviewed: Yes Sibling(s) Family History Reviewed.: Yes Medication/Allergy Home Medications: Alprazolam [Xanax] 1 mg PO TID 12/01/16 Aspirin [Aspirin EC] 81 mg PO DAILY 12/01/16 Atorvastatin Calcium [Lipitor 20 mg Tablet] 20 mg PO QHS 12/01/16 Cholecalciferol (Vitamin D3) [Vitamin D3 1000 Unit Tablet] 1,000 units PO DAILY 12/01/16 Diltiazem HCl [Cartia Xt] 180 mg PO DAILY 12/01/16 Docusate Sodium [Colace 100 mg Capsule] 100 mg PO BID 12/01/16 Esomeprazole Mag Trihydrate [Nexium] 40 mg PO BID 12/01/16 Ferrous Sulfate [Feosol 325 mg Tablet] 325 mg PO DAILY 12/01/16 Furosemide [Lasix 40 mg Tablet] 40 mg PO TID 12/01/16 Gabapentin [Neurontin 300 mg Capsule] 300 mg PO QHS 12/01/16 Insulin Aspart Protam & Aspart [Novolog Mix 70-30 Flexpen Syrn] 20 units SQ MEALS 12/01/16 Levothyroxine Sodium [Synthroid] 200 mcg PO QAM 12/01/16 Magnesium Oxide [Mag-Ox 400 mg Tablet] 400 mg PO BID 12/01/16 Metoclopramide HCl [Reglan 10 mg Tablet] 10 mg PO BID 12/01/16 Potassium Chloride [Klor-Con 10] 20 meq PO BID 12/01/16 Allergies/Adverse Reactions: moxifloxacin HCl [From Avelox] Allergy (Severe, Verified 11/24/16 16:02) rash,itch apixaban [From Eliquis] Allergy (Intermediate, Verified 11/24/16 16:02) swell dabigatran etexilate [From Pradaxa] Allergy (Intermediate, Verified 11/24/16 16: 02) swell lansoprazole [From Prevacid] Allergy (Intermediate, Verified 11/24/16 16:02) Generalized Itching aloe [Aloe] Allergy (Verified 11/24/16 16:02) Review of Systems Review of Systems: Please see history of present illness and past medical history as wall. Constitutional: No fever or chills reported. Head : No recent chronic headaches, recent head injury. Eyes: No recent eye pain, diplopia, redness, discharge, acute visual changes. Ears: No recent chronic ear pain, acute hearing loss, ear discharge. Oral cavity: No recent ulcerations, bleeding, oral cavity discomfort. Neck: No recent acute neck pain reported. Hematologic: No recent easy bruising or bleeding or hematologic malignancy reported. Lymphatic: No recent lymphatic malignancy, chronic lymphadenopathy reported yet Cardiovascular system review: See history of present illness. Patient denied any chest pain. Respiratory system review: No recent chronic cough, hemoptysis, blood clots in the lungs reported. Shortness of breath on exertion Gastrointestinal system review: Negative for any recent acute or chronic abdominal pain, hematemesis, melena, recent change in bowel habits. Genitourinary system review: No recent acute or chronic hematuria, flank pain, UTI etc. reported. Skin system review: Negative for any recent abnormal bruising, no rash, no pruritus reported. Neurologic: No prior history of strokes, mini strokes, seizure disorder. Noted intermittent dizziness. Psychologic: No history of major psychosis or major depression reported. Musculoskeletal: Minor aches and pains reported. No acute joint swelling reported. Endocrine: No recent polyuria, polydipsia, recent heat or cold intolerance. Physical Exam Vital Signs: Temp Pulse Resp BP Pulse Ox 97.8 F 91 17 121/58 L 92 12/02/16 07:51 12/02/16 07:51 12/02/16 08:29 12/02/16 07:51 12/02/16 08:29 Intake & Output 12/01/16 12/02/16 12/03/16 06:59 06:59 06:59 Intake Total 0 Output Total 0 Balance 0 Weight 83.5 kg Exam: GENERAL: well-nourished and in no acute distress. Alert and oriented x3 HEAD: Atraumatic, normocephalic. EYES: Pupils equal round and reactive to light, extraocular movements intact, sclera anicteric, conjunctiva are normal. ENT: TMs normal, nares patent, oropharynx clear without exudates. Moist mucous membranes. No oral ulcerations or bleeding gums noted NECK: supple without lymphadenopathy. Trachea is central. No cervical or axillary lymphadenopathy noted. Carotids are 2+, JVD 8-10 cm LUNGS: Respiration seems nonlabored, no significant accessory muscle action noted. Bibasilar fine crackles, dullness right base, bilateral mild wheezes rales or rhonchi noted. Right basal dullness noted on percussion. CHEST: Palpation of the chest wall shows no significant chest wall tenderness. HEART: [place] [facility] PULMONARY, No PSH, 1/6 ORTIZ aortic area, 1/6 gaitan systolic murmur mitral area, no rubs, no gallops. ABDOMEN: Soft, no significant tenderness appreciated, normoactive bowel sounds. No guarding, no rebound. No rigidity noted . No masses appreciated. EXTREMITIES: Pedal pulses are 1-2+, no calf tenderness noted. No clubbing or cyanosis. 1+ pedal edema noted NEUROLOGICAL: Focused neurological exam showed no significant neurologic deficit. Normal speech, no focal weakness appreciated. PSYCH: Normal mood, normal affect. Judgment and insight within normal limits. SKIN: No significant ecchymosis, rash, ulcerations or signs of pruritus noted. MUSCULOSKELETAL EXAM: No significant joint swelling noted. Results Laboratory Results: 12/02/16 06:39 12/02/16 06:39 12/01/16 12/02/16 12/02/16 21:05 00:38 06:39 WBC 5.0 RBC 3.92 Hgb 10.2 L Hct 31.7 L MCV 81 MCH 26.1 L MCHC 32.4 RDW 19.6 H Plt Count 144 L Seg Neutrophils % 64.1 Lymphocytes % 21.6 Monocytes % 11.7 Eosinophils % 1.4 Basophils % 1.2 Absolute Neutrophils 3.2 Absolute Lymphocytes 1.1 Absolute Monocytes 0.6 Absolute Eosinophils 0.1 Absolute Basophils 0.1 Carbonic Acid 2.14 H HCO3/H2CO3 Ratio 19:1 ABG pH 7.39 ABG pCO2 71.1 H* ABG pO2 74.3 L ABG HCO3 41.9 H ABG O2 Saturation 94.2 ABG Base Excess 14.2 FiO2 28% Sodium Potassium Chloride Carbon Dioxide Anion Gap BUN Creatinine Est GFR ( Amer) Est GFR (Non-Af Amer) Glucose Calcium Magnesium 1.9 12/02/16 06:39 WBC RBC Hgb Hct MCV MCH MCHC RDW Plt Count Seg Neutrophils % Lymphocytes % Monocytes % Eosinophils % Basophils % Absolute Neutrophils Absolute Lymphocytes Absolute Monocytes Absolute Eosinophils Absolute Basophils Carbonic Acid HCO3/H2CO3 Ratio ABG pH ABG pCO2 ABG pO2 ABG HCO3 ABG O2 Saturation ABG Base Excess FiO2 Sodium 139.2 Potassium 4.3 Chloride 93 L Carbon Dioxide 40 H* Anion Gap 6 BUN 15 Creatinine 0.67 Est GFR ( Amer) > 60 Est GFR (Non-Af Amer) > 60 Glucose 88 Calcium 9.4 Magnesium 12/02/16 12/02/16 12/02/16 00:38 00:38 06:39 Creatine Kinase 21 L < 20 L CK-MB (CK-2) 2.85 Troponin I 0.215 12/02/16 06:39 Creatine Kinase CK-MB (CK-2) 2.10 Troponin I 0.199 EKG Comments: P waves not easily identifiable, possible fine atrial flutter versus sinus rhythm with minor nonspecific T-wave inversion noted inferiorly. Assessment & Plan - Diagnosis (1) Elevated troponin I level Is this a current diagnosis for this admission?: Yes (2) Congestive heart failure Qualifiers: Congestive heart failure type: unspecified congestive heart failure type Congestive heart failure chronicity: chronic Qualified Code(s): I50.9 - Heart failure, unspecified Is this a current diagnosis for this admission?: Yes (3) Coronary artery disease Qualifiers: Coronary Disease-Associated Artery/Lesion type: [place] artery Associated angina: angina presence unspecified Is this a current diagnosis for this admission?: Yes (4) Atrial fibrillation and flutter Is this a current diagnosis for this admission?: Yes (5) COPD (chronic obstructive pulmonary disease) Qualifiers: Emphysema type: unspecified Is this a current diagnosis for this admission?: Yes (6) Acute and chronic respiratory failure ([id number]) Qualifiers: Respiratory failure complication: hypoxia Qualified Code(s): J96.21 - Acute and chronic respiratory failure with hypoxia Is this a current diagnosis for this admission?: Yes (7) Tobacco abuse Is this a current diagnosis for this admission?: Yes - Notes Notes: EKG ordered to look for any evolving changes. Elevated troponin I: Most likely related to hypoxemia, CHF rather than acute coronary syndrome. Patient did have symptoms of dyspnea and minor T-wave inversion therefore cannot rule out acute coronary syndrome. However due to patient's comorbid diagnosis at this point will recommend medical management for underlying coronary artery disease. Coronary artery disease: Currently is stable without any symptomatic angina. Will try optimize medical management. COPD: Recommend aggressive management of underlying COPD. Acute on chronic respiratory failure: Patient noted to have severe hypercapnic plus hypoxic respiratory failure. Patient will benefit from noninvasive ventilation. Pulmonary following. Congestive heart failure: Last echocardiogram approximately a year ago, will recommend obtaining another one. Will recommend diuretics, EARLE inhibitors/ARB/ beta-alessia therapy. Beta-alessia may be relatively contraindicated in this patient. Atrial flutter fibrillation: Patient has a history of it and also questionable history of prior stroke. Therefore would be a candidate for chronic anticoagulation but patient does not want to go on it. Will rediscuss it with patient's daughter at a later time. Tobacco abuse: Patient has been advised to quit smoking. - Time Time Spent: 50 to 70 Minutes - CODE STATUS : was discussed, patient remains DO NOT RESUSCITATE. Surrogate decision-maker unchanged. Multiple medical problems were addressed., More than 50% of the time spent coordinating care, discussing management plans with involved caregivers. Management plans discussed with involved personnels. Medical decision making was of high complexity, patient's has multiple comorbidities. Medications reviewed and adjusted accordingly: Yes
--- NOTE | 2016-12-02 13:47 | PDOC PROGRESS REPORT ---
Subjective Progress Note for:: 12/02/16 Subjective:: Patient reports she feels slightly better. Still has shortness of breath with any exertion. Physical Exam Vital Signs: Temp Pulse Resp BP Pulse Ox 97.8 F 98 15 134/58 H 98 12/02/16 12:00 12/02/16 12:00 12/02/16 12:04 12/02/16 12:00 12/02/16 12:04 Intake & Output 12/01/16 12/02/16 12/03/16 06:59 06:59 06:59 Intake Total 0 237 Output Total 0 Balance 0 237 Weight 83.5 kg General appearance: PRESENT: no acute distress Eye exam: PRESENT: conjunctiva pink. ABSENT: scleral icterus Mouth exam: PRESENT: moist, tongue midline Neck exam: ABSENT: JVD Respiratory exam: PRESENT: decreased breath sounds - Decreased breath sounds in the bases. ABSENT: rales, rhonchi, wheezes Cardiovascular exam: PRESENT: irregular rhythm. ABSENT: diastolic murmur, rubs , systolic murmur GI/Abdominal exam: PRESENT: normal bowel sounds, soft. ABSENT: distended, guarding, mass, organolmegaly, rebound, tenderness Extremities exam: PRESENT: pedal edema - Trace pedal edema. ABSENT: calf tenderness, clubbing Neurological exam: PRESENT: alert, awake, oriented to person, oriented to place , oriented to time, oriented to situation, CN II-XII grossly intact. ABSENT: motor sensory deficit Psychiatric exam: PRESENT: appropriate affect Skin exam: PRESENT: dry, intact, warm. ABSENT: cyanosis, rash Results Laboratory Results: 12/02/16 06:39 12/02/16 06:39 12/01/16 12/02/16 12/02/16 21:05 00:38 06:39 WBC 5.0 RBC 3.92 Hgb 10.2 L Hct 31.7 L MCV 81 MCH 26.1 L MCHC 32.4 RDW 19.6 H Plt Count 144 L Seg Neutrophils % 64.1 Lymphocytes % 21.6 Monocytes % 11.7 Eosinophils % 1.4 Basophils % 1.2 Absolute Neutrophils 3.2 Absolute Lymphocytes 1.1 Absolute Monocytes 0.6 Absolute Eosinophils 0.1 Absolute Basophils 0.1 Carbonic Acid 2.14 H HCO3/H2CO3 Ratio 19:1 ABG pH 7.39 ABG pCO2 71.1 H* ABG pO2 74.3 L ABG HCO3 41.9 H ABG O2 Saturation 94.2 ABG Base Excess 14.2 FiO2 28% Sodium Potassium Chloride Carbon Dioxide Anion Gap BUN Creatinine Est GFR ( Amer) Est GFR (Non-Af Amer) Glucose Calcium Magnesium 1.9 12/02/16 06:39 WBC RBC Hgb Hct MCV MCH MCHC RDW Plt Count Seg Neutrophils % Lymphocytes % Monocytes % Eosinophils % Basophils % Absolute Neutrophils Absolute Lymphocytes Absolute Monocytes Absolute Eosinophils Absolute Basophils Carbonic Acid HCO3/H2CO3 Ratio ABG pH ABG pCO2 ABG pO2 ABG HCO3 ABG O2 Saturation ABG Base Excess FiO2 Sodium 139.2 Potassium 4.3 Chloride 93 L Carbon Dioxide 40 H* Anion Gap 6 BUN 15 Creatinine 0.67 Est GFR ( Amer) > 60 Est GFR (Non-Af Amer) > 60 Glucose 88 Calcium 9.4 Magnesium 12/02/16 12/02/16 12/02/16 00:38 00:38 06:39 Creatine Kinase 21 L < 20 L CK-MB (CK-2) 2.85 Troponin I 0.215 12/02/16 06:39 Creatine Kinase CK-MB (CK-2) 2.10 Troponin I 0.199 Assessment & Plan - Diagnosis (1) COPD (chronic obstructive pulmonary disease) Qualifiers: Emphysema type: unspecified Is this a current diagnosis for this admission?: Yes Plan: Patient has bilateral pleural effusions. Is not clear how much of her respiratory difficulties from her underlying COPD versus the pleural effusion versus cardiac issues. Currently getting IV Lasix. Patient is to be seen by pulmonary medicine. Will ask their opinion as to whether or not this patient needs to have a thoracentesis. This was complicated the last time with a hemopneumothorax. She does have the appearance of possible loculated effusion and could possibly need a VATS procedure. (2) Atrial fibrillation Qualifiers: Is this a current diagnosis for this admission?: Yes Plan: Patient is rate controlled. Continue with diltiazem. (3) Bilateral pleural effusion Is this a current diagnosis for this admission?: Yes Plan: Pulmonary medicine has been consulted regarding whether or not she needs a thoracentesis. Her last thoracentesis was complicated with a hemopneumothorax. (4) Coronary artery disease Qualifiers: Coronary Disease-Associated Artery/Lesion type: [place] artery Associated angina: angina presence unspecified Is this a current diagnosis for this admission?: Yes Plan: Patient has been evaluated by cardiology. Recommending medical management given her comorbid illnesses. (6) Anemia Qualifiers: Anemia type: iron deficiency Is this a current diagnosis for this admission?: Yes Plan: Is likely anemia of chronic disease. Hemoglobin remained stable. (7) Anxiety disorder Is this a current diagnosis for this admission?: Yes Plan: Continue with Xanax. (8) Diabetes mellitus type II, controlled Qualifiers: Diabetes mellitus complication status: with unspecified complications Diabetes mellitus intermediate insulin use: unspecified adjunct faculty for medical terminology insulin use status Qualified Code(s): E11.8 - Type 2 diabetes mellitus with unspecified complications Is this a current diagnosis for this admission?: Yes Plan: Continue with 70/30 and sliding scale insulin. (9) GERD (gastroesophageal reflux disease) Qualifiers: Esophagitis presence: without esophagitis Qualified Code(s): K21.9 - Gastro -esophageal reflux disease without esophagitis Is this a current diagnosis for this admission?: Yes (10) Hypercholesterolemia Is this a current diagnosis for this admission?: Yes Plan: Continue with Lipitor. (11) Hypertension Qualifiers: Hypertension type: essential hypertension Qualified Code(s): I10 - Essential (primary) hypertension Is this a current diagnosis for this admission?: Yes Plan: Continue with diltiazem and Lasix. (12) Obstructive sleep apnea Is this a current diagnosis for this admission?: Yes Plan: Patient uses BiPAP. (13) Hypothyroidism Qualifiers: Hypothyroidism type: acquired Qualified Code(s): E03.9 - Hypothyroidism, unspecified Is this a current diagnosis for this admission?: Yes Plan: Continue with Synthroid. (14) Tobacco abuse Is this a current diagnosis for this admission?: Yes Plan: Patient is still smoking 2 packs per day. She is encouraged to quit - Time Time Spent with patient: 25-34 minutes - Inpatient Certification Medical Necessity: Need Close Monitoring Due to Risk of Patient Decompensation
[2016-12-02 13:54] LABS: CREATINE KINASE MB 1.83 ng/mL (<4.55); TROPONIN I 0.161 ng/mL
--- NOTE | 2016-12-02 13:57 | EKG REPORT ---
SEVERITY:- ABNORMAL ECG - SINUS OR ECTOPIC ATRIAL RHYTHM LEFT POSTERIOR FASCICULAR BLOCK BORDERLINE R WAVE PROGRESSION, ANTERIOR LEADS NONSPECIFIC T ABNORMALITIES, INFERIOR LEADS : Confirmed by: Galen Altamirano MD 02-Dec-2016 13:56:52
--- NOTE | 2016-12-02 16:54 | PDOC CONSULTATION ---
Consultation Consult Date: 12/02/16 Attending physician:: ROGELIO SIMPSON Consult reason:: dysnea/hypoxia History of Present Illness Admission Date/PCP: 12/01/16 20:18 MARGA BARON History of Present Illness: Ms. Stanton is a 71-year-old female who presented to our facility 12-18 hours ago at which time she had an SaO2 of 57% on 2 L of pulse oxygen this was quickly increased to 2 L continuous oxygen with a slow increase improvement in her SaO2 she remains extremely lethargic almost stuporous her visit here for physical examination showed to cardiac tachycardia as well as the above noted hypoxemia and she was subsequently sent to the ER for further evaluation. She has had several hospitalizations since August for recurrent pleural effusions and hypercapnic hypoxic respiratory failure. She has had several echocardiograms of the last echocardiogram with the report was to 06-02 at which time as stated she had an ejection fraction of 60%. She has had subsequent echocardiograms but reports are not available to this observer. She is getting recurrent pleural effusions without any cardiovascular or renal etiology at this point .Several admissions in the past that have shown elevated PCO2 is and she has demonstrated failure on BiPAP.Also interesting to note the patient's had a history of non-Hodgkin's lymphoma. She also has a history of chronic atrial fibrillation apparently continues to smoke.. Past Medical History Cardiac Medical History: Reports: Atrial Fibrillation, Congestive Heart Failure , Coronary Artery Disease, Myocardial Infarction, Hypertension Pulmonary Medical History: Reports: Asthma, Bronchitis, Chronic Obstructive Pulmonary Disease (COPD), Pneumonia, Sleep Apnea Neurological Medical History: Reports: Other Endocrine Medical History: Reports: Diabetes Mellitus Type 1, Diabetes Mellitus Type 2, Hypothyroidism Malignancy Medical History: Reports: Lymphoma - Non-Hodgkin's B cell type , status post radiation and cheremission x 10yrs GI Medical History: Reports: Gastroesophageal Reflux Disease Musculoskeltal Medical History: Reports: Arthritis Psychiatric Medical History: Reports: Tobacco Dependency Hematology: Reports: Anemia Past Surgical History Past Surgical History: Reports: Appendectomy, Cholecystectomy, Hysterectomy, Tonsillectomy, Vascular Surgery - History of lymph node removal from the groin, Other - Benign brain tumor surgery. Lymph node excision Social History Information Source: Relative, Dr. Macedo, [facility] Records Smoking Status: Current Every Day Smoker Cigarettes Packs Per Day: 1.5 Number of Years Smokin Last Time Smoked: today Passive smoke exposure as: Both Frequency of Alcohol Use: Rare Hx Recreational Drug Use: No Drugs: None Hx Prescription Drug Abuse: No Do you have pets?: Yes Have you had any respiratory illnesses as a child?: No Have you been exposed to any sick contacts recently?: No Have you had any recent respiratory illnesses?: No Have you travelled outside of [place] in the past 12 months?: No - Advance Directive Resuscitation Status: Do Not Resuscitate Family History Family History: Reviewed & Not Pertinent, CAD, COPD, DM, Hypertension Parental Family History Reviewed: Yes Children Family History Reviewed: Yes Sibling(s) Family History Reviewed.: Yes Medication/Allergy Home Medications: Alprazolam [Xanax] 1 mg PO TID 12/01/16 Aspirin [Aspirin EC] 81 mg PO DAILY 12/01/16 Atorvastatin Calcium [Lipitor 20 mg Tablet] 20 mg PO QHS 12/01/16 Cholecalciferol (Vitamin D3) [Vitamin D3 1000 Unit Tablet] 1,000 units PO DAILY 12/01/16 Diltiazem HCl [Cartia Xt] 180 mg PO DAILY 12/01/16 Docusate Sodium [Colace 100 mg Capsule] 100 mg PO BID 12/01/16 Esomeprazole Mag Trihydrate [Nexium] 40 mg PO BID 12/01/16 Ferrous Sulfate [Feosol 325 mg Tablet] 325 mg PO DAILY 12/01/16 Furosemide [Lasix 40 mg Tablet] 40 mg PO TID 12/01/16 Gabapentin [Neurontin 300 mg Capsule] 300 mg PO QHS 12/01/16 Insulin Aspart Protam & Aspart [Novolog Mix 70-30 Flexpen Syrn] 20 units SQ MEALS 12/01/16 Levothyroxine Sodium [Synthroid] 200 mcg PO QAM 12/01/16 Magnesium Oxide [Mag-Ox 400 mg Tablet] 400 mg PO BID 12/01/16 Metoclopramide HCl [Reglan 10 mg Tablet] 10 mg PO BID 12/01/16 Potassium Chloride [Klor-Con 10] 20 meq PO BID 12/01/16 Allergies/Adverse Reactions: moxifloxacin HCl [From Avelox] Allergy (Severe, Verified 11/24/16 16:02) rash,itch apixaban [From Eliquis] Allergy (Intermediate, Verified 11/24/16 16:02) swell dabigatran etexilate [From Pradaxa] Allergy (Intermediate, Verified 11/24/16 16: 02) swell lansoprazole [From Prevacid] Allergy (Intermediate, Verified 11/24/16 16:02) Generalized Itching aloe [Aloe] Allergy (Verified 11/24/16 16:02) Review of Systems All systems: reviewed and no additional remarkable complaints except as stated Physical Exam Vital Signs: Temp Pulse Resp BP Pulse Ox 97.8 F 98 15 134/58 H 98 12/02/16 12:00 12/02/16 12:00 12/02/16 12:04 12/02/16 12:00 12/02/16 12:04 Intake & Output 12/01/16 12/02/16 12/03/16 06:59 06:59 06:59 Intake Total 0 237 Output Total 0 Balance 0 237 Weight 83.5 kg General appearance: PRESENT: no acute distress, cooperative, disheveled, obese Head exam: PRESENT: atraumatic, normocephalic Eye exam: PRESENT: conjunctiva pale, EOMI Mouth exam: PRESENT: dry mucosa, neck supple, tongue midline Teeth exam: PRESENT: edentulous Neck exam: PRESENT: carotid bruit Respiratory exam: PRESENT: decreased breath sounds, prolonged expiratory phas, rales, rhonchi, symmetrical, unlabored, other - Despite abnormal breath sounds dramatic improvement in air movement over the last 24 hours Cardiovascular exam: PRESENT: irregular rhythm Pulses: PRESENT: normal radial pulses GI/Abdominal exam: PRESENT: normal bowel sounds, soft. ABSENT: distended, guarding, mass, organolmegaly, rebound, tenderness Rectal exam: PRESENT: deferred Gentrourinary exam: PRESENT: indwelling catheter Extremities exam: PRESENT: +1 edema Neurological exam: PRESENT: alert, awake Psychiatric exam: PRESENT: flat affect Skin exam: PRESENT: dry, warm Results Laboratory Results: 12/02/16 06:39 12/02/16 06:39 12/01/16 12/02/16 12/02/16 21:05 00:38 06:39 WBC 5.0 RBC 3.92 Hgb 10.2 L Hct 31.7 L MCV 81 MCH 26.1 L MCHC 32.4 RDW 19.6 H Plt Count 144 L Seg Neutrophils % 64.1 Lymphocytes % 21.6 Monocytes % 11.7 Eosinophils % 1.4 Basophils % 1.2 Absolute Neutrophils 3.2 Absolute Lymphocytes 1.1 Absolute Monocytes 0.6 Absolute Eosinophils 0.1 Absolute Basophils 0.1 Carbonic Acid 2.14 H HCO3/H2CO3 Ratio 19:1 ABG pH 7.39 ABG pCO2 71.1 H* ABG pO2 74.3 L ABG HCO3 41.9 H ABG O2 Saturation 94.2 ABG Base Excess 14.2 FiO2 28% Sodium Potassium Chloride Carbon Dioxide Anion Gap BUN Creatinine Est GFR ( Amer) Est GFR (Non-Af Amer) Glucose Calcium Magnesium 1.9 12/02/16 06:39 WBC RBC Hgb Hct MCV MCH MCHC RDW Plt Count Seg Neutrophils % Lymphocytes % Monocytes % Eosinophils % Basophils % Absolute Neutrophils Absolute Lymphocytes Absolute Monocytes Absolute Eosinophils Absolute Basophils Carbonic Acid HCO3/H2CO3 Ratio ABG pH ABG pCO2 ABG pO2 ABG HCO3 ABG O2 Saturation ABG Base Excess FiO2 Sodium 139.2 Potassium 4.3 Chloride 93 L Carbon Dioxide 40 H* Anion Gap 6 BUN 15 Creatinine 0.67 Est GFR ( Amer) > 60 Est GFR (Non-Af Amer) > 60 Glucose 88 Calcium 9.4 Magnesium 12/02/16 12/02/16 12/02/16 00:38 00:38 06:39 Creatine Kinase 21 L < 20 L CK-MB (CK-2) 2.85 Troponin I 0.215 12/02/16 12/02/16 06:39 13:02 Creatine Kinase < 20 L CK-MB (CK-2) 2.10 Troponin I 0.199 Assessment & Plan - Diagnosis (1) Atrial fibrillation Qualifiers: Atrial fibrillation type: chronic Is this a current diagnosis for this admission?: Yes (2) Bilateral pleural effusion Is this a current diagnosis for this admission?: Yes Plan: These recurrent and probably multifactorial strong consideration could be given for Pleurodex catheter at this point in time (3) COPD (chronic obstructive pulmonary disease) Qualifiers: Emphysema type: unspecified Is this a current diagnosis for this admission?: Yes Plan: Continue current bronchodilator therapy (4) Coronary artery disease Qualifiers: Coronary Disease-Associated Artery/Lesion type: [place] artery Associated angina: angina presence unspecified Is this a current diagnosis for this admission?: Yes (5) History of lymphoma Is this a current diagnosis for this admission?: Yes (6) Acute and chronic respiratory failure ([id number]) Qualifiers: Respiratory failure complication: hypoxia Qualified Code(s): J96.21 - Acute and chronic respiratory failure with hypoxia Is this a current diagnosis for this admission?: Yes Plan: ongoing problems have resulted in the following demonstration: The above patient has failed BiPAP. This patient would benefit from noninvasive mechanical ventilation via the trilogy AVAPS/AE and faster responding AVAPS rates. The trilogy is able to provide a target tidal volume and also adjusting the EPAP pressures to maintain a patent airway as well as an oral backup rate this machine will help improve PaCO2 levels. The severity of the patient's condition will lead to future hospitalizations and readmissions as well as life-threatening situations without the use of this device trilogy home vent needed for hypercapnic respiratory failure. Family medical to follow for trilogy set up.
--- NOTE | 2016-12-02 21:37 | XCELERA REPORT ---
[address] [address] Transthoracic Echocardiogram Report Name: SITA MANRIQUE Age: 71 yrs Gender: Female : 1945 Patient Status: Inpatient Patient Location: [address] [place] [address] Study Date: 12/02/2016 01:24 PM Height: 64 in Weight: 184 lb BSA: 1.9 m2 Procedure: A complete two-dimensional transthoracic echocardiogram was performed (2D, M-mode, spectral and color flow Doppler). The study was technically adequate with some images being suboptimal in quality. Reason For Study: Dyspnea, NSTEMI Ordering Physician: CATALINO LOCKETT Performed By: Hortencia Redmond Interpretation Summary The left ventricular ejection fraction is within normal limits. Doppler measurements suggest pseudonormalized left ventricular relaxation, which is associated with grade II/IV or mild to moderate diastolic dysfunction There is mild concentric left ventricular hypertrophy. The left ventricle is grossly normal size. Wall motion cannot be accurately commented on, but no definite regional wall motion abnormalities noted. The right ventricular systolic function is borderline reduced. The left atrium is borderline dilated. The right atrium is moderately dilated. There is a mild amount of mitral regurgitation There is no mitral valve stenosis. There is a trace amount of aortic regurgitation There is no aortic valve stenosis There is a moderate amount of tricuspid regurgitation There is moderate pulmonary hypertension by echo Right ventricular systolic pressure is estimated to be elevated at 40- 50mmHg. The aortic root is not well visualized but is probably normal size. The inferior vena cava appeared normal and decreased < 50% with respiration (RAP 10-15 mmHg) Minimal pericardial effusion. MMode/2D Measurements & Calculations RVDd: 3.9 cm LVIDd: 4.6 cm FS: 37.7 % Ao root diam: 3.0 cm IVSd: 1.1 cm LVIDs: 2.9 cm EDV(Teich): 97.2 ml LVPWd: 1.1 cm ESV(Teich): 31.2 ml Ao root area: 7.1 cm2 EF(Teich): 67.9 % Doppler Measurements & Calculations MV E max angela: MV dec slope: Ao V2 max: LV V1 max P.7 cm/sec 160.7 cm/sec 4.6 mmHg MV A max angela: 767.4 cm/sec2 Ao max PG: LV V1 max: 53.0 cm/sec MV dec time: 10.3 mmHg 107.5 cm/sec MV E/A: 2.4 0.17 sec PA V2 max: PI end-d angela: TR max angela: 91.5 cm/sec 128.0 cm/sec 281.6 cm/sec PA max P.3 mmHg TR max P.9 mmHg Left Ventricle The left ventricle is grossly normal size. There is mild concentric left ventricular hypertrophy. The left ventricular ejection fraction is within normal limits. Doppler measurements suggest pseudonormalized left ventricular relaxation, which is associated with grade II/IV or mild to moderate diastolic dysfunction. Wall motion cannot be accurately commented on, but no definite regional wall motion abnormalities noted. Right Ventricle The right ventricle is moderately dilated. The right ventricle appears to be hypertrophied. The right ventricular systolic function is borderline reduced. Atria The right atrium is moderately dilated. The left atrium is borderline dilated. Interarterial septum not well visualized and not well dopplered. Cannot comment on ASD/PFO presence. Mitral Valve The mitral valve is grossly normal. There is no mitral valve stenosis. There is a mild amount of mitral regurgitation. Aortic Valve There is no aortic valve stenosis. There is a trace amount of aortic regurgitation. Tricuspid Valve The tricuspid valve is not well visualized, but is grossly normal. There is no tricuspid stenosis. There is a moderate amount of tricuspid regurgitation. There is moderate pulmonary hypertension by echo. Right ventricular systolic pressure is estimated to be elevated at 40-50mmHg. Pulmonic Valve The pulmonic valve is not well visualized. There is a mild amount of pulmonic regurgitation. Great Vessels The aortic root is not well visualized but is probably normal size. The inferior vena cava appeared normal and decreased < 50% with respiration (RAP 10-15 mmHg). Effusions Minimal pericardial effusion. : CATALINO LOCKETT > Catalino Lockett
[2016-12-02] MEDS: ATORVASTATIN CALCIUM 20 MG TABLET PO SCH (23:10)
[2016-12-02] MEDS: GABAPENTIN 300 MG CAPSULE PO SCH (23:10)
[2016-12-03] MEDS: HEPARIN SOD (PORCINE) 5,000 UNIT/ML 1 ML SYRINGE SUBCUT SCH (06:43)
[2016-12-03] MEDS: LEVOTHYROXINE SODIUM 0.1 MG TABLET PO SCH (08:50)
[2016-12-03] MEDS: HUM INSULIN NPH/REG INSULIN HM 100 UNIT/1 ML 3 ML SUBCUT SCH (08:51)
[2016-12-03] MEDS: ALPRAZOLAM 0.5 MG TABLET PO SCH (10:43)
[2016-12-03] MEDS: DILTIAZEM HCL 180 MG CAPSULE.CR PO SCH (10:44)
[2016-12-03] MEDS: ASPIRIN 81 MG TABLET, CHEWABLE PO SCH (10:44)
[2016-12-03] MEDS: DOCUSATE SODIUM 100 MG CAPSULE PO SCH (10:45)
[2016-12-03] MEDS: FUROSEMIDE INJ/PF 40 MG/4 ML SDV IV SCH (10:45)
[2016-12-03] MEDS: POTASSIUM CHLORIDE 10 MEQ TABLET.SA PO SCH (10:45)
[2016-12-03] MEDS: MAGNESIUM OXIDE 400 MG TABLET PO SCH (10:45)
[2016-12-03] MEDS: NICOTINE 14 MG/24 HR PATCH.TD24 TD SCH (10:47)
[2016-12-03 11:19] VITALS: BP 137/63
--- NOTE | 2016-12-03 11:41 | PDOC DISCHARGE SUMMARY ---
General - Admit/Disc Date/PCP Admission Date/Primary Care Provider: 12/01/16 20:18 MARGA BARON Discharge Date: 12/03/16 - Discharge Diagnosis (1) COPD (chronic obstructive pulmonary disease) Is this a current diagnosis for this admission?: Yes (2) Atrial fibrillation Is this a current diagnosis for this admission?: Yes (3) Bilateral pleural effusion Is this a current diagnosis for this admission?: Yes (4) Coronary artery disease Is this a current diagnosis for this admission?: Yes (5) History of lymphoma Is this a current diagnosis for this admission?: Yes (6) Anemia Is this a current diagnosis for this admission?: Yes (7) Anxiety disorder Is this a current diagnosis for this admission?: Yes (8) Diabetes mellitus type II, controlled Is this a current diagnosis for this admission?: Yes (9) GERD (gastroesophageal reflux disease) Is this a current diagnosis for this admission?: Yes (10) Hypercholesterolemia Is this a current diagnosis for this admission?: Yes (11) Hypertension Is this a current diagnosis for this admission?: Yes (12) Obstructive sleep apnea Is this a current diagnosis for this admission?: Yes (13) Hypothyroidism Is this a current diagnosis for this admission?: Yes (14) Tobacco abuse Is this a current diagnosis for this admission?: Yes - Additional Information Resuscitation Status: Do Not Resuscitate Discharge Diet: Cardiac, Diabetic Discharge Activity: Activity As Tolerated, Balance Activity w/Rest, Weigh Daily Home Medications: Alprazolam [Xanax] 1 mg PO TID 12/01/16 Aspirin [Aspirin EC] 81 mg PO DAILY 12/01/16 Atorvastatin Calcium [Lipitor 20 mg Tablet] 20 mg PO QHS 12/01/16 Cholecalciferol (Vitamin D3) [Vitamin D3 1000 Unit Tablet] 1,000 units PO DAILY 12/01/16 Diltiazem HCl [Cartia Xt] 180 mg PO DAILY 12/01/16 Docusate Sodium [Colace 100 mg Capsule] 100 mg PO BID 12/01/16 Esomeprazole Mag Trihydrate [Nexium] 40 mg PO BID 12/01/16 Ferrous Sulfate [Feosol 325 mg Tablet] 325 mg PO DAILY 12/01/16 Furosemide [Lasix 40 mg Tablet] 40 mg PO TID 12/01/16 Gabapentin [Neurontin 300 mg Capsule] 300 mg PO QHS 12/01/16 Insulin Aspart Protam & Aspart [Novolog Mix 70-30 Flexpen Syrn] 20 units SQ MEALS 12/01/16 Levothyroxine Sodium [Synthroid] 200 mcg PO QAM 12/01/16 Magnesium Oxide [Mag-Ox 400 mg Tablet] 400 mg PO BID 12/01/16 Metoclopramide HCl [Reglan 10 mg Tablet] 10 mg PO BID 12/01/16 Potassium Chloride [Klor-Con 10] 20 meq PO BID 12/01/16 Aspirin [Aspirin 81 mg Chewable Tablet] 81 mg PO DAILY tab.chew 12/03/16 Atorvastatin Calcium [Lipitor 20 mg Tablet] 20 mg PO QHS tablet 12/03/16 Diltiazem HCl [Cardizem Cd 180 mg Capsule] 180 mg PO Q12 capsule.cr 12/03/16 Docusate Sodium [Colace 100 mg Capsule] 100 mg PO BID capsule 12/03/16 Esomeprazole Magnesium [Nexium] 40 mg PO .BIDACBS 12/03/16 Furosemide [Lasix 40 mg Tablet] 40 mg PO QAM #60 tablet 12/03/16 Gabapentin [Neurontin 300 mg Capsule] 300 mg PO QHS capsule 12/03/16 Hum Insulin NPH/Reg Insulin Hm [Insulin 70-30 (NPH/Reg) 100 unit/mL] 20 unit SUBCUT AC unit 12/03/16 Levothyroxine Sodium [Synthroid 0.1 mg Tablet] 0.2 mg PO QAM tablet 12/03/16 Magnesium Oxide [Mag-Ox 400 mg Tablet] 400 mg PO BID tablet 12/03/16 Nicotine [Nicoderm 14 mg/24 Hr Transdermal Patch] 1 each TD DAILY patch.td24 Potassium Chloride [Klor-Con 10 Meq Tablet.sa] 20 meq PO BID tablet.sa History of Present Illness History of Present Illness: SITA MANRIQUE is a 71 year old female presented to her health claims examiner office for follow-up of her COPD when she was noted to be very hypoxic and confused. Patient is chronically on BiPAP and has had previous hypercapnic respiratory failures. Patient recently has had problems with pleural effusions and has had thoracentesis recently and had complications including pneumothorax and hemothorax requiring chest tubes. The patient has continued to smoke 2 packs per day. She is admitted for her COPD and hypercapnia. Hospital Course Hospital Course: 71-year-old female with chronic respiratory failure secondary to COPD and hypercarbia who presented to her health claims examiner office as an outpatient with hypoxia and some confusion. Patient was transferred to the emergency room and was found to be in acute respiratory failure secondary to hypercarbia. The patient was placed on BiPAP and had improvement in her mental status. She was noted to have bilateral pleural effusions. Patient has had a complicated history recently with pleural effusions. She has had thoracentesis with resultant hemopneumothorax. She required chest tubes because of this. Patient was treated with BiPAP here at the hospital and the possibility of doing a thoracentesis was addressed with the patient. She is adamant that she will not have any more thoracentesis done. Patient was seen by Dr. Spencer of pulmonary medicine. He suggested the possibility of a Pleurx catheter along with a Jaja BiPAP machine. The patient did not want any chest tubes. Dr. Spencer' s office is working on getting the Jaja BiPAP machine. Given the patient's chronic medical problems I thought that consideration of hospice should be given and I discussed this with the patient and the daughter. They were very upset by the fact that I would even bring this up. And they rejected the idea of hospice at this time. The patient was back at her baseline respiratory status and was felt that she was stable for discharge to home. Patient will need to get the Jaja BiPAP machine once Dr. Spencer has gotten approval through his office. Patient was seen by Dr. Roger of cardiology. Her Lasix was increased to 40 mg twice daily. She will be sent home on this dose and will follow with Dr. Roger in the next week. Physical Exam Vital Signs: Temp Pulse Resp BP Pulse Ox 97.8 F 76 11 L 137/63 H 98 12/03/16 11:15 12/03/16 11:15 12/03/16 11:15 12/03/16 11:15 12/03/16 11:15 Intake & Output 12/02/16 12/03/16 12/04/16 06:59 06:59 06:59 Intake Total 0 805 Output Total 0 1400 Balance 0 -595 Weight 83.5 kg 87.1 kg General appearance: PRESENT: no acute distress Eye exam: PRESENT: conjunctiva pink. ABSENT: scleral icterus Mouth exam: PRESENT: moist, tongue midline Neck exam: ABSENT: JVD Respiratory exam: PRESENT: decreased breath sounds. ABSENT: rales, rhonchi, wheezes Cardiovascular exam: PRESENT: RRR. ABSENT: diastolic murmur, rubs, systolic murmur GI/Abdominal exam: PRESENT: normal bowel sounds, soft. ABSENT: distended, guarding, mass, organolmegaly, rebound, tenderness Extremities exam: ABSENT: calf tenderness, clubbing, pedal edema Neurological exam: PRESENT: alert, awake, oriented to person, oriented to place , oriented to time, oriented to situation, CN II-XII grossly intact. ABSENT: motor sensory deficit Psychiatric exam: PRESENT: appropriate affect Skin exam: PRESENT: dry, intact, warm. ABSENT: cyanosis, rash Results Laboratory Results: 12/02/16 06:39 12/02/16 06:39 12/02/16 12/02/16 12/02/16 00:38 00:38 06:39 Creatine Kinase 21 L < 20 L CK-MB (CK-2) 2.85 Troponin I 0.215 12/02/16 12/02/16 12/02/16 06:39 13:02 13:02 Creatine Kinase < 20 L CK-MB (CK-2) 2.10 1.83 Troponin I 0.199 0.161 Qualifiers PATEINT BEING DISCHARGED WITH ANY OF THE FOLLOWING DIAGNOSIS?: No Plan Discharge Plan: Patient is discharged home in stable condition. She will follow-up with her primary care in 1-2 weeks. Follow-up with Dr. Spencer in 1 week. Follow-up with Dr. Roger in 1 week. Time Spent: Less than 30 Minutes
--- NOTE | 2016-12-03 13:01 | PDOC PROGRESS REPORT ---
Subjective Progress Note for:: 12/03/16 Subjective:: Patient seems to be doing better with gradual improvement. Pt is denying any chest arm or neck discomfort. Patient denying any PND, orthopnea. Patient denied any sustained palpitations, dizziness, syncope, near syncope. Patient denying any fever chills. Patient denying any other significant discomfort. Patient is maintaining fine A. fib flutter with controlled ventricular response. Review of systems: Rest review of systems negative. Medications: Medications have been reviewed. Physical Exam Vital Signs: Temp Pulse Resp BP Pulse Ox 97.8 F 76 11 L 137/63 H 98 12/03/16 11:15 12/03/16 11:15 12/03/16 11:15 12/03/16 11:15 12/03/16 11:15 Intake & Output 12/02/16 12/03/16 12/04/16 06:59 06:59 06:59 Intake Total 0 805 360 Output Total 0 1400 Balance 0 -595 360 Weight 83.5 kg 87.1 kg Exam: GENERAL: well-nourished and in no acute distress. Alert and oriented x3 HEAD: Atraumatic, normocephalic. EYES: Pupils equal round and reactive to light, extraocular movements intact, sclera anicteric, conjunctiva are normal. ENT: TMs normal, nares patent, oropharynx clear without exudates. Moist mucous membranes. No oral ulcerations or bleeding gums noted NECK: supple without lymphadenopathy. Trachea is central. No cervical or axillary lymphadenopathy noted. Carotids are 2+, JVD 8 cm LUNGS: Respiration seems nonlabored, mild diminished breath sounds noted bilaterally with mild dullness and few basilar crackles. CHEST: Palpation of the chest wall shows no significant chest wall tenderness. No other significant abnormalities noted. HEART: [employer], No PSH, 1/6 ORTIZ aortic area, 1/6 gaitan systolic murmur mitral area, no rubs, no gallops. ABDOMEN: Soft, no significant tenderness appreciated, normoactive bowel sounds. No guarding, no rebound. No rigidity noted . No masses appreciated. EXTREMITIES: Pedal pulses are 1-2+, no calf tenderness noted. No clubbing or cyanosis. 1+ pedal edema noted NEUROLOGICAL: Focused neurological exam showed no significant neurologic deficit. Normal speech, no focal weakness appreciated. PSYCH: Normal mood, normal affect. Judgment and insight within normal limits. SKIN: No significant ecchymosis, rash, ulcerations or signs of pruritus noted. MUSCULOSKELETAL EXAM: No significant joint swelling noted. Results Laboratory Results: 12/02/16 06:39 12/02/16 06:39 12/02/16 12/02/16 12/02/16 00:38 00:38 06:39 Creatine Kinase 21 L < 20 L CK-MB (CK-2) 2.85 Troponin I 0.215 12/02/16 12/02/16 12/02/16 06:39 13:02 13:02 Creatine Kinase < 20 L CK-MB (CK-2) 2.10 1.83 Troponin I 0.199 0.161 EKG Comments: Telemetry strips shows atrial flutter with controlled ventricular response. 2D echo results discussed with the patient Status: Image reviewed by me - 2D echo results discussed. Patient questions answered. Chest x-ray findings discussed Assessment & Plan - Diagnosis (1) Bilateral pleural effusion Is this a current diagnosis for this admission?: Yes (2) Elevated troponin I level Is this a current diagnosis for this admission?: Yes (3) Congestive heart failure Qualifiers: Congestive heart failure type: unspecified congestive heart failure type Congestive heart failure chronicity: chronic Qualified Code(s): I50.9 - Heart failure, unspecified Is this a current diagnosis for this admission?: Yes (4) Coronary artery disease Qualifiers: Coronary Disease-Associated Artery/Lesion type: [place] artery Associated angina: angina presence unspecified Is this a current diagnosis for this admission?: Yes (5) Atrial fibrillation and flutter Is this a current diagnosis for this admission?: Yes (6) COPD (chronic obstructive pulmonary disease) Qualifiers: Emphysema type: unspecified Is this a current diagnosis for this admission?: Yes (7) Acute and chronic respiratory failure ([id number]) Qualifiers: Respiratory failure complication: hypoxia Qualified Code(s): J96.21 - Acute and chronic respiratory failure with hypoxia Is this a current diagnosis for this admission?: Yes (8) Tobacco abuse Is this a current diagnosis for this admission?: Yes - Notes Notes: Bilateral pleural effusion: Related to CHF. Patient has declined thoracentesis. Recommend optimizing diuretic therapy. Elevated troponin I: Most likely related to hypoxemia, CHF rather than acute coronary syndrome. Patient did have symptoms of dyspnea and minor T-wave inversion therefore cannot rule out acute coronary syndrome. However due to patient's comorbid diagnosis at this point will recommend medical management for underlying coronary artery disease. Coronary artery disease: Currently is stable without any symptomatic angina. Will try optimize medical management. COPD: Recommend aggressive management of underlying COPD. Acute on chronic respiratory failure: Patient noted to have severe hypercapnic plus hypoxic respiratory failure. Patient will benefit from noninvasive ventilation. Pulmonary following. Congestive heart failure: Last echocardiogram approximately a year ago, will recommend obtaining another one. Will recommend diuretics, EARLE inhibitors/ARB/ beta-alessia therapy. Beta-alessia may be relatively contraindicated in this patient. Atrial flutter fibrillation: Patient has a history of it and also questionable history of prior stroke. Therefore would be a candidate for chronic anticoagulation but patient does not want to go on it. Will rediscuss it with patient's daughter at a later time. Tobacco abuse: Patient has been advised to quit smoking. - Time Time with patient: 15-25 minutes - CODE STATUS : was discussed, patient remains DO NOT RESUSCITATE. Surrogate decision-maker unchanged. Multiple medical problems were addressed. More than 50% of the time spent coordinating care, discussing management plans with involved caregivers. Management plans discussed with involved personnels. Medical decision making was of moderate to high complexity, patient's has multiple comorbidities. Medications reviewed and adjusted accordingly: Yes
--- NOTE | 2016-12-03 15:37 | RADIOLOGY REPORT (SQ) ---
EXAM DESCRIPTION: CHEST SINGLE VIEW COMPLETED DATE/TIME: 12/01/2016 5:26 pm REASON FOR STUDY: Difficulty breathing COMPARISON: CT chest 11/28/2016 Chest films 11/27/2016, 11/24/2016 TECHNIQUE: AP portable chest film, 12/01/2016, 1720 hours LIMITATIONS: None FINDINGS: Today's study demonstrates opacification of the right and left lower hemithorax from a com bination of airspace disease and pleural fluid. This is stable over the right chest, and increased a t the left lower chest. Findings discussed with Dr. Hancock in the emergency room. Upper lobes are clear. Moderate cardiomegaly. No acute bony changes. IMPRESSION: Bilateral pleural effusions with bibasilar airspace disease. Stable findings on the rig ht, increasing fluid on the left as compared to chest films 11/27/2016.
== END 2016-12-03 11:55 | disposition home or self-care (01) | DRG 189 ==
LOC: ER 17:07 → EH 20:18 → UNDOADMIN 20:28 → EH 20:28 → 3N 12-02 00:27
PROVIDERS: ADMIT Internal Medicine; ATTEND Internal Medicine
PROC: 5A09357 Assistance with Respiratory Ventilation, Less than 24 Consecutive Hours, Continuous Positive Airway Pressure (ICD-10-PCS; principal; 2016-12-01)
DX: J96.21 Acute and chronic respiratory failure with hypoxia (principal); J44.1 Chronic obstructive pulmonary disease with (acute) exacerbation; J90 Pleural effusion, not elsewhere classified; I48.92 Unspecified atrial flutter; J96.22 Acute and chronic respiratory failure with hypercapnia; I48.2 Chronic atrial fibrillation; I50.9 Heart failure, unspecified; I25.10 Atherosclerotic heart disease of native coronary artery without angina pectoris; D64.9 Anemia, unspecified; E11.9 Type 2 diabetes mellitus without complications; K21.9 Gastro-esophageal reflux disease without esophagitis; I10 Essential (primary) hypertension; E78.00 Pure hypercholesterolemia, unspecified; G47.33 Obstructive sleep apnea (adult) (pediatric); E03.9 Hypothyroidism, unspecified; F41.9 Anxiety disorder, unspecified; Z66 Do not resuscitate; M19.90 Unspecified osteoarthritis, unspecified site; Z79.82 Long term (current) use of aspirin; Z79.899 Other long term (current) drug therapy; Z79.4 Long term (current) use of insulin; Z85.72 Personal history of non-Hodgkin lymphomas; F17.210 Nicotine dependence, cigarettes, uncomplicated; Z90.49 Acquired absence of other specified parts of digestive tract; Z90.710 Acquired absence of both cervix and uterus; Z88.8 Allergy status to other drugs, medicaments and biological substances
CPT/HCPCS: 36415; 36600; 71010; 80048; 80053; 81001; 82550; 82553; 82803; 82962; 83735; 83880; 84484; 85025; 85610; 93005; 93010; 93306; 94660; 99285; J1644; J1815; J1940; J3490

== ENCOUNTER → 2016-12-23 | Outpatient (CLI) | payer MEDICARE, MEDICAID ==
[2016-12-23 15:08] LABS: ANION GAP 12 (5-19); BLOOD UREA NITROGEN 10 mg/dL (7-20); CALCIUM 9.8 mg/dL (8.4-10.2); CARBON DIOXIDE 31 mmol/L (22-30); CHLORIDE 102 mmol/L (98-107); GLUCOSE 88 mg/dL (75-110); MAGNESIUM 1.8 mg/dL (1.6-2.3); POTASSIUM 3.7 mmol/L (3.6-5.0); SODIUM 144.5 mmol/L (137-145)
== END ==
LOC: OD 13:39
PROVIDERS: ATTEND Internal Medicine Nephrology
DX: N17.9 Acute kidney failure, unspecified (principal); E87.6 Hypokalemia; E61.2 Magnesium deficiency
CPT/HCPCS: 36415; 80048; 83735

== ENCOUNTER 2017-01-18 20:39 | Inpatient (IN) | payer MEDICARE, MEDICAID ==
--- NOTE | 2017-01-18 21:02 | RADIOLOGY REPORT (SQ) ---
EXAM DESCRIPTION: CHEST SINGLE VIEW COMPLETED DATE/TIME: 01/18/2017 8:46 pm REASON FOR STUDY: slurred speech COMPARISON: 12/01/2016 EXAM PARAMETERS: NUMBER OF VIEWS: One view. TECHNIQUE: Single frontal radiographic view of the chest acquired. RADIATION DOSE: NA LIMITATIONS: None. FINDINGS: LUNGS AND PLEURA: Persistent right moderate pleural effusion. Scattered interstitial charity ings in the lung bases. No dense consolidation. No pneumothorax. MEDIASTINUM AND HILAR STRUCTURES: Stable. HEART AND VASCULAR STRUCTURES: Stable. BONES: No acute findings. HARDWARE: None in the chest. OTHER: No other significant finding. IMPRESSION: Persistent right moderate pleural effusion. Scattered interstitial markings in the lung bases. No dense consolidation. TECHNICAL DOCUMENTATION: JOB ID: [id number]
--- NOTE | 2017-01-18 21:09 | RADIOLOGY REPORT (SQ) ---
EXAM DESCRIPTION: CT HEAD WITHOUT COMPLETED DATE/TIME: 01/18/2017 8:56 pm REASON FOR STUDY: slurred speech COMPARISON: 11/09/2016 TECHNIQUE: Axial images acquired through the brain without intravenous contrast. Images reviewed wi th bone, brain and subdural windows. Images stored on PACS. All CT scanners at this facility use dose modulation, iterative reconstruction, and/or weight based d osing when appropriate to reduce radiation dose to as low as reasonably achievable (ALARA). [facility]: Dose Right [facility]: CareDose [facility]: Dose Right [facility]: Teradose 4D [facility]: Smart [place] RADIATION DOSE: Up-to-date CT equipment and radiation dose reduction techniques were employed. CTDIv ol: 64.6 mGy. DLP: 1034 mGy-cm. mGy. LIMITATIONS: None. FINDINGS: VENTRICLES: Normal size and contour. CEREBRUM: No masses. No hemorrhage. No midline shift. No evidence for acute infarction. Normal gra y/white matter differentiation. No areas of low density in the white matter. CEREBELLUM: No masses. No hemorrhage. No alteration of density. No evidence for acute infarction. EXTRAAXIAL SPACES: No fluid collections. No masses. ORBITS AND GLOBE: No intra- or extraconal masses. Normal contour of globe without masses. CALVARIUM: No fracture. PARANASAL SINUSES: No fluid or mucosal thickening. SOFT TISSUES: No mass or hematoma. OTHER: No other significant finding. IMPRESSION: No acute intracranial findings. EVIDENCE OF ACUTE STROKE: NO. COMMENT: Quality ID # [id number]: Final reports with documentation of one or more dose reduction techniques (e.g., Automated exposure control, adjustment of the mA and/or kV according to patient size, use of iterative reconstruction technique) TECHNICAL DOCUMENTATION: JOB ID: [id number] All Rights Reserved
[2017-01-18 21:14] LABS: ABSOLUTE BASOPHILS # (AUTO) 0.1 10^3/uL (0.0-0.2); ABSOLUTE EOSINOPHILS # (AUTO) 0.2 10^3/uL (0.0-0.6); ABSOLUTE LYMPHOCYTES (AUTO) 1.2 10^3/uL (0.5-4.7); ABSOLUTE MONOCYTES (AUTO) 0.4 10^3/uL (0.1-1.4); ABSOLUTE NEUT (AUTO) 3.7 10^3/uL (1.7-8.2); BASOPHILS % (AUTO) 1.2 % (0-2); EOSINOPHILS % (AUTO) 3.5 % (0-6); HEMATOCRIT 35.2 % (36.0-47.0); HEMOGLOBIN 11.7 g/dL (12.0-15.5); HGB HCT DIFFERENCE -0.1; LYMPHOCYTES % (AUTO) 21.9 % (13-45); MEAN CORPUSCULAR HEMOGLOBIN 27.4 pg (27.0-33.4); MEAN CORPUSCULAR HGB CONC 33.1 g/dL (32.0-36.0); MEAN CORPUSCULAR VOLUME 83 fl (80-97); RED BLOOD COUNT 4.26 10^6/uL (3.72-5.28); RED CELL DISTRIBUTION WIDTH 15.7 % (11.5-14.0); SEGMENTED NEUTROPHILS % (AUTO) 65.4 % (42-78); WHITE BLOOD COUNT 5.6 10^3/uL (4.0-10.5)
[2017-01-18 21:15] LABS: VENOUS BLOOD BASE EXCESS 3.2 mmol/L; VENOUS BLOOD HCO3 29.7 mmol/L (20-32); VENOUS BLOOD PH 7.36 (7.30-7.42)
[2017-01-18 21:19] LABS: PARTIAL THROMBOPLASTIN TIME 33.5 SEC (23.5-35.8); PROTHROMBIN TIME 13.1 SEC (11.4-15.4)
[2017-01-18 21:33] LABS: ALANINE AMINOTRANSFERASE 28 U/L (9-52); ALBUMIN 4.2 g/dL (3.5-5.0); ALKALINE PHOSPHATASE 167 U/L (38-126); ANION GAP 13 (5-19); ASPARTATE AMINO TRANSFERASE 31 U/L (14-36); BILIRUBIN,DIRECT 0.5 mg/dL (0.0-0.4); BILIRUBIN,TOTAL 0.7 mg/dL (0.2-1.3); BLOOD UREA NITROGEN 13 mg/dL (7-20); CALCIUM 9.8 mg/dL (8.4-10.2); CARBON DIOXIDE 28 mmol/L (22-30); CHLORIDE 104 mmol/L (98-107); CREATINE KINASE 36 U/L (30-135); CREATININE RESULT 0.88 mg/dL (0.52-1.25); GLUCOSE 80 mg/dL (75-110); POTASSIUM 3.4 mmol/L (3.6-5.0); SODIUM 144.7 mmol/L (137-145); TOTAL PROTEIN 7.8 g/dL (6.3-8.2)
--- NOTE | 2017-01-18 21:38 | ER Document Report ---
ED General - General Chief Complaint: S/S of Possible Stroke Stated Complaint: STROKE ALERT Time Seen by Provider: 01/18/17 21:22 Mode of Arrival: Medic Information source: Relative Notes: Note this is a 71-year-old female with a history of CHF, atrial fibrillation, COPD, CVA 3 years ago (mild left-sided weakness, ambulates with assistance and a walker, has normal speech at baseline) who presents to the emergency room with significant slurred speech. TRAVEL OUTSIDE OF THE [place] IN LAST 30 DAYS: No - HPI Onset: Just prior to arrival Onset/Duration: Sudden Quality of pain: No pain Severity: None Pain Level: Denies Associated symptoms: denies: Chest pain, Fever, Shortness of breath Exacerbated by: Denies Relieved by: Denies Similar symptoms previously: No Recently seen / treated by doctor: No - Related Data Allergies/Adverse Reactions: moxifloxacin HCl [From Avelox] Allergy (Severe, Verified 01/18/17 23:56) rash,itch apixaban [From Eliquis] Allergy (Intermediate, Verified 01/18/17 23:56) swell dabigatran etexilate [From Pradaxa] Allergy (Intermediate, Verified 01/18/17 23: 56) swell lansoprazole [From Prevacid] Allergy (Intermediate, Verified 01/18/17 23:56) Generalized Itching aloe [Aloe] Allergy (Verified 01/18/17 23:56) Home Medications: Current Home Medications Alprazolam [Xanax] 1 mg PO TID 01/19/17 [History] Amoxicillin 500 mg PO BID 01/19/17 [History] Aspirin [Adult Low Dose Aspirin EC] 81 mg PO DAILY 01/19/17 [History] Atorvastatin Calcium [Lipitor 10 mg Tablet] 10 mg PO QHS 01/19/17 [History] Cholecalciferol (Vitamin D3) [Vitamin D3 1000 Unit Tablet] 1,000 unit PO DAILY 01/19/17 [History] Docusate Sodium [Colace 100 mg Capsule] 100 mg PO TID 01/19/17 [History] Esomeprazole Magnesium [Nexium] 40 mg PO BID 01/19/17 [History] Ferrous Sulfate [Iron] 325 mg PO DAILY 01/19/17 [History] Furosemide [Lasix 40 mg Tablet] 40 mg PO TID 01/19/17 [History] Gabapentin 300 mg PO DAILY 01/19/17 [History] Hum Insulin NPH/Reg Insulin Hm [Novolin 70-30 100 Unit/Ml Vial] 25 unit SQ TID 01/19/17 [History] Levothyroxine Sodium [Synthroid] 200 mcg PO DAILY 01/19/17 [History] Magnesium Oxide [Magox] 400 mg PO BID 01/19/17 [History] Metoclopramide HCl [Reglan 10 mg Tablet] 10 mg PO ACHS 01/19/17 [History] Potassium Chloride [K-Tab] 40 meq PO BID 01/19/17 [History] Past Medical History - General Information source: Patient - Social History Smoking Status: Never Smoker Cigarette use (# per day): No Chew tobacco use (# tins/day): No Frequency of alcohol use: None Drug Abuse: None Lives with: Family Family History: Reviewed & Not Pertinent, CAD, COPD, DM, Hypertension Patient has suicidal ideation: No Patient has homicidal ideation: No - Past Medical History Cardiac Medical History: Reports: Hx Atrial Fibrillation, Hx Congestive Heart Failure, Hx Coronary Artery Disease, Hx Heart Attack, Hx Hypertension Pulmonary Medical History: Reports: Hx Asthma, Hx Bronchitis, Hx COPD, Hx Pneumonia, Hx Sleep Apnea Neurological Medical History: Reports: Hx Cerebrovascular Accident Endocrine Medical History: Reports: Hx Diabetes Mellitus Type 1, Hx Diabetes Mellitus Type 2, Hx Hypothyroidism Renal/ Medical History: Denies: Hx Peritoneal Dialysis Malignancy Medical History: Reports: Hx Lymphoma - Non-Hodgkin's B cell type , status post radiation and cheremission x 10yrs GI Medical History: Reports: Hx Gastroesophageal Reflux Disease Musculoskeltal Medical History: Reports Hx Arthritis Past Surgical History: Reports: Hx Appendectomy, Hx Cholecystectomy, Hx Hysterectomy, Hx Tonsillectomy, Hx Vascular Surgery - History of lymph node removal from the groin, Other - Benign brain tumor surgery. Lymph node excision - Immunizations Hx Diphtheria, Pertussis, Tetanus Vaccination: No Hx Pneumococcal Vaccination: 01/16/13 Review of Systems - Review of Systems Constitutional: denies: Chills, Fever EENT: No symptoms reported Cardiovascular: No symptoms reported Respiratory: No symptoms reported Gastrointestinal: No symptoms reported Genitourinary: No symptoms reported Female Genitourinary: No symptoms reported Musculoskeletal: No symptoms reported Skin: No symptoms reported Hematologic/Lymphatic: No symptoms reported Neurological/Psychological: See HPI Physical Exam - Vital signs Vitals: Pulse Resp BP Pulse Ox 95 18 162/75 H 93 01/18/17 20:39 01/18/17 20:39 01/18/17 20:39 01/18/17 20:39 Notes: Physical exam: GENERAL: 75-year-old female, somewhat lethargic, slurred speech HEAD: Atraumatic, normocephalic. EYES: Pupils equal round and reactive to light, extraocular movements intact, sclera anicteric, conjunctiva are normal. ENT: TMs normal, nares patent, oropharynx clear without exudates. Moist mucous membranes. NECK: Normal range of motion, supple without obvious mass or JVD. LUNGS: Breath sounds clear to auscultation bilaterally and equal. No wheezes rales or rhonchi. HEART: Regular rate and rhythm without murmurs, rubs or gallops. ABDOMEN: Soft, normoactive bowel sounds. No tenderness to palpation. No guarding, no rebound. No masses appreciated. EXTREMITIES: Normal range of motion, no pitting or edema. No clubbing or cyanosis. NEUROLOGICAL: Patient has an NIH H score of 7. She is alert and keenly responsive, she can answer the month and her age correctly, she can open and close her eyes and her face as well, she does have a normal horizontal gaze, she does appear to have a partial quadrantanopia (left lower side), she does have a right sided facial droop, motor to the upper extremities is good, she does have the right leg drifting but not touching the bed, she has no limb ataxia, sensory is intact, she has significant loss of fluency, she can name objects correctly, she has severe slurring, and she is difficult to understand. PSYCH: Normal mood, normal affect. SKIN: Warm, Dry, normal turgor, no rashes or lesions noted. Course - Re-evaluation Re-evalutation: 01/18/17 21:37 The patient does meet criteria for thrombolytics. I have gone into detail with the patient and the patient's daughter the benefits and risks of thrombolytics. The patient is absolutely refusing thrombolytics at this time. She does appear competent to make this decision. 01/18/17 23:58 In summary: Patient was eligible for thrombolytics. After extensive discussions with the patient and her daughter, the patient has refused thrombolytics. I obtained a CTA of the head to look for any large vessel clot but none was visualized on that study. - Vital Signs Vital signs: Temp Pulse Resp BP Pulse Ox 91 18 129/64 H 93 01/19/17 00:00 01/19/17 00:00 01/19/17 00:00 01/19/17 00:00 - Laboratory Result Diagrams: 01/18/17 20:55 01/18/17 20:55 Laboratory results interpreted by me: 01/18/17 01/18/17 01/18/17 20:55 20:55 20:55 Hgb 11.7 L Hct 35.2 L RDW 15.7 H Potassium 3.4 L Lactic Acid 2.3 H Direct Bilirubin 0.5 H Alkaline Phosphatase 167 H - Diagnostic Test Radiology reviewed: Image reviewed, Reports reviewed - CT of the head shows no acute bleed - EKG Interpretation by Me Rate: Normal Rhythm: NSR - EKG shows sinus rhythm with a ventricular rate of 94, there is frequent PACs Critical Care Note - Critical Care Note Total time excluding time spent on procedures (mins): 65 Discharge - Discharge Clinical Impression: Acute stroke Condition: Serious Disposition: ADMITTED INPATIENT Admitting Provider: Hospitalist - dr covington Unit Admitted: [facility]
[2017-01-18 21:45] LABS: CREATINE KINASE MB 0.93 ng/mL (<4.55); TROPONIN I 0.013 ng/mL
--- NOTE | 2017-01-18 22:21 | RADIOLOGY REPORT (SQ) ---
EXAM DESCRIPTION: CTA NECK COMPLETED DATE/TIME: 01/18/2017 10:09 pm REASON FOR STUDY: right facial droop, slurred speech COMPARISON: None. TECHNIQUE: Axial dynamic scanning technique with dynamic contrast enhancement through the extra-aviation technician aircraft nial carotid and vertebral arteries. Multiplanar reconstruction. 3-D MIPS and Volume-rendered imag es acquired at the workstation and saved to PACS. Images are reviewed in soft tissue, bone, lung w indows. All CT scanners at this facility use dose modulation, iterative reconstruction, and/or weight based d osing when appropriate to reduce radiation dose to as low as reasonably achievable (ALARA). [facility]: Dose Right [facility]: CareDose [facility]: Dose Right [facility]: Teradose 4D [facility]: [employer] CONTRAST TYPE AND DOSE: 70 mL Isovue 370- low osmolar. RENAL FUNCTION: GFR > 60. LIMITATIONS: None. FINDINGS: AORTIC ARCH: Normal three-vessel origin. Bilateral subclavian arteries are patent. No d issection. RIGHT CAROTIDS: Patent common, internal and external carotid arteries without suggestion of significa nt stenosis or irregular plaque. No dissection. RIGHT VERTEBRAL: Patent. No dissection. LEFT CAROTIDS: Patent common, internal and external carotid arteries without suggestion of significan t stenosis or irregular plaque. No dissection. LEFT VERTEBRAL: Patent. No dissection. OTHER: Moderate right pleural effusion. OTHER: 3-D reconstructions confirm findings. IMPRESSION: No dissection or significant stenosis. Moderate right pleural effusion. COMMENT: Quality ID #[id number]: Measurements of distal internal carotid diameter were used as the denomina tor for stenosis measurement. TECHNICAL DOCUMENTATION: JOB ID: [id number] Quality ID # [id number]: Final reports with documentation of one or more dose reduction techniques (e.g., Au tomated exposure control, adjustment of the mA and/or kV according to patient size, use of iterative reconstruction technique) 2010 [employer]- All Rights Reserved
--- NOTE | 2017-01-18 22:22 | RADIOLOGY REPORT (SQ) ---
EXAM DESCRIPTION: CTA HEAD COMPLETED DATE/TIME: 01/18/2017 10:09 pm REASON FOR STUDY: right facial droop, slurred speech COMPARISON: None. TECHNIQUE: Post IV contrast scanning, thin section axial imaging through the brain to evaluate the a rterial structures. Source and MIP images are saved and reviewed on PACS. Advanced 3D imaging as volume-rendering, MIPs, SSD performed? Yes All CT scanners at this facility use dose modulation, iterative reconstruction, and/or weight based d osing when appropriate to reduce radiation dose to as low as reasonably achievable (ALARA). [facility]: Dose Right [facility]: CareDose [facility]: Dose Right [facility]: Teradose 4D [facility]: [facility] (TTR) CONTRAST TYPE AND DOSE: contrast/concentration: Isovue 370.00 mg/ml; Total Contrast Delivered: 70.0 ml; Total Saline Delivered: 55.0 ml RENAL FUNCTION: GFR > 60. LIMITATIONS: None. FINDINGS: [place]: The anterior, middle, posterior cerebral arteries are all patent. No ev idence of aneurysm or focal stenosis. POSTERIOR CIRCULATION: The distal vertebral arteries are patent as is the basilar artery. No aneurysm . BRAIN: No gross enhancing lesions as visualized. The superior cerebral hemispheres are not included in the field of view. BONES: Intact as visualized. SINUSES: No fluid or mucosal thickening. OTHER: No other significant finding. IMPRESSION: NO CTA EVIDENCE OF STENOSIS OR ANEURYSM OF THE [place]. TECHNICAL DOCUMENTATION: JOB ID: [id number] Quality ID # [id number]: Final reports with documentation of one or more dose reduction techniques (e.g., Au tomated exposure control, adjustment of the mA and/or kV according to patient size, use of iterative reconstruction technique) 2010 [employer]- All Rights Reserved
[2017-01-18] MEDS ORDERED: DEXTROSE 40% GEL 15 GM TUBE PO PRN ×2 (22:53)
[2017-01-18] MEDS ORDERED: INSULIN LISPRO 100 UNIT/ML 3 ML VIAL SUBCUT PRN (22:53)
[2017-01-18] MEDS ORDERED: DEXTROSE 50%-WATER 25 GM/50 ML DISP.SYRIN IV PRN ×2 (22:53)
[2017-01-18] MEDS ORDERED: GLUCAGON,HUMAN RECOMB 1 MG INJ IM PRN (22:53)
[2017-01-18 22:58] LABS: ADD ON TESTING BLD IN LAB ACKNOWLEDGE
[2017-01-18 23:12] LABS: MAGNESIUM 1.8 mg/dL (1.6-2.3)
[2017-01-19] MEDS ORDERED: NICOTINE 7 MG/24 HR PATCH.TD24 TD PRN (01:53)
[2017-01-19] MEDS ORDERED: POTASSI CL 20 MEQ/50 ML RIDER 20 MEQ/50 ML RTUPB IV ONE ×2 (01:55→03:00)
[2017-01-19] MEDS ORDERED: NORMAL SALINE 1000 ML 1,000 ML IV PRN (01:56)
[2017-01-19] MEDS ORDERED: PROMETHAZINE HCL 25 MG TABLET PO PRN (02:07)
[2017-01-19] MEDS ORDERED: ACETAMINOPHEN 325 MG TABLET PO PRN (02:07)
[2017-01-19 02:29] LABS: VENOUS BLOOD HCO3 27.6 mmol/L (20-32); VENOUS BLOOD PCO2 47.5 mmHg (35-63); VENOUS BLOOD PH 7.38 (7.30-7.42)
[2017-01-19] MEDS ORDERED: INFLUENZA ADLT QUAD (36MOS+) 2017-18 VAC 0.5 ML SYR IM PRN (02:50)
[2017-01-19] MEDS ORDERED: MAGNESIUM SULFATE/D5W 1 GM/100 ML RTUPB IV ONE (03:00)
[2017-01-19 04:03] LABS: APPEARANCE,URINE CLEAR; BILIRUBIN,URINE NEGATIVE (NEGATIVE); GLUCOSE, URINE NEGATIVE (NEGATIVE); KETONES,URINE NEGATIVE (NEGATIVE); LEUKOCYTE ESTERASE,URINE NEGATIVE (NEGATIVE); NITRITE,URINE NEGATIVE (NEGATIVE); PROTEIN,URINE NEGATIVE (NEGATIVE); URINE SPECIFIC GRAVITY 1.014; UROBILINOGEN,URINE NEGATIVE mg/dL (<2.0)
[2017-01-19 06:57] LABS: ALANINE AMINOTRANSFERASE 25 U/L (9-52); ALBUMIN 3.4 g/dL (3.5-5.0); ALKALINE PHOSPHATASE 144 U/L (38-126); ANION GAP 8 (5-19); ASPARTATE AMINO TRANSFERASE 19 U/L (14-36); BILIRUBIN,DIRECT 0.3 mg/dL (0.0-0.4); BILIRUBIN,TOTAL 0.4 mg/dL (0.2-1.3); CALCIUM 9.3 mg/dL (8.4-10.2); CARBON DIOXIDE 29 mmol/L (22-30); CHLORIDE 107 mmol/L (98-107); CHOLESTEROL 117.08 mg/dL (0-200); GLUCOSE 122 mg/dL (75-110); POTASSIUM 3.9 mmol/L (3.6-5.0); TOTAL PROTEIN 6.3 g/dL (6.3-8.2); TRIGLYCERIDES 94 mg/dL (<150)
[2017-01-19 06:58] LABS: BLOOD UREA NITROGEN 13 mg/dL (7-20)
[2017-01-19 06:59] LABS: Direct HDL 49 mg/dL (>40)
[2017-01-19 07:03] LABS: HEMATOCRIT 29.9 % (36.0-47.0); HEMOGLOBIN 9.9 g/dL (12.0-15.5); HGB HCT DIFFERENCE -0.2; MEAN CORPUSCULAR HEMOGLOBIN 27.3 pg (27.0-33.4); MEAN CORPUSCULAR HGB CONC 33.3 g/dL (32.0-36.0); MEAN CORPUSCULAR VOLUME 82 fl (80-97); RED BLOOD COUNT 3.63 10^6/uL (3.72-5.28); RED CELL DISTRIBUTION WIDTH 15.5 % (11.5-14.0)
[2017-01-19 07:08] LABS: DIRECT LDL 54 mg/dL (<100)
--- NOTE | 2017-01-19 08:48 | PDOC H&P ---
History of Present Illness Admission Date/PCP: 01/19/17 01:57 Dr. Dima Huertas Patient complains of: Slurred speech History of Present Illness: SITA MANRIQUE is a 71 year old female with history of prior stroke which has left her with slight difficulty with fine motor movements of her left hand, who presents to the emergency room for evaluation of above complaint. Patient has been discussed with emergency room physician who evaluated the patient. Approximately 8 PM, shortly after finishing her evening meal, patient went to the bathroom. When she called out to her daughter, who lives with her, and who is present at her side with patient's approval, noted obvious slurring of her speech along with mild right facial droop. Slight weakness of her right lower extremity, but no obvious right upper extremity involvement. Prior to the above events, no specific complaints including nausea vomiting, fever chills, diarrhea or dysuria. No headache chest or abdominal pain. Patient passed the emergency room swallow screen. Of interest, shortly after admission to the floor, patient did have a brief episode of self resolving sharp chest pain. Last Tuesday, patient was placed on amoxicillin for respiratory complaints. Hospitalized on our service the through 03 December of this year, with final diagnoses including bilateral pleural effusion, along with increased shortness of breath. Discharge summary has been reviewed. Admitted to our service June 15 of last year with admission diagnoses including acute on chronic respiratory failure, with application of BiPAP and COPD exacerbation. History and physical has been reviewed. Dictation via voice recognition software. Laboratory results are listed in [employer] and are reviewed. X-ray summary results are listed below, with full report(s) reviewed. . EKG reviewed and compared to prior tracing from December 02 of this year. Social history/personal habits: . Lives with daughter. Retired. Pack-a- day smoker. No alcohol or illicit drug use. Allergies/adverse reactions are listed in [employer] and are reviewed. No problems with Cipro or Levaquin. Home medications initially autopopulated into [employer] may not accurately reflect patient's true medications, dosages, and/or frequencies. environmental services tech to reconcile medications. Unfortunately, patient not certain of all medications/dosages/frequencies. REVIEW OF SYSTEMS: Constitutional: No fever or chills. Eyes: Wears glasses. ENT: No swallowing problems or complaints. Denies hearing loss. Pulmonary: No current complaints. Cardiovascular: See history and present illness. Gastrointestinal: No current complaints, including nausea or vomiting. Skin: No current complaints, including rashes. Hematologic: Easy bruising. Neurologic: See history and present illness. Musculoskeletal: Chronic joint pain from arthritis. Psychiatric: Anxiety. Endocrine: No current complaints, including polyuria. Genitourinary: No current complaints, including dysuria. PHYSICAL EXAMINATION: 5 feet 4 inches tall. 79.7 kg. BMI 30.2 kg/m. Temperature 97.2. Pulse 87 and regular. Blood pressure 148/82. Respirations are 18 and unlabored. 91% saturation on 2 L oxygen per nasal cannula. Somewhat obese otherwise well-developed though chronically ill-appearing female who appears a bit older than her stated age. Awake alert and cooperative, although appears to feel somewhat under the weather, so to speak, and also somewhat fatigued. Daughter is present at her side; patient improves. Female floor nurse Emma is present. Skin is warm and dry. No grossly obvious evidence of rash in areas of skin examined. No subcutaneous nodules palpated. ENT: Hearing grossly normal to normal conversation. Tongue midline on protrusion pink and slightly tacky. Eyes: No scleral icterus. Pupils equal and reactive to light at 4 mm. [place] conjunctivae. Neck is supple and nontender to gentle active range of motion and palpation. Midline trachea. No palpable thyroid nodule mass enlargement or tenderness. Lymphatic: No palpable cervical or clavicular nodes. Neck and lymphatic exams limited by patient body habitus. Psychiatric: Reasonable insight into acute and chronic medical issues. Oriented to time location and why here. Lungs: Auscultation reveals equal breath sounds bilaterally. No use of accessory respiratory muscles. Slightly coarse expiratory breath sounds bilaterally. Daughter states that this is not unusual for patient. Cardiovascular: Heart slightly irregular rate and rhythm, without gallop murmur or rub. No carotid or abdominal aortic bruits. No ankle or pedal edema. Palpable dorsalis pedis pulses. Abdomen:soft slightly distended nontender with positive bowel sounds. Unable to adequately evaluate abdomen for masses or organomegaly due to distention. Extremities: Hands and feet are warm and dry. No calf tenderness to compression. No grossly obvious visual evidence of calf swelling. Gentle manipulation of upper and lower extremities fails to reveal any obvious evidence of injury or instability to involved major joints. Neuro: Cranial Nerves II through XII are grossly intact, with exception of very faintly noticeable downturning of the right corner of her mouth with smiling. Light touch intact at face, upper and lower extremities. Motor function of major muscle groups right upper and bilateral lower extremities 5 over 5 and symmetric. Very faintly decreased motor strength of biceps and triceps function on the left, along with handgrip. Patellar reflexes absent. Absent Babinski. No nystagmus. Past Medical History Cardiac Medical History: Reports: Atrial Fibrillation, Coronary Artery Disease, Myocardial Infarction, Hyperlipidema, Hypertension Denies: Congestive Heart Failure, DVT, Pulmonary Embolism Pulmonary Medical History: Reports: Asthma, Bronchitis, Chronic Obstructive Pulmonary Disease (COPD) - 2 L oxygen per nasal cannula, 08/11, Pneumonia, Sleep Apnea - Currently on BiPAP for same EENT Medical History: Reports: Eyes - Glasses Denies: Ears, Throat Neurological Medical History: Reports: Ischemic CVA Denies: Hemorrhagic CVA, Seizures Endocrine Medical History: Reports: Diabetes Mellitus Type 1, Hypothyroidism Denies: Diabetes Mellitus Type 2, Hyperthyroidism Malignancy Medical History: Reports: Lymphoma - Non-Hodgkin's B cell type , S/P XRT, chemo; 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 GI Medical History: Reports: Gastroesophageal Reflux Disease Denies: Cirrhosis, Hepatitis, Peptic Ulcer Disease Musculoskeltal Medical History: Reports: Arthritis Skin Medical History: Reports: None Psychiatric Medical History: Reports: General Anxiety Disorder, Tobacco Dependency Denies: Alcohol Dependency, Depression, Substance Abuse Hematology: Reports: Anemia, Other - Easy bruising Infectious Medical History: Denies: Hepatitis B, Hepatitis C Past Surgical History Past Surgical History: Reports: Appendectomy, Cholecystectomy, Hysterectomy, Tonsillectomy, Other - Excision benign brain tumor early ; similar inoperable lesion present Social History Information Source: Patient, Relative - Daughter, Emergency Med Personnel, [facility] Records Lives with: Family Smoking Status: Current Every Day Smoker Cigarettes Packs Per Day: 1 Number of Years Smokin Frequency of Alcohol Use: None Hx Recreational Drug Use: No Drugs: None Hx Prescription Drug Abuse: No - Advance Directive Resuscitation Status: Full Code Surrogate healthcare decision maker:: Daughter Celina Nixon Family History Family History: Reviewed & Not Pertinent, CAD, COPD, DM, Hypertension Parental Family History Reviewed: Yes - Mother of cancer; father of myocardial infarction Children Family History Reviewed: Yes - Hypertension Sibling(s) Family History Reviewed.: Yes - Myocardial infarction and cancer Medication/Allergy Home Medications: Alprazolam [Xanax] 1 mg PO Q8HP PRN 01/19/17 Atorvastatin Calcium [Lipitor 20 mg Tablet] 20 mg PO QHS 01/19/17 Diltiazem HCl [Cartia Xt] 180 mg PO DAILY 01/19/17 Esomeprazole Magnesium [Nexium] 40 mg PO BID 01/19/17 Furosemide [Lasix 40 mg Tablet] 40 mg PO DAILY 01/19/17 Gabapentin 300 mg PO Q8 01/19/17 Insulin Aspart Protam & Aspart [Novolog Mix 70-30 Vial] 20 unit SQ MEALS Levothyroxine Sodium [Synthroid] 200 mcg PO DAILY 01/19/17 Lisinopril [Zestril] 20 mg PO DAILY 01/19/17 Metoclopramide HCl [Reglan 10 mg Tablet] 10 mg PO MEALS 01/19/17 Potassium Chloride [K-Tab ER] 10 meq PO DAILY 01/19/17 Aspirin [Ecotrin 325 mg EC Tablet] 325 mg PO DAILY tabec 01/20/17 Allergies/Adverse Reactions: moxifloxacin HCl [From Avelox] Allergy (Severe, Verified 01/19/17 02:07) rash,itch apixaban [From Eliquis] Allergy (Intermediate, Verified 01/18/17 23:56) swell dabigatran etexilate [From Pradaxa] Allergy (Intermediate, Verified 01/18/17 23: 56) swell lansoprazole [From Prevacid] Allergy (Intermediate, Verified 01/18/17 23:56) Generalized Itching aloe [Aloe] Allergy (Verified 01/18/17 23:56) Physical Exam Vital Signs: Temp Pulse Resp BP Pulse Ox 97.8 F 78 14 130/66 H 96 01/19/17 05:30 01/19/17 07:41 01/19/17 07:45 01/19/17 07:41 01/19/17 07:41 Intake & Output 01/18/17 01/19/17 01/20/17 00:59 00:59 00:59 Intake Total 660 Balance 660 Weight 79.7 kg Results Laboratory Results: 01/19/17 06:27 01/19/17 06:27 01/19/17 01/19/17 01/19/17 02:18 06:27 06:27 WBC 5.0 RBC 3.63 L Hgb 9.9 L Hct 29.9 L MCV 82 MCH 27.3 MCHC 33.3 RDW 15.5 H Plt Count 133 L VBG pH 7.38 VBG pCO2 47.5 VBG HCO3 27.6 VBG Base Excess 2.0 Sodium 144.0 Potassium 3.9 Chloride 107 Carbon Dioxide 29 Anion Gap 8 BUN 13 Creatinine 0.80 Est GFR ( Amer) > 60 Est GFR (Non-Af Amer) > 60 Glucose 122 H Calcium 9.3 Total Bilirubin 0.4 AST 19 ALT 25 Alkaline Phosphatase 144 H Total Protein 6.3 Albumin 3.4 L Triglycerides 94 Cholesterol 117.08 LDL Cholesterol Direct 54 VLDL Cholesterol 19.0 HDL Cholesterol 49 01/19/17 01/19/17 02:18 06:35 Troponin I 0.020 0.024 Impressions: Head CT 01/18/17 00:00 IMPRESSION: No acute intracranial findings. EVIDENCE OF ACUTE STROKE: NO. Chest X-Ray 01/18/17 20:43 IMPRESSION: Persistent right moderate pleural effusion. Scattered interstitial markings in the lung bases. No dense consolidation. Head CTA 01/18/17 21:32 IMPRESSION: NO CTA EVIDENCE OF STENOSIS OR ANEURYSM OF [place]. Neck CTA 01/18/17 21:32 IMPRESSION: No dissection or significant stenosis. Moderate right pleural effusion. Assessment & Plan - Diagnosis (1) MALIK (obstructive sleep apnea) Is this a current diagnosis for this admission?: Yes Plan: BiPAP, with supplemental oxygen; daughter uncertain of specific settings of device. (2) COPD (chronic obstructive pulmonary disease) Qualifiers: COPD type: unspecified COPD Qualified Code(s): J44.9 - Chronic obstructive pulmonary disease, unspecified Is this a current diagnosis for this admission?: Yes Plan: Resume home medications as appropriate once these have been determined and reviewed. (3) Tobacco dependency Is this a current diagnosis for this admission?: Yes Plan: As needed nicotine patch. (4) HLD (hyperlipidemia) Qualifiers: Hyperlipidemia type: unspecified Qualified Code(s): E78.5 - Hyperlipidemia , unspecified Is this a current diagnosis for this admission?: Yes Plan: Resume home medications as appropriate once these have been determined and reviewed. (5) Atrial fibrillation Qualifiers: Atrial fibrillation type: chronic Qualified Code(s): I48.2 - Chronic atrial fibrillation Is this a current diagnosis for this admission?: Yes Plan: Resume home medications as appropriate once these have been determined and reviewed. (6) Chest pain Qualifiers: Chest pain type: unspecified Qualified Code(s): R07.9 - Chest pain, unspecified Is this a current diagnosis for this admission?: Yes Plan: Doubt significant, but will trend troponins. Discussed with the hospitalist team. (7) History of CVA (cerebrovascular accident) Is this a current diagnosis for this admission?: Yes (8) Facial droop Is this a current diagnosis for this admission?: Yes (9) Acute focal neurological deficit Is this a current diagnosis for this admission?: Yes Plan: Patient will be admitted under CVA/TIA protocol. Multiple imaging procedures, intracranial, vascular, and cardiac. lipid panel. Permissive hypertension. With dysarthria, will keep patient ice chips only until seen by speech therapy. Patient is a full code. I have strongly urged patient not to get out of bed without calling nursing staff, to avoid a fall with injury. Knee high SCDs for DVT prophylaxis, along with subcutaneous Lovenox. Impression and plans were discussed with patient and daughter, both of whom concur Time spent in evaluation and management of patient: 85 minutes (10) Hypothyroidism Qualifiers: Hypothyroidism type: unspecified Qualified Code(s): E03.9 - Hypothyroidism , unspecified Is this a current diagnosis for this admission?: Yes Plan: Resume home medications as appropriate once these have been determined and reviewed. (11) Diabetes mellitus type 1 Qualifiers: Diabetes mellitus complication status: without complication Qualified Code( s): E10.9 - Type 1 diabetes mellitus without complications Is this a current diagnosis for this admission?: Yes Plan: Accu-Cheks with appropriate sliding scale coverage. Resume home medications as appropriate once these have been determined and reviewed. - Time Time Spent: Greater than 70 Minutes Within: within 72 hours - Inpatient Certification Based on my medical assessment, after consideration of the patient's comorbidities, presenting symptoms, or acuity I expect that the services needed warrant INPATIENT care.: Yes I certify that my determination is in accordance with my understanding of Medicare's requirements for reasonable and necessary INPATIENT services [42 CFR 412.3e].: Yes Medical Necessity: Need Close Monitoring Due to Risk of Patient Decompensation, Need for Neurological Checks, Risk of Complication if Not Cared For in Hospital Post Hospital Care: D/C or Transfer Summary
--- NOTE | 2017-01-19 09:00 | EKG REPORT ---
SEVERITY:- ABNORMAL ECG - SINUS RHYTHM NONSPECIFIC T ABNORMALITIES, INFERIOR LEADS : Confirmed by: Jesica Kimbrough MD 19-Jan-2017 08:59:17
--- NOTE | 2017-01-19 09:00 | EKG REPORT ---
SEVERITY:- ABNORMAL ECG - SINUS TACHYCARDIA NONSPECIFIC INTRAVENTRICULAR CONDUCTION DELAY BORDERLINE R WAVE PROGRESSION, ANTERIOR LEADS BORDERLINE ST DEPRESSION, ANTEROLATERAL LEADS : Confirmed by: Jesica Kimbrough MD 19-Jan-2017 08:59:22
[2017-01-19] MEDS: DOCUSATE SODIUM 100 MG CAPSULE PO SCH ×2 (09:19→18:05)
[2017-01-19] MEDS: ASPIRIN 325 MG TABLET, ENT COATED PO SCH (09:19)
[2017-01-19] MEDS: ENOXAPARIN SODIUM INJ 40 MG/0.4 ML DISP.SYRIN SUBCUT SCH (09:19)
--- NOTE | 2017-01-19 16:00 | RADIOLOGY REPORT (SQ) ---
EXAM DESCRIPTION: MRI HEAD WITHOUT; MRA HEAD WITHOUT COMPLETED DATE/TIME: 01/19/2017 3:34 pm REASON FOR STUDY: rt facial droop; hx cva w/lt. weakness COMPARISON: CT angio brain 01/18/2017 CT angio neck 01/18/2017 CT brain 01/18/2017 MRI brain 12/05/2014 TECHNIQUE: Multiplanar imaging includes non-contrasted T1, T2, FLAIR, and diffusion with ADC map seq uences. Images stored on PACS. [place] 3D [id number] MRA was performed, reviewed source data and maximum intensity proj ected images. LIMITATIONS: None. FINDINGS: ANATOMY: No congenital or developmental anomalies. Normal vascular flow voids. Pituitary f jabari normal. CSF SPACES: Normal in size and contour. No hemorrhage. 8 mm calcified nodule along the right frontal pleural surface likely a small meningioma. This finding is unchanged from previous studies CEREBRUM: Old right frontal cortical infarct. Spotty diffuse increased bifrontal and biparietal whit e matter signal on FLAIR imaging from small vessel disease, stable compared 12/05/2014. No evidence o f acute hemorrhage, mass, or extraaxial fluid collection. No MR evidence of acute ischemic change. POSTERIOR FOSSA: No signal alteration. No hemorrhage. No edema, masses or mass effect. Internal niharika tory canals, cerebello-pontine angles, mastoids normal. DIFFUSION IMAGING: Negative for acute or sub-acute infarction. ORBITS: No masses. Globes normal. PARANASAL SINUSES: No fluid levels. Mucosa normal. [place] MRA: No point [place] stenosis, vascular malformation, or aneurysm. IMPRESSION: No MR evidence of acute ischemic change. 8 mm calcified meningioma right frontal region unchanged from prior studies Moderate small vessel ischemic change in the deep hemispheric white matter, chronic Unremarkable [place] MRA EVIDENCE OF ACUTE STROKE: NO. TECHNICAL DOCUMENTATION: JOB ID: [id number] [employer]- All Rights Reserved
--- NOTE | 2017-01-19 16:00 | RADIOLOGY REPORT (SQ) ---
EXAM DESCRIPTION: MRI HEAD WITHOUT; MRA HEAD WITHOUT COMPLETED DATE/TIME: 01/19/2017 3:34 pm REASON FOR STUDY: rt facial droop; hx cva w/lt. weakness COMPARISON: CT angio brain 01/18/2017 CT angio neck 01/18/2017 CT brain 01/18/2017 MRI brain 12/05/2014 TECHNIQUE: Multiplanar imaging includes non-contrasted T1, T2, FLAIR, and diffusion with ADC map seq uences. Images stored on PACS. [place] 3D [id number] MRA was performed, reviewed source data and maximum intensity proj ected images. LIMITATIONS: None. FINDINGS: ANATOMY: No congenital or developmental anomalies. Normal vascular flow voids. Pituitary f jabari normal. CSF SPACES: Normal in size and contour. No hemorrhage. 8 mm calcified nodule along the right frontal pleural surface likely a small meningioma. This finding is unchanged from previous studies CEREBRUM: Old right frontal cortical infarct. Spotty diffuse increased bifrontal and biparietal whit e matter signal on FLAIR imaging from small vessel disease, stable compared 12/05/2014. No evidence o f acute hemorrhage, mass, or extraaxial fluid collection. No MR evidence of acute ischemic change. POSTERIOR FOSSA: No signal alteration. No hemorrhage. No edema, masses or mass effect. Internal niharika tory canals, cerebello-pontine angles, mastoids normal. DIFFUSION IMAGING: Negative for acute or sub-acute infarction. ORBITS: No masses. Globes normal. PARANASAL SINUSES: No fluid levels. Mucosa normal. [place] MRA: No [place] stenosis, vascular malformation, or aneurysm. IMPRESSION: No MR evidence of acute ischemic change. 8 mm calcified meningioma right frontal region unchanged from prior studies Moderate small vessel ischemic change in the deep hemispheric white matter, chronic Unremarkable [place] MRA EVIDENCE OF ACUTE STROKE: NO. TECHNICAL DOCUMENTATION: JOB ID: [id number] [employer]- All Rights Reserved
[2017-01-20] MEDS ORDERED: FUROSEMIDE 40 MG TABLET PO ONE (10:15)
[2017-01-20] MEDS: DOCUSATE SODIUM 100 MG CAPSULE PO SCH (10:16)
[2017-01-20] MEDS: ASPIRIN 325 MG TABLET, ENT COATED PO SCH (10:19)
[2017-01-20] MEDS: ENOXAPARIN SODIUM INJ 40 MG/0.4 ML DISP.SYRIN SUBCUT SCH (10:21)
[2017-01-20] MEDS ORDERED: LISINOPRIL 10 MG TABLET PO ONE (10:30)
[2017-01-20] MEDS ORDERED: DILTIAZEM HCL 180 MG CAPSULE.CR PO ONE (11:00)
--- NOTE | 2017-01-20 14:59 | PDOC DISCHARGE SUMMARY ---
General - Admit/Disc Date/PCP Admission Date/Primary Care Provider: 01/19/17 01:57 Discharge Date: 01/20/17 - Discharge Diagnosis (1) Intracranial meningioma Is this a current diagnosis for this admission?: Yes (2) Atrial fibrillation Is this a current diagnosis for this admission?: Yes (3) COPD (chronic obstructive pulmonary disease) Is this a current diagnosis for this admission?: Yes (4) Coronary artery disease Is this a current diagnosis for this admission?: Yes (5) Diabetes mellitus type II, controlled Is this a current diagnosis for this admission?: Yes (6) GERD (gastroesophageal reflux disease) Is this a current diagnosis for this admission?: Yes (7) Hypertension Is this a current diagnosis for this admission?: Yes (8) Hypothyroidism Is this a current diagnosis for this admission?: Yes (9) MALIK (obstructive sleep apnea) Is this a current diagnosis for this admission?: Yes (10) Pleural effusion, right Is this a current diagnosis for this admission?: Yes (11) History of CVA (cerebrovascular accident) Is this a current diagnosis for this admission?: Yes - Additional Information Resuscitation Status: Full Code Home Medications: Alprazolam [Xanax] 1 mg PO Q8HP PRN 01/19/17 Atorvastatin Calcium [Lipitor 20 mg Tablet] 20 mg PO QHS 01/19/17 Diltiazem HCl [Cartia Xt] 180 mg PO DAILY 01/19/17 Esomeprazole Magnesium [Nexium] 40 mg PO BID 01/19/17 Furosemide [Lasix 40 mg Tablet] 40 mg PO DAILY 01/19/17 Gabapentin 300 mg PO Q8 01/19/17 Insulin Aspart Protam & Aspart [Novolog Mix 70-30 Vial] 20 unit SQ MEALS Levothyroxine Sodium [Synthroid] 200 mcg PO DAILY 01/19/17 Lisinopril [Zestril] 20 mg PO DAILY 01/19/17 Metoclopramide HCl [Reglan 10 mg Tablet] 10 mg PO MEALS 01/19/17 Potassium Chloride [K-Tab ER] 10 meq PO DAILY 01/19/17 Aspirin [Ecotrin 325 mg EC Tablet] 325 mg PO DAILY tabec 01/20/17 Additional Information: Return to the emergency room if symptoms recur. History of Present Illness Patient complains of: Difficulty in fine motor activity in the hand History of Present Illness: SITA MANRIQUE is a 71 year old female with history of prior stroke which has left her with slight difficulty with fine motor movements of her left hand, who presents to the emergency room for evaluation of above complaint. Patient has been discussed with emergency room physician who evaluated the patient. Approximately 8 PM, shortly after finishing her evening meal, patient went to the bathroom. When she called out to her daughter, daughter, who lives with her , who is present at her side with patient's approval, noted obvious slurring of her speech along with mild right facial droop. Slight weakness of her right lower extremity, but no obvious right upper extremity involvement. Prior to the above events, no specific complaints including nausea vomiting, fever chills, diarrhea or dysuria. No headache chest or abdominal pain. Patient passed the emergency room swallow screen. Last Tuesday, patient was placed on amoxicillin for respiratory complaints. Of interest, shortly after admission to the floor, patient did have a brief episode of self resolving sharp chest pain. Hospitalized on our service the through 03 December of this year, with final diagnoses including bilateral pleural effusion, along with increased shortness of breath. Discharge summary has been reviewed. Admitted to our service June 15 of last year with admission diagnoses including acute on chronic respiratory failure, with application of BiPAP and COPD exacerbation. For details please refer to history and physical examination performed by the admitting physician. Hospital Course Hospital Course: The patient was admitted to [facility]. The patient was placed on supplemental oxygen as well as anti-platelet therapy. The patient's symptoms spontaneously resolved. The patient apparently had a recent echocardiogram showing no significant valvular abnormality. Likewise had a recent neck CTA showing no carotid stenosis. An MRI of the brain was obtained as well as MRA showing intracranial meningioma but no acute stroke. The patient improved. Course was noted for indeterminate troponins but they were chronic. His blood pressure were elevated and his antihypertensive medications were resumed. The rest of the hospital stays unremarkable. Patient was eventually discharged home improved with advice to return to the emergency room if symptoms recur and see primary care physician in a week. Physical Exam Vital Signs: Temp Pulse Resp BP Pulse Ox 98.2 F 100 18 163/74 H 95 01/20/17 11:57 01/20/17 11:57 01/20/17 11:57 01/20/17 11:57 01/20/17 11:57 Intake & Output 01/19/17 01/20/17 01/21/17 06:59 06:59 06:59 Intake Total 660 1821 Output Total 1275 Balance 660 546 Weight 79.7 kg General appearance: PRESENT: no acute distress, cooperative, obese Head exam: PRESENT: normocephalic Eye exam: PRESENT: EOMI Mouth exam: PRESENT: moist, neck supple Neck exam: ABSENT: JVD Respiratory exam: PRESENT: clear to auscultation radames Cardiovascular exam: PRESENT: irregular rhythm GI/Abdominal exam: PRESENT: soft. ABSENT: distended Extremities exam: ABSENT: pedal edema Neurological exam: PRESENT: alert, awake, oriented to situation Skin exam: PRESENT: dry, warm. ABSENT: cyanosis Results Laboratory Results: 01/19/17 06:27 01/19/17 06:27 01/19/17 01/19/17 02:18 06:35 Troponin I 0.020 0.024 Impressions: Head CT 01/18/17 00:00 IMPRESSION: No acute intracranial findings. EVIDENCE OF ACUTE STROKE: NO. Chest X-Ray 01/18/17 20:43 IMPRESSION: Persistent right moderate pleural effusion. Scattered interstitial markings in the lung bases. No dense consolidation. Head CTA 01/18/17 21:32 IMPRESSION: NO CTA EVIDENCE OF STENOSIS OR ANEURYSM OF THE [place]. Neck CTA 01/18/17 21:32 IMPRESSION: No dissection or significant stenosis. Moderate right pleural effusion. Head MRI 01/19/17 00:00 IMPRESSION: No MR evidence of acute ischemic change. 8 mm calcified meningioma right frontal region unchanged from prior studies Moderate small vessel ischemic change in the deep hemispheric white matter, chronic Unremarkable [place] MRA EVIDENCE OF ACUTE STROKE: NO. Brain MRI with MRA 01/19/17 02:05 IMPRESSION: No MR evidence of acute ischemic change. 8 mm calcified meningioma right frontal region unchanged from prior studies Moderate small vessel ischemic change in the deep hemispheric white matter, chronic Unremarkable [place] MRA EVIDENCE OF ACUTE STROKE: NO. Qualifiers PATEINT BEING DISCHARGED WITH ANY OF THE FOLLOWING DIAGNOSIS?: No Plan Discharge Plan: Follow-up with primary care physician in 1 week. Time Spent: Less than 30 Minutes
[2017-01-20 15:59] VITALS: BP 125/33
[2017-01-21] MEDS ORDERED: DILTIAZEM HCL 180 MG CAPSULE.CR PO SCH (10:00)
[2017-01-21] MEDS ORDERED: FUROSEMIDE 40 MG TABLET PO SCH (10:00)
[2017-01-21] MEDS ORDERED: LISINOPRIL 10 MG TABLET PO SCH (10:00)
== END 2017-01-20 16:45 | disposition home or self-care (01) | DRG 55 ==
LOC: ER 20:39 → EH 23:23 → UNDOADMIN 23:23 → 3N 01-19 00:50 → EH 01-19 00:50 → 3N 01-19 01:57
PROVIDERS: ADMIT Family Medicine; ATTEND Family Medicine
DX: D32.0 Benign neoplasm of cerebral meninges (principal); J90 Pleural effusion, not elsewhere classified; R47.81 Slurred speech; E03.9 Hypothyroidism, unspecified; I48.2 Chronic atrial fibrillation; J44.9 Chronic obstructive pulmonary disease, unspecified; K21.9 Gastro-esophageal reflux disease without esophagitis; I25.10 Atherosclerotic heart disease of native coronary artery without angina pectoris; E11.9 Type 2 diabetes mellitus without complications; E87.6 Hypokalemia; E78.5 Hyperlipidemia, unspecified; I10 Essential (primary) hypertension; G47.33 Obstructive sleep apnea (adult) (pediatric); R29.810 Facial weakness; R29.818 Other symptoms and signs involving the nervous system; F17.210 Nicotine dependence, cigarettes, uncomplicated; I25.2 Old myocardial infarction; Z99.81 Dependence on supplemental oxygen; Z79.82 Long term (current) use of aspirin; Z79.899 Other long term (current) drug therapy; Z86.73 Personal history of transient ischemic attack (TIA), and cerebral infarction without residual deficits; Z85.72 Personal history of non-Hodgkin lymphomas
CPT/HCPCS: 36415; 70450; 70496; 70498; 70544; 70551; 71010; 80053; 80061; 81001; 82550; 82553; 82803; 82962; 83605; 83735; 84443; 84484; 85025; 85027; 85610; 85730; 93005; 93010; 94660; 99291; G8978-GP; G8979-GP; G8987-GO; G8988-GO; G8999-GN; G9186-GN; J1650; J1815; J3475; J3480

== ENCOUNTER → 2017-04-26 | Outpatient (CLI) | payer MEDICARE, MEDICAID ==
[2017-04-26 13:20] LABS: ABSOLUTE EOSINOPHILS # (AUTO) 0.1 10^3/uL (0.0-0.6); ABSOLUTE LYMPHOCYTES (AUTO) 1.6 10^3/uL (0.5-4.7); ABSOLUTE MONOCYTES (AUTO) 0.5 10^3/uL (0.1-1.4); ABSOLUTE NEUT (AUTO) 5.7 10^3/uL (1.7-8.2); BASOPHILS % (AUTO) 0.6 % (0-2); HEMATOCRIT 37.2 % (36.0-47.0); HEMOGLOBIN 12.6 g/dL (12.0-15.5); LYMPHOCYTES % (AUTO) 19.8 % (13-45); MEAN CORPUSCULAR HGB CONC 33.8 g/dL (32.0-36.0); MEAN CORPUSCULAR VOLUME 86 fl (80-97); MONOCYTES % (AUTO) 6.2 % (3-13); PLATELET COUNT 138 10^3/uL (150-450); RED BLOOD COUNT 4.34 10^6/uL (3.72-5.28); SEGMENTED NEUTROPHILS % (AUTO) 72.4 % (42-78); TOTAL CELLS COUNTED % (AUTO) 100 %; WHITE BLOOD COUNT 7.9 10^3/uL (4.0-10.5)
[2017-04-26 13:49] LABS: ALANINE AMINOTRANSFERASE 23 U/L (9-52); ALBUMIN 4.9 g/dL (3.5-5.0); ALKALINE PHOSPHATASE 145 U/L (38-126); ANION GAP 12 (5-19); ASPARTATE AMINO TRANSFERASE 22 U/L (14-36); BILIRUBIN,DIRECT 0.3 mg/dL (0.0-0.4); BILIRUBIN,TOTAL 0.6 mg/dL (0.2-1.3); BLOOD UREA NITROGEN 17 mg/dL (7-20); CALCIUM 10.3 mg/dL (8.4-10.2); CARBON DIOXIDE 32 mmol/L (22-30); CHLORIDE 101 mmol/L (98-107); GLUCOSE 115 mg/dL (75-110); IRON 99.9 ug/dL (37-170); POTASSIUM 3.8 mmol/L (3.6-5.0); TOTAL PROTEIN 8.4 g/dL (6.3-8.2)
== END ==
LOC: OD 12:25
PROVIDERS: ATTEND Physician Assistant Medical
DX: I10 Essential (primary) hypertension (principal); N19 Unspecified kidney failure; E11.9 Type 2 diabetes mellitus without complications; E03.9 Hypothyroidism, unspecified
CPT/HCPCS: 36415; 80053; 83036; 83540; 84443; 85025

== ENCOUNTER 2017-07-01 11:08 | Outpatient (CLI) | payer MEDICARE, MEDICAID ==
[2017-07-01 12:01] VITALS: BP 155/60
== END 2017-07-01 14:20 | disposition home or self-care (01) ==
LOC: II 11:08 → 5TH 11:11 → II 14:20
PROVIDERS: ATTEND Internal Medicine Hematology & Oncology
PROC: 3E033GC Introduction of Other Therapeutic Substance into Peripheral Vein, Percutaneous Approach (ICD-10-PCS; principal; 2017-07-01)
DX: D50.9 Iron deficiency anemia, unspecified (principal); K90.9 Intestinal malabsorption, unspecified
CPT/HCPCS: 96365; J7050; J1439

== ENCOUNTER 2017-08-18 09:16 | Outpatient (CLI) | payer MEDICARE, MEDICAID ==
[2017-08-18 09:47] VITALS: BP 135/57
== END 2017-08-18 10:37 | disposition home or self-care (01) ==
LOC: II 09:16
PROVIDERS: ATTEND Internal Medicine Hematology & Oncology
PROC: 3E033GC Introduction of Other Therapeutic Substance into Peripheral Vein, Percutaneous Approach (ICD-10-PCS; principal; 2017-08-18)
DX: D50.9 Iron deficiency anemia, unspecified (principal); K90.9 Intestinal malabsorption, unspecified
CPT/HCPCS: 96365; J7050; J1439

== ENCOUNTER 2017-08-26 09:37 | Outpatient (CLI) | payer MEDICARE, MEDICAID ==
[2017-08-26 11:03] VITALS: BP 145/56
== END 2017-08-26 11:05 | disposition home or self-care (01) ==
LOC: II 09:37 → 5TH 09:40 → II 11:05
PROVIDERS: ATTEND Internal Medicine Hematology & Oncology
PROC: 3E033GC Introduction of Other Therapeutic Substance into Peripheral Vein, Percutaneous Approach (ICD-10-PCS; principal; 2017-08-26)
DX: D50.9 Iron deficiency anemia, unspecified (principal); K90.9 Intestinal malabsorption, unspecified
CPT/HCPCS: 96367; J7050; J1439; 96365

== ENCOUNTER 2018-05-06 11:12 | Outpatient (CLI) | payer MEDICARE, MEDICAID ==
[~2018-05-06 11:12] MED LIST changes: +ACETAMINOPHEN 325 MG TABLET PO PRN; +DIPHENHYDRAMINE HCL 25 MG CAPSULE PO PRN; -FERRIC CARBOXYMALTOSE 750 MG in NORMAL SALINE 250 ML IV PRN; +FUROSEMIDE INJ/PF 20 MG/2 ML SDV IV PRN; -NORMAL SALINE 250 ML IV PRN
[2018-05-06] MEDS ORDERED: NORMAL SALINE 250 ML IV PRN (12:00)
== END 2018-05-06 16:30 | disposition home or self-care (01) ==
LOC: II 11:12 → 4N 11:18 → II 16:30
PROVIDERS: ATTEND Internal Medicine
DX: D64.9 Anemia, unspecified (principal)
CPT/HCPCS: A9270 ×2

== ENCOUNTER 2018-05-09 13:58 | Inpatient (IN) | payer MEDICARE, MEDICAID ==
--- NOTE | 2018-05-09 14:38 | ER Document Report ---
ED Medical Screen (RME) - General Chief Complaint: Breathing Difficulty Stated Complaint: SHORTNESS OF BREATH Time Seen by Provider: 05/09/18 14:31 Primary Care Provider: PATSY FAJARDO MD [Primary Care Provider] - Follow up as needed Mode of Arrival: Ambulatory Information source: Patient Notes: This patient was referred by outpatient radiology. This is a 72-year-old female with T of non-Hodgkin's lymphoma (presumably in remission), history of anemia, history of pleural effusion. Patient was getting an outpatient CT chest abdomen pelvis which was ordered by Dr. Gramajo/Reta quinones. Patient was found to have a large pleural effusion and she was felt to be very short of breath and was referred to the emergency room. TRAVEL OUTSIDE OF THE [place] IN LAST 30 DAYS: No - Related Data Allergies/Adverse Reactions: moxifloxacin HCl [From Avelox] Allergy (Severe, Verified 05/09/18 13:59) rash,itch apixaban [From Eliquis] Allergy (Intermediate, Verified 05/09/18 13:59) swell dabigatran etexilate [From Pradaxa] Allergy (Intermediate, Verified 05/09/18 13:59) swell lansoprazole [From Prevacid] Allergy (Intermediate, Verified 05/09/18 13:59) Generalized Itching aloe [Aloe] Allergy (Verified 05/09/18 13:59) Past Medical History - Social History Frequency of alcohol use: None Drug Abuse: None - Past Medical History Cardiac Medical History: Reports: Hx Atrial Fibrillation, Hx Congestive Heart Failure, Hx Coronary Artery Disease, Hx Heart Attack, Hx Hypercholesterolemia, Hx Hypertension Denies: Hx DVT, Hx Pulmonary Embolism Pulmonary Medical History: Reports: Hx Asthma, Hx Bronchitis, Hx COPD, Hx Pneumonia, Hx Sleep Apnea - Currently on BiPAP for same Neurological Medical History: Reports: Hx Cerebrovascular Accident. Denies: Hx Seizures Endocrine Medical History: Reports: Hx Diabetes Mellitus Type 1, Hx Diabetes Mellitus Type 2, Hx Hypothyroidism. Denies: Hx Hyperthyroidism Renal/ Medical History: Reports: Hx Kidney Stones. 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 Denies: Hx Cirrhosis, Hx Hepatitis Musculoskeltal Medical History: Reports Hx Arthritis Psychiatric Medical History: Denies: Hx Depression Infectious Medical History: Denies: Hx Hepatitis Past Surgical History: Reports: Hx Appendectomy, Hx Cholecystectomy, Hx Hysterectomy, Hx Tonsillectomy, Hx Vascular Surgery - History of lymph node removal from the groin, Other - Excision benign brain tumor early ; similar inoperable lesion present - Immunizations Hx Diphtheria, Pertussis, Tetanus Vaccination: No History of Influenza Vaccine for 01/2017 - 06/2017 Season: Refused Influenza Administration Date for 01/2017 - 06/2017 Season: 01/17/17 Physical Exam - Vital signs Vitals: Temp Pulse Resp BP Pulse Ox 98.0 F 86 26 H 164/60 H 90 L 05/09/18 14:08 05/09/18 14:08 05/09/18 14:08 05/09/18 14:08 05/09/18 14:08 Course - Vital Signs Vital signs: Temp Pulse Resp BP Pulse Ox 98.0 F 86 26 H 164/60 H 90 L 05/09/18 14:08 05/09/18 14:08 05/09/18 14:08 05/09/18 14:08 05/09/18 14:08 Doctor's Discharge - Discharge Referrals: PATSY FAJARDO MD [Primary Care Provider] - Follow up as needed
--- NOTE | 2018-05-09 15:17 | ER Document Report ---
ED General - General Chief Complaint: Breathing Difficulty Stated Complaint: SHORTNESS OF BREATH Time Seen by Provider: 05/09/18 14:31 Mode of Arrival: Ambulatory Notes: This is a 72-year-old female to emergency department for evaluation of shortness of breath. Patient was seen by her oncologist today. Sent here for CT abdomen and pelvis as well as CTA of/CT of the chest to evaluate for increasing shortness of breath. While at the CT patient became hypoxic with increased difficulty with breathing. Was sent here for evaluation. CT scan was found to have large pleural effusion on the right. Patient has chronic pleural effusions and has had multiple thoracentesis done in the past. Patient had previous comp lication of development of pneumothorax and chest tube and spent several days in the hospital. Otherwise, patient states that she feels pretty good. TRAVEL OUTSIDE OF THE [place] IN LAST 30 DAYS: No - HPI Onset/Duration: Gradual, Constant, Worse Quality of pain: No pain Severity: Moderate Pain Level: Denies Associated symptoms: Shortness of breath Exacerbated by: Supine, Walking Relieved by: Sitting - Related Data Allergies/Adverse Reactions: moxifloxacin HCl [From Avelox] Allergy (Severe, Verified 05/09/18 13:59) rash,itch apixaban [From Eliquis] Allergy (Intermediate, Verified 05/09/18 13:59) swell dabigatran etexilate [From Pradaxa] Allergy (Intermediate, Verified 05/09/18 13:59) swell lansoprazole [From Prevacid] Allergy (Intermediate, Verified 05/09/18 13:59) Generalized Itching aloe [Aloe] Allergy (Verified 05/09/18 13:59) Past Medical History - General Information source: Patient - Social History Smoking Status: Current Every Day Smoker Frequency of alcohol use: None Drug Abuse: None Lives with: Family Family History: Reviewed & Not Pertinent, CAD, COPD, DM, Hypertension Patient has suicidal ideation: No Patient has homicidal ideation: No - Past Medical History Cardiac Medical History: Reports: Hx Atrial Fibrillation, Hx Congestive Heart Failure, Hx Coronary Artery Disease, Hx Heart Attack, Hx Hypercholesterolemia, Hx Hypertension Denies: Hx DVT, Hx Pulmonary Embolism Pulmonary Medical History: Reports: Hx Asthma, Hx Bronchitis, Hx COPD, Hx Pneumonia, Hx Sleep Apnea - Currently on BiPAP for same Neurological Medical History: Reports: Hx Cerebrovascular Accident. Denies: Hx Seizures Endocrine Medical History: Reports: Hx Diabetes Mellitus Type 1, Hx Diabetes Mellitus Type 2, Hx Hypothyroidism. Denies: Hx Hyperthyroidism Renal/ Medical History: Reports: Hx Kidney Stones. 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 Denies: Hx Cirrhosis, Hx Hepatitis Musculoskeletal Medical History: Reports Hx Arthritis Psychiatric Medical History: Denies: Hx Depression Infectious Medical History: Denies: Hx Hepatitis Past Surgical History: Reports: Hx Appendectomy, Hx Cholecystectomy, Hx Hyster ectomy, Hx Tonsillectomy, Hx Vascular Surgery - History of lymph node removal from the groin, Other - Excision benign brain tumor early ; similar inoperable lesion present - Immunizations Hx Diphtheria, Pertussis, Tetanus Vaccination: No Hx Pneumococcal Vaccination: 04/18/16 Review of Systems - Review of Systems Notes: Constitutional: denies: Chills, Diaphoresis, Fever, Malaise, Weakness EENT: denies: Eye discharge, Blurred vision, Tearing, Double vision, Nose congestion, Nose discharge, Throat swelling, Mouth pain Cardiovascular: denies: Palpitations, Heart racing, Orthopnea, Dyspnea, Chest pain Respiratory: denies: Cough, Hurts to breathe, Wheezing,. Complaining of increased shortness of breath with orthopnea Gastrointestinal: denies: Abdominal pain, Diarrhea, Nausea, Vomiting, Black stools, bright red blood in stool Genitourinary: denies: Burning, Dysuria, Discharge, Frequency, Flank pain, Hematuria Musculoskeletal: denies: Joint pain, Joint swelling, Muscle pain, Muscle stiffness, back pain Hematologic/Lymphatic: denies: Anemia, Easy bleeding, Easy bruising, Blood clots Neurological/Psychological: denies: Confusion, Dementia, Depression, Loss of consciousness Skin: No lesions, no masses, no skin breakdown, no abscesses Physical Exam - Vital signs Vitals: Temp Pulse Resp BP Pulse Ox 98.0 F 86 26 H 164/60 H 90 L 05/09/18 14:08 05/09/18 14:08 05/09/18 14:08 05/09/18 14:08 05/09/18 14:08 Interpretation: Normal - General General appearance: Appears well, Alert - HEENT Head: Normocephalic, Atraumatic Eyes: Normal Pupils: PERRL - Respiratory Respiratory status: Tachypnea. No: Cyanosis Chest status: Nontender Breath sounds: Other - Patient has decreased air movement on the right lung. It is dull to percussion up to the [facility] on the right posterior chest wall with percussion. Chest palpation: Normal - Cardiovascular Rhythm: Regular Heart sounds: Normal auscultation Murmur: No - Abdominal Inspection: Normal Distension: No distension Bowel sounds: Normal Tenderness: Nontender Organomegaly: No organomegaly - Back Back: Normal, Nontender - Extremities General upper extremity: Normal inspection, Nontender, Normal color, Normal ROM, Normal temperature General lower extremity: Normal inspection, Nontender, Normal color, Normal ROM, Normal temperature, Normal weight bearing. No: Catie's sign - Neurological Neuro grossly intact: Yes Cognition: Normal Orientation: AAOx4 [place] Coma Scale Eye Opening: Spontaneous [place] Coma Scale Verbal: Oriented [place] Coma Scale Motor: Obeys Commands [place] Coma Scale Total: 15 Speech: Normal Motor strength normal: LUE, RUE, LLE, RLE Sensory: Normal - Psychological Associated symptoms: Normal affect, Normal mood - Skin Skin Temperature: Warm Skin Moisture: Dry Skin Color: Normal Course - Re-evaluation Re-evalutation: 05/09/18 22:39 Patient has a very large right-sided pleural effusion which will need a pleurocentesis/thoracentesis done. Consulted with radiology. They are comfortable doing the procedure tonight but patient will need to be admitted and observed due to the fact that she has had complications of the thoracentesis in the past with development of pulmonary edema and pneumothorax. Patient is comfortable with this plan. Will admit at this time in stable condition. Laboratory 05/09/18 05/09/18 05/09/18 15:17 15:17 15:17 WBC 5.7 RBC 4.01 Hgb 9.1 L Hct 29.1 L MCV 73 L D MCH 22.6 L MCHC 31.1 L RDW 22.6 H Plt Count 98 L Seg Neutrophils % 73.4 Lymphocytes % 14.4 Monocytes % 9.2 Eosinophils % 1.6 Basophils % 1.4 Absolute Neutrophils 4.2 Absolute Lymphocytes 0.8 Absolute Monocytes 0.5 Absolute Eosinophils 0.1 Absolute Basophils 0.1 PT 13.4 INR 0.97 Sodium 140.8 Potassium 4.0 Chloride 103 Carbon Dioxide 27 Anion Gap 11 BUN 21 H Creatinine 0.79 Est GFR ( Amer) > 60 Est GFR (Non-Af Amer) > 60 Glucose 111 H Calcium 9.2 Total Bilirubin 0.9 Direct Bilirubin 0.3 Neonat Total Bilirubin Not Reportable Neonat Direct Bilirubin Not Reportable Neonat Indirect Bili Not Reportable AST 15 ALT 19 Alkaline Phosphatase 118 Total Protein 7.5 Albumin 4.3 - Vital Signs Vital signs: Temp Pulse Resp BP Pulse Ox 98.2 F 87 18 154/60 H 100 05/09/18 20:39 05/09/18 20:39 05/09/18 20:39 05/09/18 20:39 05/09/18 20:39 - Laboratory Result Diagrams: 05/09/18 15:17 05/09/18 15:17 Laboratory results interpreted by me: 05/09/18 05/09/18 15:17 15:17 Hgb 9.1 L Hct 29.1 L MCV 73 L D MCH 22.6 L MCHC 31.1 L RDW 22.6 H Plt Count 98 L BUN 21 H Glucose 111 H Discharge - Discharge Clinical Impression: Recurrent right pleural effusion Condition: Good Disposition: ADMITTED INPATIENT Admitting Provider: Hospitalist - [facility] Unit Admitted: Telemetry
[2018-05-09 15:36] LABS: ABSOLUTE BASOPHILS # (AUTO) 0.1 10^3/uL (0.0-0.2); ABSOLUTE EOSINOPHILS # (AUTO) 0.1 10^3/uL (0.0-0.6); ABSOLUTE LYMPHOCYTES (AUTO) 0.8 10^3/uL (0.5-4.7); ABSOLUTE MONOCYTES (AUTO) 0.5 10^3/uL (0.1-1.4); ABSOLUTE NEUT (AUTO) 4.2 10^3/uL (1.7-8.2); BASOPHILS % (AUTO) 1.4 % (0-2); EOSINOPHILS % (AUTO) 1.6 % (0-6); HEMATOCRIT 29.1 % (36.0-47.0); HEMOGLOBIN 9.1 g/dL (12.0-15.5); LYMPHOCYTES % (AUTO) 14.4 % (13-45); MEAN CORPUSCULAR HEMOGLOBIN 22.6 pg (27.0-33.4); MEAN CORPUSCULAR HGB CONC 31.1 g/dL (32.0-36.0); MONOCYTES % (AUTO) 9.2 % (3-13); RED BLOOD COUNT 4.01 10^6/uL (3.72-5.28); RED CELL DISTRIBUTION WIDTH 22.6 % (11.5-14.0); SEGMENTED NEUTROPHILS % (AUTO) 73.4 % (42-78); TOTAL CELLS COUNTED % (AUTO) 100 %; WHITE BLOOD COUNT 5.7 10^3/uL (4.0-10.5)
[2018-05-09 15:40] LABS: INTERNATIONAL RATION (INR) 0.97; PROTHROMBIN TIME 13.4 SEC (11.4-15.4)
[2018-05-09 15:56] LABS: MEAN CORPUSCULAR VOLUME 73 fl (80-97)
[2018-05-09 16:01] LABS: PLATELET COUNT 98 10^3/uL (150-450)
[2018-05-09 16:04] LABS: ALANINE AMINOTRANSFERASE 19 U/L (9-52); ALBUMIN 4.3 g/dL (3.5-5.0); ALKALINE PHOSPHATASE 118 U/L (38-126); ANION GAP 11 (5-19); ASPARTATE AMINO TRANSFERASE 15 U/L (14-36); BILIRUBIN,DIRECT 0.3 mg/dL (0.0-0.4); BILIRUBIN,TOTAL 0.9 mg/dL (0.2-1.3); BLOOD UREA NITROGEN 21 mg/dL (7-20); CALCIUM 9.2 mg/dL (8.4-10.2); CARBON DIOXIDE 27 mmol/L (22-30); CHLORIDE 103 mmol/L (98-107); GLUCOSE 111 mg/dL (75-110); SODIUM 140.8 mmol/L (137-145); TOTAL PROTEIN 7.5 g/dL (6.3-8.2)
[2018-05-09] MEDS ORDERED: ONDANSETRON HCL INJ/PF 4 MG/2 ML SDV IV PRN (16:56)
[2018-05-09] MEDS ORDERED: ACETAMINOPHEN 325 MG TABLET PO PRN (16:56)
[2018-05-09] MEDS ORDERED: (PENDING PHARMACY ID) (Insulin Aspart Protam & Aspart [Novolog Mix 70-30 Vial] 20 UNIT) SQ SCH (17:00)
[2018-05-09] MEDS ORDERED: NICOTINE 14 MG/24 HR PATCH.TD24 TD PRN (17:17)
--- NOTE | 2018-05-09 17:34 | PDOC H&P ---
History of Present Illness Admission Date/PCP: 05/09/18 16:38 PATSY FAY MD Patient complains of: Shortness of breath History of Present Illness: SITA MANRIQUE is a 72 year old female with history of non-Hodgkin's lymphoma in remission for the last 11 years, history of for recurrent pleural effusion, history of thoracentesis last year followed by a pneumothorax, hypertension, diabetes mellitus, anxiety disorder, hypothyroidism, hypercholesterolemia, previous history of 2 strokes with no residual effects,hypothyroidism,chf came to the emergency room with complaints of shortness of breath. She was seen by the oncology team last week in the office referred her for a CT chest today in the hospital the radiologist showed large right pleural effusion, small left pleural effusion so patient was referred to emergency room for possible admission and a chest tube placement. Patient is given the history of increasing shortness of breath for the last 2 weeks, Associated with coughing up whitish yellow mucus but not associated with fever not associated nausea or vomitings or diarrhea ,complains of nonspecific left-sided chest pains on deep breaths. Patient has history of COPD uses 2 L oxygen at home. No other complaints. The workup was done the by ER physician medical consult was called for admission. Past Medical History Cardiac Medical History: Reports: Atrial Fibrillation, Congestive Heart Failure, Coronary Artery Disease, Myocardial Infarction, Hyperlipidema, Hypertension Denies: DVT, Pulmonary Embolism Pulmonary Medical History: Reports: Asthma, Bronchitis, Chronic Obstructive Pulmonary Disease (COPD), Pneumonia, Sleep Apnea - Currently on BiPAP for same Neurological Medical History: Denies: Seizures Endocrine Medical History: Reports: Diabetes Mellitus Type 1, Diabetes Mellitus Type 2, Hypothyroidism Denies: Hyperthyroidism Malignancy Medical History: Reports: Lymphoma - Non-Hodgkin's B cell type , S/P XRT, chemo; 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 GI Medical History: Reports: Gastroesophageal Reflux Disease Denies: Cirrhosis, Hepatitis Musculoskeltal Medical History: Reports: Arthritis Psychiatric Medical History: Denies: Depression Hematology: Reports: Anemia, Bleeding Tendencies Past Surgical History Past Surgical History: Reports: Appendectomy, Cholecystectomy, Hysterectomy, Tonsillectomy, Vascular Surgery - History of lymph node removal from the groin, Other - Excision benign brain tumor early ; similar inoperable lesion pres ent Social History Smoking Status: Current Every Day Smoker Frequency of Alcohol Use: None Hx Recreational Drug Use: No Drugs: None Hx Prescription Drug Abuse: No - Advance Directive Resuscitation Status: Full Code Family History Family History: Reviewed & Not Pertinent, CAD, COPD, DM, Hypertension Parental Family History Reviewed: Yes - Father has lung cancer and colon cancer Children Family History Reviewed: Yes Sibling(s) Family History Reviewed.: Yes Medication/Allergy Allergies/Adverse Reactions: moxifloxacin HCl [From Avelox] Allergy (Severe, Verified 05/09/18 13:59) rash,itch apixaban [From Eliquis] Allergy (Intermediate, Verified 05/09/18 13:59) swell dabigatran etexilate [From Pradaxa] Allergy (Intermediate, Verified 05/09/18 13:59) swell lansoprazole [From Prevacid] Allergy (Intermediate, Verified 05/09/18 13:59) Generalized Itching aloe [Aloe] Allergy (Verified 05/09/18 13:59) Review of Systems Constitutional: ABSENT: fever(s), headache(s) Eyes: ABSENT: visual disturbances Ears: ABSENT: hearing changes Nose, Mouth, and Throat: ABSENT: sore throat Cardiovascular: PRESENT: chest pain. ABSENT: dyspnea on exertion Respiratory: PRESENT: cough, dyspnea, sputum. ABSENT: hemoptysis Gastrointestinal: ABSENT: abdominal pain, constipation, diarrhea, hematemesis, hematochezia, nausea, vomiting Genitourinary: ABSENT: dysuria, hematuria Neurological: ABSENT: abnormal gait, abnormal speech, confusion, dizziness, focal weakness, syncope Psychiatric: ABSENT: anxiety, depression, homidical ideation, suicidal ideation Physical Exam Vital Signs: Temp Pulse Resp BP Pulse Ox 98.0 F 86 17 173/71 H 98 05/09/18 14:08 05/09/18 14:08 05/09/18 16:16 05/09/18 16:16 05/09/18 16:16 Intake & Output 05/08/18 05/09/18 05/10/18 06:59 06:59 06:59 Weight 83.1 kg General appearance: PRESENT: no acute distress, other - skin lesion adj to the nose. Head exam: PRESENT: atraumatic Eye exam: PRESENT: PERRLA Ear exam: PRESENT: normal external ear exam Mouth exam: PRESENT: moist, tongue midline Neck exam: ABSENT: carotid bruit, JVD, lymphadenopathy, thyromegaly Respiratory exam: PRESENT: crackles, decreased breath sounds, rhonchi Pulses: PRESENT: normal dorsalis pedis pul GI/Abdominal exam: PRESENT: normal bowel sounds, soft. ABSENT: distended, guard ing, mass, organolmegaly, rebound, tenderness Extremities exam: PRESENT: full ROM. ABSENT: calf tenderness, clubbing, pedal edema Neurological exam: PRESENT: alert, awake, oriented to person, oriented to place, oriented to time, oriented to situation, CN II-XII grossly intact. ABSENT: motor sensory deficit Psychiatric exam: PRESENT: appropriate affect, normal mood. ABSENT: homicidal ideation, suicidal ideation Results Laboratory Results: 05/09/18 15:17 05/09/18 15:17 05/09/18 05/09/18 15:17 15:17 WBC 5.7 RBC 4.01 Hgb 9.1 L Hct 29.1 L MCV 73 L D MCH 22.6 L MCHC 31.1 L RDW 22.6 H Plt Count 98 L Seg Neutrophils % 73.4 Lymphocytes % 14.4 Monocytes % 9.2 Eosinophils % 1.6 Basophils % 1.4 Absolute Neutrophils 4.2 Absolute Lymphocytes 0.8 Absolute Monocytes 0.5 Absolute Eosinophils 0.1 Absolute Basophils 0.1 Sodium 140.8 Potassium 4.0 Chloride 103 Carbon Dioxide 27 Anion Gap 11 BUN 21 H Creatinine 0.79 Est GFR ( Amer) > 60 Est GFR (Non-Af Amer) > 60 Glucose 111 H Calcium 9.2 Total Bilirubin 0.9 AST 15 ALT 19 Alkaline Phosphatase 118 Total Protein 7.5 Albumin 4.3 Assessment & Plan - Diagnosis (1) Recurrent right pleural effusion Is this a current diagnosis for this admission?: Yes Plan: 05/09/2018-plan is to put the patient in hospital as an inpatient. He is going to be admitted to [facility]. Consultation with the surgical team was requested. Consultation with cardiology was requested. Consult for oncology was requested. Patient is going to be placed on oxygen 2 L nasal cannula. Started on Percocet 10/25 mg every 6 hours as needed for pain. CT scan indicates there is possible bilateral consolidation bibasilar consolidation. blood cultures sputum cultures are requested started on Rocephin 1 g IV daily. I am going to add azithromycin to the medication. Follow-up chest x-ray was requested. Etio logies could put chest tube and let it drain tonight. Patient has history of non-Hodgkin's lymphoma in remission for the last 11 years very low suspicious for malignancy. The pleural effusion which is recurrent probably secondary to underlying congestive heart failure. (2) Atrial fibrillation Qualifiers: Atrial fibrillation type: chronic Is this a current diagnosis for this admission?: Yes Plan: 05/09/2018 patient has history of atrial fibrillation but she is allergic to Eliquis and Pradaxa. Presently she is on only aspirin 324 mg p.o. daily. Plan is to continue the present management. To hold aspirin tonight because of the chest tube placement. (3) COPD (chronic obstructive pulmonary disease) Qualifiers: Emphysema type: unspecified Is this a current diagnosis for this admission?: Yes Plan: 05/09/2018-patient has history of COPD secondary to chronic smoking history of smoking for more than 50 years she smokes more than 1-1/2 pack/day. She uses oxygen 2 L nasal cannula at home along with trilogy. (4) Anemia Qualifiers: Anemia type: iron deficiency Is this a current diagnosis for this admission?: Yes Plan: 05/09/2018-patient's hemoglobin is 9.1. Patient's hemoglobin in the last 2 months fluctuating from 6.8 to 7.7. Patient has anemia of chronic disease probably secondary to history of non-Hodgkin's lymphoma. (5) Non-Hodgkin lymphoma in remission Is this a current diagnosis for this admission?: Yes Plan: 05/09/2018-patient has history of non-Hodgkin's lymphoma she is in remission for the last 11 years according to the family. She follows with Dr. Fay/Dr. Gramajo. Consult was placed for Dr. Gramajo. (6) Smoker Is this a current diagnosis for this admission?: Yes Plan: 05/09/2018-patient has history of chronic smoking smokes 1 and a pack per day smoking for more than 50 years. Smoking counseling was provided for more than 10 minutes strongly advised to quit smoking. She was placed on nicotine patch. (7) CHF (congestive heart failure) Is this a current diagnosis for this admission?: Yes Plan: 05/09/2018-patient and family is giving the history of chronic congestive heart failure. Pleural effusion may be secondary to CHF. Echocardiogram was requested consultation with the food safety field specialist Dr. Roger was requested. Plan to check the BNP tomorrow. His Lasix 40 mg daily at home which was resumed. (8) Pneumonia Is this a current diagnosis for this admission?: Yes Plan: 05/09/2018-CT scan of the chest indicating bibasilar consolidation. Sputum cultures blood cultures are requested started on IV Rocephin 1 g daily Zithromax 500 mg IV daily. Planning to do the follow-up chest x-ray tomorrow. - Time Time Spent: 50 to 70 Minutes Smoking Cessation Education: over 10 minutes Medications reviewed and adjusted accordingly: Yes Anticipated discharge: Home
[2018-05-09] MEDS ORDERED: DEXTROSE 50%-WATER 25 GM/50 ML DISP.SYRIN IV PRN ×2 (17:35)
[2018-05-09] MEDS ORDERED: DEXTROSE 40% GEL 15 GM TUBE PO PRN ×2 (17:35)
[2018-05-09] MEDS ORDERED: INSULIN REG, HUMAN 100 UNIT/ML 3 ML VIAL (PYX) SUBCUT PRN (17:35)
[2018-05-09] MEDS ORDERED: GLUCAGON,HUMAN RECOMB 1 MG INJ IM PRN (17:35)
[2018-05-09 18:32] LABS: APPEARANCE,URINE CLEAR; BILIRUBIN,URINE NEGATIVE (NEGATIVE); COLOR,URINE YELLOW; GLUCOSE, URINE NEGATIVE (NEGATIVE); KETONES,URINE NEGATIVE (NEGATIVE); LEUKOCYTE ESTERASE,URINE NEGATIVE (NEGATIVE); NITRITE,URINE NEGATIVE (NEGATIVE); PROTEIN,URINE 30 mg/dL (NEGATIVE); URINE SPECIFIC GRAVITY 1.033; UROBILINOGEN,URINE NEGATIVE mg/dL (<2.0)
[2018-05-09] MEDS: METOCLOPRAMIDE HCL 10 MG TABLET PO SCH (18:38)
[2018-05-09] MEDS: DOCUSATE SODIUM 100 MG CAPSULE PO SCH (18:38)
[2018-05-09] MEDS: OXYCODONE-ACETAMINOPHEN 5-325 MG TABLET PO PRN (20:41)
[2018-05-09] MEDS: ENOXAPARIN SODIUM INJ 40 MG/0.4 ML DISP.SYRIN SUBCUT SCH (21:41)
[2018-05-09] MEDS: CEFTRIAXONE 1 GM/D5W RTU 1 GM/50 ML RTUPB IV SCH (21:47)
[2018-05-09] MEDS: ATORVASTATIN CALCIUM 20 MG TABLET PO SCH (21:47)
[2018-05-09] MEDS: GABAPENTIN 300 MG CAPSULE PO SCH (21:48)
[2018-05-09] MEDS: AZITHROMYCIN 500 MG in DEXTROSE 5%-WATER 250 ML IV SCH (21:49)
[2018-05-09] MEDS: ALPRAZOLAM 0.5 MG TABLET PO PRN (21:56)
[2018-05-10 05:43] LABS: ABSOLUTE BASOPHILS # (AUTO) 0.1 10^3/uL (0.0-0.2); ABSOLUTE EOSINOPHILS # (AUTO) 0.1 10^3/uL (0.0-0.6); ABSOLUTE MONOCYTES (AUTO) 0.7 10^3/uL (0.1-1.4); ABSOLUTE NEUT (AUTO) 5.1 10^3/uL (1.7-8.2); BASOPHILS % (AUTO) 0.9 % (0-2); EOSINOPHILS % (AUTO) 1.7 % (0-6); HEMATOCRIT 25.6 % (36.0-47.0); HEMOGLOBIN 8.1 g/dL (12.0-15.5); LYMPHOCYTES % (AUTO) 14.1 % (13-45); MEAN CORPUSCULAR HEMOGLOBIN 22.9 pg (27.0-33.4); MEAN CORPUSCULAR HGB CONC 31.6 g/dL (32.0-36.0); MEAN CORPUSCULAR VOLUME 73 fl (80-97); RED BLOOD COUNT 3.53 10^6/uL (3.72-5.28); RED CELL DISTRIBUTION WIDTH 22.9 % (11.5-14.0); SEGMENTED NEUTROPHILS % (AUTO) 73.3 % (42-78); TOTAL CELLS COUNTED % (AUTO) 100 %; WHITE BLOOD COUNT 6.9 10^3/uL (4.0-10.5)
[2018-05-10] MEDS: LEVOTHYROXINE SODIUM 0.1 MG TABLET PO SCH (05:57)
[2018-05-10] MEDS: GABAPENTIN 300 MG CAPSULE PO SCH ×3 (05:57→22:45)
[2018-05-10 06:03] LABS: ALANINE AMINOTRANSFERASE 15 U/L (9-52); ALBUMIN 3.9 g/dL (3.5-5.0); ALKALINE PHOSPHATASE 97 U/L (38-126); ANION GAP 6 (5-19); ASPARTATE AMINO TRANSFERASE 31 U/L (14-36); BILIRUBIN,DIRECT 0.3 mg/dL (0.0-0.4); BILIRUBIN,TOTAL 0.8 mg/dL (0.2-1.3); BLOOD UREA NITROGEN 21 mg/dL (7-20); CALCIUM 8.9 mg/dL (8.4-10.2); CARBON DIOXIDE 30 mmol/L (22-30); CHLORIDE 105 mmol/L (98-107); CHOLESTEROL 99.48 mg/dL (0-200); GLUCOSE 112 mg/dL (75-110); POTASSIUM 4.5 mmol/L (3.6-5.0); SODIUM 140.9 mmol/L (137-145); TOTAL PROTEIN 6.9 g/dL (6.3-8.2); TRIGLYCERIDES 90 mg/dL (<150)
[2018-05-10 06:11] LABS: PLATELET COUNT 87 10^3/uL (150-450)
[2018-05-10 06:14] LABS: DIRECT LDL 41 mg/dL (<100)
--- NOTE | 2018-05-10 07:29 | EKG REPORT ---
SEVERITY:- ABNORMAL ECG - SINUS RHYTHM RIGHT AXIS DEVIATION ABNORMAL T, CONSIDER ISCHEMIA, INFERIOR LEADS : Confirmed by: Jesica Kimbrough MD 10-May-2018 07:28:19
[2018-05-10] MEDS ORDERED: FERRIC CARBOXYMALTOSE INJ 750 MG/15 ML VIAL IV SCH (08:15)
--- NOTE | 2018-05-10 08:19 | PDOC CONSULTATION ---
Consultation Consult Date: 05/10/18 Consult reason:: Hematology/Oncology consult was requested for patient with remote history of lymphoma and pleural effusion. History of Present Illness Admission Date/PCP: 05/09/18 16:38 PATSY FAJARDO MD History of Present Illness: SITA MANRIQUE is a 72 year old female who was treated for Non-Hodgkin Lymphoma in in 2002. She has had no evidence of recurrent lymphoma since 2005. She most recently has had low blood counts with HGB 7.1 and PLT 56 on 2017. She was found to have iron deficiency but has had progressive dyspnea due to the anemia. CT scans were performed on 05/09/2018 and this showed recurrent pleural effusion. She has had these in the past, due to heart failure but has NOT had a history of malignant pleural effusions. She was admitted for drainage of the pleural effusion. This morning, she states that she is feeling better, but she still feels "wheezy." She denies pain. She states that they will not bring her breakfast due to the test they have ordered today. She has an echo ordered later today. Past Medical History Cardiac Medical History: Reports: Atrial Fibrillation, Congestive Heart Failure, Coronary Artery Disease, Myocardial Infarction, Hyperlipidema, Hypertension Denies: DVT, Pulmonary Embolism Pulmonary Medical History: Reports: Asthma, Bronchitis, Chronic Obstructive Pulmonary Disease (COPD), Pneumonia, Sleep Apnea - Currently on BiPAP for same Neurological Medical History: Denies: Seizures Endocrine Medical History: Reports: Diabetes Mellitus Type 1, Diabetes Mellitus Type 2, Hypothyroidism Denies: Hyperthyroidism Malignancy Medical History: Reports: Lymphoma - Non-Hodgkin's B cell type , S/P XRT, chemo; 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 GI Medical History: Reports: Gastroesophageal Reflux Disease Denies: Cirrhosis, Hepatitis Musculoskeltal Medical History: Reports: Arthritis Psychiatric Medical History: Denies: Depression Hematology: Reports: Anemia, Bleeding Tendencies Past Surgical History Past Surgical History: Reports: Appendectomy, Cholecystectomy, Hysterectomy, Tonsillectomy, Vascular Surgery - History of lymph node removal from the groin, Other - Excision benign brain tumor early ; similar inoperable lesion present Social History Lives with: Family Smoking Status: Current Every Day Smoker Cigarettes Packs Per Day: 1 Frequency of Alcohol Use: None Hx Recreational Drug Use: No Drugs: None Hx Prescription Drug Abuse: No - Advance Directive Resuscitation Status: Full Code Family History Family History: Reviewed & Not Pertinent, CAD, COPD, DM, Hypertension Parental Family History Reviewed: Yes - Mother from CAD. Father with colon Ca. Children Family History Reviewed: No Sibling(s) Family History Reviewed.: Yes - Brother with Stomach cancer. Sister with CAD. Medication/Allergy Home Medications: Alprazolam [Xanax] 1 mg PO Q8 05/09/18 Atorvastatin Calcium [Lipitor 20 mg Tablet] 20 mg PO QHS 05/09/18 Diltiazem HCl [Cartia Xt] 180 mg PO DAILY 05/09/18 Esomeprazole Magnesium 40 mg PO BID 05/09/18 Furosemide [Lasix 40 mg Tablet] 40 mg PO TID 05/09/18 Insulin Aspart Protam & Aspart [Novolog Mix 70-30 Vial] 0 units SQ .SLIDING SCALE 05/09/18 Levothyroxine Sodium [Synthroid] 200 mcg PO Q6AM 05/09/18 Metoclopramide HCl [Reglan 10 mg Tablet] 10 mg PO BID 05/09/18 Potassium Chloride [K-Tab ER] 40 meq PO DAILY 05/09/18 Allergies/Adverse Reactions: moxifloxacin HCl [From Avelox] Allergy (Severe, Verified 05/09/18 13:59) rash,itch apixaban [From Eliquis] Allergy (Intermediate, Verified 05/09/18 13:59) swell dabigatran etexilate [From Pradaxa] Allergy (Intermediate, Verified 05/09/18 13:59) swell lansoprazole [From Prevacid] Allergy (Intermediate, Verified 05/09/18 13:59) Generalized Itching aloe [Aloe] Allergy (Verified 05/09/18 13:59) Review of Systems Constitutional: ABSENT: fever(s) Eyes: ABSENT: visual disturbances Ears: ABSENT: hearing changes Nose, Mouth, and Throat: ABSENT: sore throat Cardiovascular: ABSENT: chest pain Respiratory: PRESENT: dyspnea Gastrointestinal: ABSENT: diarrhea, nausea Genitourinary: ABSENT: dysuria, hematuria Integumentary: ABSENT: rash Neurological: PRESENT: weakness Hematologic/Lymphatic: ABSENT: lymphadenopathy Physical Exam Vital Signs: Temp Pulse Resp BP Pulse Ox 98.1 F 85 18 126/49 H 98 05/10/18 05:04 05/10/18 05:04 05/10/18 05:04 05/10/18 05:04 05/10/18 05:04 Intake & Output 05/09/18 05/10/18 05/11/18 06:59 06:59 06:59 Intake Total 300 Output Total 1395 Balance -1095 Weight 83 kg General appearance: PRESENT: obese Exam: 72 year old female. Head exam: PRESENT: normocephalic Eye exam: PRESENT: EOMI Mouth exam: PRESENT: tongue midline Neck exam: ABSENT: lymphadenopathy, tenderness Respiratory exam: PRESENT: decreased breath sounds, prolonged expiratory phas Cardiovascular exam: PRESENT: RRR GI/Abdominal exam: PRESENT: hypoactive bowel sounds, soft. ABSENT: tenderness Extremities exam: ABSENT: pedal edema Musculoskeletal exam: PRESENT: normal inspection Neurological exam: PRESENT: alert, awake Psychiatric exam: PRESENT: appropriate affect Skin exam: PRESENT: normal color Results Laboratory Results: 05/10/18 05:13 05/10/18 05:13 05/09/18 05/09/18 05/09/18 15:17 15:17 18:11 WBC 5.7 RBC 4.01 Hgb 9.1 L Hct 29.1 L MCV 73 L D MCH 22.6 L MCHC 31.1 L RDW 22.6 H Plt Count 98 L Seg Neutrophils % 73.4 Lymphocytes % 14.4 Monocytes % 9.2 Eosinophils % 1.6 Basophils % 1.4 Absolute Neutrophils 4.2 Absolute Lymphocytes 0.8 Absolute Monocytes 0.5 Absolute Eosinophils 0.1 Absolute Basophils 0.1 Sodium 140.8 Potassium 4.0 Chloride 103 Carbon Dioxide 27 Anion Gap 11 BUN 21 H Creatinine 0.79 Est GFR ( Amer) > 60 Est GFR (Non-Af Amer) > 60 Glucose 111 H Calcium 9.2 Magnesium Total Bilirubin 0.9 AST 15 ALT 19 Alkaline Phosphatase 118 Total Protein 7.5 Albumin 4.3 Triglycerides Cholesterol LDL Cholesterol Direct VLDL Cholesterol HDL Cholesterol TSH Urine Color YELLOW Urine Appearance CLEAR Urine pH 5.0 Ur Specific [place] 1.033 Urine Protein 30 H Urine Glucose (UA) NEGATIVE Urine Ketones NEGATIVE Urine Blood NEGATIVE Urine Nitrite NEGATIVE Ur Leukocyte Esterase NEGATIVE Urine RBC (Auto) 0 05/10/18 05/10/18 05/10/18 05:13 05:13 05:13 WBC 6.9 RBC 3.53 L Hgb 8.1 L Hct 25.6 L MCV 73 L MCH 22.9 L MCHC 31.6 L RDW 22.9 H Plt Count 87 L Seg Neutrophils % 73.3 Lymphocytes % 14.1 Monocytes % 10.0 Eosinophils % 1.7 Basophils % 0.9 Absolute Neutrophils 5.1 Absolute Lymphocytes 1.0 Absolute Monocytes 0.7 Absolute Eosinophils 0.1 Absolute Basophils 0.1 Sodium 140.9 Potassium 4.5 Chloride 105 Carbon Dioxide 30 Anion Gap 6 BUN 21 H Creatinine 0.87 Est GFR ( Amer) > 60 Est GFR (Non-Af Amer) > 60 Glucose 112 H Calcium 8.9 Magnesium 2.2 Total Bilirubin 0.8 AST 31 ALT 15 Alkaline Phosphatase 97 Total Protein 6.9 Albumin 3.9 Triglycerides 90 Cholesterol 99.48 LDL Cholesterol Direct 41 VLDL Cholesterol 18.0 HDL Cholesterol 44 TSH 0.26 L Urine Color Urine Appearance Urine pH Ur Specific [place] Urine Protein Urine Glucose (UA) Urine Ketones Urine Blood Urine Nitrite Ur Leukocyte Esterase Urine RBC (Auto) 05/10/18 05:13 NT-Pro-B Natriuret Pep 3440 H Status: Image reviewed by me - CT scans were discused with Dr Donato. Assessment & Plan - Diagnosis (1) Recurrent right pleural effusion Is this a current diagnosis for this admission?: Yes Plan: Chest tube in place and draining. Repeat CXR planned for today. (2) Non-Hodgkin lymphoma in remission Is this a current diagnosis for this admission?: Yes Plan: Most recent CT scans showed no evidence of recurrent Lymphoma. (3) Anemia Qualifiers: Anemia type: iron deficiency Qualified Code(s): D64.9 - Anemia, unspecified Is this a current diagnosis for this admission?: Yes Plan: This could be significantly contributing to the CHF. I will give Injectafer today. She will need to follow-up in my office next week for the second dose. (4) Acute CHF Qualifiers: Qualified Code(s): I50.9 - Heart failure, unspecified Is this a current diagnosis for this admission?: Yes Plan: Await ECHO report. - Plan Summary Plan Summary: Thank you for this consulatation. Please call me with questions or concerns.
[2018-05-10] MEDS: METOCLOPRAMIDE HCL 10 MG TABLET PO SCH ×2 (09:06→17:39)
[2018-05-10] MEDS: ENOXAPARIN SODIUM INJ 40 MG/0.4 ML DISP.SYRIN SUBCUT SCH (09:06)
[2018-05-10] MEDS: DILTIAZEM HCL 180 MG CAPSULE.CR PO SCH (09:09)
[2018-05-10] MEDS: LISINOPRIL 10 MG TABLET PO SCH (09:09)
[2018-05-10] MEDS: DOCUSATE SODIUM 100 MG CAPSULE PO SCH ×3 (09:10→17:39)
[2018-05-10] MEDS ORDERED: POTASSIUM CHLORIDE 10 MEQ CAPSULE.ER PO SCH (10:00)
[2018-05-10] MEDS ORDERED: (PENDING PHARMACY ID) (Lisinopril [Zestril] 20 MG) PO SCH (10:00)
[2018-05-10] MEDS ORDERED: (PENDING PHARMACY ID) (Diltiazem Hcl [Cartia Xt] 180 MG) PO SCH (10:00)
[2018-05-10] MEDS ORDERED: AZITHROMYCIN INJ 500 MG VIAL IV SCH (10:00)
[2018-05-10] MEDS ORDERED: CEFTRIAXONE INJ 500 MG VIAL IV SCH (10:00)
[2018-05-10] MEDS ORDERED: FERRIC CARBOXYMALTOSE 750 MG in NORMAL SALINE 250 ML IV ONE (10:00)
[2018-05-10] MEDS ORDERED: FUROSEMIDE 40 MG TABLET PO SCH (10:00)
[2018-05-10] MEDS ORDERED: LANSOPRAZOLE 30 MG TAB.RAP.DR PO SCH (10:00)
--- NOTE | 2018-05-10 10:27 | RADIOLOGY REPORT (SQ) ---
EXAM DESCRIPTION: U/S THORACENTESIS W/CHEST TUBE COMPLETED DATE/TIME: 05/09/2018 5:49 pm REASON FOR STUDY: pleural effusion COMPARISON: Same day CT FLUORO TIME: None 2 images saved to PACS. TECHNIQUE: Image guided chest tube placement using sterile technique. LIMITATIONS: None FINDINGS: After written consent was obtained and explaining the risks and benefits were explained to the patient was placed in the upright position on the stretcher. A time out was then called for sit e verification. An entry site was then marked using ultrasound guidance. The posterior right wall was then prepped and draped in a sterile fashion. The site was then anesthetized using 10 ml of 1% lido jose solution. An 11 blade scalpel was used to make a small skin incision. A 6 [place] Oopk-R-Igwph sis needle was advanced into the chest wall. A.038 guidewire was passed through the catheter. The t ract was then dilated using a 12 [place] dilator. A 12 fr drain was then placed over the wire. The c atheter was then attached to the collection device. The entry site was covered with a sterile bandag e. The catheter was applied to the Pleur-Evac device. The patient tolerated the procedure well with local sedation. Documentation face to face time, the performing proceduralist, spent monitoring the patient: 45minute s. IMPRESSION: SUCCESSFUL PLACEMENT OF A 12 [place] RIGHT SIDED CHEST TUBE USING ULTRASOUND GUIDANCE. COMMENT: Patient medication list reviewed: Yes- Quality ID# [id number]:Eligible professional attests to do cumenting in the medical record they obtained, updated, or reviewed the patient's current medications . Quality ID [id number]: Final reports for procedures using fluoroscopy that document radiation exposure lb elizabeth, or exposure time and number of fluorographic images (if radiation exposure indices are not avail able) TECHNICAL DOCUMENTATION: JOB ID: [id number] [employer]- All Rights Reserved rev Reading location - IP/workstation name: [email or web address]
--- NOTE | 2018-05-10 11:04 | PDOC PROGRESS REPORT ---
Subjective Progress Note for:: 05/10/18 Subjective:: No acute events in the last 24 hours. Patient is afebrile. Patient has right- sided chest tube. So far 2.2 L of fluid is drained out. Patient was seen by Dr. Gramajo today. Patient is complaining of cough requesting some cough medication. Reason For Visit: SHORTNESS OF BREATH WITH PLEURAL EFFUSION Physical Exam Vital Signs: Temp Pulse Resp BP Pulse Ox 98.1 F 86 14 127/56 H 99 05/10/18 07:44 05/10/18 07:44 05/10/18 07:44 05/10/18 07:44 05/10/18 07:44 Intake & Output 05/09/18 05/10/18 05/11/18 06:59 06:59 06:59 Intake Total 300 Output Total 1395 100 Balance -1095 -100 Weight 83 kg General appearance: PRESENT: no acute distress Head exam: PRESENT: atraumatic Eye exam: PRESENT: PERRLA Mouth exam: PRESENT: moist Neck exam: ABSENT: carotid bruit, JVD, lymphadenopathy, thyromegaly Respiratory exam: PRESENT: other - Patient has a right-sided chest tube. Decreased breath sounds on the right lower chest. Cardiovascular exam: PRESENT: tachycardia GI/Abdominal exam: PRESENT: normal bowel sounds, soft. ABSENT: distended, guarding, mass, organolmegaly, rebound, tenderness Extremities exam: PRESENT: full ROM. ABSENT: calf tenderness, clubbing, pedal edema Neurological exam: PRESENT: alert, awake, oriented to person, oriented to place, oriented to time, oriented to situation, CN II-XII grossly intact. ABSENT: motor sensory deficit Psychiatric exam: PRESENT: appropriate affect, normal mood. ABSENT: homicidal ideation, suicidal ideation Results Laboratory Results: 05/10/18 05:13 05/10/18 05:13 05/09/18 05/09/18 05/09/18 15:17 15:17 18:11 WBC 5.7 RBC 4.01 Hgb 9.1 L Hct 29.1 L MCV 73 L D MCH 22.6 L MCHC 31.1 L RDW 22.6 H Plt Count 98 L Seg Neutrophils % 73.4 Lymphocytes % 14.4 Monocytes % 9.2 Eosinophils % 1.6 Basophils % 1.4 Absolute Neutrophils 4.2 Absolute Lymphocytes 0.8 Absolute Monocytes 0.5 Absolute Eosinophils 0.1 Absolute Basophils 0.1 Sodium 140.8 Potassium 4.0 Chloride 103 Carbon Dioxide 27 Anion Gap 11 BUN 21 H Creatinine 0.79 Est GFR ( Amer) > 60 Est GFR (Non-Af Amer) > 60 Glucose 111 H Calcium 9.2 Magnesium Total Bilirubin 0.9 AST 15 ALT 19 Alkaline Phosphatase 118 Total Protein 7.5 Albumin 4.3 Triglycerides Cholesterol LDL Cholesterol Direct VLDL Cholesterol HDL Cholesterol TSH Urine Color YELLOW Urine Appearance CLEAR Urine pH 5.0 Ur Specific [place] 1.033 Urine Protein 30 H Urine Glucose (UA) NEGATIVE Urine Ketones NEGATIVE Urine Blood NEGATIVE Urine Nitrite NEGATIVE Ur Leukocyte Esterase NEGATIVE Urine RBC (Auto) 0 05/10/18 05/10/18 05/10/18 05:13 05:13 05:13 WBC 6.9 RBC 3.53 L Hgb 8.1 L Hct 25.6 L MCV 73 L MCH 22.9 L MCHC 31.6 L RDW 22.9 H Plt Count 87 L Seg Neutrophils % 73.3 Lymphocytes % 14.1 Monocytes % 10.0 Eosinophils % 1.7 Basophils % 0.9 Absolute Neutrophils 5.1 Absolute Lymphocytes 1.0 Absolute Monocytes 0.7 Absolute Eosinophils 0.1 Absolute Basophils 0.1 Sodium 140.9 Potassium 4.5 Chloride 105 Carbon Dioxide 30 Anion Gap 6 BUN 21 H Creatinine 0.87 Est GFR ( Amer) > 60 Est GFR (Non-Af Amer) > 60 Glucose 112 H Calcium 8.9 Magnesium 2.2 Total Bilirubin 0.8 AST 31 ALT 15 Alkaline Phosphatase 97 Total Protein 6.9 Albumin 3.9 Triglycerides 90 Cholesterol 99.48 LDL Cholesterol Direct 41 VLDL Cholesterol 18.0 HDL Cholesterol 44 TSH 0.26 L Urine Color Urine Appearance Urine pH Ur Specific [place] Urine Protein Urine Glucose (UA) Urine Ketones Urine Blood Urine Nitrite Ur Leukocyte Esterase Urine RBC (Auto) 05/10/18 05:13 NT-Pro-B Natriuret Pep 3440 H Impressions: Thoracentesis Ultrasound 05/09/18 16:05 IMPRESSION: SUCCESSFUL PLACEMENT OF A 12 HEBREW RIGHT SIDED CHEST TUBE USING ULTRASOUND GUIDANCE. Assessment & Plan - Diagnosis (1) Recurrent right pleural effusion Is this a current diagnosis for this admission?: Yes Plan: 05/09/2018-plan is to put the patient in hospital as an inpatient. He is going to be admitted to [facility]. Consultation with the surgical team was requested. Consultation with cardiology was requested. Consult for oncology was requested. Patient is going to be placed on oxygen 2 L nasal cannula. Started on Percocet 10/25 mg every 6 hours as needed for pain. CT scan indicates there is possible bilateral consolidation bibasilar consolidation. blood cultures sputum cultures are requested started on Rocephin 1 g IV daily. I am going to add azithromycin to the medication. Follow-up chest x-ray was requested. Etiologies could put chest tube and let it drain tonight. Patient has history of non-Hodgkin's lymphoma in remission for the last 11 years very low suspicious for malignancy. The pleural effusion which is recurrent probably secondary to underlying congestive heart failure. 05/10/2018-status post chest tube placement yesterday. So far 2.2 L of pleural fluid is drained out which was blood stained. Patient is feeling much better. Oncology consultation with Dr. Gramajo was done. Plan is to repeat the chest x- ray today. In the meantime we will continue the present management. 10 Percocet 10/325 mg p.o. every 6 hours as needed for pain. (2) Atrial fibrillation Qualifiers: Atrial fibrillation type: chronic Is this a current diagnosis for this admission?: Yes Plan: 05/09/2018 patient has history of atrial fibrillation but she is allergic to Eliquis and Pradaxa. Presently she is on only aspirin 324 mg p.o. daily. Plan is to continue the present management. To hold aspirin tonight because of the chest tube placement. 05/10/2018-patient has history of atrial fibrillation not on Eliquis not on Pradaxa because of an allergic history. takes aspirin 325 mg p.o. daily at home which was restarted today. (3) COPD (chronic obstructive pulmonary disease) Qualifiers: Emphysema type: unspecified Is this a current diagnosis for this admission?: Yes Plan: 05/09/2018-patient has history of COPD secondary to chronic smoking history of smoking for more than 50 years she smokes more than 1-1/2 pack/day. She uses oxygen 2 L nasal cannula at home along with trilogy. 05/10/2018-and has history of COPD secondary to chronic smoking. She still smokes more than 1 pack/day. Started on nicotine patch. Uses 2 L oxygen at home. Which was restarted while she was in the hospital. She is getting the nebulizer treatments also. (4) Anemia Qualifiers: Anemia type: iron deficiency Is this a current diagnosis for this admission?: Yes Plan: 05/09/2018-patient's hemoglobin is 9.1. Patient's hemoglobin in the last 2 months fluctuating from 6.8 to 7.7. Patient has anemia of chronic disease probably secondary to history of non-Hodgkin's lymphoma. 05/10/2018-patient has history of anemia of chronic disease hemoglobin is 8.1. Baseline hemoglobin is between 6.8-7.7. Anemia of chronic disease probably secondary to non-Hodgkin's lymphoma. (5) Non-Hodgkin lymphoma in remission Is this a current diagnosis for this admission?: Yes Plan: 05/09/2018-patient has history of non-Hodgkin's lymphoma she is in remission for the last 11 years according to the family. She follows with Dr. Fay/Dr. Gramajo. Consult was placed for Dr. Gramajo. 05/10/2018-has history of non-Hodgkin's lymphoma she is in remission for the last 11 years. She follows with Dr. Gramajo/Dr. Fay as an outpatient. Plan is to continue the present management. (6) Smoker Is this a current diagnosis for this admission?: Yes Plan: 05/09/2018-patient has history of chronic smoking smokes 1 and a pack per day smoking for more than 50 years. Smoking counseling was provided for more than 10 minutes strongly advised to quit smoking. She was placed on nicotine patch. 05/10/2018 patient is a chronic smoker. She was placed on nicotine patch 21 mg daily. (7) CHF (congestive heart failure) Is this a current diagnosis for this admission?: Yes Plan: 05/09/2018-patient and family is giving the history of chronic congestive heart failure. Pleural effusion may be secondary to CHF. Echocardiogram was requested consultation with the finance broker Dr. Roger was requested. Plan to check the BNP tomorrow. His Lasix 40 mg daily at home which was resumed. 05/10/2018-patient has history of chronic congestive heart failure. Recurrent pleural effusions probably secondary to underlying CHF. BNP was 3440. Patient's finance broker is Dr. Roger. Waiting for the echocardiogram report. Plan is to continue Lasix 40mg tid . (8) Pneumonia Is this a current diagnosis for this admission?: Yes Plan: 05/09/2018-CT scan of the chest indicating bibasilar consolidation. Sputum cultures blood cultures are requested started on IV Rocephin 1 g daily Zithromax 500 mg IV daily. Planning to do the follow-up chest x-ray tomorrow. 05/10/2018-patient was placed on IV Rocephin 1 g daily Zithromax 500 mg IV daily because a CT scan showing possible bibasilar consolidation. Patient is coughing up yellowish white sputum be going to send for sputum culture. Pending the repeat chest x-ray today. Blood cultures are pending. So far no growth. My impression is she has community-acquired pneumonia. - Time Time Spent with patient: 15-24 minutes Smoking Cessation Education: over 10 minutes Medications reviewed and adjusted accordingly: Yes Anticipated discharge: Home
--- NOTE | 2018-05-10 11:48 | RADIOLOGY REPORT (SQ) ---
EXAM DESCRIPTION: CHEST SINGLE VIEW COMPLETED DATE/TIME: 05/10/2018 11:30 am REASON FOR STUDY: pleural effusion COMPARISON: CT chest abdomen pelvis 05/09/2018 AP chest 01/18/2017, and 11/27/2016 EXAM PARAMETERS: NUMBER OF VIEWS: One view. TECHNIQUE: Single frontal radiographic view of the chest acquired. RADIATION DOSE: NA LIMITATIONS: None. FINDINGS: LUNGS AND PLEURA: Right pleural space pigtail catheter is present, resolved right pleural effusion. No pneumothorax. There is persistent right basilar consolidation likely atelectasis. Pneumonia could not be excluded. Trace left pleural effusion with mild left basilar airspace disease likely atelectasis. This is lito lar compared to CT chest abdomen pelvis 05/09/2018 MEDIASTINUM AND HILAR STRUCTURES: No masses. Contour normal. HEART AND VASCULAR STRUCTURES: Stable marked cardiomegaly BONES: No acute findings. HARDWARE: None in the chest. OTHER: No other significant finding. IMPRESSION: Right pleural space pigtail catheter in place. No residual right pleural effusion. No right pneumothorax. Persistent right basilar airspace disease atelectasis versus pneumonia. Small left pleural effusion with minimal left basilar airspace disease atelectasis versus pneumonia, stable compared to CT chest abdomen pelvis 05/09/2018. TECHNICAL DOCUMENTATION: JOB ID: [id number] [employer]- All Rights Reserved Reading location - IP/workstation name: [id number]
--- NOTE | 2018-05-10 12:09 | PDOC CONSULTATION ---
Consultation Consult Date: 05/10/18 Consult reason:: management of chest tube History of Present Illness Admission Date/PCP: 05/09/18 16:38 PATSY FAJARDO MD History of Present Illness: SITA MANRIQUE is a 72 year old female who came in with SOB. Has history of lymphoma. Noted lerge effusion on CT [facility] admission. Thoracentesis done by Radiologist yesterday and drained a lot of effusion. Today has 2100 ccs of clear fluid in the pleur evac. Past Medical History Cardiac Medical History: Reports: Atrial Fibrillation, Congestive Heart Failure, Coronary Artery Disease, Myocardial Infarction, Hyperlipidema, Hypertension Denies: DVT, Pulmonary Embolism Pulmonary Medical History: Reports: Asthma, Bronchitis, Chronic Obstructive Pulmonary Disease (COPD), Pneumonia, Sleep Apnea - Currently on BiPAP for same Neurological Medical History: Denies: Seizures Endocrine Medical History: Reports: Diabetes Mellitus Type 1, Diabetes Mellitus Type 2, Hypothyroidism Denies: Hyperthyroidism Malignancy Medical History: Reports: Lymphoma - Non-Hodgkin's B cell type , S/P XRT, chemo; 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 GI Medical History: Reports: Gastroesophageal Reflux Disease Denies: Cirrhosis, Hepatitis Musculoskeltal Medical History: Reports: Arthritis Psychiatric Medical History: Denies: Depression Hematology: Reports: Anemia, Bleeding Tendencies Past Surgical History Past Surgical History: Reports: Appendectomy, Cholecystectomy, Hysterectomy, Tonsillectomy, Vascular Surgery - History of lymph node removal from the groin, Other - Excision benign brain tumor early ; similar inoperable lesion present Social History Lives with: Family Smoking Status: Current Every Day Smoker Cigarettes Packs Per Day: 1 Frequency of Alcohol Use: None Hx Recreational Drug Use: No Drugs: None Hx Prescription Drug Abuse: No - Advance Directive Resuscitation Status: Full Code Family History Family History: Reviewed & Not Pertinent, CAD, COPD, DM, Hypertension Parental Family History Reviewed: Yes Children Family History Reviewed: No Sibling(s) Family History Reviewed.: No Medication/Allergy Home Medications: Alprazolam [Xanax] 1 mg PO Q8 05/09/18 Atorvastatin Calcium [Lipitor 20 mg Tablet] 20 mg PO QHS 05/09/18 Diltiazem HCl [Cartia Xt] 180 mg PO DAILY 05/09/18 Esomeprazole Magnesium 40 mg PO BID 05/09/18 Furosemide [Lasix 40 mg Tablet] 40 mg PO TID 05/09/18 Insulin Aspart Protam & Aspart [Novolog Mix 70-30 Vial] 0 units SQ .SLIDING SCALE 05/09/18 Levothyroxine Sodium [Synthroid] 200 mcg PO Q6AM 05/09/18 Metoclopramide HCl [Reglan 10 mg Tablet] 10 mg PO BID 05/09/18 Potassium Chloride [K-Tab ER] 40 meq PO DAILY 05/09/18 Allergies/Adverse Reactions: moxifloxacin HCl [From Avelox] Allergy (Severe, Verified 05/09/18 13:59) rash,itch apixaban [From Eliquis] Allergy (Intermediate, Verified 05/09/18 13:59) swell dabigatran etexilate [From Pradaxa] Allergy (Intermediate, Verified 05/09/18 13:59) swell lansoprazole [From Prevacid] Allergy (Intermediate, Verified 05/09/18 13:59) Generalized Itching aloe [Aloe] Allergy (Verified 05/09/18 13:59) Review of Systems Constitutional: PRESENT: weakness Eyes: PRESENT: other - no visual /hearing changes Cardiovascular: PRESENT: other - no chest pains Respiratory: PRESENT: dyspnea Gastrointestinal: PRESENT: other - no pains Neurological: PRESENT: weakness Psychiatric: PRESENT: anxiety Physical Exam Vital Signs: Temp Pulse Resp BP Pulse Ox 98.1 F 86 14 127/56 H 99 05/10/18 07:44 05/10/18 07:44 05/10/18 07:44 05/10/18 07:44 05/10/18 07:44 Intake & Output 05/09/18 05/10/18 05/11/18 06:59 06:59 06:59 Intake Total 300 Output Total 1395 100 Balance -1095 -100 Weight 83 kg General appearance: PRESENT: mild distress Head exam: PRESENT: atraumatic Eye exam: PRESENT: conjunctival injection Mouth exam: PRESENT: moist Neck exam: PRESENT: full ROM Respiratory exam: PRESENT: decreased breath sounds, other - Chest tube site on the right upper back in place. Dressing is dry. No air leak Cardiovascular exam: PRESENT: RRR Pulses: PRESENT: normal radial pulses Vascular exam: PRESENT: normal capillary refill GI/Abdominal exam: PRESENT: soft Rectal exam: PRESENT: deferred Extremities exam: PRESENT: full ROM Musculoskeletal exam: PRESENT: ambulatory Neurological exam: PRESENT: alert, oriented to person, oriented to place, oriented to time, oriented to situation Psychiatric exam: PRESENT: appropriate affect Skin exam: PRESENT: normal color, warm Results Laboratory Results: 05/10/18 05:13 05/10/18 05:13 05/09/18 05/09/18 05/09/18 15:17 15:17 18:11 WBC 5.7 RBC 4.01 Hgb 9.1 L Hct 29.1 L MCV 73 L D MCH 22.6 L MCHC 31.1 L RDW 22.6 H Plt Count 98 L Seg Neutrophils % 73.4 Lymphocytes % 14.4 Monocytes % 9.2 Eosinophils % 1.6 Basophils % 1.4 Absolute Neutrophils 4.2 Absolute Lymphocytes 0.8 Absolute Monocytes 0.5 Absolute Eosinophils 0.1 Absolute Basophils 0.1 Sodium 140.8 Potassium 4.0 Chloride 103 Carbon Dioxide 27 Anion Gap 11 BUN 21 H Creatinine 0.79 Est GFR ( Amer) > 60 Est GFR (Non-Af Amer) > 60 Glucose 111 H Calcium 9.2 Magnesium Total Bilirubin 0.9 AST 15 ALT 19 Alkaline Phosphatase 118 Total Protein 7.5 Albumin 4.3 Triglycerides Cholesterol LDL Cholesterol Direct VLDL Cholesterol HDL Cholesterol TSH Urine Color YELLOW Urine Appearance CLEAR Urine pH 5.0 Ur Specific [place] 1.033 Urine Protein 30 H Urine Glucose (UA) NEGATIVE Urine Ketones NEGATIVE Urine Blood NEGATIVE Urine Nitrite NEGATIVE Ur Leukocyte Esterase NEGATIVE Urine RBC (Auto) 0 05/10/18 05/10/18 05/10/18 05:13 05:13 05:13 WBC 6.9 RBC 3.53 L Hgb 8.1 L Hct 25.6 L MCV 73 L MCH 22.9 L MCHC 31.6 L RDW 22.9 H Plt Count 87 L Seg Neutrophils % 73.3 Lymphocytes % 14.1 Monocytes % 10.0 Eosinophils % 1.7 Basophils % 0.9 Absolute Neutrophils 5.1 Absolute Lymphocytes 1.0 Absolute Monocytes 0.7 Absolute Eosinophils 0.1 Absolute Basophils 0.1 Sodium 140.9 Potassium 4.5 Chloride 105 Carbon Dioxide 30 Anion Gap 6 BUN 21 H Creatinine 0.87 Est GFR ( Amer) > 60 Est GFR (Non-Af Amer) > 60 Glucose 112 H Calcium 8.9 Magnesium 2.2 Total Bilirubin 0.8 AST 31 ALT 15 Alkaline Phosphatase 97 Total Protein 6.9 Albumin 3.9 Triglycerides 90 Cholesterol 99.48 LDL Cholesterol Direct 41 VLDL Cholesterol 18.0 HDL Cholesterol 44 TSH 0.26 L Urine Color Urine Appearance Urine pH Ur Specific [place] Urine Protein Urine Glucose (UA) Urine Ketones Urine Blood Urine Nitrite Ur Leukocyte Esterase Urine RBC (Auto) 05/10/18 05:13 NT-Pro-B Natriuret Pep 3440 H Impressions: Thoracentesis Ultrasound 05/09/18 16:05 IMPRESSION: SUCCESSFUL PLACEMENT OF A 12 [place] RIGHT SIDED CHEST TUBE USING ULTRASOUND GUIDANCE. Chest X-Ray 05/10/18 09:00 IMPRESSION: Right pleural space pigtail catheter in place. No residual right pleural effusion. No right pneumothorax. Persistent right basilar airspace disease atelectasis versus pneumonia. Small left pleural effusion with minimal left basilar airspace disease atelectasis versus pneumonia, stable compared to CT chest abdomen pelvis 05/09/2018. Assessment & Plan - Time Time Spent: 30 to 50 Minutes - Plan Summary Plan Summary: Chest tube in place and draining Will follow as needed.
[2018-05-10] MEDS: FUROSEMIDE 40 MG TABLET PO SCH ×2 (14:28→17:39)
[2018-05-10] MEDS: ALPRAZOLAM 0.5 MG TABLET PO PRN (15:29)
[2018-05-10] MEDS: CEFTRIAXONE 1 GM/D5W RTU 1 GM/50 ML RTUPB IV SCH (17:45)
[2018-05-10] MEDS ORDERED: (PENDING PHARMACY ID) (Esomeprazole Magnesium [Esomeprazole Magnesium] 40 MG) PO SCH (18:00)
--- NOTE | 2018-05-10 19:32 | XCELERA REPORT ---
[address] [address] Transthoracic Echocardiogram Report Name: SITA MANRIQUE Age: 72 yrs Gender: Female : 1945 Patient Status: Inpatient Patient Location: [address] [place], [place] [id number] Study Date: 05/10/2018 10:59 AM Procedure: A complete two-dimensional transthoracic echocardiogram was performed (2D, M-mode, spectral and color flow Doppler). The study was technically adequate with some images being suboptimal in quality. Reason For Study: chf Ordering Physician: TED DARLING Performed By: Sarah Chanel Interpretation Summary The left ventricular ejection fraction is normal. There is mild concentric left ventricular hypertrophy. The left ventricle is grossly normal size. LV diastolic function could not be adequately assessed. Wall motion cannot be accurately commented on, but no definite regional wall motion abnormalities noted. The right ventricular systolic function is normal. The left atrium is mildly dilated. The right atrium is normal in size There is a mild amount of mitral regurgitation There is no mitral valve stenosis. No aortic regurgitation is present. There is no aortic valve stenosis There is a trace to mild amount of tricuspid regurgitation There is mild pulmonary hypertension by echo Right ventricular systolic pressure is estimated to be elevated at 30-40mmHg. The aortic root is not well visualized but is probably normal size. The inferior vena cava was not well visualized There is no pericardial effusion. Small right pleural effusion. Small left pleural effusion. MMode/2D Measurements & Calculations RVDd: 3.6 cm LVIDd: 4.8 cm FS: 35.8 % Ao root diam: 3.0 cm IVSd: 1.3 cm LVIDs: 3.1 cm EDV(Teich): 109.6 ml Ao root area: 6.9 cm2 LVPWd: 1.4 cm ESV(Teich): 38.1 ml EF(Teich): 65.3 % Doppler Measurements & Calculations MV E max angela: MV dec slope: Ao V2 max: LV V1 max P.4 cm/sec 190.6 cm/sec 5.3 mmHg MV A max angela: 686.6 cm/sec2 Ao max PG: LV V1 max: 74.9 cm/sec MV dec time: 0.20 sec14.5 mmHg 115.2 cm/sec MV E/A: 1.9 LV dP/dt: 3803 mmHg/s PA V2 max: TR max angela: 121.8 cm/sec 275.3 cm/sec PA max P.9 mmHg TR max P.3 mmHg Left Ventricle The left ventricle is grossly normal size. There is mild concentric left ventricular hypertrophy. The left ventricular ejection fraction is normal. LV diastolic function could not be adequately assessed. Wall motion cannot be accurately commented on, but no definite regional wall motion abnormalities noted. Right Ventricle The right ventricle is grossly normal size. There is normal right ventricular wall thickness. The right ventricular systolic function is normal. Atria The right atrium is normal in size. The left atrium is mildly dilated. Interarterial septum not well visualized and not well dopplered. Cannot comment on ASD/PFO presence. Mitral Valve The mitral valve is grossly normal. There is no mitral valve stenosis. There is a mild amount of mitral regurgitation. Aortic Valve The aortic valve is sclerotic, but shows no functional abnormality. There is no aortic valve stenosis. No aortic regurgitation is present. Tricuspid Valve The tricuspid valve is not well visualized, but is grossly normal. There is no tricuspid stenosis. There is a trace to mild amount of tricuspid regurgitation. There is mild pulmonary hypertension by echo. Right ventricular systolic pressure is estimated to be elevated at 30-40mmHg. Pulmonic Valve The pulmonic valve is not well visualized. Great Vessels The aortic root is not well visualized but is probably normal size. The inferior vena cava was not well visualized. Effusions There is no pericardial effusion. Small right pleural effusion. Small left pleural effusion. : TED DARLING > Catalino Roger
--- NOTE | 2018-05-10 20:11 | PDOC PROGRESS REPORT ---
Subjective Progress Note for:: 05/10/18 Subjective:: Patient has been experiencing shortness of breath for last several days. She was evaluated by oncologist, who had ordered a CT scan. It showed rather large right pleural effusion. Subsequently patient was admitted. Patient denied any chest pain. Patient has history of chronic pleural effusion and had a admission with similar presentation in 2017. Patient had a echocardiogram at that time which had shown diastolic dysfunction. Patient has no known history of coronary artery disease, or prior myocardial infarction. Patient has a history of lymphoma for which she has been closely followed by oncologist. Patient has history of diastolic heart failure. Reason For Visit: SHORTNESS OF BREATH WITH PLEURAL EFFUSION Physical Exam Vital Signs: Temp Pulse Resp BP Pulse Ox 98.8 F 85 15 134/45 H 98 05/10/18 15:26 05/10/18 15:26 05/10/18 15:26 05/10/18 15:26 05/10/18 15:26 Intake & Output 05/09/18 05/10/18 05/11/18 06:59 06:59 06:59 Intake Total 300 502 Output Total 1395 635 Balance -1095 -133 Weight 83 kg Exam: GENERAL: well-nourished and in no acute distress. Alert and oriented x3 HEAD: Atraumatic, normocephalic. EYES: ALONZO, sclera anicteric, conjunctiva are normal. ENT: Moist mucous membranes. No oral ulcerations or bleeding gums noted. No obvious ear, nose or throat abnormalities noted. NECK: supple without lymphadenopathy. Trachea is central. No cervical or axillary lymphadenopathy noted. Carotids are 2+, JVD WNL LUNGS: Breath sounds clear bilaterally. No wheezes rales or rhonchi noted. Mild bilateral basal dullness noted on percussion. CHEST: Palpation of the chest wall shows no significant chest wall tenderness. Chest tube noted right side chest. HEART: [place] SENIOR LITIGATION PARALEGAL, No PSH, 1/6 ORTIZ aortic area, 1/6 gaitan systolic murmur mitral area, no rubs, no gallops. ABDOMEN: Soft, no significant tenderness appreciated, normoactive bowel sounds. No guarding, no rebound. No rigidity noted . No masses appreciated. EXTREMITIES: Pedal pulses are 1-2+, no calf tenderness noted. No clubbing or cyanosis. negative pedal edema noted NEUROLOGICAL: Focused neurological exam showed no significant neurologic deficit. Normal speech, no focal weakness appreciated. PSYCH: Normal mood, normal affect. Judgment and insight within normal limits. SKIN: No significant ecchymosis, skin is noted to be warm. MUSCULOSKELETAL EXAM: No significant acute joint swelling noted. Results Laboratory Results: 05/10/18 05:13 05/10/18 05:13 05/10/18 05/10/18 05/10/18 05:13 05:13 05:13 WBC 6.9 RBC 3.53 L Hgb 8.1 L Hct 25.6 L MCV 73 L MCH 22.9 L MCHC 31.6 L RDW 22.9 H Plt Count 87 L Seg Neutrophils % 73.3 Lymphocytes % 14.1 Monocytes % 10.0 Eosinophils % 1.7 Basophils % 0.9 Absolute Neutrophils 5.1 Absolute Lymphocytes 1.0 Absolute Monocytes 0.7 Absolute Eosinophils 0.1 Absolute Basophils 0.1 Sodium 140.9 Potassium 4.5 Chloride 105 Carbon Dioxide 30 Anion Gap 6 BUN 21 H Creatinine 0.87 Est GFR ( Amer) > 60 Est GFR (Non-Af Amer) > 60 Glucose 112 H Calcium 8.9 Magnesium 2.2 Total Bilirubin 0.8 AST 31 ALT 15 Alkaline Phosphatase 97 Total Protein 6.9 Albumin 3.9 Triglycerides 90 Cholesterol 99.48 LDL Cholesterol Direct 41 VLDL Cholesterol 18.0 HDL Cholesterol 44 TSH 0.26 L 05/10/18 05:13 NT-Pro-B Natriuret Pep 3440 H EKG Comments: Sinus rhythm, possible LVH. Impressions: Thoracentesis Ultrasound 05/09/18 16:05 IMPRESSION: SUCCESSFUL PLACEMENT OF A 12 INDONESIAN RIGHT SIDED CHEST TUBE USING ULTRASOUND GUIDANCE. Chest X-Ray 05/10/18 09:00 IMPRESSION: Right pleural space pigtail catheter in place. No residual right pleural effusion. No right pneumothorax. Persistent right basilar airspace disease atelectasis versus pneumonia. Small left pleural effusion with minimal left basilar airspace disease atelectasis versus pneumonia, stable compared to CT chest abdomen pelvis 05/09/2018. Assessment & Plan - Diagnosis (1) CHF (congestive heart failure) Qualifiers: Heart failure type: diastolic Heart failure chronicity: acute on chronic Qualified Code(s): I50.33 - Acute on chronic diastolic (congestive) heart failure Is this a current diagnosis for this admission?: Yes (2) Non-Hodgkin lymphoma Qualifiers: Follicular lymphoma grade: unspecified grade Lymphoma site: unspecified region Is this a current diagnosis for this admission?: Yes (3) Recurrent right pleural effusion Is this a current diagnosis for this admission?: Yes - Notes Notes: Chronic diastolic heart failure with acute exacerbation: Patient noted to have elevated BNP level, also bilateral pleural effusion right more than left. Most likely related to chronic heart failure however I feel that there is probably significant contribution from lymphoma either by causing lymphatic or venous occlusion. At this point agree with chest tube placement. Recommend diuretic therapy. May also consider a sleep study as an outpatient as positive pressure ventilation may help in preventing recurrent pleural effusion. Recommend salt and fluid restriction as well. We will try and adjust her medications while in the hospital. Will add spironolactone as this will help diastolic heart failure. May consider backing off Synthroid replacement as TSH level is noted to be low. Non-Hodgkin's lymphoma: Patient under close follow-up with oncologist. Recurrent right pleural effusion: Agree with chest tube placement for drainage. Await analysis of pleural fluid aspiration. - Time Time with patient: Greater than 35 minutes - More than 50% of the time spent coordinating care, discussing management plans with involved caregivers. Management plans discussed with involved personnels. Medical decision making was of moderate to high complexity, patient's has multiple comorbidities. Medications reviewed and adjusted accordingly: Yes
[2018-05-10] MEDS: ATORVASTATIN CALCIUM 20 MG TABLET PO SCH (21:16)
[2018-05-10] MEDS: SPIRONOLACTONE 25 MG TABLET PO SCH (21:16)
[2018-05-10] MEDS: GUAIFENESIN 600 MG TABLET.SA PO SCH (21:17)
[2018-05-10] MEDS: AZITHROMYCIN 500 MG in DEXTROSE 5%-WATER 250 ML IV SCH (21:17)
[2018-05-10] MEDS: IPRATROPIUM/ALBUTEROL 0.5-2.5 MG/3 ML AMPUL NEB PRN (21:43)
[2018-05-10] MEDS ORDERED: ATORVASTATIN CALCIUM 20 MG TABLET PO SCH (22:00)
[2018-05-11] MEDS: ALPRAZOLAM 0.5 MG TABLET PO PRN ×3 (00:21→22:57)
[2018-05-11] MEDS: GABAPENTIN 300 MG CAPSULE PO SCH ×3 (05:32→22:52)
[2018-05-11] MEDS: ENOXAPARIN SODIUM INJ 40 MG/0.4 ML DISP.SYRIN SUBCUT SCH (09:44)
[2018-05-11] MEDS: LISINOPRIL 10 MG TABLET PO SCH (09:49)
[2018-05-11] MEDS: DOCUSATE SODIUM 100 MG CAPSULE PO SCH ×2 (09:49→17:07)
[2018-05-11] MEDS: FUROSEMIDE 40 MG TABLET PO SCH (09:49)
[2018-05-11] MEDS: SPIRONOLACTONE 25 MG TABLET PO SCH ×2 (09:49→22:56)
[2018-05-11] MEDS: ASPIRIN 325 MG TABLET PO SCH (09:49)
[2018-05-11] MEDS: GUAIFENESIN 600 MG TABLET.SA PO SCH ×2 (09:50→22:56)
[2018-05-11] MEDS: POTASSIUM CHLORIDE 10 MEQ CAPSULE.ER PO SCH (09:50)
[2018-05-11] MEDS: DILTIAZEM HCL 180 MG CAPSULE.CR PO SCH (09:50)
[2018-05-11] MEDS: METOCLOPRAMIDE HCL 10 MG TABLET PO SCH ×2 (09:50→17:09)
[2018-05-11] MEDS ORDERED: (PENDING PHARMACY ID) (Potassium Chloride [K-Tab Er] 40 MEQ) PO SCH (10:00)
[2018-05-11] MEDS ORDERED: (PENDING PHARMACY ID) (Diltiazem Hcl [Cartia Xt] 180 MG) PO SCH (10:00)
[2018-05-11] MEDS: LEVOTHYROXINE SODIUM 0.075 MG TABLET PO SCH (10:09)
[2018-05-11] MEDS: IPRATROPIUM/ALBUTEROL 0.5-2.5 MG/3 ML AMPUL NEB PRN (10:53)
--- NOTE | 2018-05-11 10:55 | RADIOLOGY REPORT (SQ) ---
EXAM DESCRIPTION: CHEST 2 VIEWS COMPLETED DATE/TIME: 05/11/2018 10:41 am REASON FOR STUDY: rt plural effusion COMPARISON: Chest film 05/10/2018, 11/27/2016 CT chest 05/09/2018 EXAM PARAMETERS: NUMBER OF VIEWS: two views TECHNIQUE: Digital Frontal and Lateral radiographic views of the chest acquired. RADIATION DOSE: NA LIMITATIONS: none FINDINGS: LUNGS AND PLEURA: Right-sided pleural space pigtail catheter unchanged. No residual right pleural effusion. Patchy scarring or atelectasis at the right lung base persists. No right pneumot horax. Persistent trace left pleural effusion with left basilar airspace disease, unchanged from multiple pr evious studies. No left pneumothorax. MEDIASTINUM AND HILAR STRUCTURES: No masses or contour abnormalities. HEART AND VASCULAR STRUCTURES: Stable cardiomegaly. No evidence for failure. BONES: No acute findings. HARDWARE: None in the chest. OTHER: No other significant finding. IMPRESSION: Resolved right pleural effusion. No pneumothorax. Minimal persistent right basilar airspace disease likely scarring. TECHNICAL DOCUMENTATION: JOB ID: [id number] [employer]- All Rights Reserved Reading location - IP/workstation name: [email or web address]
--- NOTE | 2018-05-11 11:05 | PDOC PROGRESS REPORT ---
Subjective Progress Note for:: 05/11/18 Subjective:: No acute events in the last 24 hours. Patient is afebrile. Patient has right- sided chest tube. So far 2.2 L of fluid is drained out. Patient was seen by Dr. Gramajo today. Patient is complaining of cough requesting some cough medication. 05/11/2018-patient still have the chest tube. Chest x-ray done yesterday indicates there is no right pleural effusion. But in the last 24 hours chest tube drainage is around 1 L. The plan is to repeat the chest x-ray today. The radiologist Dr. Young spoke to me just a minute ago saying he did not see any pleural effusion in the chest x-ray but I notified him that there is 1 L of drainage from last night and his suggestion is may be we need to keep the chest tube for another 24 hours. Reason For Visit: SHORTNESS OF BREATH WITH PLEURAL EFFUSION Physical Exam Vital Signs: Temp Pulse Resp BP Pulse Ox 98.4 F 91 14 146/56 H 97 05/11/18 07:32 05/11/18 07:32 05/11/18 07:32 05/11/18 07:32 05/11/18 07:32 Intake & Output 05/10/18 05/11/18 05/12/18 06:59 06:59 06:59 Intake Total 300 1042 Output Total 1395 2165 Balance -1095 -1123 Weight 83 kg 80.9 kg General appearance: PRESENT: no acute distress Head exam: PRESENT: atraumatic Eye exam: PRESENT: PERRLA Mouth exam: PRESENT: moist Neck exam: ABSENT: carotid bruit, JVD, lymphadenopathy, thyromegaly Respiratory exam: PRESENT: decreased breath sounds, other - Decreased breath sounds bilaterally especially right lower lobe. Cardiovascular exam: PRESENT: irregular rhythm, systolic murmur, tachycardia GI/Abdominal exam: PRESENT: normal bowel sounds, soft. ABSENT: distended, guarding, mass, organolmegaly, rebound, tenderness Extremities exam: PRESENT: full ROM. ABSENT: calf tenderness, clubbing, pedal e kaelyn Neurological exam: PRESENT: alert, awake, oriented to person, oriented to place, oriented to time, oriented to situation, CN II-XII grossly intact. ABSENT: motor sensory deficit Psychiatric exam: PRESENT: appropriate affect, normal mood. ABSENT: homicidal ideation, suicidal ideation Results Laboratory Results: 05/10/18 05:13 05/10/18 05:13 05/10/18 05:13 NT-Pro-B Natriuret Pep 3440 H Impressions: Thoracentesis Ultrasound 05/09/18 16:05 IMPRESSION: SUCCESSFUL PLACEMENT OF A 12 URDU RIGHT SIDED CHEST TUBE USING ULTRASOUND GUIDANCE. Assessment & Plan - Diagnosis (1) Recurrent right pleural effusion Is this a current diagnosis for this admission?: Yes Plan: 05/09/2018-plan is to put the patient in hospital as an inpatient. He is going to be admitted to [facility]. Consultation with the surgical team was requested. Consultation with cardiology was requested. Consult for oncology was requested. Patient is going to be placed on oxygen 2 L nasal cannula. Started on Percocet 10/25 mg every 6 hours as needed for pain. CT scan indicates there is possible bilateral consolidation bibasilar consolidation. blood cultures sputum cultures are requested started on Rocephin 1 g IV daily. I am going to add azithromycin to the medication. Follow-up chest x-ray was requested. Etiologies could put chest tube and let it drain tonight. Patient has history of non-Hodgkin's lymphoma in remission for the last 11 years very low suspicious for malignancy. The pleural effusion which is recurrent probably secondary to underlying congestive heart failure. 05/10/2018-status post chest tube placement yesterday. So far 2.2 L of pleural fluid is drained out which was blood stained. Patient is feeling much better. Oncology consultation with Dr. Gramajo was done. Plan is to repeat the chest x- ray today. In the meantime we will continue the present management. 10 Percocet 10/325 mg p.o. every 6 hours as needed for pain. 05/11/2018-chest tube was placed 2 days ago yesterday morning noticed to have 2.3 L of fluid in the drainage container and nurses told me there is a 101 L of pleural fluid was removed last night. Follow-up chest x-ray was done today. This pleural effusions bilateral probably secondary to congestive heart failure. I discussed the plan with Dr. Roger he recommended to stop Lasix and start on Demadex 40 mg p.o. daily. Patient was started on spironolactone twice a day. Spoke to Dr. Gramajo she said he is okay to remove the chest tube. (2) Atrial fibrillation Qualifiers: Atrial fibrillation type: chronic Is this a current diagnosis for this admission?: Yes Plan: 05/09/2018 patient has history of atrial fibrillation but she is allergic to Eliquis and Pradaxa. Presently she is on only aspirin 324 mg p.o. daily. Plan is to continue the present management. To hold aspirin tonight because of the chest tube placement. 05/10/2018-patient has history of atrial fibrillation not on Eliquis not on Pradaxa because of an allergic history. takes aspirin 325 mg p.o. daily at home which was restarted today. 05/09/2018 patient has history of atrial fibrillation but she is allergic to Eliquis and Pradaxa. Presently she is on only aspirin 324 mg p.o. daily. Plan is to continue the present management. To hold aspirin tonight because of the chest tube placement. 05/10/2018-patient has history of atrial fibrillation not on Eliquis not on Pradaxa because of an allergic history. takes aspirin 325 mg p.o. daily at home which was restarted today. 05/11/2018 patient has a history of atrial fibrillation not on anticoagulation except for aspirin 325 mg p.o. daily. Family notified me that she is allergic to Eliquis and Pradaxa. Offered her to start Xarelto but the patient does not want to be on it. (3) COPD (chronic obstructive pulmonary disease) Qualifiers: Emphysema type: unspecified Is this a current diagnosis for this admission?: Yes Plan: 05/09/2018-patient has history of COPD secondary to chronic smoking history of smoking for more than 50 years she smokes more than 1-1/2 pack/day. She uses oxygen 2 L nasal cannula at home along with trilogy. 05/10/2018-and has history of COPD secondary to chronic smoking. She still smokes more than 1 pack/day. Started on nicotine patch. Uses 2 L oxygen at home. Which was restarted while she was in the hospital. She is getting the nebulizer treatments also. 05/09/2018-patient has history of COPD secondary to chronic smoking history of smoking for more than 50 years she smokes more than 1-1/2 pack/day. She uses oxygen 2 L nasal cannula at home along with trilogy. 05/10/2018-and has history of COPD secondary to chronic smoking. She still smokes more than 1 pack/day. Started on nicotine patch. Uses 2 L oxygen at home. Which was restarted while she was in the hospital. She is getting the nebulizer treatments also. 05/11/2018-patient history of chronic smoking secondary to COPD. She still smokes 1 to 1.5 packs/day. Smoking counseling was provided. She was on nicotine patch during this hospital stay. (4) Anemia Qualifiers: Anemia type: iron deficiency Is this a current diagnosis for this admission?: Yes Plan: 05/09/2018-patient's hemoglobin is 9.1. Patient's hemoglobin in the last 2 months fluctuating from 6.8 to 7.7. Patient has anemia of chronic disease probably secondary to history of non-Hodgkin's lymphoma. 05/10/2018-patient has history of anemia of chronic disease hemoglobin is 8.1. Baseline hemoglobin is between 6.8-7.7. Anemia of chronic disease probably secondary to non-Hodgkin's lymphoma. 05/11/2018 patient has history of anemia of chronic disease hemoglobin today is 8.1 which was stable. And is to check the CBC on daily basis. (5) Non-Hodgkin lymphoma in remission Is this a current diagnosis for this admission?: Yes Plan: 05/09/2018-patient has history of non-Hodgkin's lymphoma she is in remission for the last 11 years according to the family. She follows with Dr. Fay/Dr. Gramajo. Consult was placed for Dr. Gramajo. 05/10/2018-has history of non-Hodgkin's lymphoma she is in remission for the last 11 years. She follows with Dr. Gramajo/Dr. Fay as an outpatient. Plan is to continue the present management.05/09/2018-patient has history of non-Hodgkin's lymphoma she is in remission for the last 11 years according to the family. She follows with Dr. Fay/Dr. Gramajo. Consult was placed for Dr. Gramajo. 05/10/2018-has history of non-Hodgkin's lymphoma she is in remission for the last 11 years. She follows with Dr. Gramajo/Dr. Fay as an outpatient. Plan is to continue the present management. 05/11/2018 patient has history of non-Hodgkin's lymphoma as per the family patient is in remission for the last 11 years. She is follows with Dr. Gramajo as an outpatient for this problem. (6) Smoker Is this a current diagnosis for this admission?: Yes (7) CHF (congestive heart failure) Qualifiers: Heart failure type: diastolic Heart failure chronicity: acute on chronic Qualified Code(s): I50.33 - Acute on chronic diastolic (congestive) heart failure Is this a current diagnosis for this admission?: Yes Plan: 05/09/2018-patient and family is giving the history of chronic congestive heart failure. Pleural effusion may be secondary to CHF. Echocardiogram was requested consultation with the child care education coordinator Dr. Roger was requested. Plan to check the BNP tomorrow. His Lasix 40 mg daily at home which was resumed. 05/10/2018-patient has history of chronic congestive heart failure. Recurrent pleural effusions probably secondary to underlying CHF. BNP was 3440. Patient's child care education coordinator is Dr. Roger. Waiting for the echocardiogram report. Plan is to continue Lasix 40mg tid . 05/11/2018 patient has history of chronic congestive heart failure. BNP is 3400. Dr. Roger is patient's child care education coordinator. He recommended to start on Demadex 40 mg p.o. daily and discontinue Lasix 40 mg 3 times daily. I am going to follow his recommendations. Patient has chronic diastolic heart failure. (8) Pneumonia Is this a current diagnosis for this admission?: Yes Plan: 05/09/2018-CT scan of the chest indicating bibasilar consolidation. Sputum cultures blood cultures are requested started on IV Rocephin 1 g daily Zithromax 500 mg IV daily. Planning to do the follow-up chest x-ray tomorrow. 05/10/2018-patient was placed on IV Rocephin 1 g daily Zithromax 500 mg IV daily because a CT scan showing possible bibasilar consolidation. Patient is coughing up yellowish white sputum be going to send for sputum culture. Pending the repeat chest x-ray today. Blood cultures are pending. So far no growth. My impression is she has community-acquired pneumonia.05/09/2018-CT scan of the chest indicating bibasilar consolidation. Sputum cultures blood cultures are requested started on IV Rocephin 1 g daily Zithromax 500 mg IV daily. Planning to do the follow-up chest x-ray tomorrow. 05/10/2018-patient was placed on IV Rocephin 1 g daily Zithromax 500 mg IV daily because a CT scan showing possible bibasilar consolidation. Patient is coughing up yellowish white sputum be going to send for sputum culture. Pending the repeat chest x-ray today. Blood cultures are pending. So far no growth. My impression is she has community-acquired pneumonia. 05/11/2018-initial chest x-ray and CT scan indicate bibasilar consolidation. Sputum culture is positive for gram-positive cocci in chains. Patient is presently on Rocephin 1 g IV daily Zithromax 40 mg IV daily. Waiting for the sensitivity report. In the meantime we will continue the present management. - Time Time Spent with patient: 15-24 minutes Smoking Cessation Education: over 10 minutes Medications reviewed and adjusted accordingly: Yes Anticipated discharge: Home
--- NOTE | 2018-05-11 13:04 | PDOC PROGRESS REPORT ---
Subjective Progress Note for:: 05/11/18 Subjective:: Patient states she is feeling much better. She asks to go home today. She received her IV iron yesterday without any reaction. Reason For Visit: SHORTNESS OF BREATH WITH PLEURAL EFFUSION Physical Exam Vital Signs: Temp Pulse Resp BP Pulse Ox 97.9 F 77 14 136/51 H 93 05/11/18 11:48 05/11/18 11:48 05/11/18 11:48 05/11/18 11:48 05/11/18 11:48 Intake & Output 05/10/18 05/11/18 05/12/18 06:59 06:59 06:59 Intake Total 300 1042 237 Output Total 1395 2165 400 Balance -1095 -1123 -163 Weight 83 kg 80.9 kg General appearance: PRESENT: obese Head exam: PRESENT: normocephalic Respiratory exam: PRESENT: unlabored Extremities exam: ABSENT: pedal edema Neurological exam: PRESENT: alert, awake, oriented to person, oriented to place, oriented to time, oriented to situation Psychiatric exam: PRESENT: appropriate affect Skin exam: PRESENT: normal color Results Laboratory Results: 05/10/18 05:13 05/10/18 05:13 05/10/18 05:13 NT-Pro-B Natriuret Pep 3440 H Impressions: Thoracentesis Ultrasound 05/09/18 16:05 IMPRESSION: SUCCESSFUL PLACEMENT OF A 12 ROMANSH RIGHT SIDED CHEST TUBE USING ULTRASOUND GUIDANCE. Chest X-Ray 05/11/18 00:00 IMPRESSION: Resolved right pleural effusion. No pneumothorax. Minimal persistent right basilar airspace disease likely scarring. Assessment & Plan - Diagnosis (1) Recurrent right pleural effusion Is this a current diagnosis for this admission?: Yes Plan: As per primary team. This appears to be due to CHF. No evidence of active Lymphoma. (2) Non-Hodgkin lymphoma in remission Is this a current diagnosis for this admission?: Yes Plan: Again, CT scans did not show any suspicious lymphadenopathy. (3) Anemia Qualifiers: Anemia type: iron deficiency Qualified Code(s): D64.9 - Anemia, unspecified Is this a current diagnosis for this admission?: Yes (4) Acute CHF Qualifiers: Qualified Code(s): I50.9 - Heart failure, unspecified Is this a current diagnosis for this admission?: Yes - Plan Summary Plan Summary: I will see her again next week in the office to arrange her second dose of the IV iron. I strongly suspect that the low iron has contributed to her CHF. I will continue to monitor her CBC. I will sign off and arrange out patient follow-up for the anemia.
[2018-05-11] MEDS: AZITHROMYCIN 250 MG TABLET PO SCH (17:09)
[2018-05-11] MEDS: CEFTRIAXONE 1 GM/D5W RTU 1 GM/50 ML RTUPB IV SCH (17:11)
--- NOTE | 2018-05-11 19:36 | PDOC PROGRESS REPORT ---
Subjective Progress Note for:: 05/11/18 Subjective:: Patient seems to be doing better with gradual improvement. Pt is denying any chest arm or neck discomfort. Patient denying any PND, orthopnea. Patient denied any sustained palpitations, dizziness, syncope, near syncope. Patient denying any fever chills. Patient denying any other significant discomfort. Patient is maintaining sinus rhythm. Review of systems: Rest review of systems negative. Medications: Medications have been reviewed. Reason For Visit: SHORTNESS OF BREATH WITH PLEURAL EFFUSION Physical Exam Vital Signs: Temp Pulse Resp BP Pulse Ox 98.6 F 73 14 130/50 H 96 05/11/18 15:58 05/11/18 15:58 05/11/18 15:58 05/11/18 15:58 05/11/18 15:58 Intake & Output 05/10/18 05/11/18 05/12/18 06:59 06:59 06:59 Intake Total 300 1042 799 Output Total 1395 2165 640 Balance -1095 -1123 159 Weight 83 kg 80.9 kg Exam: GENERAL: well-nourished and in no acute distress. Alert and oriented x3 HEAD: Atraumatic, normocephalic. EYES: ALONZO, sclera anicteric, conjunctiva are normal. ENT: Moist mucous membranes. No oral ulcerations or bleeding gums noted. No obvious ear, nose or throat abnormalities noted. NECK: supple without lymphadenopathy. Trachea is central. No cervical or axillary lymphadenopathy noted. Carotids are 2+, JVD WNL LUNGS: Basilar coarse crackles are noted. No significant dullness noted on percussion. CHEST: Palpation of the chest wall shows no significant chest wall tenderness. HEART: [employer], No PSH, 1/6 ORTIZ aortic area, 1/6 gaitan systolic murmur mitral area, no rubs, no gallops. ABDOMEN: Soft, no significant tenderness appreciated, normoactive bowel sounds. No guarding, no rebound. No rigidity noted . No masses appreciated. EXTREMITIES: Pedal pulses are 1-2+, no calf tenderness noted. No clubbing or cyanosis. negative pedal edema noted NEUROLOGICAL: Focused neurological exam showed no significant neurologic deficit. Normal speech, no focal weakness appreciated. PSYCH: Normal mood, normal affect. Judgment and insight within normal limits. SKIN: No significant ecchymosis, skin is noted to be warm. MUSCULOSKELETAL EXAM: No significant acute joint swelling noted. Results Laboratory Results: 05/10/18 05:13 05/10/18 05:13 05/10/18 05:13 NT-Pro-B Natriuret Pep 3440 H Impressions: Thoracentesis Ultrasound 05/09/18 16:05 IMPRESSION: SUCCESSFUL PLACEMENT OF A 12 SURINAMESE RIGHT SIDED CHEST TUBE USING ULTRASOUND GUIDANCE. Chest X-Ray 05/11/18 00:00 IMPRESSION: Resolved right pleural effusion. No pneumothorax. Minimal persistent right basilar airspace disease likely scarring. Assessment & Plan - Diagnosis (1) CHF (congestive heart failure) Qualifiers: Heart failure type: diastolic Heart failure chronicity: acute on chronic Qualified Code(s): I50.33 - Acute on chronic diastolic (congestive) heart failure Is this a current diagnosis for this admission?: Yes (2) Non-Hodgkin lymphoma Qualifiers: Follicular lymphoma grade: unspecified grade Lymphoma site: unspecified region Is this a current diagnosis for this admission?: Yes (3) Recurrent right pleural effusion Is this a current diagnosis for this admission?: Yes - Notes Notes: Patient seems much improved overall. Denying any shortness of breath. Patient still has the chest tube in. As regards CHF, this is chronic diastolic dysfunction with acute exacerbation. Patient would benefit from salt and fluid restriction, spironolactone therapy. Patient will benefit from long-acting stronger loop diuretics and have recommended patient be started on Demadex or torsemide 40 mg p.o. daily. Patient will benefit from close cardiology follow- up. On today's interview patient did admit that she has sleep apnea but has been somewhat noncompliant with Pap therapy. Have discussed importance of treatment of sleep apnea in the improving diastolic function of the heart. CPAP therapy has also been shown to reduce CHF related admissions. Patient encouraged to bring her CPAP machine to the hospital so that therapy can be reinstituted. - Time Time with patient: Greater than 35 minutes - More than 50% of the time spent coordinating care, discussing management plans with involved caregivers. Management plans discussed with involved personnels. Medical decision making was of moderate to high complexity, patient's has multiple comorbidities. Medications reviewed and adjusted accordingly: Yes
[2018-05-11] MEDS: LEVOTHYROXINE SODIUM 0.1 MG TABLET PO SCH (21:11)
[2018-05-11] MEDS: ATORVASTATIN CALCIUM 20 MG TABLET PO SCH (22:57)
[2018-05-12] MEDS: OXYCODONE-ACETAMINOPHEN 5-325 MG TABLET PO PRN (00:12)
[2018-05-12 05:25] LABS: ABSOLUTE EOSINOPHILS # (AUTO) 0.2 10^3/uL (0.0-0.6); ABSOLUTE LYMPHOCYTES (AUTO) 0.8 10^3/uL (0.5-4.7); ABSOLUTE MONOCYTES (AUTO) 0.6 10^3/uL (0.1-1.4); ABSOLUTE NEUT (AUTO) 3.5 10^3/uL (1.7-8.2); BASOPHILS % (AUTO) 0.9 % (0-2); EOSINOPHILS % (AUTO) 3.7 % (0-6); HEMATOCRIT 25.3 % (36.0-47.0); LYMPHOCYTES % (AUTO) 16.1 % (13-45); MEAN CORPUSCULAR HEMOGLOBIN 22.5 pg (27.0-33.4); MEAN CORPUSCULAR HGB CONC 30.8 g/dL (32.0-36.0); MEAN CORPUSCULAR VOLUME 73 fl (80-97); MONOCYTES % (AUTO) 11.3 % (3-13); RED BLOOD COUNT 3.47 10^6/uL (3.72-5.28); RED CELL DISTRIBUTION WIDTH 22.8 % (11.5-14.0); TOTAL CELLS COUNTED % (AUTO) 100 %; WHITE BLOOD COUNT 5.1 10^3/uL (4.0-10.5)
[2018-05-12 05:44] LABS: ALANINE AMINOTRANSFERASE 27 U/L (9-52); ALBUMIN 3.6 g/dL (3.5-5.0); ALKALINE PHOSPHATASE 105 U/L (38-126); ASPARTATE AMINO TRANSFERASE 16 U/L (14-36); BILIRUBIN,DIRECT 0.2 mg/dL (0.0-0.4); BILIRUBIN,TOTAL 0.9 mg/dL (0.2-1.3); BLOOD UREA NITROGEN 17 mg/dL (7-20); GLUCOSE 96 mg/dL (75-110); POTASSIUM 4.6 mmol/L (3.6-5.0); TOTAL PROTEIN 6.3 g/dL (6.3-8.2)
[2018-05-12 05:47] LABS: HEMOGLOBIN 7.8 g/dL (12.0-15.5); PLATELET COUNT 86 10^3/uL (150-450)
[2018-05-12 05:49] LABS: CARBON DIOXIDE 30 mmol/L (22-30); CHLORIDE 105 mmol/L (98-107); SODIUM 138.7 mmol/L (137-145)
[2018-05-12 05:50] LABS: ANION GAP 4 (5-19)
[2018-05-12] MEDS: GABAPENTIN 300 MG CAPSULE PO SCH ×3 (06:21→21:47)
[2018-05-12] MEDS: LEVOTHYROXINE SODIUM 0.075 MG TABLET PO SCH (06:21)
[2018-05-12] MEDS: DOCUSATE SODIUM 100 MG CAPSULE PO SCH ×2 (09:38→18:05)
[2018-05-12] MEDS: GUAIFENESIN 600 MG TABLET.SA PO SCH ×2 (09:38→21:47)
[2018-05-12] MEDS: METOCLOPRAMIDE HCL 10 MG TABLET PO SCH ×2 (09:38→18:05)
[2018-05-12] MEDS: POTASSIUM CHLORIDE 10 MEQ CAPSULE.ER PO SCH (09:39)
[2018-05-12] MEDS: ASPIRIN 325 MG TABLET PO SCH (09:39)
[2018-05-12] MEDS: LISINOPRIL 10 MG TABLET PO SCH (09:39)
[2018-05-12] MEDS: SPIRONOLACTONE 25 MG TABLET PO SCH ×2 (09:39→21:47)
[2018-05-12] MEDS: DILTIAZEM HCL 180 MG CAPSULE.CR PO SCH (09:39)
[2018-05-12] MEDS: TORSEMIDE 20 MG TABLET PO SCH (09:40)
[2018-05-12] MEDS: ENOXAPARIN SODIUM INJ 40 MG/0.4 ML DISP.SYRIN SUBCUT SCH (09:40)
[2018-05-12] MEDS: IPRATROPIUM/ALBUTEROL 0.5-2.5 MG/3 ML AMPUL NEB PRN (09:52)
--- NOTE | 2018-05-12 10:35 | PDOC PROGRESS REPORT ---
Subjective Progress Note for:: 05/12/18 Subjective:: No acute events in the last 24 hours. Patient is afebrile. Patient has right- sided chest tube. So far 2.2 L of fluid is drained out. Patient was seen by Dr. Gramajo today. Patient is complaining of cough requesting some cough medication. 05/11/2018-patient still have the chest tube. Chest x-ray done yesterday indicates there is no right pleural effusion. But in the last 24 hours chest tube drainage is around 1 L. The plan is to repeat the chest x-ray today. The radiologist Dr. Young spoke to me just a minute ago saying he did not see any pleural effusion in the chest x-ray but I notified him that there is 1 L of drainage from last night and his suggestion is may be we need to keep the chest tube for another 24 hours. 05/12/2018-no acute events in the last 24 hours. Patient still have the chest tube. Around 200 cc of fluid is drained. I spoke to Dr. Gramajo for further management she recommended to consult with Dr. Spencer. Patient is already fol lowed with Dr. Spencer as an outpatient. Patient agreed to stay until she was seen by Dr. Spencer we follow his recommendations. Patient is afebrile. Reason For Visit: SHORTNESS OF BREATH WITH PLEURAL EFFUSION Physical Exam Vital Signs: Temp Pulse Resp BP Pulse Ox 98.1 F 82 20 147/49 H 96 05/12/18 08:10 05/12/18 09:52 05/12/18 09:52 05/12/18 08:10 05/12/18 09:52 Intake & Output 05/11/18 05/12/18 05/13/18 06:59 06:59 06:59 Intake Total 1042 1171 Output Total 2165 1211 Balance -1123 -40 Weight 80.9 kg 79.7 kg General appearance: PRESENT: no acute distress Head exam: PRESENT: atraumatic Eye exam: PRESENT: PERRLA Mouth exam: PRESENT: moist, tongue midline Neck exam: ABSENT: carotid bruit, JVD, lymphadenopathy, thyromegaly Respiratory exam: PRESENT: decreased breath sounds Cardiovascular exam: PRESENT: irregular rhythm, systolic murmur, tachycardia GI/Abdominal exam: PRESENT: normal bowel sounds, soft. ABSENT: distended, guarding, mass, organolmegaly, rebound, tenderness Extremities exam: PRESENT: full ROM. ABSENT: calf tenderness, clubbing, pedal edema Neurological exam: PRESENT: alert, awake, oriented to person, oriented to place, oriented to time, oriented to situation, CN II-XII grossly intact. ABSENT: motor sensory deficit Psychiatric exam: PRESENT: appropriate affect, normal mood. ABSENT: homicidal ideation, suicidal ideation Results Laboratory Results: 05/12/18 04:38 05/12/18 04:38 05/12/18 05/12/18 04:38 04:38 WBC 5.1 RBC 3.47 L Hgb 7.8 L Hct 25.3 L MCV 73 L MCH 22.5 L MCHC 30.8 L RDW 22.8 H Plt Count 86 L Seg Neutrophils % 68.0 Lymphocytes % 16.1 Monocytes % 11.3 Eosinophils % 3.7 Basophils % 0.9 Absolute Neutrophils 3.5 Absolute Lymphocytes 0.8 Absolute Monocytes 0.6 Absolute Eosinophils 0.2 Absolute Basophils 0.0 Sodium 138.7 Potassium 4.6 Chloride 105 Carbon Dioxide 30 Anion Gap 4 L BUN 17 Creatinine 0.75 Est GFR ( Amer) > 60 Est GFR (Non-Af Amer) > 60 Glucose 96 Calcium 9.0 Magnesium 2.3 Total Bilirubin 0.9 AST 16 ALT 27 Alkaline Phosphatase 105 Total Protein 6.3 Albumin 3.6 05/10/18 05/12/18 05:13 04:38 NT-Pro-B Natriuret Pep 3440 H 2070 H Impressions: Thoracentesis Ultrasound 05/09/18 16:05 IMPRESSION: SUCCESSFUL PLACEMENT OF A 12 HONG KONGER RIGHT SIDED CHEST TUBE USING ULTRASOUND GUIDANCE. Chest X-Ray 05/11/18 00:00 IMPRESSION: Resolved right pleural effusion. No pneumothorax. Minimal persistent right basilar airspace disease likely scarring. Assessment & Plan - Diagnosis (1) Recurrent right pleural effusion Is this a current diagnosis for this admission?: Yes Plan: 05/09/2018-plan is to put the patient in hospital as an inpatient. He is going to be admitted to [facility]. Consultation with the surgical team was requested. Consultation with cardiology was requested. Consult for oncology was requested. Patient is going to be placed on oxygen 2 L nasal cannula. Started on Percocet 10/25 mg every 6 hours as needed for pain. CT scan indicates there is possible bilateral consolidation bibasilar consolidation. blood cultures sputum cultures are requested started on Rocephin 1 g IV daily. I am going to add azithromycin to the medication. Follow-up chest x-ray was requested. Etiologies could put chest tube and let it drain tonight. Patient has history of non-Hodgkin's lymphoma in remission for the last 11 years very low suspicious for malignancy. The pleural effusion which is recurrent probably secondary to underlying congestive heart failure. 05/10/2018-status post chest tube placement yesterday. So far 2.2 L of pleural fluid is drained out which was blood stained. Patient is feeling much better. Oncology consultation with Dr. Gramajo was done. Plan is to repeat the chest x- ray today. In the meantime we will continue the present management. 10 Percocet 10/325 mg p.o. every 6 hours as needed for pain. 05/11/2018-chest tube was placed 2 days ago yesterday morning noticed to have 2.3 L of fluid in the drainage container and nurses told me there is a 101 L of pleural fluid was removed last night. Follow-up chest x-ray was done today. This pleural effusions bilateral probably secondary to congestive heart failure. I discussed the plan with Dr. Roger he recommended to stop Lasix and start on Demadex 40 mg p.o. daily. Patient was started on spironolactone twice a day. Spoke to Dr. Gramajo she said he is okay to remove the chest tube. 05/12/2018-patient has a history of recurrent pleural effusions, she has history of atrial fibrillation with congestive heart failure and non-Hodgkin's lymphoma diagnosed with lymphoma is in remission for the last 11 years. Recurrent right pleural effusions probably secondary to congestive heart failure. Chest tube was in place since the admission. It drained 200 cc last night. We are going to request pulmonary consult with Dr. Spencer to get his recommendations. As per Dr. Roger's recommendations patient was started on Demadex and spironolactone. (2) Atrial fibrillation Qualifiers: Atrial fibrillation type: chronic Is this a current diagnosis for this admission?: Yes Plan: 05/09/2018 patient has history of atrial fibrillation but she is allergic to Eliquis and Pradaxa. Presently she is on only aspirin 324 mg p.o. daily. Plan is to continue the present management. To hold aspirin tonight because of the chest tube placement. 05/10/2018-patient has history of atrial fibrillation not on Eliquis not on Pradaxa because of an allergic history. takes aspirin 325 mg p.o. daily at home which was restarted today. 05/09/2018 patient has history of atrial fibrillation but she is allergic to Eliquis and Pradaxa. Presently she is on only aspirin 324 mg p.o. daily. Plan is to continue the present management. To hold aspirin tonight because of the chest tube placement. 05/10/2018-patient has history of atrial fibrillation not on Eliquis not on Pradaxa because of an allergic history. takes aspirin 325 mg p.o. daily at home which was restarted today. 05/11/2018 patient has a history of atrial fibrillation not on anticoagulation except for aspirin 325 mg p.o. daily. Family notified me that she is allergic to Eliquis and Pradaxa. Offered her to start Xarelto but the patient does not want to be on it. 05/12/2018-patient has history of atrial fibrillation allergy to Eliquis and Pradaxa as per the family patient is presently only on aspirin 325 mg p.o. daily cardiology did not recommend any anticoagulation. (3) COPD (chronic obstructive pulmonary disease) Qualifiers: Emphysema type: unspecified Is this a current diagnosis for this admission?: Yes Plan: 05/09/2018-patient has history of COPD secondary to chronic smoking history of smoking for more than 50 years she smokes more than 1-1/2 pack/day. She uses oxygen 2 L nasal cannula at home along with trilogy. 05/10/2018-and has history of COPD secondary to chronic smoking. She still smokes more than 1 pack/day. Started on nicotine patch. Uses 2 L oxygen at home. Which was restarted while she was in the hospital. She is getting the nebulizer treatments also. 05/09/2018-patient has history of COPD secondary to chronic smoking history of smoking for more than 50 years she smokes more than 1-1/2 pack/day. She uses oxygen 2 L nasal cannula at home along with trilogy. 05/10/2018-and has history of COPD secondary to chronic smoking. She still s mokes more than 1 pack/day. Started on nicotine patch. Uses 2 L oxygen at home. Which was restarted while she was in the hospital. She is getting the nebulizer treatments also. 05/11/2018-patient history of chronic smoking secondary to COPD. She still smokes 1 to 1.5 packs/day. Smoking counseling was provided. She was on nicotine patch during this hospital stay. 05/12/2018-patient has history of COPD secondary to chronic smoking patient still smokes. She smokes more than 1 pack/day as per the family. Smoking counseling was provided for more than 10 minutes. Patient is presently on nicotine patch. (4) Anemia Qualifiers: Anemia type: iron deficiency Is this a current diagnosis for this admission?: Yes Plan: 05/09/2018-patient's hemoglobin is 9.1. Patient's hemoglobin in the last 2 months fluctuating from 6.8 to 7.7. Patient has anemia of chronic disease probably secondary to history of non-Hodgkin's lymphoma. 05/10/2018-patient has history of anemia of chronic disease hemoglobin is 8.1. Baseline hemoglobin is between 6.8-7.7. Anemia of chronic disease probably secondary to non-Hodgkin's lymphoma. 05/11/2018 patient has history of anemia of chronic disease hemoglobin today is 8.1 which was stable. And is to check the CBC on daily basis. 05/12/2018-patient has history of anemia of chronic disease. Probably secondary to history of non-Hodgkin's lymphoma. Hemoglobin is 7.8. Dr. Gramajo is planning to give IV iron infusion at her office as an outpatient. Meantime will continue the present management. Patient is asymptomatic. (5) Non-Hodgkin lymphoma in remission Is this a current diagnosis for this admission?: Yes Plan: 05/09/2018-patient has history of non-Hodgkin's lymphoma she is in remission for the last 11 years according to the family. She follows with Dr. Fay/Dr. Gramajo. Consult was placed for Dr. Gramajo. 05/10/2018-has history of non-Hodgkin's lymphoma she is in remission for the last 11 years. She follows with Dr. Gramajo/Dr. Fay as an outpatient. Plan is to continue the present management.05/09/2018-patient has history of non-Hodgkin's lymphoma she is in remission for the last 11 years according to the family. She follows with Dr. Fay/Dr. Gramajo. Consult was placed for Dr. Gramajo. 05/10/2018-has history of non-Hodgkin's lymphoma she is in remission for the last 11 years. She follows with Dr. Gramajo/Dr. Fay as an outpatient. Plan is to continue the present management. 05/11/2018 patient has history of non-Hodgkin's lymphoma as per the family patient is in remission for the last 11 years. She is follows with Dr. Gramajo as an outpatient for this problem. 05/12/2018-patient has history of non-Hodgkin's lymphoma in remission for for the last [address] scans did not indicates any recurrence. Dr. Gramajo is on board. (6) Smoker Is this a current diagnosis for this admission?: Yes Plan: 05/09/2018-patient has history of chronic smoking smokes 1 and a pack per day smoking for more than 50 years. Smoking counseling was provided for more than 10 minutes strongly advised to quit smoking. She was placed on nicotine patch. 05/10/2018 patient is a chronic smoker. She was placed on nicotine patch 21 mg daily. 05/11/2018-patient is a chronic smoker smoking counseling was provided again today., Patient is presently on nicotine patch. (7) CHF (congestive heart failure) Qualifiers: Heart failure type: diastolic Heart failure chronicity: acute on chronic Qualified Code(s): I50.33 - Acute on chronic diastolic (congestive) heart failure Is this a current diagnosis for this admission?: Yes Plan: 05/09/2018-patient and family is giving the history of chronic congestive heart failure. Pleural effusion may be secondary to CHF. Echocardiogram was requested consultation with the package line operator Dr. Roger was requested. Plan to check the BNP tomorrow. His Lasix 40 mg daily at home which was resumed. 05/10/2018-patient has history of chronic congestive heart failure. Recurrent pleural effusions probably secondary to underlying CHF. BNP was 3440. Patient's package line operator is Dr. Roger. Waiting for the echocardiogram report. Plan is to continue Lasix 40mg tid . 05/11/2018 patient has history of chronic congestive heart failure. BNP is 3400. Dr. Roger is patient's package line operator. He recommended to start on Demadex 40 mg p.o. daily and discontinue Lasix 40 mg 3 times daily. I am going to follow his recommendations. Patient has chronic diastolic heart failure. 05/12/2018-patient has history of chronic congestive heart failure which is a diastolic heart failure. BNP came down to 2070. Patient is present on Demadex 40 mg p.o. daily, spironolactone 12.5 mg p.o. twice daily. Plan is to continue the present management. (8) Pneumonia Is this a current diagnosis for this admission?: Yes Plan: 05/09/2018-CT scan of the chest indicating bibasilar consolidation. Sputum cultures blood cultures are requested started on IV Rocephin 1 g daily Zithromax 500 mg IV daily. Planning to do the follow-up chest x-ray tomorrow. 05/10/2018-patient was placed on IV Rocephin 1 g daily Zithromax 500 mg IV daily because a CT scan showing possible bibasilar consolidation. Patient is coughing up yellowish white sputum be going to send for sputum culture. Pending the repeat chest x-ray today. Blood cultures are pending. So far no growth. My impression is she has community-acquired pneumonia.05/09/2018-CT scan of the chest indicating bibasilar consolidation. Sputum cultures blood cultures are requested started on IV Rocephin 1 g daily Zithromax 500 mg IV daily. Planning to do the follow-up chest x-ray tomorrow. 05/10/2018-patient was placed on IV Rocephin 1 g daily Zithromax 500 mg IV daily because a CT scan showing possible bibasilar consolidation. Patient is coughing up yellowish white sputum be going to send for sputum culture. Pending the repeat chest x-ray today. Blood cultures are pending. So far no growth. My impression is she has community-acquired pneumonia. 05/11/2018-initial chest x-ray and CT scan indicate bibasilar consolidation. Sputum culture is positive for gram-positive cocci in chains. Patient is presently on Rocephin 1 g IV daily Zithromax 40 mg IV daily. Waiting for the sensitivity report. In the meantime we will continue the present management. 05/12/2018-sputum cultures came back positive for gram-positive cocci in chains. Presently on IV Rocephin and Zithromax. Patient is afebrile. Plan is to continue the present management, if she goes home I will send her home on p.o. antibiotic therapy. - Time Time Spent with patient: 15-24 minutes Smoking Cessation Education: over 10 minutes Medications reviewed and adjusted accordingly: Yes Anticipated discharge: Home
[2018-05-12] MEDS: CEFTRIAXONE 1 GM/D5W RTU 1 GM/50 ML RTUPB IV SCH (18:05)
[2018-05-12] MEDS: AZITHROMYCIN 250 MG TABLET PO SCH (18:05)
--- NOTE | 2018-05-12 19:26 | PDOC PROGRESS REPORT ---
Subjective Progress Note for:: 05/12/18 Subjective:: Patient seems to be doing better with gradual improvement. Pt is denying any chest arm or neck discomfort. Patient denying any PND, orthopnea. Patient denied any sustained palpitations, dizziness, syncope, near syncope. Patient denying any fever chills. Patient denying any other significant discomfort. Patient is maintaining sinus rhythm. Review of systems: Rest review of systems negative. Medications: Medications have been reviewed. Patient now waiting to be cleared by Dr. Spencer. She still has the chest tube in. Patient not using PAP Therapy while in the hospital. Reason For Visit: SHORTNESS OF BREATH WITH PLEURAL EFFUSION Physical Exam Vital Signs: Temp Pulse Resp BP Pulse Ox 98.0 F 82 13 126/45 H 98 05/12/18 12:17 05/12/18 14:00 05/12/18 12:17 05/12/18 12:17 05/12/18 12:17 Intake & Output 05/11/18 05/12/18 05/13/18 06:59 06:59 06:59 Intake Total 1042 1171 509 Output Total 2165 1211 500 Balance -1123 -40 9 Weight 80.9 kg 79.7 kg General appearance: PRESENT: no acute distress, well-developed, well-nourished Head exam: PRESENT: atraumatic, normocephalic Eye exam: PRESENT: conjunctiva pink, EOMI, PERRLA. ABSENT: scleral icterus Ear exam: PRESENT: normal external ear exam Mouth exam: PRESENT: moist, tongue midline Neck exam: ABSENT: carotid bruit, JVD, lymphadenopathy, thyromegaly Respiratory exam: PRESENT: clear to auscultation radames. ABSENT: rales, rhonchi, wheezes Cardiovascular exam: PRESENT: RRR. ABSENT: diastolic murmur, rubs, systolic murmur Pulses: PRESENT: normal dorsalis pedis pul Vascular exam: PRESENT: normal capillary refill GI/Abdominal exam: PRESENT: normal bowel sounds, soft. ABSENT: distended, guarding, mass, organolmegaly, rebound, tenderness Rectal exam: PRESENT: deferred Extremities exam: PRESENT: full ROM. ABSENT: calf tenderness, clubbing, pedal edema Neurological exam: PRESENT: alert, awake, oriented to person, oriented to place, oriented to time, oriented to situation, CN II-XII grossly intact. ABSENT: m otor sensory deficit Psychiatric exam: PRESENT: appropriate affect, normal mood. ABSENT: homicidal ideation, suicidal ideation Skin exam: PRESENT: dry, intact, warm. ABSENT: cyanosis, rash Results Laboratory Results: 05/12/18 04:38 05/12/18 04:38 05/12/18 05/12/18 04:38 04:38 WBC 5.1 RBC 3.47 L Hgb 7.8 L Hct 25.3 L MCV 73 L MCH 22.5 L MCHC 30.8 L RDW 22.8 H Plt Count 86 L Seg Neutrophils % 68.0 Lymphocytes % 16.1 Monocytes % 11.3 Eosinophils % 3.7 Basophils % 0.9 Absolute Neutrophils 3.5 Absolute Lymphocytes 0.8 Absolute Monocytes 0.6 Absolute Eosinophils 0.2 Absolute Basophils 0.0 Sodium 138.7 Potassium 4.6 Chloride 105 Carbon Dioxide 30 Anion Gap 4 L BUN 17 Creatinine 0.75 Est GFR ( Amer) > 60 Est GFR (Non-Af Amer) > 60 Glucose 96 Calcium 9.0 Magnesium 2.3 Total Bilirubin 0.9 AST 16 ALT 27 Alkaline Phosphatase 105 Total Protein 6.3 Albumin 3.6 05/10/18 11:10 Sputum Gram Stain - Final 05/10/18 05/12/18 05:13 04:38 NT-Pro-B Natriuret Pep 3440 H 2070 H EKG Comments: Show sinus rhythm without any sustained tachycardia bradycardia Impressions: Thoracentesis Ultrasound 05/09/18 16:05 IMPRESSION: SUCCESSFUL PLACEMENT OF A 12 MONG[place] RIGHT SIDED CHEST TUBE USING ULTRASOUND GUIDANCE. Chest X-Ray 05/11/18 00:00 IMPRESSION: Resolved right pleural effusion. No pneumothorax. Minimal persistent right basilar airspace disease likely scarring. Assessment & Plan - Diagnosis (1) CHF (congestive heart failure) Qualifiers: Heart failure type: diastolic Heart failure chronicity: acute on chronic Qualified Code(s): I50.33 - Acute on chronic diastolic (congestive) heart failure Is this a current diagnosis for this admission?: Yes (2) Non-Hodgkin lymphoma Qualifiers: Follicular lymphoma grade: unspecified grade Lymphoma site: unspecified region Is this a current diagnosis for this admission?: Yes (3) Recurrent right pleural effusion Is this a current diagnosis for this admission?: Yes - Notes Notes: No new recommendations. Awaiting Dr. Spencer's opinion. From cardiac standpoint recommend continuing current regimen. Patient could follow-up with mean for close cardiology follow-up. This was recommended. Patient seems much improved overall. Denying any shortness of breath. Patient still has the chest tube in. As regards CHF, this is chronic diastolic dysfunction with acute exacerbation. Patient would benefit from salt and fluid restriction, spironolactone therapy. Patient will benefit from long-acting stronger loop diuretics and have recommended patient be started on Demadex or torsemide 40 mg p.o. daily. Patient will benefit from close cardiology follow- up. On today's interview patient did admit that she has sleep apnea but has been somewhat noncompliant with Pap therapy. Have discussed importance of treatment of sleep apnea in the improving diastolic function of the heart. CPAP therapy has also been shown to reduce CHF related admissions. Patient encouraged to bring her CPAP machine to the hospital so that therapy can be reinstituted. - Time Time with patient: Greater than 35 minutes Medications reviewed and adjusted accordingly: Yes
--- NOTE | 2018-05-12 20:32 | PDOC PROGRESS REPORT ---
Subjective Progress Note for:: 05/12/18 Subjective:: some pains from chest tube insertion site Reason For Visit: SHORTNESS OF BREATH WITH PLEURAL EFFUSION Physical Exam Vital Signs: Temp Pulse Resp BP Pulse Ox 98.3 F 87 20 137/48 H 99 05/12/18 19:46 05/12/18 19:46 05/12/18 19:46 05/12/18 19:46 05/12/18 19:46 Intake & Output 05/11/18 05/12/18 05/13/18 06:59 06:59 06:59 Intake Total 1042 1171 731 Output Total 2165 1211 2300 Balance -1128 -40 -1569 Weight 80.9 kg 79.7 kg Exam: Chest tube drainage decreasing. No air leak. Dressing insertion site dry. Results Laboratory Results: 05/12/18 04:38 05/12/18 04:38 05/12/18 05/12/18 04:38 04:38 WBC 5.1 RBC 3.47 L Hgb 7.8 L Hct 25.3 L MCV 73 L MCH 22.5 L MCHC 30.8 L RDW 22.8 H Plt Count 86 L Seg Neutrophils % 68.0 Lymphocytes % 16.1 Monocytes % 11.3 Eosinophils % 3.7 Basophils % 0.9 Absolute Neutrophils 3.5 Absolute Lymphocytes 0.8 Absolute Monocytes 0.6 Absolute Eosinophils 0.2 Absolute Basophils 0.0 Sodium 138.7 Potassium 4.6 Chloride 105 Carbon Dioxide 30 Anion Gap 4 L BUN 17 Creatinine 0.75 Est GFR ( Amer) > 60 Est GFR (Non-Af Amer) > 60 Glucose 96 Calcium 9.0 Magnesium 2.3 Total Bilirubin 0.9 AST 16 ALT 27 Alkaline Phosphatase 105 Total Protein 6.3 Albumin 3.6 05/10/18 11:10 Sputum Gram Stain - Final 05/10/18 05/12/18 05:13 04:38 NT-Pro-B Natriuret Pep 3440 H 2070 H Impressions: Thoracentesis Ultrasound 05/09/18 16:05 IMPRESSION: SUCCESSFUL PLACEMENT OF A 12 DIVEHI RIGHT SIDED CHEST TUBE USING ULTRASOUND GUIDANCE. Chest X-Ray 05/11/18 00:00 IMPRESSION: Resolved right pleural effusion. No pneumothorax. Minimal persistent right basilar airspace disease likely scarring. Assessment & Plan - Time Time Spent with patient: 15-24 minutes - Plan Summary Plan Summary: Leave chest tube over weekend then will ask XRAY to D/C it.
[2018-05-12] MEDS: ATORVASTATIN CALCIUM 20 MG TABLET PO SCH (21:47)
[2018-05-12] MEDS: ALPRAZOLAM 0.5 MG TABLET PO PRN (21:47)
[2018-05-13] MEDS: OXYCODONE-ACETAMINOPHEN 5-325 MG TABLET PO PRN ×2 (00:17→22:30)
[2018-05-13] MEDS: LEVOTHYROXINE SODIUM 0.075 MG TABLET PO SCH (05:06)
[2018-05-13] MEDS: GABAPENTIN 300 MG CAPSULE PO SCH (05:08)
[2018-05-13] MEDS: ENOXAPARIN SODIUM INJ 40 MG/0.4 ML DISP.SYRIN SUBCUT SCH (09:15)
[2018-05-13] MEDS: DILTIAZEM HCL 180 MG CAPSULE.CR PO SCH (09:22)
[2018-05-13] MEDS: ASPIRIN 325 MG TABLET PO SCH (09:23)
[2018-05-13] MEDS: ALPRAZOLAM 0.5 MG TABLET PO PRN (09:23)
[2018-05-13] MEDS: LISINOPRIL 10 MG TABLET PO SCH (09:23)
[2018-05-13] MEDS: TORSEMIDE 20 MG TABLET PO SCH (09:23)
[2018-05-13] MEDS: GUAIFENESIN 600 MG TABLET.SA PO SCH ×2 (09:24→22:28)
[2018-05-13] MEDS: METOCLOPRAMIDE HCL 10 MG TABLET PO SCH ×2 (09:24→17:19)
[2018-05-13] MEDS: SPIRONOLACTONE 25 MG TABLET PO SCH ×2 (09:24→22:28)
[2018-05-13] MEDS: DOCUSATE SODIUM 100 MG CAPSULE PO SCH ×2 (09:25→17:15)
[2018-05-13] MEDS: POTASSIUM CHLORIDE 10 MEQ CAPSULE.ER PO SCH (09:25)
[2018-05-13] MEDS ORDERED: VANCOMYCIN HCL INJ 1000 MG VIAL IV SCH (10:00)
--- NOTE | 2018-05-13 10:14 | PDOC PROGRESS REPORT ---
Subjective Progress Note for:: 05/13/18 Subjective:: No acute events in the last 24 hours. Patient is afebrile. Patient has right- sided chest tube. So far 2.2 L of fluid is drained out. Patient was seen by Dr. Gramajo today. Patient is complaining of cough requesting some cough medication. 05/11/2018-patient still have the chest tube. Chest x-ray done yesterday indicates there is no right pleural effusion. But in the last 24 hours chest tube drainage is around 1 L. The plan is to repeat the chest x-ray today. The radiologist Dr. Young spoke to me just a minute ago saying he did not see any pleural effusion in the chest x-ray but I notified him that there is 1 L of drainage from last night and his suggestion is may be we need to keep the chest tube for another 24 hours. 05/12/2018-no acute events in the last 24 hours. Patient still have the chest tube. Around 200 cc of fluid is drained. I spoke to Dr. Gramajo for further management she recommended to consult with Dr. Spencer. Patient is already fol lowed with Dr. Spencer as an outpatient. Patient agreed to stay until she was seen by Dr. Spencer we follow his recommendations. Patient is afebrile. 05/13/2018-patient is doing well no acute events in the last 24 hours. T-max is 98.2. Sputum cultures came back this morning MRSA. Sensitivity to clindamycin and vancomycin. Presently she is on ceftriaxone and levofloxacin. Those antibiotics are discontinued. Denies any complaints. Chest tube drain last night is only 25 cc. Reason For Visit: SHORTNESS OF BREATH WITH PLEURAL EFFUSION Physical Exam Vital Signs: Temp Pulse Resp BP Pulse Ox 98.2 F 82 16 129/46 H 100 05/13/18 08:00 05/13/18 08:00 05/13/18 08:00 05/13/18 08:00 05/13/18 08:00 Intake & Output 05/12/18 05/13/18 05/14/18 06:59 06:59 06:59 Intake Total 1171 953 Output Total 1211 9385 Balance -40 -2472 Weight 79.7 kg 78.6 kg General appearance: PRESENT: no acute distress Head exam: PRESENT: atraumatic Eye exam: PRESENT: PERRLA Mouth exam: PRESENT: moist, tongue midline Neck exam: ABSENT: carotid bruit, JVD, lymphadenopathy, thyromegaly Respiratory exam: PRESENT: decreased breath sounds Cardiovascular exam: PRESENT: irregular rhythm, systolic murmur, tachycardia GI/Abdominal exam: PRESENT: normal bowel sounds, soft. ABSENT: distended, guarding, mass, organolmegaly, rebound, tenderness Extremities exam: PRESENT: full ROM. ABSENT: calf tenderness, clubbing, pedal edema Neurological exam: PRESENT: alert, awake, oriented to person, oriented to place, oriented to time, oriented to situation, CN II-XII grossly intact. ABSENT: motor sensory deficit Psychiatric exam: PRESENT: appropriate affect, normal mood. ABSENT: homicidal ideation, suicidal ideation Results Laboratory Results: 05/12/18 04:38 05/12/18 04:38 05/10/18 11:10 Sputum Gram Stain - Final 05/10/18 11:10 Sputum Sputum Culture - Final Mrsa (Meth Resis Staph Aureus) Normal Juany 05/10/18 05/12/18 05:13 04:38 NT-Pro-B Natriuret Pep 3440 H 2070 H Impressions: Thoracentesis Ultrasound 05/09/18 16:05 IMPRESSION: SUCCESSFUL PLACEMENT OF A 12 [place] RIGHT SIDED CHEST TUBE USING ULTRASOUND GUIDANCE. Chest X-Ray 05/11/18 00:00 IMPRESSION: Resolved right pleural effusion. No pneumothorax. Minimal persistent right basilar airspace disease likely scarring. Assessment & Plan - Diagnosis (1) Recurrent right pleural effusion Is this a current diagnosis for this admission?: Yes Plan: 05/09/2018-plan is to put the patient in hospital as an inpatient. He is going to be admitted to [facility]. Consultation with the surgical team was requested. Consultation with cardiology was requested. Consult for oncology was requested. Patient is going to be placed on oxygen 2 L nasal cannula. Started on Percocet 10/25 mg every 6 hours as needed for pain. CT scan indicates there is possible bilateral consolidation bibasilar consolidation. blood cultures sputum cultures are requested started on Rocephin 1 g IV daily. I am going to add azithromycin to the medication. Follow-up chest x-ray was requested. Etiologies could put chest tube and let it drain tonight. Patient has history of non-Hodgkin's lym phoma in remission for the last 11 years very low suspicious for malignancy. The pleural effusion which is recurrent probably secondary to underlying congestive heart failure. 05/10/2018-status post chest tube placement yesterday. So far 2.2 L of pleural fluid is drained out which was blood stained. Patient is feeling much better. Oncology consultation with Dr. Gramajo was done. Plan is to repeat the chest x- ray today. In the meantime we will continue the present management. 10 Percocet 10/325 mg p.o. every 6 hours as needed for pain. 05/11/2018-chest tube was placed 2 days ago yesterday morning noticed to have 2.3 L of fluid in the drainage container and nurses told me there is a 101 L of pleural fluid was removed last night. Follow-up chest x-ray was done today. This pleural effusions bilateral probably secondary to congestive heart failure. I discussed the plan with Dr. Roger he recommended to stop Lasix and start on Demadex 40 mg p.o. daily. Patient was started on spironolactone twice a day. Spoke to Dr. Gramajo she said he is okay to remove the chest tube. 05/12/2018-patient has a history of recurrent pleural effusions, she has history of atrial fibrillation with congestive heart failure and non-Hodgkin's lymphoma diagnosed with lymphoma is in remission for the last 11 years. Recurrent right pleural effusions probably secondary to congestive heart failure. Chest tube was in place since the admission. It drained 200 cc last night. We are going to request pulmonary consult with Dr. Spencer to get his recommendations. As per Dr. Roger's recommendations patient was started on Demadex and spironolactone. 05/13/2018-patient has history of recurrent pleural effusions. She is also has history of atrial fibrillation with congestive heart failure. Patient has history of non-Hodgkin's lymphoma in remission for the last 11 years. Admitted with large right pleural effusion status post chest tube placement. Last night the drainage is only 25 cc. Plan is if the drain is less than 100 cc in the 24 hours then we need to clamp the tube for another 24 hours and a follow-up chest x-rays to make sure the fluid is not in the collecting. I discussed the plan wi th the patient and the family they agreed with it. (2) Atrial fibrillation Qualifiers: Atrial fibrillation type: chronic Is this a current diagnosis for this admission?: Yes Plan: 05/09/2018 patient has history of atrial fibrillation but she is allergic to Eliquis and Pradaxa. Presently she is on only aspirin 324 mg p.o. daily. Plan is to continue the present management. To hold aspirin tonight because of the chest tube placement. 05/10/2018-patient has history of atrial fibrillation not on Eliquis not on Pradaxa because of an allergic history. takes aspirin 325 mg p.o. daily at home which was restarted today. 05/09/2018 patient has history of atrial fibrillation but she is allergic to El iquis and Pradaxa. Presently she is on only aspirin 324 mg p.o. daily. Plan is to continue the present management. To hold aspirin tonight because of the chest tube placement. 05/10/2018-patient has history of atrial fibrillation not on Eliquis not on Pradaxa because of an allergic history. takes aspirin 325 mg p.o. daily at home which was restarted today. 05/11/2018 patient has a history of atrial fibrillation not on anticoagulation except for aspirin 325 mg p.o. daily. Family notified me that she is allergic to Eliquis and Pradaxa. Offered her to start Xarelto but the patient does not want to be on it. 05/12/2018-patient has history of atrial fibrillation allergy to Eliquis and Prad axa as per the family patient is presently only on aspirin 325 mg p.o. daily cardiology did not recommend any anticoagulation. 05/13/2018 patient has history of atrial fibrillation not on anticoagulation at home. As per the family patient is allergic to Eliquis and and Pradaxa. Presently she is only on aspirin 325 mg p.o. daily. Family and the patient aware of the risks of not being on anticoagulation. (3) COPD (chronic obstructive pulmonary disease) Qualifiers: Emphysema type: unspecified Is this a current diagnosis for this admission?: Yes Plan: 05/09/2018-patient has history of COPD secondary to chronic smoking history of smoking for more than 50 years she smokes more than 1-1/2 pack/day. She uses oxygen 2 L nasal cannula at home along with trilogy. 05/10/2018-and has history of COPD secondary to chronic smoking. She still smokes more than 1 pack/day. Started on nicotine patch. Uses 2 L oxygen at home. Which was restarted while she was in the hospital. She is getting the nebulizer treatments also. 05/09/2018-patient has history of COPD secondary to chronic smoking history of smoking for more than 50 years she smokes more than 1-1/2 pack/day. She uses oxygen 2 L nasal cannula at home along with trilogy. 05/10/2018-and has history of COPD secondary to chronic smoking. She still smokes more than 1 pack/day. Started on nicotine patch. Uses 2 L oxygen at home. Which was restarted while she was in the hospital. She is getting the nebulizer treatments also. 05/11/2018-patient history of chronic smoking secondary to COPD. She still smokes 1 to 1.5 packs/day. Smoking counseling was provided. She was on nicotine patch during this hospital stay. 05/12/2018-patient has history of COPD secondary to chronic smoking patient still smokes. She smokes more than 1 pack/day as per the family. Smoking counseling was provided for more than 10 minutes. Patient is presently on nicotine patch. 05/13/2018 patient has history of COPD secondary to chronic smoking. She is a nicotine patch during the hospital stay. Patient is on ipratropium nebulizations. Pulse ox is 100% on 3 L. She is 2 L oxygen and trilogy at home. (4) Anemia Qualifiers: Anemia type: iron deficiency Is this a current diagnosis for this admission?: Yes Plan: 05/09/2018-patient's hemoglobin is 9.1. Patient's hemoglobin in the last 2 months fluctuating from 6.8 to 7.7. Patient has anemia of chronic disease probably secondary to history of non-Hodgkin's lymphoma. 05/10/2018-patient has history of anemia of chronic disease hemoglobin is 8.1. Baseline hemoglobin is between 6.8-7.7. Anemia of chronic disease probably secondary to non-Hodgkin's lymphoma. 05/11/2018 patient has history of anemia of chronic disease hemoglobin today is 8.1 which was stable. And is to check the CBC on daily basis. 05/12/2018-patient has history of anemia of chronic disease. Probably secondary to history of non-Hodgkin's lymphoma. Hemoglobin is 7.8. Dr. Gramajo is planning to give IV iron infusion at her office as an outpatient. Meantime will continue the present management. Patient is asymptomatic. 05/13/2018-patient has history of anemia of chronic disease latest hemoglobin is 7.8 plan is to recheck the CBC tomorrow if it is still low then planning to give 1 unit of PRBC. (5) Non-Hodgkin lymphoma in remission Is this a current diagnosis for this admission?: Yes Plan: 05/09/2018-patient has history of non-Hodgkin's lymphoma she is in remission for the last 11 years according to the family. She follows with Dr. Fay/Dr. Gramajo. Consult was placed for Dr. Gramajo. 05/10/2018-has history of non-Hodgkin's lymphoma she is in remission for the last 11 years. She follows with Dr. Gramajo/Dr. Fay as an outpatient. Plan is to continue the present management.05/09/2018-patient has history of non-Hodgkin's lymphoma she is in remission for the last 11 years according to the family. She follows with Dr. Fay/Dr. Gramajo. Consult was placed for Dr. Gramajo. 05/10/2018-has history of non-Hodgkin's lymphoma she is in remission for the last 11 years. She follows with Dr. Gramajo/Dr. Fay as an outpatient. Plan is to continue the present management. 05/11/2018 patient has history of non-Hodgkin's lymphoma as per the family patient is in remission for the last 11 years. She is follows with Dr. Gramajo as an outpatient for this problem. 05/12/2018-patient has history of non-Hodgkin's lymphoma in remission for for the last [address] scans did not indicates any recurrence. Dr. Gramajo is on board. 05/13/2018 patient has history of non-Hodgkin's lymphoma on remission ,oncology is following the patient. (6) Smoker Is this a current diagnosis for this admission?: Yes Plan: 05/09/2018-patient has history of chronic smoking smokes 1 and a pack per day smoking for more than 50 years. Smoking counseling was provided for more than 10 minutes strongly advised to quit smoking. She was placed on nicotine patch. 05/10/2018 patient is a chronic smoker. She was placed on nicotine patch 21 mg daily. 05/11/2018-patient is a chronic smoker smoking counseling was provided again today., Patient is presently on nicotine patch. (7) CHF (congestive heart failure) Qualifiers: Heart failure type: diastolic Heart failure chronicity: acute on chronic Qualified Code(s): I50.33 - Acute on chronic diastolic (congestive) heart failure Is this a current diagnosis for this admission?: Yes Plan: 05/09/2018-patient and family is giving the history of chronic congestive heart failure. Pleural effusion may be secondary to CHF. Echocardiogram was requested consultation with the search engine marketing specialist Dr. Roger was requested. Plan to check the BNP tomorrow. His Lasix 40 mg daily at home which was resumed. 05/10/2018-patient has history of chronic congestive heart failure. Recurrent pleural effusions probably secondary to underlying CHF. BNP was 3440. Patient's search engine marketing specialist is Dr. Roger. Waiting for the echocardiogram report. Plan is to continue Lasix 40mg tid . 05/11/2018 patient has history of chronic congestive heart failure. BNP is 3400. Dr. Roger is patient's search engine marketing specialist. He recommended to start on Demadex 40 mg p.o. daily and discontinue Lasix 40 mg 3 times daily. I am going to follow his recommendations. Patient has chronic diastolic heart failure. 05/12/2018-patient has history of chronic congestive heart failure which is a diastolic heart failure. BNP came down to 2070. Patient is present on Demadex 40 mg p.o. daily, spironolactone 12.5 mg p.o. twice daily. Plan is to continue the present management. 05/13/2018 patient history of congestive heart failure with chronic diastolic heart failure. BNP is 2070. Presently on Demadex 40 mg p.o. daily and spironolactone 12.5 mg twice daily. Plan is to recheck the BNP tomorrow. On admission BNP is 3400. (8) Pneumonia Is this a current diagnosis for this admission?: Yes Plan: 05/09/2018-CT scan of the chest indicating bibasilar consolidation. Sputum cultures blood cultures are requested started on IV Rocephin 1 g daily Zithromax 500 mg IV daily. Planning to do the follow-up chest x-ray tomorrow. 05/10/2018-patient was placed on IV Rocephin 1 g daily Zithromax 500 mg IV daily because a CT scan showing possible bibasilar consolidation. Patient is coughing up yellowish white sputum be going to send for sputum culture. Pending the repe at chest x-ray today. Blood cultures are pending. So far no growth. My impression is she has community-acquired pneumonia.05/09/2018-CT scan of the chest indicating bibasilar consolidation. Sputum cultures blood cultures are requested started on IV Rocephin 1 g daily Zithromax 500 mg IV daily. Planning to do the follow-up chest x-ray tomorrow. 05/10/2018-patient was placed on IV Rocephin 1 g daily Zithromax 500 mg IV daily because a CT scan showing possible bibasilar consolidation. Patient is coughing up yellowish white sputum be going to send for sputum culture. Pending the repeat chest x-ray today. Blood cultures are pending. So far no growth. My impression is she has community-acquired pneumonia. 05/11/2018-initial chest x-ray and CT scan indicate bibasilar consolidation. Spu mayra culture is positive for gram-positive cocci in chains. Patient is presently on Rocephin 1 g IV daily Zithromax 40 mg IV daily. Waiting for the sensitivity report. In the meantime we will continue the present management. 05/12/2018-sputum cultures came back positive for gram-positive cocci in chains. Presently on IV Rocephin and Zithromax. Patient is afebrile. Plan is to continue the present management, if she goes home I will send her home on p.o. antibiotic therapy. 05/13/2018 sputum cultures came back positive for MRSA sensitivity to clindamycin and vancomycin. Patient is afebrile. Presently she is on levofloxacin alone on Zosyn those are discontinued. To start on clindamycin 600 mg daily 6 hours and vancomycin 1000 milligrams daily. To adjust the dose of vancomycin as per pharmacy recommendations. - Time Time Spent with patient: 15-24 minutes Smoking Cessation Education: over 10 minutes Medications reviewed and adjusted accordingly: Yes Anticipated discharge: Home
[2018-05-13] MEDS ORDERED: GABAPENTIN 300 MG CAPSULE PO PRN (11:25)
[2018-05-13] MEDS: IPRATROPIUM/ALBUTEROL 0.5-2.5 MG/3 ML AMPUL NEB PRN (12:04)
[2018-05-13] MEDS: CLINDAMYCIN 600 MG/D5W RTU 600 MG/50 ML RTUPB IV SCH ×2 (13:39→17:20)
[2018-05-13] MEDS: VANCOMYCIN HCL 1,000 MG in DEXTROSE 5%-WATER 250 ML IV SCH (13:40)
[2018-05-13] MEDS ORDERED: FAMOTIDINE 20 MG TABLET PO ONE (22:25)
[2018-05-13] MEDS: ATORVASTATIN CALCIUM 20 MG TABLET PO SCH (22:28)
[2018-05-14] MEDS: VANCOMYCIN HCL 1,000 MG in DEXTROSE 5%-WATER 250 ML IV SCH ×2 (00:29→13:32)
[2018-05-14] MEDS: CLINDAMYCIN 600 MG/D5W RTU 600 MG/50 ML RTUPB IV SCH ×3 (02:11→18:54)
[2018-05-14] MEDS: LEVOTHYROXINE SODIUM 0.075 MG TABLET PO SCH (05:48)
[2018-05-14 05:49] LABS: ABSOLUTE EOSINOPHILS # (AUTO) 0.2 10^3/uL (0.0-0.6); ABSOLUTE LYMPHOCYTES (AUTO) 0.9 10^3/uL (0.5-4.7); ABSOLUTE MONOCYTES (AUTO) 0.7 10^3/uL (0.1-1.4); ABSOLUTE NEUT (AUTO) 2.9 10^3/uL (1.7-8.2); BASOPHILS % (AUTO) 0.9 % (0-2); EOSINOPHILS % (AUTO) 3.6 % (0-6); LYMPHOCYTES % (AUTO) 19.2 % (13-45); MEAN CORPUSCULAR HEMOGLOBIN 23.4 pg (27.0-33.4); MEAN CORPUSCULAR HGB CONC 31.9 g/dL (32.0-36.0); MEAN CORPUSCULAR VOLUME 73 fl (80-97); MONOCYTES % (AUTO) 14.5 % (3-13); RED BLOOD COUNT 3.15 10^6/uL (3.72-5.28); RED CELL DISTRIBUTION WIDTH 23.2 % (11.5-14.0); SEGMENTED NEUTROPHILS % (AUTO) 61.8 % (42-78); TOTAL CELLS COUNTED % (AUTO) 100 %; WHITE BLOOD COUNT 4.7 10^3/uL (4.0-10.5)
[2018-05-14 06:21] LABS: ALANINE AMINOTRANSFERASE 16 U/L (9-52); ALBUMIN 3.4 g/dL (3.5-5.0); ALKALINE PHOSPHATASE 99 U/L (38-126); ANION GAP 7 (5-19); ASPARTATE AMINO TRANSFERASE 16 U/L (14-36); BILIRUBIN,DIRECT 0.2 mg/dL (0.0-0.4); BILIRUBIN,TOTAL 0.7 mg/dL (0.2-1.3); BLOOD UREA NITROGEN 24 mg/dL (7-20); CALCIUM 8.9 mg/dL (8.4-10.2); CARBON DIOXIDE 32 mmol/L (22-30); CHLORIDE 99 mmol/L (98-107); GLUCOSE 97 mg/dL (75-110); POTASSIUM 4.7 mmol/L (3.6-5.0); SODIUM 137.8 mmol/L (137-145); TOTAL PROTEIN 6.2 g/dL (6.3-8.2)
[2018-05-14 07:06] LABS: HEMOGLOBIN 7.4 g/dL (12.0-15.5); PLATELET COUNT 82 10^3/uL (150-450)
[2018-05-14] MEDS ORDERED: NORMAL SALINE 250 ML IV PRN ×2 (10:10)
--- NOTE | 2018-05-14 10:14 | PDOC PROGRESS REPORT ---
Subjective Progress Note for:: 05/14/18 Subjective:: No acute events in the last 24 hours. Patient is afebrile. Patient has right- sided chest tube. So far 2.2 L of fluid is drained out. Patient was seen by Dr. Gramajo today. Patient is complaining of cough requesting some cough medication. 05/11/2018-patient still have the chest tube. Chest x-ray done yesterday indicates there is no right pleural effusion. But in the last 24 hours chest tube drainage is around 1 L. The plan is to repeat the chest x-ray today. The radiologist Dr. Young spoke to me just a minute ago saying he did not see any pleural effusion in the chest x-ray but I notified him that there is 1 L of drainage from last night and his suggestion is may be we need to keep the chest tube for another 24 hours. 05/12/2018-no acute events in the last 24 hours. Patient still have the chest tube. Around 200 cc of fluid is drained. I spoke to Dr. Gramajo for further management she recommended to consult with Dr. Spencer. Patient is already fol lowed with Dr. Spencer as an outpatient. Patient agreed to stay until she was seen by Dr. Spencer we follow his recommendations. Patient is afebrile. 05/13/2018-patient is doing well no acute events in the last 24 hours. T-max is 98.2. Sputum cultures came back this morning MRSA. Sensitivity to clindamycin and vancomycin. Presently she is on ceftriaxone and levofloxacin. Those antibiotics are discontinued. Denies any complaints. Chest tube drain last night is only 25 cc. 05/14/2018 there is a 72-year-old female with multiple medical problems including recurrent right pleural effusion admitted for shortness of breath found to have right pleural effusion status post chest tube placement from last night the drainage is almost 0. Patient is going for the chest x-ray this morning. After the chest x-ray was done we could clamp the tube and do the follow-up chest x- ray tomorrow to see whether the fluid is reaccumulating are not. Patient sputum culture came back positive for MRSA and that she is on clindamycin and vancomycin. Afebrile. No acute events in the last 24 hours. Pulse ox is 100% on 2 L. Reason For Visit: SHORTNESS OF BREATH WITH PLEURAL EFFUSION Physical Exam Vital Signs: Temp Pulse Resp BP Pulse Ox 97.9 F 68 10 L 123/49 L 100 05/14/18 03:44 05/14/18 03:44 05/14/18 03:44 05/14/18 03:44 05/14/18 03:44 Intake & Output 05/13/18 05/14/18 05/15/18 06:59 06:59 06:59 Intake Total 953 1524 Output Total 3425 3215 Balance -1452 -976 Weight 78.6 kg 76.9 kg General appearance: PRESENT: no acute distress, other - Comfortably in the wheelchair about to go to the x-ray. Denies any complaints. Head exam: PRESENT: atraumatic Eye exam: PRESENT: PERRLA Mouth exam: PRESENT: dry mucosa Teeth exam: PRESENT: poor dentation Neck exam: ABSENT: carotid bruit, JVD, lymphadenopathy, thyromegaly Respiratory exam: PRESENT: decreased breath sounds Cardiovascular exam: PRESENT: irregular rhythm, systolic murmur, tachycardia GI/Abdominal exam: PRESENT: normal bowel sounds, soft. ABSENT: distended, guarding, mass, organolmegaly, rebound, tenderness Extremities exam: PRESENT: full ROM. ABSENT: calf tenderness, clubbing, pedal edema Neurological exam: PRESENT: alert, awake, oriented to person, oriented to place, oriented to time, oriented to situation, CN II-XII grossly intact. ABSENT: motor sensory deficit Psychiatric exam: PRESENT: appropriate affect, normal mood. ABSENT: homicidal ideation, suicidal ideation Results Laboratory Results: 05/14/18 05:07 05/14/18 05:07 05/14/18 05/14/18 05:07 05:07 WBC 4.7 RBC 3.15 L Hgb 7.4 L Hct 23.0 L MCV 73 L MCH 23.4 L MCHC 31.9 L RDW 23.2 H Plt Count 82 L Seg Neutrophils % 61.8 Lymphocytes % 19.2 Monocytes % 14.5 H Eosinophils % 3.6 Basophils % 0.9 Absolute Neutrophils 2.9 Absolute Lymphocytes 0.9 Absolute Monocytes 0.7 Absolute Eosinophils 0.2 Absolute Basophils 0.0 Sodium 137.8 Potassium 4.7 Chloride 99 Carbon Dioxide 32 H Anion Gap 7 BUN 24 H Creatinine 0.90 Est GFR ( Amer) > 60 Est GFR (Non-Af Amer) > 60 Glucose 97 Calcium 8.9 Magnesium 2.1 Total Bilirubin 0.7 AST 16 ALT 16 Alkaline Phosphatase 99 Total Protein 6.2 L Albumin 3.4 L 05/10/18 11:10 Sputum Gram Stain - Final 05/10/18 11:10 Sputum Sputum Culture - Final Mrsa (Meth Resis Staph Aureus) Normal Juany 05/10/18 05/12/18 05/14/18 05:13 04:38 05:07 NT-Pro-B Natriuret Pep 3440 H 2070 H 1660 H Impressions: Thoracentesis Ultrasound 05/09/18 16:05 IMPRESSION: SUCCESSFUL PLACEMENT OF A 12 [place] RIGHT SIDED CHEST TUBE USING ULTRASOUND GUIDANCE. Chest X-Ray 05/11/18 00:00 IMPRESSION: Resolved right pleural effusion. No pneumothorax. Minimal persistent right basilar airspace disease likely scarring. Assessment & Plan - Diagnosis (1) Recurrent right pleural effusion Is this a current diagnosis for this admission?: Yes Plan: 05/09/2018-plan is to put the patient in hospital as an inpatient. He is going to be admitted to [facility]. Consultation with the surgical team was requested. Consultation with cardiology was requested. Consult for oncology was requested. Patient is going to be placed on oxygen 2 L nasal cannula. Started on Percocet 10/25 mg every 6 hours as needed for pain. CT scan indicates there is possible bilateral consolidation bibasilar consolidation. blood cultures sputum cultures are requested started on Rocephin 1 g IV daily. I am going to add azithromycin to the medication. Follow-up chest x-ray was requested. Etiologies could put chest tube and let it drain tonight. Patient has history of non-Hodgkin's lymphoma in remission for the last 11 years very low suspicious for malignancy. The pleural effusion which is recurrent probably secondary to underlying congestive heart failure. 05/10/2018-status post chest tube placement yesterday. So far 2.2 L of pleural fluid is drained out which was blood stained. Patient is feeling much better. Oncology consultation with Dr. Gramajo was done. Plan is to repeat the chest x- ray today. In the meantime we will continue the present management. 10 Pe rcocet 10/325 mg p.o. every 6 hours as needed for pain. 05/11/2018-chest tube was placed 2 days ago yesterday morning noticed to have 2.3 L of fluid in the drainage container and nurses told me there is a 101 L of pleural fluid was removed last night. Follow-up chest x-ray was done today. This pleural effusions bilateral probably secondary to congestive heart failure. I discussed the plan with Dr. Roger he recommended to stop Lasix and start on Demadex 40 mg p.o. daily. Patient was started on spironolactone twice a day. Spoke to Dr. Gramajo she said he is okay to remove the chest tube. 05/12/2018-patient has a history of recurrent pleural effusions, she has history of atrial fibrillation with congestive heart failure and non-Hodgkin's lymphoma diagnosed with lymphoma is in remission for the last 11 years. Recurrent right pleural effusions probably secondary to congestive heart failure. Chest tube was in place since the admission. It drained 200 cc last night. We are going to request pulmonary consult with Dr. Spencer to get his recommendations. As per Dr. Roger's recommendations patient was started on Demadex and spironolactone. 05/13/2018-patient has history of recurrent pleural effusions. She is also has history of atrial fibrillation with congestive heart failure. Patient has history of non-Hodgkin's lymphoma in remission for the last 11 years. Admitted with large right pleural effusion status post chest tube placement. Last night the drainage is only 25 cc. Plan is if the drain is less than 100 cc in the 24 hours then we need to clamp the tube for another 24 hours and a follow-up chest x-rays to make sure the fluid is not in the collecting. I discussed the plan with the patient and the family they agreed with it. 05/14/2018-patient has history of lymphoma which is remission also has a congestive heart failure admitted for shortness of breath found to have a large right pleural effusion and bilateral pneumonia. Status post chest tube placement. Initially drainage was more than 2 L in one day.. Now from last night no drainage at all. After the chest x-ray done today we going to clap the chest tube and to do the follow-up chest x-ray tomorrow as per Dr. Spencer's recommendations. (2) Atrial fibrillation Qualifiers: Atrial fibrillation type: chronic Is this a current diagnosis for this admission?: Yes Plan: 05/09/2018 patient has history of atrial fibrillation but she is allergic to Eliquis and Pradaxa. Presently she is on only aspirin 324 mg p.o. daily. Plan is to continue the present management. To hold aspirin tonight because of the chest tube placement. 05/10/2018-patient has history of atrial fibrillation not on Eliquis not on P radaxa because of an allergic history. takes aspirin 325 mg p.o. daily at home which was restarted today. 05/09/2018 patient has history of atrial fibrillation but she is allergic to Eliquis and Pradaxa. Presently she is on only aspirin 324 mg p.o. daily. Plan is to continue the present management. To hold aspirin tonight because of the chest tube placement. 05/10/2018-patient has history of atrial fibrillation not on Eliquis not on Pradaxa because of an allergic history. takes aspirin 325 mg p.o. daily at home which was restarted today. 05/11/2018 patient has a history of atrial fibrillation not on anticoagulation except for aspirin 325 mg p.o. daily. Family notified me that she is allergic to Eliquis and Pradaxa. Offered her to start Xarelto but the patient does not want to be on it. 05/12/2018-patient has history of atrial fibrillation allergy to Eliquis and Pradaxa as per the family patient is presently only on aspirin 325 mg p.o. daily cardiology did not recommend any anticoagulation. 05/13/2018 patient has history of atrial fibrillation not on anticoagulation at home. As per the family patient is allergic to Eliquis and and Pradaxa. Presently she is only on aspirin 325 mg p.o. daily. Family and the patient aware of the risks of not being on anticoagulation. 05/14/2018-patient has history of atrial fibrillation. Still in A. fib but rate controlled. Heart rate is 68. Asymptomatic. Dr. Roger is her drywall foreman. Cardiology consult was done during the hospital stay. (3) COPD (chronic obstructive pulmonary disease) Qualifiers: Emphysema type: unspecified Is this a current diagnosis for this admission?: Yes Plan: 05/09/2018-patient has history of COPD secondary to chronic smoking history of smoking for more than 50 years she smokes more than 1-1/2 pack/day. She uses oxygen 2 L nasal cannula at home along with trilogy. 05/10/2018-and has history of COPD secondary to chronic smoking. She still smokes more than 1 pack/day. Started on nicotine patch. Uses 2 L oxygen at home. Which was restarted while she was in the hospital. She is getting the nebulizer treatments also. 05/09/2018-patient has history of COPD secondary to chronic smoking history of smoking for more than 50 years she smokes more than 1-1/2 pack/day. She uses oxygen 2 L nasal cannula at home along with trilogy. 05/10/2018-and has history of COPD secondary to chronic smoking. She still smokes more than 1 pack/day. Started on nicotine patch. Uses 2 L oxygen at home. Which was restarted while she was in the hospital. She is getting the nebulizer treatments also. 05/11/2018-patient history of chronic smoking secondary to COPD. She still smokes 1 to 1.5 packs/day. Smoking counseling was provided. She was on nicotine patch during this hospital stay. 05/12/2018-patient has history of COPD secondary to chronic smoking patient still smokes. She smokes more than 1 pack/day as per the family. Smoking counseling was provided for more than 10 minutes. Patient is presently on nicotine patch. 05/13/2018 patient has history of COPD secondary to chronic smoking. She is a nicotine patch during the hospital stay. Patient is on ipratropium nebulizations. Pulse ox is 100% on 3 L. She is 2 L oxygen and trilogy at home. 05/14/2018-patient has history of COPD secondary to smoking. She smokes more than a pack per day. She is on oxygen at home 2 L. Presently her pulse ox is 100% on 2 L. She is on ipratropium nebulizations and she uses trilogy at home. Plan is to continue the present management. She is also on nicotine patch. (4) Anemia Qualifiers: Anemia type: iron deficiency Is this a current diagnosis for this admission?: Yes Plan: 05/09/2018-patient's hemoglobin is 9.1. Patient's hemoglobin in the last 2 months fluctuating from 6.8 to 7.7. Patient has anemia of chronic disease probably secondary to history of non-Hodgkin's lymphoma. 05/10/2018-patient has history of anemia of chronic disease hemoglobin is 8.1. Baseline hemoglobin is between 6.8-7.7. Anemia of chronic disease probably secondary to non-Hodgkin's lymphoma. 05/11/2018 patient has history of anemia of chronic disease hemoglobin today is 8.1 which was stable. And is to check the CBC on daily basis. 05/12/2018-patient has history of anemia of chronic disease. Probably secondary to history of non-Hodgkin's lymphoma. Hemoglobin is 7.8. Dr. Gramajo is planning to give IV iron infusion at her office as an outpatient. Meantime will continue the present management. Patient is asymptomatic. 05/13/2018-patient has history of anemia of chronic disease latest hemoglobin is 7.8 plan is to recheck the CBC tomorrow if it is still low then planning to give 1 unit of PRBC. 05/14/2018-patient has history of anemia of chronic disease. Hemoglobin today is 7.4. We are going to do the type and crossmatch and transfuse 1 unit. It is asymptomatic. Anemia probably secondary to comorbidities she has. (5) Non-Hodgkin lymphoma in remission Is this a current diagnosis for this admission?: Yes Plan: 05/09/2018-patient has history of non-Hodgkin's lymphoma she is in remission for the last 11 years according to the family. She follows with Dr. Fay/Dr. Gramajo. Consult was placed for Dr. Gramajo. 05/10/2018-has history of non-Hodgkin's lymphoma she is in remission for the last 11 years. She follows with Dr. Gramajo/Dr. Fay as an outpatient. Plan is to continue the present management.05/09/2018-patient has history of non-Hodgkin's lymphoma she is in remission for the last 11 years according to the family. She follows with Dr. Fay/Dr. Gramajo. Consult was placed for Dr. Gramajo. 05/10/2018-has history of non-Hodgkin's lymphoma she is in remission for the last 11 years. She follows with Dr. Gramajo/Dr. Fay as an outpatient. Plan is to continue the present management. 05/11/2018 patient has history of non-Hodgkin's lymphoma as per the family patient is in remission for the last 11 years. She is follows with Dr. Gramajo as an outpatient for this problem. 05/12/2018-patient has history of non-Hodgkin's lymphoma in remission for for the last [address] scans did not indicates any recurrence. Dr. Gramajo is on board. 05/13/2018 patient has history of non-Hodgkin's lymphoma on remission ,oncology is following the patient. 05/14/2018 patient has history of non-Hodgkin's lymphoma in remission for the last 11 years. She follows with oncology team Dr. Fay/Dr. Pelletier. (6) Smoker Is this a current diagnosis for this admission?: Yes Plan: 05/09/2018-patient has history of chronic smoking smokes 1 and a pack per day smoking for more than 50 years. Smoking counseling was provided for more than 10 minutes strongly advised to quit smoking. She was placed on nicotine patch. 05/10/2018 patient is a chronic smoker. She was placed on nicotine patch 21 mg daily. 05/11/2018-patient is a chronic smoker smoking counseling was provided again today., Patient is presently on nicotine patch. 05/14/2018 patient is a chronic smoker smokes 1 more than 1 pack/day. Nicotine patch here. Patient is going to be discharged on nicotine patch when she is ready. Smoking counseling was again provided for more than 10 minutes. (7) CHF (congestive heart failure) Qualifiers: Heart failure type: diastolic Heart failure chronicity: acute on chronic Qualified Code(s): I50.33 - Acute on chronic diastolic (congestive) heart jannette lure Is this a current diagnosis for this admission?: Yes Plan: 05/09/2018-patient and family is giving the history of chronic congestive heart failure. Pleural effusion may be secondary to CHF. Echocardiogram was requested consultation with the drywall foreman Dr. Roger was requested. Plan to check the BNP tomorrow. His Lasix 40 mg daily at home which was resumed. 05/10/2018-patient has history of chronic congestive heart failure. Recurrent pleural effusions probably secondary to underlying CHF. BNP was 3440. Patient's drywall foreman is Dr. Roger. Waiting for the echocardiogram report. Plan is to continue Lasix 40mg tid . 05/11/2018 patient has history of chronic congestive heart failure. BNP is 3400. Dr. Roger is patient's drywall foreman. He recommended to start on Demadex 40 mg p.o. daily and discontinue Lasix 40 mg 3 times daily. I am going to follow his recommendations. Patient has chronic diastolic heart failure. 05/12/2018-patient has history of chronic congestive heart failure which is a diastolic heart failure. BNP came down to 2070. Patient is present on Demadex 40 mg p.o. daily, spironolactone 12.5 mg p.o. twice daily. Plan is to continue the present management. 05/13/2018 patient history of congestive heart failure with chronic diastolic heart failure. BNP is 2070. Presently on Demadex 40 mg p.o. daily and spironolactone 12.5 mg twice daily. Plan is to recheck the BNP tomorrow. On admission BNP is 3400. 05/14/2018 patient has history of congestive heart failure as per Dr. Roger she has chronic diastolic heart failure. She is on Demadex 40 mg p.o. daily and spironolactone 12.5 mg p.o. daily. Patient's BNP came down to 1660. No evidence of any fluid overload. (8) Pneumonia Is this a current diagnosis for this admission?: Yes Plan: 05/09/2018-CT scan of the chest indicating bibasilar consolidation. Sputum cultures blood cultures are requested started on IV Rocephin 1 g daily Zithromax 500 mg IV daily. Planning to do the follow-up chest x-ray tomorrow. 05/10/2018-patient was placed on IV Rocephin 1 g daily Zithromax 500 mg IV daily because a CT scan showing possible bibasilar consolidation. Patient is coughing up yellowish white sputum be going to send for sputum culture. Pending the repeat chest x-ray today. Blood cultures are pending. So far no growth. My impression is she has community-acquired pneumonia.05/09/2018-CT scan of the chest indicating bibasilar consolidation. Sputum cultures blood cultures are requested started on IV Rocephin 1 g daily Zithromax 500 mg IV daily. Planning to do the follow-up chest x-ray tomorrow. 05/10/2018-patient was placed on IV Rocephin 1 g daily Zithromax 500 mg IV daily because a CT scan showing possible bibasilar consolidation. Patient is coughing up yellowish white sputum be going to send for sputum culture. Pending the repeat chest x-ray today. Blood cultures are pending. So far no growth. My impression is she has community-acquired pneumonia. 05/11/2018-initial chest x-ray and CT scan indicate bibasilar consolidation. Sputum culture is positive for gram-positive cocci in chains. Patient is presently on Rocephin 1 g IV daily Zithromax 40 mg IV daily. Waiting for the sensitivity report. In the meantime we will continue the present management. 05/12/2018-sputum cultures came back positive for gram-positive cocci in chains. Presently on IV Rocephin and Zithromax. Patient is afebrile. Plan is to continue the present management, if she goes home I will send her home on p.o. antibiotic therapy. 05/13/2018 sputum cultures came back positive for MRSA sensitivity to clindamycin and vancomycin. Patient is afebrile. Presently she is on levofloxacin alone on Zosyn those are discontinued. To start on clindamycin 600 mg daily 6 hours and vancomycin 1000 milligrams daily. To adjust the dose of vancomycin as per pharmacy recommendations. 05/14/2018 sputum cultures came back positive for MRSA sensitive to clindamycin and vancomycin plan to continue with his antibiotics during the hospital stay. Patient is afebrile. Blood cultures are negative. - Time Time Spent with patient: 15-24 minutes Medications reviewed and adjusted accordingly: Yes Anticipated discharge: Home
[2018-05-14] MEDS: IPRATROPIUM/ALBUTEROL 0.5-2.5 MG/3 ML AMPUL NEB PRN (10:19)
[2018-05-14] MEDS: DOCUSATE SODIUM 100 MG CAPSULE PO SCH ×2 (10:36→18:48)
[2018-05-14] MEDS: POTASSIUM CHLORIDE 10 MEQ CAPSULE.ER PO SCH (10:40)
[2018-05-14] MEDS: METOCLOPRAMIDE HCL 10 MG TABLET PO SCH ×2 (10:40→18:49)
[2018-05-14] MEDS: GUAIFENESIN 600 MG TABLET.SA PO SCH ×2 (10:40→23:00)
[2018-05-14] MEDS: LISINOPRIL 10 MG TABLET PO SCH (10:41)
[2018-05-14] MEDS: DILTIAZEM HCL 180 MG CAPSULE.CR PO SCH (10:41)
[2018-05-14] MEDS: TORSEMIDE 20 MG TABLET PO SCH (10:41)
[2018-05-14] MEDS: SPIRONOLACTONE 25 MG TABLET PO SCH ×2 (10:41→23:00)
[2018-05-14] MEDS: ASPIRIN 325 MG TABLET PO SCH (10:41)
[2018-05-14] MEDS: FAMOTIDINE 20 MG TABLET PO SCH ×2 (10:41→18:49)
--- NOTE | 2018-05-14 11:27 | RADIOLOGY REPORT (SQ) ---
EXAM DESCRIPTION: CHEST 2 VIEWS COMPLETED DATE/TIME: 05/14/2018 10:44 am REASON FOR STUDY: pleural effusion COMPARISON: Two-view chest 05/11/2018 CT chest 05/09/2018 EXAM PARAMETERS: NUMBER OF VIEWS: two views TECHNIQUE: Digital Frontal and Lateral radiographic views of the chest acquired. RADIATION DOSE: NA LIMITATIONS: none FINDINGS: LUNGS AND PLEURA: Right lateral pleural space pigtail catheter unchanged. No residual rig ht pleural effusion. There is persistent consolidation at the right lung base atelectasis versus pneumonia. Small left pleural effusion with minimal left basilar atelectasis. No right or left pneumothorax MEDIASTINUM AND HILAR STRUCTURES: No masses or contour abnormalities. HEART AND VASCULAR STRUCTURES: Stable cardiomegaly BONES: No acute findings. HARDWARE: Right lateral pleural space pigtail catheter in good positioning OTHER: No other significant finding. IMPRESSION: Unchanged right pleural space pigtail catheter. No pneumothorax. Stable right basilar airspace. Unchanged small left pleural effusion with left basilar airspace disease. No pneumothorax TECHNICAL DOCUMENTATION: JOB ID: [id number] [employer]- All Rights Reserved Reading location - IP/workstation name: [email or web address]
--- NOTE | 2018-05-14 19:39 | PDOC PROGRESS REPORT ---
Subjective Progress Note for:: 05/14/18 Subjective:: no pains Reason For Visit: SHORTNESS OF BREATH WITH PLEURAL EFFUSION Physical Exam Vital Signs: Temp Pulse Resp BP Pulse Ox 98.5 F 80 16 141/55 H 98 05/14/18 19:20 05/14/18 19:20 05/14/18 19:20 05/14/18 19:20 05/14/18 19:20 Intake & Output 05/13/18 05/14/18 05/15/18 06:59 06:59 06:59 Intake Total 953 1524 1212 Output Total 3426 2122 2275 Balance -0170 -976 -1063 Weight 78.6 kg 76.9 kg Exam: tolerating clamping of chest tube with resolved effusion on CXR Results Laboratory Results: 05/14/18 05:07 05/14/18 05:07 05/14/18 05/14/18 05/14/18 05:07 05:07 10:46 WBC 4.7 RBC 3.15 L Hgb 7.4 L Hct 23.0 L MCV 73 L MCH 23.4 L MCHC 31.9 L RDW 23.2 H Plt Count 82 L Seg Neutrophils % 61.8 Lymphocytes % 19.2 Monocytes % 14.5 H Eosinophils % 3.6 Basophils % 0.9 Absolute Neutrophils 2.9 Absolute Lymphocytes 0.9 Absolute Monocytes 0.7 Absolute Eosinophils 0.2 Absolute Basophils 0.0 Sodium 137.8 Potassium 4.7 Chloride 99 Carbon Dioxide 32 H Anion Gap 7 BUN 24 H Creatinine 0.90 Est GFR ( Amer) > 60 Est GFR (Non-Af Amer) > 60 Glucose 97 Calcium 8.9 Magnesium 2.1 Total Bilirubin 0.7 AST 16 ALT 16 Alkaline Phosphatase 99 Total Protein 6.2 L Albumin 3.4 L Blood Type O NEGATIVE Antibody Screen NEGATIVE 05/10/18 05/12/18 05/14/18 05:13 04:38 05:07 NT-Pro-B Natriuret Pep 3440 H 2070 H 1660 H Impressions: Thoracentesis Ultrasound 05/09/18 16:05 IMPRESSION: SUCCESSFUL PLACEMENT OF A 12 [place] RIGHT SIDED CHEST TUBE USING ULTRASOUND GUIDANCE. Chest X-Ray 05/14/18 09:00 IMPRESSION: Unchanged right pleural space pigtail catheter. No pneumothorax. Stable right basilar airspace. Unchanged small left pleural effusion with left basilar airspace disease. No pneumothorax Assessment & Plan - Time Time Spent with patient: Less than 15 minutes - Plan Summary Plan Summary: Agree with Dr Spencer to clamp NGT OK to ask Radiology to D/C chest tube if CXR tomorrow shows persistent resolved effusion.
[2018-05-14] MEDS: OXYCODONE-ACETAMINOPHEN 5-325 MG TABLET PO PRN (20:19)
[2018-05-14 21:50] LABS: ABSOLUTE BASOPHILS # (AUTO) 0.1 10^3/uL (0.0-0.2); ABSOLUTE EOSINOPHILS # (AUTO) 0.2 10^3/uL (0.0-0.6); ABSOLUTE LYMPHOCYTES (AUTO) 0.6 10^3/uL (0.5-4.7); ABSOLUTE MONOCYTES (AUTO) 0.8 10^3/uL (0.1-1.4); ABSOLUTE NEUT (AUTO) 3.8 10^3/uL (1.7-8.2); BASOPHILS % (AUTO) 0.9 % (0-2); HEMATOCRIT 25.2 % (36.0-47.0); HEMOGLOBIN 8.2 g/dL (12.0-15.5); LYMPHOCYTES % (AUTO) 11.5 % (13-45); MEAN CORPUSCULAR HEMOGLOBIN 24.2 pg (27.0-33.4); MEAN CORPUSCULAR HGB CONC 32.5 g/dL (32.0-36.0); MEAN CORPUSCULAR VOLUME 74 fl (80-97); MONOCYTES % (AUTO) 14.2 % (3-13); RED BLOOD COUNT 3.39 10^6/uL (3.72-5.28); RED CELL DISTRIBUTION WIDTH 23.5 % (11.5-14.0); SEGMENTED NEUTROPHILS % (AUTO) 70.4 % (42-78); TOTAL CELLS COUNTED % (AUTO) 100 %; WHITE BLOOD COUNT 5.4 10^3/uL (4.0-10.5)
[2018-05-14 22:05] LABS: PLATELET COUNT 84 10^3/uL (150-450)
[2018-05-14] MEDS: ATORVASTATIN CALCIUM 20 MG TABLET PO SCH (23:00)
[2018-05-14] MEDS: ALPRAZOLAM 0.5 MG TABLET PO PRN (23:02)
[2018-05-15] MEDS: VANCOMYCIN HCL 1,000 MG in DEXTROSE 5%-WATER 250 ML IV SCH ×2 (00:34→12:16)
[2018-05-15] MEDS: CLINDAMYCIN 600 MG/D5W RTU 600 MG/50 ML RTUPB IV SCH ×2 (02:34→10:21)
[2018-05-15] MEDS: LEVOTHYROXINE SODIUM 0.075 MG TABLET PO SCH (05:20)
[2018-05-15] MEDS: OXYCODONE-ACETAMINOPHEN 5-325 MG TABLET PO PRN (08:00)
[2018-05-15] MEDS: SPIRONOLACTONE 25 MG TABLET PO SCH (10:20)
[2018-05-15] MEDS: DILTIAZEM HCL 180 MG CAPSULE.CR PO SCH (10:20)
[2018-05-15] MEDS: DOCUSATE SODIUM 100 MG CAPSULE PO SCH (10:20)
[2018-05-15] MEDS: ASPIRIN 325 MG TABLET PO SCH (10:20)
[2018-05-15] MEDS: FAMOTIDINE 20 MG TABLET PO SCH (10:20)
[2018-05-15] MEDS: METOCLOPRAMIDE HCL 10 MG TABLET PO SCH (10:20)
[2018-05-15] MEDS: GUAIFENESIN 600 MG TABLET.SA PO SCH (10:20)
[2018-05-15] MEDS: LISINOPRIL 10 MG TABLET PO SCH (10:20)
[2018-05-15] MEDS: POTASSIUM CHLORIDE 10 MEQ CAPSULE.ER PO SCH (10:21)
[2018-05-15] MEDS: TORSEMIDE 20 MG TABLET PO SCH (10:21)
--- NOTE | 2018-05-15 12:06 | RADIOLOGY REPORT (SQ) ---
EXAM DESCRIPTION: CHEST 2 VIEWS COMPLETED DATE/TIME: 05/15/2018 11:36 am REASON FOR STUDY: pleural effusion COMPARISON: 05/14/2018 NUMBER OF VIEWS: Two view TECHNIQUE: Frontal and lateral radiographic images of the chest acquired. LIMITATIONS: None. FINDINGS: LUNGS AND PLEURA: Small bilateral pleural effusions with interval slight increase in aerat ion in the posterior left costophrenic angle. No pneumothorax. MEDIASTINUM AND HILAR STRUCTURES: Stable heart size and mediastinal structures. HEART AND VASCULAR STRUCTURES: Stable appearance. SUPPORT DEVICES: Appropriate location without change. BONES: No acute findings. OTHER: No other significant finding. IMPRESSION: Slight improvement. No pneumothorax. TECHNICAL DOCUMENTATION: JOB ID: [id number] [employer]- All Rights Reserved Reading location - IP/workstation name: [email or web address]
[2018-05-15 13:44] LABS: VANCOMYCIN,TROUGH 18.6 ug/mL (5.0-20.0)
--- NOTE | 2018-05-15 13:57 | PDOC DISCHARGE SUMMARY ---
General - Admit/Disc Date/PCP Admission Date/Primary Care Provider: 05/09/18 16:38 PATSY FAY MD Discharge Date: 05/15/18 - Discharge Diagnosis (1) Recurrent right pleural effusion Is this a current diagnosis for this admission?: Yes Summary: 05/09/2018-plan is to put the patient in hospital as an inpatient. He is going to be admitted to [facility]. Consultation with the surgical team was requested. Consultation with cardiology was requested. Consult for oncology was requested. Patient is going to be placed on oxygen 2 L nasal cannula. Started on Percocet 10/25 mg every 6 hours as needed for pain. CT scan indicates there is possible bilateral consolidation bibasilar consolidation. blood cultures sputum cultures are requested started on Rocephin 1 g IV daily. I am going to add azithromycin to the medication. Follow-up chest x-ray was requested. Etiologies could put chest tube and let it drain tonight. Patient has history of non-Hodgkin's lymphoma in remission for the last 11 years very low suspicious for malignancy. The pleural effusion which is recurrent probably secondary to underlying congestive heart failure. 05/10/2018-status post chest tube placement yesterday. So far 2.2 L of pleural fluid is drained out which was blood stained. Patient is feeling much better. Oncology consultation with Dr. Gramajo was done. Plan is to repeat the chest x-r ay today. In the meantime we will continue the present management. 10 Percocet 10/325 mg p.o. every 6 hours as needed for pain. 05/11/2018-chest tube was placed 2 days ago yesterday morning noticed to have 2.3 L of fluid in the drainage container and nurses told me there is a 101 L of pleural fluid was removed last night. Follow-up chest x-ray was done today. This pleural effusions bilateral probably secondary to congestive heart failure. I discussed the plan with Dr. Roger he recommended to stop Lasix and start on Demadex 40 mg p.o. daily. Patient was started on spironolactone twice a day. Spoke to Dr. Gramajo she said he is okay to remove the chest tube. 05/12/2018-patient has a history of recurrent pleural effusions, she has history of atrial fibrillation with congestive heart failure and non-Hodgkin's lymphoma diagnosed with lymphoma is in remission for the last 11 years. Recurrent right pleural effusions probably secondary to congestive heart failure. Chest tube was in place since the admission. It drained 200 cc last night. We are going to request pulmonary consult with Dr. Spencer to get his recommendations. As per Dr. Roger's recommendations patient was started on Demadex and spironolactone. 05/13/2018-patient has history of recurrent pleural effusions. She is also has history of atrial fibrillation with congestive heart failure. Patient has history of non-Hodgkin's lymphoma in remission for the last 11 years. Admitted with large right pleural effusion status post chest tube placement. Last night the drainage is only 25 cc. Plan is if the drain is less than 100 cc in the 24 hours then we need to clamp the tube for another 24 hours and a follow-up chest x-rays to make sure the fluid is not in the collecting. I discussed the plan with the patient and the family they agreed with it. 05/14/2018-patient has history of lymphoma which is remission also has a congestive heart failure admitted for shortness of breath found to have a large right pleural effusion and bilateral pneumonia. Status post chest tube placement. Initially drainage was more than 2 L in one day.. Now from last night no drainage at all. After the chest x-ray done today we going to clap the chest tube and to do the follow-up chest x-ray tomorrow as per Dr. Spencer's recommendations. 05/15/2018-patient is admitted with recurrent right pleural effusion status post chest tube placement total of close to 2400 mL of fluid was drained out for the last 24 hours nothing came out tube was clamped yesterday follow-up the chest x- ray done today shows small bilateral pleural effusions. Patient is expressing desire to go home. Be going to call the surgeons to remove the chest tube today and patient was strongly advised to follow-up with Dr. Spencer her retention representative in 3-5 days. In shortness of breath any chest pains patient was strongly advised to come back to the ER for further management. (2) Atrial fibrillation Is this a current diagnosis for this admission?: Yes Summary: 05/09/2018 patient has history of atrial fibrillation but she is allergic to Eliquis and Pradaxa. Presently she is on only aspirin 324 mg p.o. daily. Plan is to continue the present management. To hold aspirin tonight because of the chest tube placement. 05/10/2018-patient has history of atrial fibrillation not on Eliquis not on Pradaxa because of an allergic history. takes aspirin 325 mg p.o. daily at home which was restarted today. 05/09/2018 patient has history of atrial fibrillation but she is allergic to Mayte gerald and Pradaxa. Presently she is on only aspirin 324 mg p.o. daily. Plan is to continue the present management. To hold aspirin tonight because of the chest tube placement. 05/10/2018-patient has history of atrial fibrillation not on Eliquis not on Pradaxa because of an allergic history. takes aspirin 325 mg p.o. daily at home which was restarted today. 05/11/2018 patient has a history of atrial fibrillation not on anticoagulation except for aspirin 325 mg p.o. daily. Family notified me that she is allergic to Eliquis and Pradaxa. Offered her to start Xarelto but the patient does not want to be on it. 05/12/2018-patient has history of atrial fibrillation allergy to Eliquis and Pradaxa as per the family patient is presently only on aspirin 325 mg p.o. daily cardiology did not recommend any anticoagulation. 05/13/2018 patient has history of atrial fibrillation not on anticoagulation at home. As per the family patient is allergic to Eliquis and and Pradaxa. Presently she is only on aspirin 325 mg p.o. daily. Family and the patient aware of the risks of not being on anticoagulation. 05/14/2018-patient has history of atrial fibrillation. Still in A. fib but rate controlled. Heart rate is 68. Asymptomatic. Dr. Roger is her housecalls nurse. Cardiology consult was done during the hospital stay. 05/15/2018-patient has history of chronic atrial fibrillation. She is not an ticoagulation. Family is giving the history that patient is allergic to Pradaxa and Eliquis. The preferred to patient to be on aspirin only. (3) COPD (chronic obstructive pulmonary disease) Is this a current diagnosis for this admission?: Yes Summary: 05/09/2018-patient has history of COPD secondary to chronic smoking history of smoking for more than 50 years she smokes more than 1-1/2 pack/day. She uses oxygen 2 L nasal cannula at home along with trilogy. 05/10/2018-and has history of COPD secondary to chronic smoking. She still smokes more than 1 pack/day. Started on nicotine patch. Uses 2 L oxygen at home. Which was restarted while she was in the hospital. She is getting the nebulizer treatments also. 05/09/2018-patient has history of COPD secondary to chronic smoking history of smoking for more than 50 years she smokes more than 1-1/2 pack/day. She uses oxygen 2 L nasal cannula at home along with trilogy. 05/10/2018-and has history of COPD secondary to chronic smoking. She still smokes more than 1 pack/day. Started on nicotine patch. Uses 2 L oxygen at home. Which was restarted while she was in the hospital. She is getting the nebulizer treatments also. 05/11/2018-patient history of chronic smoking secondary to COPD. She still smokes 1 to 1.5 packs/day. Smoking counseling was provided. She was on nicotine patch during this hospital stay. 05/12/2018-patient has history of COPD secondary to chronic smoking patient still smokes. She smokes more than 1 pack/day as per the family. Smoking counseling was provided for more than 10 minutes. Patient is presently on nicotine patch. 05/13/2018 patient has history of COPD secondary to chronic smoking. She is a nicotine patch during the hospital stay. Patient is on ipratropium nebulizations. Pulse ox is 100% on 3 L. She is 2 L oxygen and trilogy at home. 05/14/2018-patient has history of COPD secondary to smoking. She smokes more than a pack per day. She is on oxygen at home 2 L. Presently her pulse ox is 100% on 2 L. She is on ipratropium nebulizations and she uses trilogy at home. Plan is to continue the present management. She is also on nicotine patch. 05/15/2018-patient has history of COPD secondary to smoking. She is continued to smoke. She is on 2 L oxygen via nasal cannula at home. Patient is going home today and patient was advised to continue to use the home oxygen at home. (4) Anemia Is this a current diagnosis for this admission?: Yes Summary: 05/09/2018-patient's hemoglobin is 9.1. Patient's hemoglobin in the last 2 months fluctuating from 6.8 to 7.7. Patient has anemia of chronic disease probably secondary to history of non-Hodgkin's lymphoma. 05/10/2018-patient has history of anemia of chronic disease hemoglobin is 8.1. Baseline hemoglobin is between 6.8-7.7. Anemia of chronic disease probably secondary to non-Hodgkin's lymphoma. 05/11/2018 patient has history of anemia of chronic disease hemoglobin today is 8.1 which was stable. And is to check the CBC on daily basis. 05/12/2018-patient has history of anemia of chronic disease. Probably secondary to history of non-Hodgkin's lymphoma. Hemoglobin is 7.8. Dr. Gramajo is planning to give IV iron infusion at her office as an outpatient. Meantime will continue the present management. Patient is asymptomatic. 05/13/2018-patient has history of anemia of chronic disease latest hemoglobin is 7.8 plan is to recheck the CBC tomorrow if it is still low then planning to give 1 unit of PRBC. 05/14/2018-patient has history of anemia of chronic disease. Hemoglobin today is 7.4. We are going to do the type and crossmatch and transfuse 1 unit. It is asymptomatic. Anemia probably secondary to comorbidities she has. 05/15/2018-patient has history of anemia of chronic disease hemoglobin was 7.8 yesterday she was given 1 unit of blood transfusion and it came up to 8.2. Dr. Gramajo is planning to give IV iron in her office as an outpatient. (5) Non-Hodgkin lymphoma in remission Is this a current diagnosis for this admission?: Yes Summary: 05/09/2018-patient has history of non-Hodgkin's lymphoma she is in remission for the last 11 years according to the family. She follows with Dr. Fay/Dr. Gramajo. Consult was placed for Dr. Gramajo. 05/10/2018-has history of non-Hodgkin's lymphoma she is in remission for the last 11 years. She follows with Dr. Gramajo/Dr. Fay as an outpatient. Plan is to continue the present management.05/09/2018-patient has history of non-Hodgkin's lymphoma she is in remission for the last 11 years according to the family. She follows with Dr. Fay/Dr. Gramajo. Consult was placed for Dr. Gramajo. 05/10/2018-has history of non-Hodgkin's lymphoma she is in remission for the last 11 years. She follows with Dr. Gramajo/Dr. Fay as an outpatient. Plan is to continue the present management. 05/11/2018 patient has history of non-Hodgkin's lymphoma as per the family patient is in remission for the last 11 years. She is follows with Dr. Gramajo as an outpatient for this problem. 05/12/2018-patient has history of non-Hodgkin's lymphoma in remission for for the last [address] scans did not indicates any recurrence. Dr. Gramajo is on board. 05/13/2018 patient has history of non-Hodgkin's lymphoma on remission ,oncology is following the patient. 05/14/2018 patient has history of non-Hodgkin's lymphoma in remission for the last 11 years. She follows with oncology team Dr. Fay/Dr. Pelletier. 05/15/2018-patient has history of non-Hodgkin's lymphoma in remission for the last [address] Gramajo following the patient while she was in the hospital. No evidence of any recurrence noticed. (6) Smoker Is this a current diagnosis for this admission?: Yes Summary: 05/09/2018-patient has history of chronic smoking smokes 1 and a pack per day smoking for more than 50 years. Smoking counseling was provided for more than 10 minutes strongly advised to quit smoking. She was placed on nicotine patch. 05/10/2018 patient is a chronic smoker. She was placed on nicotine patch 21 mg daily. 05/11/2018-patient is a chronic smoker smoking counseling was provided again today., Patient is presently on nicotine patch. 05/14/2018 patient is a chronic smoker smokes 1 more than 1 pack/day. Nicotine patch here. Patient is going to be discharged on nicotine patch when she is ready. Smoking counseling was again provided for more than 10 minutes. 05/15/2018-patient is a chronic smoker smokes more than a pack per day nicotine patch was placed to the while she was in the hospital she does want to have a nicotine patch prescription. Smoking counseling was again provided. (7) CHF (congestive heart failure) Is this a current diagnosis for this admission?: Yes Summary: 05/09/2018-patient and family is giving the history of chronic congestive heart failure. Pleural effusion may be secondary to CHF. Echocardiogram was requested consultation with the housecalls nurse Dr. Roger was requested. Plan to check the BNP tomorrow. His Lasix 40 mg daily at home which was resumed. 05/10/2018-patient has history of chronic congestive heart failure. Recurrent pleural effusions probably secondary to underlying CHF. BNP was 3440. Patient's housecalls nurse is Dr. Roger. Waiting for the echocardiogram report. Plan is to continue Lasix 40mg tid . 05/11/2018 patient has history of chronic congestive heart failure. BNP is 3400. Dr. Roger is patient's housecalls nurse. He recommended to start on Demadex 40 mg p.o. daily and discontinue Lasix 40 mg 3 times daily. I am going to follow his recommendations. Patient has chronic diastolic heart failure. 05/12/2018-patient has history of chronic congestive heart failure which is a diastolic heart failure. BNP came down to 2070. Patient is present on Demadex 40 mg p.o. daily, spironolactone 12.5 mg p.o. twice daily. Plan is to continue the present management. 05/13/2018 patient history of congestive heart failure with chronic diastolic heart failure. BNP is 2070. Presently on Demadex 40 mg p.o. daily and spironolactone 12.5 mg twice daily. Plan is to recheck the BNP tomorrow. On admission BNP is 3400. 05/14/2018 patient has history of congestive heart failure as per Dr. Roger she has chronic diastolic heart failure. She is on Demadex 40 mg p.o. daily and spironolactone 12.5 mg p.o. daily. Patient's BNP came down to 1660. No evidence of any fluid overload. 05/15/2018-she has history of congestive heart failure. Echocardiogram was done found to have a chronic diastolic heart failure. As per Dr. Roger's recommendations she is on Demadex 40 mg p.o. daily and spironolactone 12.5 mg p.o. daily. Patient was advised to continue these medications prescriptions were written and patient was also advised to not to use the Lasix anymore. (8) Pneumonia Is this a current diagnosis for this admission?: Yes - Additional Information Resuscitation Status: Full Code Discharge Activity: Activity As Tolerated, Balance Activity w/Rest, Weigh Daily Prescriptions: Spironolactone [Aldactone 25 mg Tablet] 25 mg PO Q12 #60 tablet Torsemide [Demadex 20 mg Tablet] 40 mg PO DAILY #30 tablet Home Medications: Alprazolam [Xanax] 1 mg PO Q8 05/09/18 Atorvastatin Calcium [Lipitor 20 mg Tablet] 20 mg PO QHS 05/09/18 Diltiazem HCl [Cartia Xt] 180 mg PO DAILY 05/09/18 Esomeprazole Magnesium 40 mg PO BID 05/09/18 Insulin Aspart Protam & Aspart [Novolog Mix 70-30 Vial] 0 units SQ .SLIDING SCALE 05/09/18 Levothyroxine Sodium [Synthroid] 200 mcg PO Q6AM 05/09/18 Metoclopramide HCl [Reglan 10 mg Tablet] 10 mg PO BID 05/09/18 Potassium Chloride [K-Tab ER] 40 meq PO DAILY 05/09/18 Alprazolam [Xanax 0.5 mg Tablet] 1 mg PO Q8HP PRN tablet 05/15/18 Atorvastatin Calcium [Lipitor 20 mg Tablet] 20 mg PO QHS tablet 05/15/18 Diltiazem HCl [Cardizem Cd 180 mg Capsule] 180 mg PO DAILY capsule.cr 05/15/18 Gabapentin [Neurontin 300 mg Capsule] 300 mg PO Q8HP PRN capsule 05/15/18 Levothyroxine Sodium [Synthroid 0.075 mg Tablet] 0.075 mg PO Q6AM tablet 05/15/18 Spironolactone [Aldactone 25 mg Tablet] 25 mg PO Q12 #60 tablet 05/15/18 Torsemide [Demadex 20 mg Tablet] 40 mg PO DAILY #30 tablet 05/15/18 History of Present Illness History of Present Illness: SITA MANRIQUE is a 72 year old female with history of non-Hodgkin's lymphoma in remission for the last 11 years, history of for recurrent pleural effusion, history of thoracentesis last year followed by a pneumothorax, hypertension, diabetes mellitus, anxiety disorder, hypothyroidism, hypercholesterolemia, previous history of 2 strokes with no residual effects,hypothyroidism,chf came to the emergency room with complaints of shortness of breath. She was seen by the oncology team last week in the office referred her for a CT chest today in the hospital the radiologist showed large right pleural effusion, small left pleural effusion so patient was referred to emergency room for possible admission and a chest tube placement. Patient is given the history of increasing shortness of breath for the last 2 weeks, Associated with coughing up whitish yellow mucus but not associated with fever not associated nausea or vomitings or diarrhea ,complains of nonspecific left-sided chest pains on deep breaths. Patient has history of COPD uses 2 L oxygen at home. No other comp laints. The workup was done the by ER physician medical consult was called for admission. Physical Exam Vital Signs: Temp Pulse Resp BP Pulse Ox 98.1 F 76 16 133/50 H 100 05/15/18 13:02 05/15/18 13:02 05/15/18 13:02 05/15/18 13:02 05/15/18 13:02 Intake & Output 05/14/18 05/15/18 05/16/18 06:59 06:59 06:59 Intake Total 1524 1662 1030 Output Total 2500 3725 450 Balance -976 -0423 580 Weight 76.9 kg 75.6 kg General appearance: PRESENT: no acute distress Head exam: PRESENT: atraumatic Eye exam: PRESENT: PERRLA Mouth exam: PRESENT: dry mucosa Neck exam: ABSENT: carotid bruit, JVD, lymphadenopathy, thyromegaly Respiratory exam: PRESENT: decreased breath sounds, other - Right-sided chest tube stated in place GI/Abdominal exam: PRESENT: normal bowel sounds, soft. ABSENT: distended, guarding, mass, organolmegaly, rebound, tenderness Neurological exam: PRESENT: alert, awake, oriented to person, oriented to place, oriented to time, oriented to situation, CN II-XII grossly intact. ABSENT: motor sensory deficit Psychiatric exam: PRESENT: appropriate affect, normal mood. ABSENT: homicidal ideation, suicidal ideation Results Laboratory Results: 05/14/18 21:35 05/15/18 13:00 05/14/18 05/14/18 05/15/18 10:46 21:35 13:00 WBC 5.4 RBC 3.39 L Hgb 8.2 L Hct 25.2 L MCV 74 L MCH 24.2 L MCHC 32.5 RDW 23.5 H Plt Count 84 L Seg Neutrophils % 70.4 Lymphocytes % 11.5 L Monocytes % 14.2 H Eosinophils % 3.0 Basophils % 0.9 Absolute Neutrophils 3.8 Absolute Lymphocytes 0.6 Absolute Monocytes 0.8 Absolute Eosinophils 0.2 Absolute Basophils 0.1 Creatinine 0.81 Est GFR ( Amer) > 60 Est GFR (Non-Af Amer) > 60 Blood Type O NEGATIVE Antibody Screen NEGATIVE 05/09/18 19:55 Blood Blood Culture - Final NO GROWTH IN 5 DAYS 05/09/18 19:20 Blood Blood Culture - Final NO GROWTH IN 5 DAYS 05/10/18 05/12/18 05/14/18 05:13 04:38 05:07 NT-Pro-B Natriuret Pep 3440 H 2070 H 1660 H Impressions: Thoracentesis Ultrasound 05/09/18 16:05 IMPRESSION: SUCCESSFUL PLACEMENT OF A 12 BRUNEIAN RIGHT SIDED CHEST TUBE USING ULTRASOUND GUIDANCE. Chest X-Ray 05/15/18 09:00 IMPRESSION: Slight improvement. No pneumothorax. Qualifiers - * PATIENT BEING DISCHARGED WITH ANY OF THE FOLLOWING DIAGNOSIS: No VTE patient discharged on overlapping Therapy?: No
--- NOTE | 2018-05-15 16:30 | RADIOLOGY REPORT (SQ) ---
EXAM DESCRIPTION: CHEST SINGLE VIEW COMPLETED DATE/TIME: 05/15/2018 4:13 pm REASON FOR STUDY: chest tube removal COMPARISON: 05/15/2018 at 0140 hours. EXAM PARAMETERS: NUMBER OF VIEWS: One view. TECHNIQUE: Single frontal radiographic view of the chest acquired. RADIATION DOSE: NA LIMITATIONS: None. FINDINGS: LUNGS AND PLEURA: No pneumothorax. Right basilar density with small pleural effusion unch anged. Left pleural effusion unchanged. MEDIASTINUM AND HILAR STRUCTURES: No masses. Contour normal. HEART AND VASCULAR STRUCTURES: Heart normal in size. Normal vasculature. BONES: No acute findings. HARDWARE: Interval chest tube removal. OTHER: No other significant finding. IMPRESSION: NO PNEUMOTHORAX FOLLOWING CHEST TUBE REMOVAL. NO CHANGE IN APPEARANCE OF THE CHEST. TECHNICAL DOCUMENTATION: JOB ID: [id number] [employer]- All Rights Reserved Reading location - IP/workstation name: [email or web address]
[2018-05-15 16:32] VITALS: BP 141/55
[2018-05-15] MEDS ORDERED: CLINDAMYCIN HCL 150 MG CAPSULE PO SCH (22:00)
[2018-05-15] MEDS ORDERED: SULFAMETHOXAZOLE/TRIMETHOPRIM 800-160 MG TABLET PO SCH (22:00)
== END 2018-05-15 17:00 | disposition home or self-care (01) | DRG 291 ==
LOC: ER 13:58 → EH 16:38 → 3W 19:27
PROVIDERS: ADMIT Internal Medicine; ATTEND Internal Medicine
PROC: 0W9930Z Drainage of Right Pleural Cavity with Drainage Device, Percutaneous Approach (ICD-10-PCS; 2018-05-09)
PROC: 30233N1 Transfusion of Nonautologous Red Blood Cells into Peripheral Vein, Percutaneous Approach (ICD-10-PCS; principal; 2018-05-14)
DX: I50.33 Acute on chronic diastolic (congestive) heart failure (principal); J15.212 Pneumonia due to Methicillin resistant Staphylococcus aureus; J90 Pleural effusion, not elsewhere classified; C85.90 Non-Hodgkin lymphoma, unspecified, unspecified site; I48.2 Chronic atrial fibrillation; I11.0 Hypertensive heart disease with heart failure; J44.9 Chronic obstructive pulmonary disease, unspecified; D50.9 Iron deficiency anemia, unspecified; E11.9 Type 2 diabetes mellitus without complications; E03.9 Hypothyroidism, unspecified; K21.9 Gastro-esophageal reflux disease without esophagitis; E78.00 Pure hypercholesterolemia, unspecified; E78.5 Hyperlipidemia, unspecified; M19.90 Unspecified osteoarthritis, unspecified site; F41.9 Anxiety disorder, unspecified; I25.10 Atherosclerotic heart disease of native coronary artery without angina pectoris; Z79.899 Other long term (current) drug therapy; Z86.73 Personal history of transient ischemic attack (TIA), and cerebral infarction without residual deficits; F17.200 Nicotine dependence, unspecified, uncomplicated; I25.2 Old myocardial infarction; Z90.49 Acquired absence of other specified parts of digestive tract; Z90.710 Acquired absence of both cervix and uterus; Z88.8 Allergy status to other drugs, medicaments and biological substances
CPT/HCPCS: 32557; 36415; 36430; 71045; 71046; 71260; 74177; 80053; 80061; 80202; 81001; 82565; 82962; 83036; 83735; 83880; 84443; 85025; 85610; 86850; 86900; 86901; 86920; 87040; 87070; 87077; 87186; 87205; 88112; 88305; 93005; 93010; 93306; 94640; 96374; 99285; C1769; J0456; J0696; J1439; J1815; J1940; J3370; J3490; J7050; J7060; J7620; P9016

== ENCOUNTER → 2018-05-09 | Outpatient (CLI) | payer MEDICARE, MEDICAID ==
--- NOTE | 2018-05-09 14:09 | RADIOLOGY REPORT (SQ) ---
EXAM DESCRIPTION: CT CHEST WITH COMPLETED DATE/TIME: 05/09/2018 1:38 pm REASON FOR STUDY: C85.90 NON-HODGKIN LYMPHOMA, UNSPECIFIED, UNSPECIFIED SITE C85.90 NON-HODGKIN LYM PHOMA, UNSPECIFIED, UNSPECIFIED SITE COMPARISON: 11/28/2016 TECHNIQUE: CT scan of the chest performed using helical scanning technique with dynamic intravenous contrast injection. Images reviewed with lung, soft tissue and bone windows. Reconstructed coronal and sagittal MPR and MIP images reviewed. All images stored on PACS. All CT scanners at this facility use dose modulation, iterative reconstruction, and/or weight based d osing when appropriate to reduce radiation dose to as low as reasonably achievable (ALARA). [facility]: Dose Right [facility]: CareDose [facility]: Dose Right [facility]: Teradose 4D [facility]: Imagry CONTRAST TYPE AND DOSE: BUN 19 Omnipaque 350 RENAL FUNCTION: BUN 19, creatinine 0.88 RADIATION DOSE: . LIMITATIONS: None. FINDINGS: LUNGS AND PLEURA: There is a large right and small left pleural effusion. There is associ ated consolidation within the bilateral lower lungs, right greater than left, likely atelectasis. Gr ossly stable appearance of the irregular area of consolidation within the right upper lobe, possibly scarring although underlying lesion is not entirely excluded. Mild interlobular septal thickening bi laterally with minimal patchy areas of ground-glass attenuation. No pneumothorax. HILAR AND MEDIASTINAL STRUCTURES: No discrete mediastinal, hilar or axillary adenopathy. HEART AND VASCULAR STRUCTURES: Scattered three-vessel coronary atherosclerosis. Normal heart size. No significant pericardial effusion. HARDWARE: None in the chest. UPPER ABDOMEN: See separate report of the CT of the abdomen. THYROID AND OTHER SOFT TISSUES: No masses. No adenopathy. BONES: No acute bony abnormality. No discrete osseous lesions. OTHER: No other significant finding. IMPRESSION: 1. Large right and small left pleural effusion with associated basilar consolidation, l ikely atelectasis. 2. Interlobular septal thickening with mild scattered areas of ground-glass attenuation, possibly mi ld pulmonary edema. Case discussed with Dr. Pelletier and Dr. Munoz with plan to send pt to ED for further workup and possibl e chest tube placement TECHNICAL DOCUMENTATION: JOB ID: [id number] Quality ID # [id number]: Final reports with documentation of one or more dose reduction techniques (e.g., Au tomated exposure control, adjustment of the mA and/or kV according to patient size, use of iterative reconstruction technique) 2010 [employer]- All Rights Reserved Reading location - IP/workstation name: [email or web address]
--- NOTE | 2018-05-09 14:36 | RADIOLOGY REPORT (SQ) ---
EXAM DESCRIPTION: CT ABD/PELVIS WITH IV ONLY COMPLETED DATE/TIME: 05/09/2018 1:38 pm REASON FOR STUDY: C85.90 NON-HODGKIN LYMPHOMA, UNSPECIFIED, UNSPECIFIED SITE C85.90 NON-HODGKIN LYM PHOMA, UNSPECIFIED, UNSPECIFIED SITE COMPARISON: 11/24/2017 TECHNIQUE: CT scan of the abdomen and pelvis performed using helical scanning technique with dynamic intravenous contrast injection. No oral contrast. Images reviewed with lung, soft tissue, and bone windows. Reconstructed coronal and sagittal MPR images reviewed. Delayed images for evaluation of the urinary system also acquired. All images stored on PACS. All CT scanners at this facility use dose modulation, iterative reconstruction, and/or weight based d osing when appropriate to reduce radiation dose to as low as reasonably achievable (ALARA). [facility]: Dose Right [facility]: CareDose [facility]: Dose Right [facility]: Teradose 4D [facility]: XtremIO CONTRAST TYPE AND DOSE: contrast/concentration: Isovue 350.00 mg/ml; Total Contrast Delivered: 91.0 ml; Total Saline Delivered: 29.0 ml 91 cc Omnipaque 350 RENAL FUNCTION: BUN 19, creatinine 0.88 RADIATION DOSE: CT Rad equipment meets quality standard of care and radiation dose reduction techniq ues were employed. CTDIvol: 6.6 - 10.7 mGy. DLP: 1345 mGy-cm.. LIMITATIONS: None. FINDINGS: LOWER CHEST: See separate report of the CT of the chest. LIVER: Nodular hepatic contour. Linear low attenuation lesion within the right hepatic lobe, likely cyst. No intrahepatic ductal dilation. SPLEEN: Normal size. No focal lesions. PANCREAS: No masses. No significant calcifications. No adjacent inflammation or peripancreatic fluid collections. Pancreatic duct not dilated. GALLBLADDER: Decompressed. ADRENAL GLANDS: No significant masses or asymmetry. RIGHT KIDNEY AND URETER: No discrete solid masses. 2 exophytic right renal cysts, largest measuring 2.5 cm. No significant calcifications. No hydronephrosis or hydroureter. LEFT KIDNEY AND URETER: No discrete solid masses. 1.7 cm exophytic cyst. No significant calcificat ions. No hydronephrosis or hydroureter. AORTA AND VESSELS: Scattered aortoiliac atherosclerosis. No aneurysm. Patent celiac, SMA, bilateral renals and ENEIDA appear RETROPERITONEUM: Few enlarged left pelvic chain nodes, largest measuring 15 mm in short axis (series 3, image 79). Indeterminate soft tissue nodule along the right mid ureter measuring 1.5 by 0.8 cm, po ssibly lymph node BOWEL AND PERITONEAL CAVITY: No evidence of intestinal obstruction. No focal bowel wall thickening. Small volume ascites. No free intraperitoneal gas. APPENDIX: Not visualized PELVIS: Small volume pelvic free fluid. Unremarkable urinary bladder. No discrete adnexal masses. ABDOMINAL WALL: No masses. No hernias. BONES: No acute bony abnormality. No discrete osseous lesions. OTHER: No other significant finding. IMPRESSION: 1. Nodular hepatic contour suggestive of intrinsic liver disease. 2. Few nonspecific enlarged lymph nodes most conspicuous within the left pelvic chain, largest measu ring 15 mm in short axis. 3. Small volume ascites. TECHNICAL DOCUMENTATION: JOB ID: [id number] Quality ID # [id number]: Final reports with documentation of one or more dose reduction techniques (e.g., Au tomated exposure control, adjustment of the mA and/or kV according to patient size, use of iterative reconstruction technique) 2010 [employer]- All Rights Reserved Reading location - IP/workstation name: [email or web address]
== END ==
LOC: RAD 16:18
PROVIDERS: ATTEND Internal Medicine
DX: C85.90 Non-Hodgkin lymphoma, unspecified, unspecified site (principal); J90 Pleural effusion, not elsewhere classified
CPT/HCPCS: 71260; 74177

== ENCOUNTER → 2018-07-14 | Outpatient (CLI) | payer MEDICARE, MEDICAID ==
--- NOTE | 2018-07-14 14:13 | WOMENS IMAGING REPORT ---
EXAM DESCRIPTION: BILAT SCREENING MAMMO W/CAD COMPLETED DATE/TIME: 07/14/2018 1:24 pm REASON FOR STUDY: Z12.31 ENCOUNTER FOR SCREENING MAMMOGRAM FOR MALIGNANT NEOPLASM OF BREAST Z12.31 ENCNTR SCREEN MAMMOGRAM FOR MALIGNANT NEOPLASM OF EMILY COMPARISON: None. TECHNIQUE: Standard craniocaudal and mediolateral oblique views of each breast recorded using digita l acquisition. LIMITATIONS: None. FINDINGS: No masses, calcifications or architectural distortion. No areas of suspicion. Read with the assistance of CAD. .[facility] - R2 [employer] Version 1.3 .[facility] Imaging - R2 Cenova Version 2.1 .[facility] Imaging - R2 Cenova Version 2.4 .[facility] - R2 Cenova Version 2.4 .[facility] - R2 [employer] Version 9.2 IMPRESSION: NORMAL MAMMOGRAM. BIRADS 1. BREAST DENSITY: b. There are scattered areas of fibroglandular density. BIRAD: 1 NEGATIVE RECOMMENDATION: ROUTINE SCREENING COMMENT: The patient has been notified of the results by letter per SA requirements. Additional no tification policies are in place for contacting patient with suspicious or incomplete findings. Quality ID #[id number]: The [employer] recommends an annual screening mammogram for women aged 40 years or over. This facility utilizes a reminder system to ensure that all patients receive reminder letters, and/or direct phone calls for appointments. This includes reminders for routine scr eening mammograms, diagnostic mammograms, or other Breast Imaging Interventions when appropriate. Th is patient will be placed in the appropriate reminder system. The [employer] (ACR) has developed recommendations for screening MRI of the breast s in certain patient populations, to be used in conjunction with mammography. Breast MRI surveillanc e may be appropriate for women with more than 20% lifetime risk of developing breast cancer as deter mined by genetic testing, significant family history of the disease, or history of mantle radiation f or Hodgkins Disease. ACR Practice Guidelines 2008. TECHNICAL DOCUMENTATION: FINDING NUMBER: (1) ASSESSMENT: (1) JOB ID: [id number]- All Rights Reserved Reading location - IP/workstation name: [email or web address]
== END ==
LOC: WI 12:59
PROVIDERS: ATTEND Family Medicine
DX: Z12.31 Encounter for screening mammogram for malignant neoplasm of breast (principal)
CPT/HCPCS: 77067